=== PATIENT | male | born 1960 | race Caucasian/White ===

== ENCOUNTER 2020-08-10 07:59 | Emergency (ER) | payer OTHER, SELFPAY ==
--- NOTE | 2020-08-10 07:58 | ECG_ITS ---
APPROVED REPORT Exam: Resting ECG HR:101 bpm ECG Measurements Heart Rate 101 AXES HI 176 P 39 QRSd 80 QRS -6 QT 360 T 50 QTc 466 Conclusion Sinus tachycardia Septal infarct, age undetermined Abnormal ECG Electronically signed by : Jasvir Steele, 08/11/2020 09:59:06
[2020-08-10 08:00] VITALS: BP 169/92; PULSE 103; RESP 16; TEMP 37.2; O2SAT 98; BMI 34.4
--- NOTE | 2020-08-10 08:02 | HMH.EDGENADL ---
ED Disposition Clinical Impression: Chest pain Qualifiers: Chest pain type: unspecified Qualified Code(s): R07.9 - Chest pain, unspecified Disposition: Home Health Service Condition on Discharge: Good Instructions: DI for Atypical Chest Pain Additional Instructions: Please follow-up as scheduled next week for stress testing/event monitor. If any new or recurrent symptoms prior to that time please immediately return back to the emergency department. Referrals: PCP,No [Primary Care Provider] - - Critical Care Critical Care Time: No Attestation: On , the high probability of a clinically significant, sudden or life threatening deterioration of the following system(s) required my full and direct attention, intervention and personal management. The time I documented below is in addition to time spent performing reported procedures but includes the following listed in this critical care notation. Medical Decision Making - Medical Records Medical records reviewed: Yes: I reviewed the patient's medical records. - Mark Inquiry Pt receiving controlled substance: No Vital Signs: 08/10/20 08:00 08/10/20 08:48 08/10/20 10:20 Temperature 98.9 F Temperature Source Oral Pulse Rate [Radial] 103 H 63 59 L Respiratory Rate 16 16 18 Blood Pressure [Right Arm] 169/92 H 130/78 113/65 Blood Pressure Mean [Right Arm] 117 95 81 Blood Pressure Position [Right Arm] Sitting 02 Sat by Pulse Oximetry 98 96 95 Oxygen Delivery Method Room Air Room Air Room Air 08/10/20 10:58 Temperature Temperature Source Pulse Rate [Radial] 55 L Respiratory Rate 16 Blood Pressure [Right Arm] 113/71 Blood Pressure Mean [Right Arm] 85 Blood Pressure Position [Right Arm] 02 Sat by Pulse Oximetry 97 Oxygen Delivery Method Room Air - Lab Data Lab Results 08/10/20 08:05: WBC 6.4, RBC 5.03, Hgb 16.0, Hct 45.2, MCV 89.8, MCH 31.8 H, MCHC 35.4, RDW 13.5, Plt Count 215, MPV 7.8, Neut % (Auto) 43.7, Lymph % (Auto) 49.1, Pitt % (Auto) 4.8, Eos % (Auto) 1.8, Baso % (Auto) 0.5, Neut # (Auto) 2.8, Lymph # (Auto) 3.1, Pitt # (Auto) 0.3, Eos # (Auto) 0.1, Baso # (Auto) 0.0 08/10/20 08:05: Sodium 139, Potassium 3.8, Chloride 106, Carbon Dioxide 25, Anion Gap 11.8, BUN 25 H, Creatinine 1.10, Estimated Creat Clear 101, Estimated GFR 68, Est GFR ( Amer) 83, Glucose 113 H, Calcium 9.4, Troponin I < 0.01 08/10/20 08:05: SARS-CoV-2 IgG Ab (Rapid) Negative, SARS-CoV-2 IgM Ab (Rapid) Negative 08/10/20 08:05: Magnesium 2.1, TSH 1.88 08/10/20 08:05: D-Dimer 0.75 H 08/10/20 11:15: Troponin I < 0.01 Result diagrams: 08/10/20 08:05 08/10/20 08:05 Orders (Tests/Meds): ED MEDICATIONS Discontinued Medications Generic Name Dose Route Start Last Admin Trade Name Freq PRN Reason Stop Dose Admin Aspirin 324 mg 08/10/20 08:21 08/10/20 08:24 Aspirin 81mg Chewable Tablet PO 08/10/20 08:22 324 mg ONCE ONE Administration Iopamidol 75 ml 08/10/20 10:41 08/10/20 10:43 Iopamidol-370 (76%);100ml Bottle IV 08/10/20 10:42 75 ml ONCE ONE Administration Sodium Chloride 10 ml 08/10/20 10:41 08/10/20 10:43 Sodium Chloride 0.9% 10ml Syr (Rad Only) IV 08/10/20 10:42 10 ml ONCE ONE Administration Sodium Chloride 50 ml 08/10/20 10:41 08/10/20 10:43 0.9 % Sodium Chloride 50 Ml Vial IV 08/10/20 10:42 50 ml ONCE ONE Administration ORDERS Category Date Time Status Troponin I Q3H Lab 08/10/20 14:15 Ordered - ECG Data Tracing #1 I reviewed this ECG and interpreted as documented below: EKG demonstrates sinus rhythm at a rate of 101 bpm; axis normal; no acute ST elevation/depression; QTC 466 ms; QRS 80 ms; MI interval 176 ms Medical Decision Narrative: Patient presents to the emergency department with complaints of palpitations that lasted several seconds this morning. On arrival, patient does have a sinus rhythm at a normal rate without any abnormal heart sounds. EKG demonstrates no acute ischemic pr
--- NOTE | 2020-08-10 08:06 | XR_ITS ---
PROCEDURE: XR CHEST 2V CLINICAL HISTORY: chest pain Left-sided chest pain COMPARISON: No exams were available for comparison FINDINGS: The cardiomediastinal silhouette and pulmonary vascularity are within normal limits. The lungs are clear without infiltrates, suspicious nodules, or pleural effusions. There is mild lower thoracic scoliosis convex right with degenerative changes in the spine IMPRESSION: No acute findings. Dictated by: Yaron George MD 08/10/2020 08:42 Yaron George MD in [facility] 08/10/2020 08:42
[2020-08-10 08:13] LABS: Basophils % 0.5 % (0.1-2.0); Eosinophils # 0.1 K/mm3 (0.0-0.4); Eosinophils % 1.8 % (0.1-12.0); Hematocrit 45.2 % (42.0-52.0); Lymphocytes # 3.1 K/mm3 (0.7-4.5); Lymphocytes % 49.1 % (10-50); Mean Corpuscular HGB Conc 35.4 g/dL (31.8-35.4); Mean Corpuscular Hemoglobin 31.8 pg (27.0-31.2); Mean Corpuscular Volume 89.8 fl (80-94); Mean Platelet Volume 7.8 fl (7.4-10.4); Monocytes # 0.3 K/mm3 (0.1-1.0); Monocytes % 4.8 % (1.7-9.3); Neutrophils # 2.8 K/mm3 (1.8-7.8); Neutrophils % 43.7 % (37.0-80.0); Platelet Count 215 K/mm3 (142-424); Red Blood Count 5.03 M/mm3 (4.60-6.20); Red Cell Distribution Width 13.5 % (11.5-17.5); White Blood Count 6.4 K/mm3 (4.8-10.8)
[2020-08-10 08:19] LABS: Anion Gap 11.8 mEq/L (5-15); Blood Urea Nitrogen 25 mg/dl (9-20); Calcium 9.4 mg/dl (8.4-10.2); Carbon Dioxide 25 mmol/L (22.0-30.0); Chloride 106 mmol/L (98-107); Creatinine Clearance Estimated 101 mL/min (50-200); Estimated Glomerular Filt Rate 68 ml/min (>60); GFR (African American) 83 ML/MIN (>60); Glucose 113 mg/dl (74-100); Potassium 3.8 mmoL/L (3.5-5.1); Sodium 139 mmol/L (136-145)
[2020-08-10 08:31] LABS: Troponin I < 0.01 ng/ml (0.00-0.034)
[2020-08-10 08:48] VITALS: BP 130/78; PULSE 63; RESP 16; O2SAT 96
[2020-08-10 09:05] LABS: Coronavirus 19 IgG Antibody Negative (Negative); Coronavirus 19 IgM Antibody Negative (Negative)
[2020-08-10 09:06] LABS: Magnesium 2.1 mg/dl (1.6-2.3)
[2020-08-10 09:36] LABS: Thyroid Stimulating Hormone 1.88 uIU/mL (0.465-4.68)
[2020-08-10 09:42] LABS: D-Dimer 0.75 ug/mL (0.0-0.5)
--- NOTE | 2020-08-10 10:09 | CT_ITS ---
PROCEDURE: CT ANGIO CHEST CLINCIAL INDICATION: palpitations + positive d dimer COMPARISON: No exams were available for comparison TECHNIQUE: IV Contrast: 70ML Isovue 370 Axial images obtained with sagittal and coronal reformats. All CT scans at the facility use one or more dose reduction, viz: automated exposure control, ma/kV adjustment per patient size (including targeted exams where dose is matched to indication, i.e. head), or iterative reconstruction technique. FINDINGS: HEART AND MEDIASTINAL STRUCTURES: No evidence of pulmonary embolus, aortic aneurysm, or aortic dissection.. Coronary artery calcifications are present LUNGS AND PLEURAL SPACES: There is minimal thickening of the major fissure inferiorly on the left. No lobar consolidation or collapse. Minimal subpleural thickening in the left lower lobe posteriorly Upper abdomen: There are few tiny hypodensities in the left hepatic lobe nonspecific too small to categorize. Small diaphragmatic hernia noted posteriorly on the left medially containing a small amount peritoneal fat. Bony structures: Unremarkable. ADDITIONAL FINDINGS: No other significant abnormalities. IMPRESSION: No acute finding. No evidence of pulmonary embolus Dictated by: Yaron George MD 08/10/2020 11:01 Yaron George MD in [facility] 08/10/2020 11:01
[2020-08-10 10:20] VITALS: BP 113/65; PULSE 59; RESP 18; O2SAT 95
[2020-08-10 10:58] VITALS: BP 113/71; PULSE 55; RESP 16; O2SAT 97
[2020-08-10 11:52] LABS: Troponin I < 0.01 ng/ml (0.00-0.034)
[2020-08-10 12:15] VITALS: BP 110/62; PULSE 68; RESP 16; TEMP 37; O2SAT 98
== END 2020-08-10 12:17 | disposition home health service (06) ==
PROVIDERS: Emergency Provider Emergency Medicine
DX: R07.9 Chest pain, unspecified (principal); Z01.84 Encounter for antibody response examination; Z86.718 Personal history of other venous thrombosis and embolism
CPT/HCPCS: 71046; 71275; 80048; 83735; 84443; 84484; 85025; 85378; 86328; 93005; 99283; Q9967

== ENCOUNTER → 2022-09-10 07:33 | Outpatient (CLI) | payer OTHER, SELFPAY ==
[2022-09-10 07:53] LABS: Basophils # 0.1 K/mm3 (0-0.2); Basophils % 1.3 % (0.1-2.0); Eosinophils # 0.2 K/mm3 (0.0-0.4); Eosinophils % 3.1 % (0.1-12.0); Hematocrit 46.5 % (42.0-52.0); Hemoglobin 15.2 g/dL (14.1-18.0); Lymphocytes # 2.7 K/mm3 (0.7-4.5); Lymphocytes % 46.6 % (10-50); Mean Corpuscular HGB Conc 32.7 g/dL (31.8-35.4); Mean Corpuscular Hemoglobin 31.3 pg (27.0-31.2); Mean Corpuscular Volume 95.6 fl (80-94); Mean Platelet Volume 7.5 fl (7.4-10.4); Monocytes # 0.4 K/mm3 (0.1-1.0); Monocytes % 7.4 % (1.7-9.3); Neutrophils # 2.4 K/mm3 (1.8-7.8); Neutrophils % 41.5 % (37.0-80.0); Platelet Count 192 K/mm3 (142-424); Red Blood Count 4.86 M/mm3 (4.60-6.20); Red Cell Distribution Width 13.6 % (11.5-17.5); White Blood Count 5.8 K/mm3 (4.8-10.8)
[2022-09-10 08:13] LABS: Chloride 110 mmol/L (98-107); Sodium 140 mmol/L (136-145)
[2022-09-10 08:14] LABS: Potassium 4.5 mmoL/L (3.5-5.1)
[2022-09-10 08:16] LABS: Alanine Aminotransferase 35 U/L (12-78); Alkaline Phosphatase 71 U/L (38-126); Anion Gap 8.5 mEq/L (5-15); Aspartate Amino Transferase 26 U/L (17-59); Bilirubin,Total 0.6 mg/dl (0.2-1.3); Blood Urea Nitrogen 24 mg/dl (9-20); Carbon Dioxide 26 mmol/L (22.0-30.0); Cholesterol 191 mg/dl (140-200); Estimated Glomerular Filt Rate 76 ml/min (>60); GFR (African American) 92 ML/MIN (>60); Triglycerides 105 mg/dl (30-150); VLDL Cholesterol 21 mg/dL (0-40)
[2022-09-10 08:17] LABS: Albumin/Globulin Ratio 1.5 (1.1-1.8); Calcium 8.3 mg/dl (8.4-10.2); Chol/HDL Ratio 3.8 (1-3.5); Globulin 2.6 g/dL (1.3-3.2); Glucose 97 mg/dl (74-100); HDL Cholesterol 50 mg/dl (40-60); Total Protein,Serum 6.6 g/dl (6.3-8.2)
[2022-09-10 08:28] LABS: Direct LDL Cholesterol 131.18 mg/dL (100-129)
[2022-09-10 08:48] LABS: Thyroid Stimulating Hormone 1.72 uIU/mL (0.465-4.68)
[2022-09-10 09:17] LABS: Prostate Specific Ag Screen 0.4 ng/ml (0.0-4.0)
== END ==
PROVIDERS: PCP Nurse Practitioner Family; Visit Provider Nurse Practitioner Family
DX: E78.5 Hyperlipidemia, unspecified (principal); R53.83 Other fatigue; Z12.5 Encounter for screening for malignant neoplasm of prostate
CPT/HCPCS: 36415; 80053; 80061; 84443; 85025; G0103

== ENCOUNTER 2022-11-10 17:30 | Outpatient (RCR) | payer OTHER, SELFPAY ==
--- NOTE | 2022-09-22 10:52 | HMH.PTOPEV ---
PT Outpatient Evaluation Rehab PT Outpatient Evaluation Start: 09/22/22 09:55 Freq: Status: Active Protocol: Document 09/22/22 09:56 SHELBY (Rec: 09/22/22 10:52 SHELBY [id number]) E-signed By Lynnette Ritter, PT Outpatient Therapy Subjective History Subjective History Pt is a 62 y/o male who reports intermittent LBP for ~ 15 years. Pt reports recent exacerbation of pain and new symptoms such as referral to the posterior legs in December- January of 2022. Pt reports pain was referred into the right posterior leg first, then recently started in both legs. Pt reports intermittent sharp , shooting pain to the right calf as well that is brief in nature. Pt denies paresthesia or symptoms in his feet. Pt denies incontinence but reports when he has low back pain he has increased urgency to urinate. 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 Pt reports pain is usually worse after periods of inactivity such as in the morning and after prolonged sitting then walking. Pt reports he sleeps on his stomach at night time. Pt reports he had a lumbar xray at the [facility] in January. Per MD reports, Previous L-spine x- ray reveals moderate to severe degenerative disc disease with moderate facet arthritis in the lumbar spine. Degenerative grade 1 anterior lithiasis of L4 for mild degenerative retrolithiasis of L1 and L2. Mild scoliosis convex to the left. Pt reports he was prescribed Naproxen which he is still taking and a 10 day steroid pack which he finished. Pt reports steroids helped a lot
--- NOTE | 2022-10-23 18:08 | HMH.RHREAS ---
Rehab Reassessment Rehab OP Re-assessment Start: 10/20/22 14:25 Freq: Status: Active Protocol: Document 10/23/22 16:43 ADRAMILA (Rec: 10/23/22 18:08 SHELBY [id number]) E-signed By Lynnette Ritter PT Rehab Re-assessment Subjective Subjective Pt reports he has been very busy at work which is why he hasn't been to PT in 2 weeks. Pt reports he has been compliant with his HEP which does help improve pain. Pt reports he feels 40% improved overall since starting PT. Pt reports pain at worst as 7/10 within the last week likely due to an increased workload. Pt reports some hamstring cramps but otherwise denies distal symptoms. Pt reports he feels like he has better mobility overall but still has pain with twisting while squatting at work. Objective Objective Notes Lumbar AROM: flex 100, ext 20, RLF 25, LLF 20 LE MMT: hip abd & ext 4/5 Assessment Progress Assessment Progressing as Expected Assessment Notes Pt has attended 5 PT visits consisting of aerobic exercise , lumbar extension based HEP, LE stretching, core/LE strengthening, manual therapy and modalities with good tolerance. Pt demonstrated improved lumbar AROM, hip strength and overall subjective report of pain this date compared to initial evaluation. Pt would continue to benefit from skilled PT to further improve pain, lumbar AROM, LE MMT, and functional activity tolerance to improve overall QOL. Patient goals met ST/5 Goals Not Met p! severity at worst, LTG Revised Goals n/a Plan Plan Continue initial POC Frequency of Therapy 1-2/weeks Duration of therapy 4 more weeks Time and Billing Re-Eval Time 10 Re-Eval Billing Units 1
== END 2022-11-10 17:35 | disposition home or self-care (01) ==
LOC: PT 17:30
PROVIDERS: PCP Nurse Practitioner Family; Visit Provider Nurse Practitioner Family
DX: M54.50 Low back pain, unspecified (principal)
CPT/HCPCS: 97010; 97014; 97110; 97112; 97140; 97163; 97164; 97530; G0283

== ENCOUNTER 2023-01-26 18:00 | Emergency (ER) | payer OTHER, SELFPAY ==
[2023-01-26 18:02] VITALS: BP 134/80; PULSE 74; RESP 18; TEMP 36.6; O2SAT 99; BMI 32.6
--- NOTE | 2023-01-26 18:26 | EXP.UTC ---
Discharge Plan Disposition Patient Disposition: Home, Self-Care Condition: Good Prescriptions Prescriptions: No Action valacyclovir 500 mg tablet 500 mg PO DAILY 30 Days Qty: 30 2RF prednisone 20 mg tablet 20 mg PO BID 5 Days Qty: 10 0RF tadalafil [Cialis] 5 mg tablet 5 mg PO DAILY Qty: 30 2RF lisinopril 20 mg tablet 20 mg PO DAILY 90 Days Qty: 90 2RF naproxen 500 mg tablet 500 mg PO BID PRN (Reason: pain) Qty: 60 0RF Rx Instructions: Only use as needed Referrals Follow up/Referrals: Fortino Aponte APRN [Primary Care Provider] - See instructions Gee Barrett MD [Staff Physician] - See instructions Activity Restrictions/Add. Instructions Additional Instructions/Restrictions: Follow-up with Dr. Barrett as recommended. Return to emergency department for worsening pain vomiting or any other concerns within the next 8 hours Clinical Impressions Clinical Impression: Renal colic Discharge ED Provider: Travis Bryson [facility] HPI <Turner [place] APRN - Last Filed: 02/05/23 20:11> General Chief complaint: PAIN Stated complaint: possible kidney stone Mode of Arrival: Ambulatory Source of Information: Patient Limitations: No Limitations Time Seen by Provider: 01/26/23 18:25 Description of Symptoms (Recalled from Triage Doc. by RN): Patient reports a possible kidney stone. States he was diagnosed with his first kidney stone 2 months ago and does not know if he passed it or not. Complaint of frequent urination and pain with urination. HEENT Symptoms (Recalled from RN notes): No Resp Symptoms (Recalled from RN notes): No Skin Symptoms (Recalled from RN notes): No MS Symptoms (Recalled from RN notes): No Functional Status (Recalled from RN notes): wnl Related Data Previous Rx's Medication Instructions Recorded valacyclovir 500 mg tablet 500 mg PO DAILY 30 days #30 tabs 08/29/22 prednisone 20 mg tablet 20 mg PO BID 5 days #10 tabs 11/28/22 tadalafil 5 mg tablet (Cialis) 5 mg PO DAILY #30 tabs 11/28/22 lisinopril 20 mg tablet 20 mg PO DAILY 90 days #90 tabs 01/12/23 naproxen 500 mg tablet 500 mg PO BID PRN pain #60 tabs 01/29/23 Allergies Allergy/AdvReac Type Severity Reaction Status Date / Time No Known Allergies Allergy Verified 11/28/22 14:39 Worker's Comp Is this a Worker's Comp case?: No <Travis Bryson MD - Last Filed: 01/26/23 20:13> History of Present Illness Provider Complaint: 62-year-old male presents with right flank pain for 1 day. He says he was diagnosed with a kidney stone 36 days ago and had pain for a while but it did improve he says he never passed a kidney stone. No worsening hematuria dysuria or fevers. No other radiation of the pain. No nausea vomiting headaches. PFSH <Turner [place] APRN - Last Filed: 02/05/23 20:11> [facility] Disclaimer: The information contained in this section may have been updated after the patient was seen, as this information can be updated by other users. Medical History Back pain Numbness and tingling of both lower extremities Family History (Updated 01/26/23 @ 19:00 by Xochitl Tanner RN) Other No significant family history Social History (Updated 01/26/23 @ 19:00 by Xochitl Tanner RN) Smoking Status: Never smoker alcohol intake: current substance use type: denies use current occupational status: employed and disabled Travel in the last 8 weeks: None household members: spouse housing: house marital status: education level: other service: Yes <Travis Bryson MD - Last Filed: 01/26/23 20:13> ROS Obtained: Yes All systems reviewed & no additional complaints except as documented Constitutional Constitutional: Denies fatigue, Denies fever(s) and Denies headache(s) Eyes Eyes: Denies diplopia ENT Ears, Nose, Mouth, and Throat: Denies headache(s) Cardiovascular Cardiovascular: Denies diaphoresis and Denies dyspnea Respiratory Resp
[2023-01-26 18:30] VITALS: BP 140/83; PULSE 70; RESP 17; TEMP 36.6; O2SAT 97; BMI 32.5
--- NOTE | 2023-01-26 18:33 | CT_ITS ---
PROCEDURE INFORMATION: Exam: CT Abdomen And Pelvis Without Contrast Exam date and time: 01/26/2023 6:41 PM Age: 62 years old Clinical indication: Abdominal pain; Flank; Left; Additional info: Kidney stone protocol TECHNIQUE: Imaging protocol: Computed tomography of the abdomen and pelvis without contrast. Radiation optimization: All CT scans at this facility use at least one of these dose optimization techniques: automated exposure control; mA and/or kV adjustment per patient size (includes targeted exams where dose is matched to clinical indication); or iterative reconstruction. REPORTING DATA: Count of CT and Cardiac NM exams in prior 12 months: This patient has received 0 known CTs and 0 known cardiac nuclear medicine studies in the 12 months prior to the current study. COMPARISON: CT ANGIO CHEST 08/10/2020 10:30 AM FINDINGS: Lungs: The visualized lung bases are clear. Pleural spaces: There are no pleural effusions. Heart: The visualized portions of the heart are unremarkable. There is no evidence of pericardial fluid collections. Diaphragm: There is a small fat containing left posteromedial diaphragmatic hernia measuring approximately 2.5 x 2.0 by 2.2 cm. Liver: There is mild enlargement of the liver. The liver measures 18.2 cm in CC dimension. Evaluation of the liver is limited without contrast but the liver is otherwise within normal limits for this noncontrast study. Gallbladder and bile ducts: The gallbladder is normal. Pancreas: Noncontrast images of the pancreas are within range of normal. Spleen: The spleen is normal. Adrenal glands: The adrenal glands are normal. Kidneys and ureters: There is a distal right ureteral calcification above the ureterovesicular junction measuring 5.2 mm resulting in mild hydroureteronephrosis and [id number] perinephric and periureteric fat stranding. There is mild nonspecific inflammatory left perinephric stranding. Noncontrast images of the left kidney are within range of normal. The left ureter stone disease. Stomach and bowel: The stomach is normal. Lack of gastrointestinal contrast limits evaluation of bowel. Unopacified loops of small bowel are within range of normal. The colon is normal. The duodenum appears normal. Appendix: A normal appendix is identified. Intraperitoneal space: No evidence of intraperitoneal free air. There is no evidence of free intraperitoneal or pelvic fluid. Vasculature: There are a few benign phleboliths in the pelvis. Lymph nodes: No enlarged lymph nodes. Urinary bladder: The bladder is decompressed. There is mild nonspecific bladder wall thickening. Reproductive: The prostate demonstrates nonspecific parenchymal calcifications. The prostate demonstrates mild nonspecific enlargement. The seminal vesicles are normal. Prostate measures 4.0 x 4.6 cm. Bones/joints: The thoracolumbar spine demonstrates mild degenerative changes at multiple levels. There is grade 1 anterior spondylolisthesis of L4 on L5. There is slight retrolisthesis L1 on L2, L2 on L3 and L3 on L4. No acute fracture. Soft tissues: No significant soft tissue edema. Mildly asymmetric fat density in the left inguinal canal suggests small inguinal hernia. There is a tiny fat-containing umbilical hernia. IMPRESSION: 1. Right distal ureteral stone measuring 5.2 mm resulting in mild hydroureteronephrosis and [id number] perinephric and periureteric fat stranding. 2. Mild hepatomegaly. 3. Mild bladder wall thickening suggesting incomplete distention, neoplasm, chronic outflow obstruction or cystitis. 4. Minor nonobstructing left inguinal hernia.
--- NOTE | 2023-01-26 18:38 | PC.NURSE ---
PT TO CT
--- NOTE | 2023-01-26 18:44 | PC.NURSE ---
PT RETURNED FROM CT
[2023-01-26 18:54] LABS: Basophils % 0.1 % (0.1-2.0); Eosinophils # 0.1 K/mm3 (0.0-0.4); Eosinophils % 1.3 % (0.1-12.0); Hematocrit 45.3 % (42.0-52.0); Hemoglobin 14.6 g/dL (14.1-18.0); Lymphocytes % 20.2 % (10-50); Mean Corpuscular HGB Conc 32.2 g/dL (31.8-35.4); Mean Corpuscular Hemoglobin 29.8 pg (27.0-31.2); Mean Corpuscular Volume 92.5 fl (80-94); Monocytes # 0.8 K/mm3 (0.1-1.0); Monocytes % 7.8 % (1.7-9.3); Neutrophils # 7.1 K/mm3 (1.8-7.8); Neutrophils % 70.5 % (37.0-80.0); Platelet Count 181 K/mm3 (142-424); Red Blood Count 4.89 M/mm3 (4.60-6.20); Red Cell Distribution Width 13.3 % (11.5-17.5); White Blood Count 10.1 K/mm3 (4.8-10.8)
[2023-01-26 19:01] VITALS: BP 119/72; PULSE 60; O2SAT 97
[2023-01-26 19:02] LABS: Chloride 106 mmol/L (98-107); Potassium 4.1 mmoL/L (3.5-5.1); Sodium 139 mmol/L (136-145)
[2023-01-26 19:05] LABS: Alanine Aminotransferase 36 U/L (12-78); Albumin Level 4.2 g/dl (3.5-5.0); Albumin/Globulin Ratio 1.4 (1.1-1.8); Alkaline Phosphatase 70 U/L (38-126); Anion Gap 10.1 mEq/L (5-15); Aspartate Amino Transferase 45 U/L (17-59); Bilirubin,Total 0.5 mg/dl (0.2-1.3); Blood Urea Nitrogen 27 mg/dl (9-20); Carbon Dioxide 27 mmol/L (22.0-30.0); Creatinine Clearance Estimated 66 mL/min (50-200); Estimated Glomerular Filt Rate 44 ml/min (>60); GFR (African American) 53 ML/MIN (>60); Globulin 2.9 g/dL (1.3-3.2); Glucose 115 mg/dl (74-100); Total Protein,Serum 7.1 g/dl (6.3-8.2)
[2023-01-26 19:06] LABS: Calcium 8.7 mg/dl (8.4-10.2)
[2023-01-26 19:56] LABS: Microscopic, Urine URINE MICROSCOPIC (MICROSCOPIC)
[2023-01-26 20:04] LABS: Appearance,Urine CLEAR (Clear); Bilirubin,Urine Negative (Negative); Blood, Urine Negative (Negative); Color,Urine YELLOW (Yellow); Glucose,Urine (UA) Negative (Negative); Ketones,Urine Negative (Negative); Leukocyte Esterase,Urine Negative (Negative); Nitrate,Urine Negative (Negative); PH,Urine 5.5 (5.0-8.5); Protein,Urine Negative (Negative); Specific Gravity, Urine >= 1.030 (1.005-1.030); Urobilinogen,Urine 0.2 EU/dl (0.2)
[2023-01-26 20:16] VITALS: BP 120/69; PULSE 64; RESP 18; TEMP 36.6; O2SAT 97
[2023-01-26 20:27] LABS: Calcium Oxalate Crystals,Urine 1+ /lpf; RBC,Urine Occasional #/hpf (0-3); Squamous Epithelial Cell,Urine Occasional #/hpf (0-5); WBC,Urine Occasional #/hpf (0-3)
== END 2023-01-26 20:17 | disposition home or self-care (01) ==
LOC: UTC 18:04 → ER 18:30
PROVIDERS: Nurse Practitioner Family; Emergency Provider Emergency Medicine; PCP Nurse Practitioner Family
DX: N13.2 Hydronephrosis with renal and ureteral calculous obstruction (principal)
CPT/HCPCS: 74176; 80053; 81001; 85025; 87086; 96361; 96374; 96375; 99285; J2405

== ENCOUNTER 2023-10-13 14:31 | Outpatient (CLI) | payer OTHER, SELFPAY ==
--- NOTE | 2023-10-13 14:32 | MR_ITS ---
FINAL REPORT CLINICAL HISTORY: RIGHT SIDED Low Back Pain. BILATERAL LEG PAIN. COMPARISON: None FINDINGS: Multiplanar MR imaging of the lumbar spine was performed without contrast. On the sagittal T2-weighted images, there is abnormal decreased signal throughout the lumbar discs. There is moderate disc space narrowing at L1-2 and L2-3. There is grade 1 spondylolisthesis of L4 and L5. L1-2: Mild disc bulge. Mild bilateral neuroforaminal narrowing. L2-3: Mild diffuse disc bulge. Endplate hypertrophy. Right facet hypertrophy. Moderate to high-grade right and mild to moderate left neuroforaminal narrowing. L3-4: Moderate diffuse disc bulge. Bilateral facet hypertrophy. Moderate right and high-grade left neuroforaminal narrowing. L4-5: Moderate diffuse disc bulge. Bilateral facet hypertrophy. Moderate to high-grade spinal canal compromise best seen on image 21 of series 9. Moderate to high-grade bilateral neuroforaminal narrowing L5-S1: Mild diffuse disc bulge. Left posterolateral disc protrusion. Moderate left neuroforaminal narrowing. IMPRESSION: Multilevel changes of degenerative disc disease, particularly evident on the left at L3-4, bilaterally at L4-5, and on the left at L5-S1. Spinal canal compromise most evident at L4-5. Reviewed, Interpreted and Dictated by Darrius Byrd MD Transcribed by Juliette Mcdonald Authenticated and . [facility]
--- NOTE | 2023-10-13 14:42 | XR_ITS ---
FINAL REPORT CLINICAL HISTORY: HX METAL IN BOTH EYES COMPARISON: None FINDINGS: ORBITS Look up and look down views were obtained. No fracture is identified. No radiopaque foreign body is identified. IMPRESSION: No evidence of radiopaque foreign body. Reviewed, Interpreted and Dictated by Darrius Byrd MD Transcribed by Juliette Mcdonald Authenticated and [facility]
== END 2023-10-13 23:59 ==
LOC: RAD 14:32
PROVIDERS: PCP Nurse Practitioner Family; Visit Provider Nurse Practitioner Family
DX: M54.50 Low back pain, unspecified (principal); R20.0 Anesthesia of skin; R20.2 Paresthesia of skin
CPT/HCPCS: 70200; 72148; 76376

== ENCOUNTER 2023-11-05 15:04 | Outpatient (POV) | payer OTHER, SELFPAY ==
[2023-11-05 15:10] VITALS: BP 118/73; PULSE 89; RESP 18; O2SAT 95; BMI 33.4
--- NOTE | 2023-11-05 15:28 | A.OFFVIS_ITS ---
HPI Data of Consult Patient: new to practice Consult date: 11/05/23 Requesting Physician: Lynnette Tovar APRN Primary Care Provider: Fortino Aponte APRN Consult Narrative Reason for consult: Low back pain, bilateral leg pain History of present illness: Mr. Coates is a 63 year old male who presents today as a new patient. He is a referral from Fortino Lawrence's office. Today he rates his pain a 5 out of 10. Patient states his pain is all related to his low back with radiating symptoms into his lower extremities. He does describe this as an aching, throbbing sensation with numbness and tingling. He states this is at least been going on for the past 2 years however states that he has had chronic back pain for years longer than that related to his daily job. 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 He does state the pain interferes with his ability perform activities of daily living such as cooking and cleaning. He states it is worse with certain positions or just increased ambulation. Patient has tried [id number] Tylenol and ibuprofen along with heat and ice and topicals with minimal relief. He has also gone to chiropractor on again off again for the last 25 years with some improvement however as time went on he found this less effective so he does not go as frequently. Patient has also had physical therapy that did provide some improvement. He does continue to do at home exercising and stretching that was guided by his physical therapist with minimal relief. Patient denies any prior back surgery or injection history. He is currently managed with naproxen and states that it will take some of the severity down. He is interested in any help we may be able to provide. His Mark has been reviewed and is appropriate. CC: Lynnette Tovar APRN [facility] Disclaimer: The information contained in this section may have been updated after the patient was seen, as this information can be updated by other users. Medical History (Updated 11/05/23 @ 15:46 by Lynnette Tovar APRN) Numbness and tingling of both lower extremities Back pain Family History Other No significant family history Social History Smoking Status: Never smoker alcohol intake: current substance use type: denies use current occupational status: other Travel in the last 8 weeks: None household members: spouse housing: house marital status: education level: other service: Yes Review of Systems Review of Systems Review of systems:: pertinent systems reviewed and negative unless documented below Review of systems (narrative): Review of Systems: General: No recent weight changes, no fever, no sleep disturbances Respiratory: No cough, no shortness of air, no recurring pulmonary infections Cardiovascular/peripheral vascular: No chest pain, no palpitations, no edema, no shortness of breath Gastrointestinal: No new onset incontinence, normal bowel movements reported Genitourinary: No new onset incontinence Musculoskeletal: Low back pain, bilateral leg pain Psychiatric: [Normal mood/affect] Neurological: [Denies weakness in extremities], [denies balance issues] Meds Home Medications and Allergies Home Medications Medication Instructions Recorded Confirmed Type lisinopril 20 mg tablet 20 mg PO DAILY 90 days #90 tabs 10/23/23 11/05/23 Rx tadalafil 5 mg tablet (Cialis) 5 mg PO DAILY #30 tabs 10/23/23 11/05/23 Rx valacyclovir 500 mg tablet 500 mg PO DAILY 30 days #30 tabs 10/23/23 11/05/23 Rx naproxen 500 mg tablet See Rx Instructions .Route 10/26/23 11/05/23 Rx .COMPLEX #30 tabs prednisone 20 mg tablet See Rx Instructions .Route 10/26/23 11/05/23 Rx .COMPLEX #10 tabs New Prescriptions to Start Prescriptions: Allergies Allergy/AdvReac Type Severity Reaction Status Date / Time No Known Allergies Allergy Verified 11/05/23 15:15 Objective Vital signs: Pulse Resp BP Pulse Ox O2 Del Method 89 18 118/73 95 Room Air 11/05/23 15:10 11/05/23 15:10 11/05/23 15:10 11/05/23 15:10 11/05/23 15:10 Narrative: Physical Exam: General: Alert and oriented x3, no acute distress, pleasant and cooperative Lungs: Respirations even and unlabored, symmetrical chest expansion Eyes: PERRL Musculoskeletal: Flexion and extension of lumbar [spine] somewhat guarded secondary to pain, [antalgic gait noted] Neurological: Speech clear, no gross sensory deficit Additional findings Additional findings: FINDINGS: Multiplanar MR imaging of the lumbar spine was performed without contrast. On the sagittal T2-weighted images, there is abnormal decreased signal throughout the lumbar discs. There is moderate disc space narrowing at L1-2 and L2-3. There is grade 1 spondylolisthesis of L4 and L5. L1-2: Mild disc bulge. Mild bilateral neuroforaminal narrowing. L2-3: Mild diffuse disc bulge. Endplate hypertrophy. Right facet hypertrophy. Moderate to high-grade right and mild to moderate left neuroforaminal narrowing. L3-4: Moderate diffuse disc bulge. Bilateral facet hypertrophy. Moderate right and high-grade left neuroforaminal narrowing. L4-5: Moderate diffuse disc bulge. Bilateral facet hypertrophy. Moderate to high-grade spinal canal compromise best seen on image 21 of series 9. Moderate to high-grade bilateral neuroforaminal narrowing L5-S1: Mild diffuse disc bulge. Left posterolateral disc protrusion. Moderate left neuroforaminal narrowing. IMPRESSION: Multilevel changes of degenerative disc disease, particularly evident on the left at L3-4, bilaterally at L4-5, and on the left at L5-S1. Spinal canal compromise most evident at L4-5. Reviewed, Interpreted and Dictated by Darrius Byrd MD Transcribed by Juliette Mcdonald Authenticated and [facility] Assessment and Plan *Assessment and plan (1) Degenerative disc disease, lumbar: Status: Acute Category: Medical Code(s): M51.36 - Other intervertebral disc degeneration, lumbar region (2) Lumbar radiculopathy: Status: Acute Category: Medical Code(s): M54.16 - Radiculopathy, lumbar region (3) Lumbar spinal stenosis: Status: Acute Qualifiers: Neurogenic claudication status: unspecified Qualified Code(s): M48.061 - Spinal stenosis, lumbar region without neurogenic claudication Category: Medical Code(s): M48.061 - Spinal stenosis, lumbar region without neurogenic claudication Plan Patient is experiencing significant pain in his low back and legs with limited range of motion. Patient did have significant high-grade narrowing at multiple levels of his MRI that was done in September. I have discussed with the patient that I do believe it would be very beneficial to see a neurosurgeon for evaluation. Patient acknowledges understanding and agrees with this plan of care. We will send a referral to Dr. Koenig. I have also discussed with patient that he may benefit from lumbar epidural steroid injection. Risk and benefits were discussed with the patient and he would like to proceed forward with this plan of care. Patient is not on any blood thinners. I will also send in an order of the compounded cream. Patient has tried and failed conservative therapy. Patient will be scheduled for an LESI L4-L5 under fluoroscopy. Patient has been instructed to contact the clinic with any concerns before the next appointment. Dr. Melendez has reviewed this note and agrees with this plan of care. This note was dictated using voice recognition software and make contain errors or omissions.
== END 2023-11-05 23:59 ==
LOC: SC.PAIN 15:04
PROVIDERS: PCP Nurse Practitioner Family; Visit Provider Nurse Practitioner Family
DX: M51.16 Intervertebral disc disorders with radiculopathy, lumbar region (principal); M48.061 Spinal stenosis, lumbar region without neurogenic claudication
CPT/HCPCS: 99202; G0463

== ENCOUNTER 2023-11-24 13:22 | Day surgery (SDC) | payer OTHER, SELFPAY ==
[2023-11-24 13:48] VITALS: BP 151/86; PULSE 80; RESP 18; TEMP 36.4; O2SAT 97; BMI 32.6
[2023-11-24 13:57] VITALS: BP 159/86; PULSE 89; RESP 18; O2SAT 98
[2023-11-24] MEDS: methylPREDNISolone ACETATE 80MG/ML VIAL 80 MG (13:57)
--- NOTE | 2023-11-24 14:01 | EXP.PAIN.PRO ---
Procedure Date: 11/24/23 Time: 14:00 Anesthesiologist:: Anthony Coultre CRNA Complications:: None Pre-procedure Diagnosis:: Degenerative disc lumbar spine multilevels. Lumbar radiculopathy. Post-procedure Diagnosis:: Same. Indications for Procedure:: Patient is a pleasant 63-year-old male comes our clinic today for lumbar epidural steroid injection. Patient reports low back pain as well as mild hip and leg radicular symptoms at times. He rates his pain 7/10. Procedure Details:: Procedure: Lumbar epidural steroid injection under fluoroscopy Informed consent was obtained and the risks and benefits of the procedure were explained to the patient. The patient was taken to the procedure room and noninvasive monitors placed, including noninvasive blood pressure cuff and pulse oximeter. The back was viewed using C-arm Fluoroscopy and prepped using Chloraprep as a cleansing solution and the L4-L5 interspace was palpated. Skin and subcutaneous tissues were anesthetized using lidocaine 1.5% and a 25-gauge needle. After this, an 18-gauge Touhy epidural needle was placed into the L4-L5 interspace and advanced using fluoroscopic guidance and loss of resistance to air until the epidural space was encountered. After confirmation of needle placement in the epidural space, with dye, a solution containing normal saline, 3 mL and Depo-Medrol 80 mg were incrementally injected into the lumbar epidural space. The patient tolerated the procedure well with no complications. The patient was observed in the Pain Clinic and then discharged home neurologically intact. Plan and Disposition:: Patient was discharged without incident.
[2023-11-24 14:03] VITALS: BP 159/86; PULSE 89; RESP 18; O2SAT 98
[2023-11-24 14:08] VITALS: BP 137/71; PULSE 61; RESP 18; O2SAT 97
== END 2023-11-24 14:08 | disposition home or self-care (01) ==
PROVIDERS: PCP Nurse Practitioner Family; Visit Provider Nurse Anesthetist, Certified Registered
DX: M51.16 Intervertebral disc disorders with radiculopathy, lumbar region (principal)
CPT/HCPCS: 62323; J1010

== ENCOUNTER 2023-12-07 14:49 | Outpatient (POV) | payer OTHER, SELFPAY ==
[2023-12-07 15:21] VITALS: BP 121/79; PULSE 90; RESP 18; O2SAT 95; BMI 32.6
--- NOTE | 2023-12-07 15:29 | A.OFFVIS_ITS ---
[facility] Pain Management SOAP Note Subjective:: Patient is a pleasant 63-year-old male who presents today for follow-up of lumbar epidural steroid injection L4-L5 on 11/24/2023. Today he rates that he has had at least 70% improvement following this injection. He states he feels like it is still continuing to provide additional relief. He states that his overall legs have much better improvement with decreased pain symptoms. Today he states the pain in that area is a 3 out of 10 however states that he is still having SI related issues. He does state that he went to the chiropractor yesterday and got adjusted and that the right side is worse than the left. Patient describes it as an aching, throbbing sensation and denies any radiating symptoms into his legs. He does state that the pain interferes with his ability to perform activities of daily living such as cooking and cleaning. Patient states he would like to see about getting improvement in this area as well. Patient has tried [id number] Tylenol and ibuprofen along with heat and ice and topicals and continued at home exercising and stretching and chiropractor th erapy with no additional relief. He is prescribed compounded cream. His Mark has been reviewed and is appropriate. Review of Systems: General: No recent weight changes, no fever, no sleep disturbances Respiratory: No cough, no shortness of air, no recurring pulmonary infections Cardiovascular/peripheral vascular: No chest pain, no palpitations, no edema, no shortness of breath Gastrointestinal: No new onset incontinence, normal bowel movements reported Genitourinary: No new onset incontinence Musculoskeletal: Low back pain, bilateral hip pain Psychiatric: [Normal mood/affect] Neurological: [Denies weakness in extremities], [denies balance issues] Objective:: Physical Exam: General: Alert and oriented x3, no acute distress, pleasant and cooperative Lungs: Respirations even and unlabored, symmetrical chest expansion Eyes: PERRL Musculoskeletal: Flexion and extension of lumbar [spine] somewhat guarded secondary to pain, [antalgic gait noted] point tenderness along bilateral SIs with positive bilateral Manuel's, Rufino's, Gaenslen's, compression and distraction exam Neurological: Speech clear, no gross sensory deficit Assessment:: Degenerative disc disease of lumbar spine with lumbar radiculopathy symptoms, bilateral sacroiliitis, chronic pain syndrome, lumbar spinal stenosis Plan:: Patient is experiencing worsening pain in his low back and bilateral hips with limited range of motion and point tenderness along bilateral SIs. He did also have a positive bilateral Manuel's, Rufino's, Gaenslen's, compression and distraction exam. I have discussed with patient that he may benefit from bilateral SI injection. Risk and benefits were discussed with patient and he would like to proceed forward with this plan of care. Patient has tried and failed conservative therapies with continued at home exercising and stretching between injections and chiropractor therapy. Patient will be scheduled for bilateral SI injections under fluoroscopy. Patient has been instructed to contact the clinic with any concerns before the next appointment. Dr. Melendez has reviewed this note and agrees with this plan of care. This note was dictated using voice recognition software and make contain errors or omissions. [facility] Disclaimer: The information contained in this section may have been updated after the patient was seen, as this information can be updated by other users. Medical History Numbness and tingling of both lower extremities Back pain Family History Other No significant family history Social History Smoking Status: Never smoker alcohol intake: current substance use type: denies use current occupational status: other Travel in the last 8 weeks: None household members: spouse housing: house marital status: education level: other service: Yes
== END 2023-12-07 23:59 | disposition home or self-care (01) ==
LOC: SC.PAIN 14:49
PROVIDERS: PCP Nurse Practitioner Family; Visit Provider Nurse Practitioner Family
DX: M51.16 Intervertebral disc disorders with radiculopathy, lumbar region (principal); M46.1 Sacroiliitis, not elsewhere classified; G89.4 Chronic pain syndrome; M48.061 Spinal stenosis, lumbar region without neurogenic claudication
CPT/HCPCS: 99212; G0463

== ENCOUNTER 2023-12-29 14:06 | Day surgery (SDC) | payer OTHER, SELFPAY ==
[2023-12-29 14:17] VITALS: BP 152/85; PULSE 85; RESP 18; TEMP 36.7; O2SAT 97; BMI 31.9
[2023-12-29] MEDS: methylPREDNISolone ACETATE 80MG/ML VIAL 80 MG (14:21)
[2023-12-29] MEDS: LIDOCAINE 1% 5ML PF VIAL 5 ML (14:21)
[2023-12-29 14:22] VITALS: BP 142/83; PULSE 84; RESP 18; O2SAT 98
[2023-12-29] MEDS: BUPIVACAINE 0.25% 10ML INJ 25 MG IJ (14:22)
[2023-12-29 14:24] VITALS: BP 142/83; PULSE 84; RESP 18; O2SAT 98
--- NOTE | 2023-12-29 14:25 | P.PCN_ITS ---
Procedure Date: 12/29/23 Time: 14:20 Anesthesiologist:: Anthony Coulter CRNA Complications:: None Pre-procedure Diagnosis:: Bilateral sacroiliitis. Post-procedure Diagnosis:: Same. Indications for Procedure:: Patient is a pleasant 63-year-old male comes to clinic today for bilateral sacroiliac joint injections cortisone. Patient describes difficulty transitioning from sitting to standing due to intense posterior hip pain bilaterally. Upon examination patient has extreme point tenderness over the bilateral sacroiliac joints. He describes pain as constant, dull dull, aching. Pain intensifies with ambulation and/or sitting for any length of time. He rates his pain 8/10. Procedure Details:: Procedure: Bilateral sacroiliac joint injections under fluoroscopy Informed consent was obtained and the risks and benefits of the procedure were explained to the patient.~ The patient was taken to the procedure room and noninvasive monitors were placed including a noninvasive blood pressure cuff and pulse oximeter.~ The patient was placed prone on the procedure table. Both hips were cleansed using Betadine as a cleansing solution. C-arm fluoroscopy was used to view the right sacroiliac joint.~ The skin and subcutaneous tissues were ane sthetized using lidocaine 1.5% and a 25-gauge needle.~ After this, a 22-gauge spinal needle was inserted under fluoroscopic guidance into the inferior aspect of the right sacroiliac joint.~ Omnipaque dye was injected and good spread was seen throughout the joint.~ After this, approximately 5 mL of bupivacaine, 0.25% and Depo-Medrol, 40 mg was incrementally injected into the right sacroiliac joint. We then moved to the left sacroiliac joint.~ The skin and subcutaneous tissues were anesthetized using lidocaine 1.5% and a 25-gauge needle.~ After this, a 22- gauge spinal needle was inserted under fluoroscopic guidance into the inferior aspect of the left sacroiliac joint.~ Omnipaque dye was injected and good spread was seen throughout the joint. After this, approximately 5 mL of bupivacaine, 0. 25% and Depo-Medrol, 40 mg was incrementally injected into the left sacroiliac joint.~ The patient tolerated the procedure well with no complications. The patient was observed in the Pain Clinic and then was discharged home neurologically intact. Plan and Disposition:: Patient was discharged without incident.
[2023-12-29 14:28] VITALS: BP 108/78; PULSE 76; RESP 18; O2SAT 97
== END 2023-12-29 14:30 | disposition home or self-care (01) ==
PROVIDERS: PCP Nurse Practitioner Family; Visit Provider Nurse Anesthetist, Certified Registered
DX: M46.1 Sacroiliitis, not elsewhere classified (principal)
CPT/HCPCS: 27096; G0260; J1010

== ENCOUNTER 2024-01-14 15:00 | Outpatient (POV) | payer OTHER, SELFPAY ==
[2024-01-14 15:06] VITALS: BP 139/84; PULSE 84; RESP 16; O2SAT 97; BMI 32.6
--- NOTE | 2024-01-14 15:18 | EXP.PAIN.SOA ---
[facility] Disclaimer: The information contained in this section may have been updated after the patient was seen, as this information can be updated by other users. Medical History Numbness and tingling of both lower extremities Back pain Family History Other No significant family history Social History Smoking Status: Never smoker alcohol intake: current substance use type: denies use current occupational status: other Travel in the last 8 weeks: None household members: spouse housing: house marital status: education level: other service: Yes PM Subjective & Objective Subjective Subjective:: Patient is a pleasant 53-year-old male who presents today for follow-up of bilateral SI injection on 12/29/2023. Today he rates his pain a 6 out of 10. Patient denies any new trauma or injury. He does state that these injections did seem to help however he feels like the prior lumbar epidural did better than the Z[place] diet. Patient is writing at least 50% improvement. Patient does state that he feels like the pain is much more manageable now between the last 2 injections. He states the pain is not as severe and he does have improved function from when he originally came in. Patient does state that he uses On a daily basis however feels like he has been on it so long that it really does not seem to work as long. He has been prescribed compounded cream and still uses this with some improvement. His Mark has been reviewed and is appropriate. Review of Systems: General: No recent weight changes, no fever, no sleep disturbances Respiratory: No cough, no shortness of air, no recurring pulmonary infections Cardiovascular/peripheral vascular: No chest pain, no palpitations, no edema, no shortness of breath Gastrointestinal: No new onset incontinence, normal bowel movements reported Genitourinary: No new onset incontinence Musculoskeletal: Low back pain Psychiatric: [Normal mood/affect] Neurological: [Denies weakness in extremities], [denies balance issues] Pain at rest (0-10 scale): 6 Objective Objective:: Physical Exam: General: Alert and oriented x3, no acute distress, pleasant and cooperative Lungs: Respirations even and unlabored, symmetrical chest expansion Eyes: PERRL Musculoskeletal: Flexion and extension of lumbar [spine] somewhat guarded secondary to pain, [antalgic gait noted] Neurological: Speech clear, no gross sensory deficit Has patient had previous pain injection?: Yes Percent improvement in pain since last injection: 50 Conservative treatment options previously tried: NSAIDS Length of treatment: Longer than 6 weeks and Home exercise plan Length of treatment: Longer than 6 weeks Meds Home Medications and Allergies Home Medications Medication Instructions Recorded Confirmed Type lisinopril 20 mg tablet 20 mg PO DAILY 90 days #90 tabs 10/23/23 01/14/24 Rx tadalafil 5 mg tablet (Cialis) 5 mg PO DAILY #30 tabs 10/23/23 01/14/24 Rx prednisone 20 mg tablet See Rx Instructions .Route 11/14/23 01/14/24 Rx .COMPLEX #10 tabs valacyclovir 500 mg tablet See Rx Instructions .Route 11/27/23 01/14/24 Rx .COMPLEX #30 tabs naproxen 500 mg tablet See Rx Instructions .Route 12/30/23 01/14/24 Rx .COMPLEX #30 tabs New Prescriptions to Start Prescriptions: Allergies Allergy/AdvReac Type Severity Reaction Status Date / Time No Known Allergies Allergy Verified 11/24/23 13:48 Assessment and Plan *Assessment and plan (1) Lumbar spinal stenosis: Status: Acute Qualifiers: Neurogenic claudication status: unspecified Qualified Code(s): M48.061 - Spinal stenosis, lumbar region without neurogenic claudication Category: Medical Code(s): M48.061 - Spinal stenosis, lumbar region without neurogenic claudication (2) Lumbar radiculopathy: Status: Acute Category: Medical Code(s): M54.16 - Radiculopathy, lumbar region (3) Degenerative disc disease, lumbar: Status: Acute Category: Medical Code(s): M51.36 - Other intervertebral disc degeneration, lumbar region Plan I have discussed with the patient that I will send in a 14-day supply of the diclofenac 75 mg twice daily and baclofen 5 mg 3 times daily as needed. Patient was counseled to try these medications at different times to ensure that he does not have a reaction. Patient was counseled to discontinue the naproxen while trying the diclofenac and to take it with food to minimize GI upset. Patient acknowledges understanding and agrees with this plan of care. Patient will return to clinic in 1 month for reevaluation of symptoms and plan of care. Patient has been instructed to contact the clinic with any concerns before the next appointment. Dr. Melendez has reviewed this note and agrees with this plan of care. This note was dictated using voice recognition software and make contain errors or omissions.
== END 2024-01-14 23:59 | disposition home or self-care (01) ==
PROVIDERS: PCP Nurse Practitioner Family; Visit Provider Nurse Practitioner Family
DX: M54.16 Radiculopathy, lumbar region (principal); M48.061 Spinal stenosis, lumbar region without neurogenic claudication; M51.36 Other intervertebral disc degeneration, lumbar region
CPT/HCPCS: 99212; G0463

== ENCOUNTER 2024-02-11 13:55 | Outpatient (POV) | payer OTHER, SELFPAY ==
[2024-02-11 14:01] VITALS: BP 135/79; PULSE 84; RESP 16; O2SAT 95; BMI 32.6
--- NOTE | 2024-02-11 14:10 | A.OFFVIS_ITS ---
[facility] Disclaimer: The information contained in this section may have been updated after the patient was seen, as this information can be updated by other users. Medical History Numbness and tingling of both lower extremities Back pain Family History Other No significant family history Social History Smoking Status: Never smoker alcohol intake: current substance use type: denies use current occupational status: other Travel in the last 8 weeks: None household members: spouse housing: house marital status: education level: other service: Yes PM Subjective & Objective Subjective Subjective:: Patient is a pleasant 63-year-old male who presents today for follow-up. Today he rates his pain a 4 out of 10 currently however he stated this morning it was a 7 out of 10. Patient denies any new trauma or injury. He states the pain got a little bit better because he did take his diclofenac and that he used a TENS unit before coming to the office. Patient does state that he feels like the pain is officially back from his prior lumbar epidural injection that was in the beginning of November. He does describe his pain as an aching, throbbing sensation with numbness and tingling going down his legs. Patient does state that pain interferes with his ability to perform activities of daily living such as cooking and cleaning. Patient does state when that injection was working well he had significant improvement of 70% and that he has not had the leg issues until the last couple of weeks. Patient would like to repeat this injection as it did significantly improve his overall function. Patient does also state that he needs refills on the diclofenac 75 mg twice a day. The baclofen he states that he was prescribed that he is only taken it a couple of times but denies any side effects and states he does not need refills on this. His Mark has been reviewed and is appropriate. Review of Systems: General: No recent weight changes, no fever, no sleep disturbances Respiratory: No cough, no shortness of air, no recurring pulmonary infections Cardiovascular/peripheral vascular: No chest pain, no palpitations, no edema, no shortness of breath Gastrointestinal: No new onset incontinence, normal bowel movements reported Genitourinary: No new onset incontinence Musculoskeletal: Low back pain, leg pain Psychiatric: [Normal mood/affect] Neurological: [Denies weakness in extremities], [denies balance issues] Pain at rest (0-10 scale): 7 Objective Objective:: Physical Exam: General: Alert and oriented x3, no acute distress, pleasant and cooperative Lungs: Respirations even and unlabored, symmetrical chest expansion Eyes: PERRL Musculoskeletal: Flexion and extension of lumbar [spine] somewhat guarded secondary to pain, [antalgic gait noted] Neurological: Speech clear, no gross sensory deficit Has patient had previous pain injection?: No Conservative treatment options previously tried: Home exercise plan Length of treatment: Longer than 6 weeks and Prescription medications Length of treatment: Longer than 6 weeks Meds Home Medications and Allergies Home Medications ?Medication ?Instructions ?Recorded ?Confirmed ?Type lisinopril 20 mg tablet 20 mg PO DAILY 90 days #90 tabs 10/23/23 02/11/24 Rx tadalafil 5 mg tablet (Cialis) 5 mg PO DAILY #30 tabs 10/23/23 02/11/24 Rx baclofen 5 mg tablet 5 mg PO TID #42 tabs 01/14/24 02/11/24 Rx diclofenac sodium 75 mg 75 mg PO BID #28 tabs 01/28/24 02/11/24 Rx tablet,delayed release New Prescriptions to Start Prescriptions: Allergies Allergy/AdvReac Type Severity Reaction Status Date / Time No Known Allergies Allergy Verified 11/24/23 13:48 Assessment and Plan *Assessment and plan (1) Lumbar radiculopathy: Status: Acute Category: Medical Code(s): M54.16 - Radiculopathy, lumbar region (2) Degenerative disc disease, lumbar: Status: Acute Category: Medical Code(s): M51.36 - Other intervertebral disc degeneration, lumbar region (3) Lumbar spinal stenosis: Status: Acute Qualifiers: Neurogenic claudication status: unspecified Qualified Code(s): M48.061 - Spinal stenosis, lumbar region without neurogenic claudication Category: Medical Code(s): M48.061 - Spinal stenosis, lumbar region without neurogenic claudication Plan Patient is experiencing worsening pain throughout his low back and legs with numbness and tingling. Patient did have limited range of motion of his lumbar spine during today's visit. Patient did previously have 70% relief with his last lumbar epidural that was and november and lasted up until the last couple of weeks. I have discussed the risk and benefits of repeat lumbar epidural steroid injection and he would like to proceed forward with this plan of care. Patient is not on any blood thinners. Patient has tried and failed conservative therapy including continued at home stretching exercise for longer than 6 weeks and betw een injections with no additional changes. We will submit to insurance for repeat lumbar epidural steroid injection L4-L5 under fluoroscopy. I will also refill the patient's diclofenac and provide a 3-month supply of this medication. Patient has been instructed to contact the clinic with any concerns before the next appointment. Dr. Melendez has reviewed this note and agrees with this plan of care. This note was dictated using voice recognition software and make contain errors or omissions. All injections are used with Lidocaine or Bupivacaine and Depo Medrol.
== END 2024-02-11 23:59 | disposition home or self-care (01) ==
PROVIDERS: Visit Provider Nurse Practitioner Family
DX: M51.16 Intervertebral disc disorders with radiculopathy, lumbar region (principal); M48.061 Spinal stenosis, lumbar region without neurogenic claudication; Z73.89 Other problems related to life management difficulty
CPT/HCPCS: 99212; G0463

== ENCOUNTER 2024-02-23 10:40 | Day surgery (SDC) | payer OTHER, SELFPAY ==
[2024-02-23 10:56] VITALS: BP 149/78; BP 154/79; PULSE 61; PULSE 64; RESP 16; RESP 18; TEMP 36.8; O2SAT 95; O2SAT 98; BMI 31.7
[2024-02-23] MEDS: methylPREDNISolone ACETATE 80MG/ML VIAL 80 MG (11:00)
--- NOTE | 2024-02-23 11:05 | EXP.PAIN.PRO ---
Procedure Date: 02/23/24 Time: 11:00 Anesthesiologist:: Anthony Coulter CRNA Complications:: None Pre-procedure Diagnosis:: Degenerative disc lumbar spine multilevels. Lumbar radiculopathy. Lumbar disc bulge L4-5, L5-S1. Post-procedure Diagnosis:: Same. Indications for Procedure:: Patient is a pleasant 63-year-old male comes our clinic today for lumbar epidural steroid injection at the L4-5 level. Patient describes low back pain is constant, dull, aching. Patient's main complaint is bilateral hip and leg radicular symptoms. Patient got moderate improvement in terms of the symptoms with his initial lumbar epidural steroid injection at the L4-5 level. Procedure Details:: Procedure: Lumbar epidural steroid injection under fluoroscopy Informed consent was obtained and the risks and benefits of the procedure were explained to the patient. The patient was taken to the procedure room and noninvasive monitors placed, including noninvasive blood pressure cuff and pulse oximeter. The back was viewed using C-arm Fluoroscopy and prepped using Chloraprep as a cleansing solution and the L4-L5 interspace was palpated. Skin and subcutaneous tissues were anesthetized using lidocaine 1.5% and a 25-gauge needle. After this, an 18-gauge Touhy epidural needle was placed into the L4-L5 interspace and advanced using fluoroscopic guidance and loss of resistance to air until the epidural space was encountered. After confirmation of needle placement in the epidural space, with dye, a solution containing normal saline, 3 mL and Depo-Medrol 80 mg were incrementally injected into the lumbar epidural space. The patient tolerated the procedure well with no complications. The patient was observed in the Pain Clinic and then discharged home neurologically intact. Plan and Disposition:: Patient was discharged out incident.
[2024-02-23 11:06] VITALS: BP 147/78; PULSE 59; RESP 16; O2SAT 98
== END 2024-02-23 11:06 | disposition home or self-care (01) ==
PROVIDERS: PCP Nurse Practitioner Family; Visit Provider Nurse Anesthetist, Certified Registered
DX: M51.16 Intervertebral disc disorders with radiculopathy, lumbar region (principal)
CPT/HCPCS: 62323; J1010

== ENCOUNTER 2024-03-26 19:18 | Emergency (ER) | payer OTHER, SELFPAY ==
[2024-03-26 19:25] VITALS: BP 135/79; PULSE 66; RESP 20; TEMP 36.6; O2SAT 98; BMI 31.9
--- NOTE | 2024-03-26 19:36 | EXP.UTC ---
Discharge Plan Disposition Patient Disposition: Home, Self-Care Condition: Good Prescriptions Prescriptions: No Action lisinopril 20 mg tablet 20 mg PO DAILY 90 Days Qty: 90 2RF Referrals Follow up/Referrals: Fortino Aponte APRN [Primary Care Provider] - See instructions Activity Restrictions/Add. Instructions Additional Instructions/Restrictions: benadryl as needed steroids follow up with pcp- may need med changed if worsen or no improvement return monitor uses of soap/detergent/lotion?- see if this could be cause Clinical Impressions Clinical Impression: Rash Instructions Patient Instructions: DI for Rash, Summertime Rashes: Poison [place], [place], and [place] Print Language Print Language: Pashto Discharge ED [facility]andler [facility] HPI General Stated complaint: swelling itching on hands and feet Mode of Arrival: Ambulatory Source of Information: Patient Limitations: No Limitations Time Seen by Provider: 03/26/24 19:37 Description of Symptoms (Recalled from Triage Doc. by RN): PATIENT C/O ITCHING AND SWOLLEN SPOTS TO HANDS AND FEET X 3 DAYS HEENT Symptoms (Recalled from RN notes): No Resp Symptoms (Recalled from RN notes): No Skin Symptoms (Recalled from RN notes): Yes MS Symptoms (Recalled from RN notes): No Functional Status (Recalled from RN notes): WNL History of Present Illness Provider Complaint: 63 yr old male presents for swelling patches, itching on hands and feet for 1 1/2 that comes and goes. pt states he will get a red area that raises up starts to itch, then more will follow. pt states worsen on hands Related Data Previous Rx's ?Medication ?Instructions ?Recorded lisinopril 20 mg tablet 20 mg PO DAILY 90 days #90 tabs 10/23/23 Allergies Allergy/AdvReac Type Severity Reaction Status Date / Time No Known Allergies Allergy Verified 11/24/23 13:48 Worker's Comp Is this a Worker's Comp case?: No [facility] Disclaimer: The information contained in this section may have been updated after the patient was seen, as this information can be updated by other users. Medical History (Reviewed 03/26/24 @ 19:39 by Chandler Priest ([facility]), INVESTIGATIVE AGENT) Numbness and tingling of both lower extremities Back pain Family History (Reviewed 03/26/24 @ 19:39 by Chandler Priest ([facility]), INVESTIGATIVE AGENT) No significant family history Social History (Reviewed 03/26/24 @ 19:39 by Chandler Priest ([facility]), INVESTIGATIVE AGENT) Smoking Status: Never smoker alcohol intake: current substance use type: denies use current occupational status: other Travel in the last 8 weeks: None household members: spouse housing: house marital status: education level: other service: Yes ROS Obtained: Yes All systems reviewed & no additional complaints except as documented Constitutional Constitutional: Reports system reviewed and no additional complaints, except as documented Eyes Eyes: Reports system reviewed and no additional complaints, except as documented ENT Ears, Nose, Mouth, and Throat: Reports system reviewed and no additional complaints, except as documented Cardiovascular Cardiovascular: Reports system reviewed and no additional complaints, except as documented Respiratory Respiratory: Reports system reviewed and no additional complaints, except as documented Gastrointestinal Gastrointestingal: Reports system reviewed and no additional complaints, except as documented Musculoskeletal Musculoskeletal: Reports system reviewed and no additional complaints, except as documented Integumentary/Breasts Skin/Breast: Reports system reviewed and no additional complaints, except as documented, Reports as per HPI, Reports pruritus and Reports rash Neurologic Neurologic: Reports system reviewed and no additional complaints, except as documented Endocrine Endocrine: Reports system reviewed and no additional complaints, except as documented Allergic/Immunologic Allergic/Immunologic: Reports system reviewed and no additional complaints, except as documented Physical Exam General General appearance: alert and in no apparent distress Head Head exam: atraumatic Eye Eye exam: Present normal appearance and PERRL ENT ENT exam: Present normal exam, normal oropharynx, mucous membranes moist and TM's normal bilaterally Respiratory Respiratory exam: Present normal lung sounds bilaterally Cardiovascular Cardiovascular exam: Present regular rate and normal rhythm Neurological Exam Neurological exam: Present alert and oriented X3 Skin Skin exam: Present warm and rash Expanded Skin Exam Type of lesion: Present rash Distribution: involves palms/soles, LUE, RUE and other (ankle) Lymphatic Lymphatic Findings: no adenopathy Medical Decision Making Medical Records Medical records reviewed: Yes I reviewed the patient's medical records. Mark Inquiry Pt receiving controlled substance: No Mark was queried for this patient: No Vital Signs: 03/26/24 19:25 Temperature 97.9 F Temperature Source Oral Pulse Rate [Left Brachial] 66 Respiratory Rate 20 Blood Pressure [Left Arm] 135/79 Blood Pressure Mean [Left Arm] 97 Blood Pressure Source [Left Arm] Automatic Cuff Blood Pressure Position [Left Arm] Sitting 02 Sat by Pulse Oximetry 98 Oxygen Delivery Method Room Air Orders (Tests/Meds): ED MEDICATIONS Generic Name Dose Route Start Last Admin Trade Name Freq PRN Reason Stop Dose Admin Dexamethasone Sodium Phosphate 4 mg 03/26/24 19:34 Dexamethasone 4mg/Ml 1ml Vial IM 03/26/24 19:35 ONCE ONE
[2024-03-26] MEDS: DEXAMETHASONE 4MG/ML 1ML VIAL 4 MG IM (19:38)
[2024-03-26 19:45] VITALS: BP 135/79; PULSE 66; RESP 20; TEMP 36.6; O2SAT 98
== END 2024-03-26 19:47 | disposition home or self-care (01) ==
PROVIDERS: Emergency Provider Nurse Practitioner Family; PCP Nurse Practitioner Family
DX: R21 Rash and other nonspecific skin eruption (principal); L29.9 Pruritus, unspecified
CPT/HCPCS: 96372; 99204; 99212; G0463; J1100

== ENCOUNTER 2024-04-06 14:37 | Outpatient (POV) | payer OTHER, SELFPAY ==
[2024-04-06 14:57] VITALS: BP 126/74; PULSE 74; RESP 16; O2SAT 98; BMI 31.9
--- NOTE | 2024-04-06 15:13 | A.OFFVIS_ITS ---
[facility] Disclaimer: The information contained in this section may have been updated after the patient was seen, as this information can be updated by other users. Medical History (Reviewed 03/26/24 @ 19:39 by Chandler Priest ([facility]), CURRICULUM CONSULTANT) Numbness and tingling of both lower extremities Back pain Family History (Reviewed 03/26/24 @ 19:39 by Chandler Priest ([facility]), CURRICULUM CONSULTANT) No significant family history Social History (Reviewed 03/26/24 @ 19:39 by Chandler Priest ([facility] CURRICULUM CONSULTANT) Smoking Status: Never smoker alcohol intake: current substance use type: denies use current occupational status: other Travel in the last 8 weeks: None household members: spouse housing: house marital status: education level: other service: Yes PM Subjective & Objective Subjective Subjective:: Patient is a pleasant 63-year-old male who presents today for follow-up of lumbar epidural steroid injection L4-L5 on 02/23/2024. He does rate his pain today a 7 out of 10 however states a lot of that is at other areas. Patient does state he had 60% improvement following this injection and feels like it is still providing additional relief. Patient does state that he feels like his pain is much more tolerable now. Patient is currently managed with diclofenac 75 mg twice a day. He denies any side effects from this medication. His Mark has been reviewed and is appropriate. Review of Systems: General: No recent weight changes, no fever, no sleep disturbances Respiratory: No cough, no shortness of air, no recurring pulmonary infections Cardiovascular/peripheral vascular: No chest pain, no palpitations, no edema, no shortness of breath Gastrointestinal: No new onset incontinence, normal bowel movements reported Genitourinary: No new onset incontinence Musculoskeletal: Low back pain Psychiatric: [Normal mood/affect] Neurological: [Denies weakness in extremities], [denies balance issues] Pain at rest (0-10 scale): 7 Objective Objective:: Physical Exam: General: Alert and oriented x3, no acute distress, pleasant and cooperative Lungs: Respirations even and unlabored, symmetrical chest expansion Eyes: PERRL Musculoskeletal: Flexion and extension of lumbar [spine] somewhat guarded secondary to pain, [antalgic gait noted] Neurological: Speech clear, no gross sensory deficit Has patient had previous pain injection?: Yes Percent improvement in pain since last injection: More than 60% Conservative treatment options previously tried: Home exercise plan Length of treatment: Longer than 6 weeks Meds Home Medications and Allergies Home Medications ?Medication ?Instructions ?Recorded ?Confirmed ?Type lisinopril 20 mg tablet 20 mg PO DAILY 90 days #90 tabs 10/23/23 04/06/24 Rx prednisone 20 mg tablet 20 mg PO BID #10 tabs 03/26/24 04/06/24 Rx New Prescriptions to Start Prescriptions: Allergies Allergy/AdvReac Type Severity Reaction Status Date / Time No Known Allergies Allergy Verified 11/24/23 13:48 Assessment and Plan *Assessment and plan (1) Lumbar radiculopathy: Status: Acute Category: Medical Code(s): M54.16 - Radiculopathy, lumbar region (2) Lumbar spinal stenosis: Status: Acute Qualifiers: Neurogenic claudication status: unspecified Qualified Code(s): M48.061 - Spinal stenosis, lumbar region without neurogenic claudication Category: Medical Code(s): M48.061 - Spinal stenosis, lumbar region without neurogenic claudication (3) Degenerative disc disease, lumbar: Status: Acute Category: Medical Code(s): M51.36 - Other intervertebral disc degeneration, lumbar region Plan Patient has had significant improvement following his lumbar epidural and does not require any additional injection therapy at this time. I will send in a 90- day supply of his anti-inflammatory. Patient will return to clinic in 6 weeks for reevaluation of symptoms and plan of care. Patient has been instructed to contact the clinic with any concerns before the next appointment. Dr. Melendez has reviewed this note and agrees with this plan of care. This note was dictated using voice recognition software and make contain errors or omissions. All injections are used with Lidocaine or Bupivacaine and Depo Medrol.
== END 2024-04-06 23:59 | disposition home or self-care (01) ==
PROVIDERS: PCP Nurse Practitioner Family; Visit Provider Nurse Practitioner Family
DX: M51.16 Intervertebral disc disorders with radiculopathy, lumbar region (principal); M48.061 Spinal stenosis, lumbar region without neurogenic claudication
CPT/HCPCS: 99212; G0463

== ENCOUNTER 2024-05-19 13:08 | Outpatient (POV) | payer OTHER, SELFPAY ==
[2024-05-19 14:05] VITALS: BP 149/87; PULSE 59; RESP 18; O2SAT 97; BMI 32.6
--- NOTE | 2024-05-19 14:14 | A.OFFVIS_ITS ---
[facility] Disclaimer: The information contained in this section may have been updated after the patient was seen, as this information can be updated by other users. 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 Today he rates his pain a 8 out of 10. Patient denies any new trauma or injury. Patient is complaining of worsening pain in his low back and legs. He describes it as an aching, throbbing sensation with numbness and tingling going down his legs. Patient does state that pain interferes with his ability to perform activities of daily living such as cooking and cleaning. Patient does state when that injection was working well he had significant improvement of 60%. Patient is managed with diclofenac 75 mg twice a day. His Mark has been reviewed and is appropriate. Review of Systems: General: No recent weight changes, no fever, no sleep disturbances Respiratory: No cough, no shortness of air, no recurring pulmonary infections Cardiovascular/peripheral vascular: No chest pain, no palpitations, no edema, no shortness of breath Gastrointestinal: No new onset incontinence, normal bowel movements reported Genitourinary: No new onset incontinence Musculoskeletal: Low back pain, leg pain Psychiatric: [Normal mood/affect] Neurological: [Denies weakness in extremities], [denies balance issues] Pain at rest (0-10 scale): 8 Objective Objective:: Physical Exam: General: Alert and oriented x3, no acute distress, pleasant and cooperative Lungs: Respirations even and unlabored, symmetrical chest expansion Eyes: PERRL Musculoskeletal: Flexion and extension of lumbar [spine] somewhat guarded secondary to pain, [antalgic gait noted] Neurological: Speech clear, no gross sensory deficit Has patient had previous pain injection?: No Conservative treatment options previously tried: Home exercise plan Length of treatment: Longer than 12 weeks Meds Home Medications and Allergies Home Medications ?Medication ?Instructions ?Recorded ?Confirmed ?Type lisinopril 20 mg tablet 20 mg PO DAILY 90 days #90 tabs 10/23/23 05/19/24 Rx diclofenac sodium 75 mg 75 mg PO BID #180 tabs 04/06/24 05/19/24 Rx tablet,delayed release prednisone 20 mg tablet 20 mg PO BID #10 tabs 04/11/24 05/19/24 Rx New Prescriptions to Start Prescriptions: Allergies Allergy/AdvReac Type Severity Reaction Status Date / Time No Known Allergies Allergy Verified 11/24/23 13:48 Assessment and Plan *Assessment and plan (1) Lumbar spinal stenosis: Status: Acute Qualifiers: Neurogenic claudication status: unspecified Qualified Code(s): M48.061 - Spinal stenosis, lumbar region without neurogenic claudication Category: Medical Code(s): M48.061 - Spinal stenosis, lumbar region without neurogenic claudication (2) Lumbar radiculopathy: Status: Acute Category: Medical Code(s): M54.16 - Radiculopathy, lumbar region (3) Degenerative disc disease, lumbar: Status: Acute Category: Medical Code(s): M51.36 - Other intervertebral disc degeneration, lumbar region Plan Patient is experiencing worsening pain throughout his low back and bilateral legs with numbness and tingling. Patient did have limited range of motion of his lumbar spine. Patient did previously have 60% relief with his last lumbar epidural that was in february and lasted up until the week or so. I have discussed the risk and benefits of repeat lumbar epidural steroid injection and he would like to proceed forward with this plan of care. Patient is not on any blood thinners. Patient has tried and failed conservative therapy including continued at home stretching exercise for longer than 12 weeks. We will submit to insurance for repeat lumbar epidural steroid injection L4-L5 under fluoroscopy. Patient has been instructed to contact the clinic with any concerns before the next appointment. Dr. Melendez has reviewed this note and agrees with this plan of care. This note was dictated using voice recognition software and make contain errors or omissions. All injections are used with Lidocaine or Bupivacaine and Depo Medrol.
== END 2024-05-19 23:59 | disposition home or self-care (01) ==
LOC: SC.PAIN 13:09
PROVIDERS: PCP Nurse Practitioner Family; Visit Provider Nurse Practitioner Family
DX: M48.061 Spinal stenosis, lumbar region without neurogenic claudication (principal); M51.16 Intervertebral disc disorders with radiculopathy, lumbar region; Z73.89 Other problems related to life management difficulty
CPT/HCPCS: 99212; G0463

== ENCOUNTER 2024-06-07 11:26 | Day surgery (SDC) | payer OTHER, SELFPAY ==
[2024-06-07 11:37] VITALS: BP 152/87; PULSE 99; RESP 16; TEMP 36.9; O2SAT 97; BMI 32.6
[2024-06-07] MEDS: methylPREDNISolone ACETATE 80MG/ML VIAL 80 MG (11:58)
[2024-06-07 11:59] VITALS: BP 175/88; PULSE 101; RESP 18; O2SAT 96
--- NOTE | 2024-06-07 12:01 | P.PCN_ITS ---
Procedure Date: 06/07/24 Time: 11:55 Anesthesiologist:: Anthony Coulter CRNA Complications:: None Pre-procedure Diagnosis:: Degenerative disc lumbar spine multilevels. Lumbar radiculopathy. Post-procedure Diagnosis:: Same. Indications for Procedure:: Patient is a pleasant 64-year-old male who comes our clinic today for repeat lumbar epidural steroid injections L4-5 level. Patient describes low back pain as constant, dull, aching. Bilateral hip pain as well. He had significant improvement terms of the symptoms without previous L4-5 lumbar epidural steroid injection. He rates his pain 8/10. Procedure Details:: Procedure: Lumbar epidural steroid injection under fluoroscopy Informed consent was obtained and the risks and benefits of the procedure were explained to the patient. The patient was taken to the procedure room and noninv asive monitors placed, including noninvasive blood pressure cuff and pulse oximeter. The back was viewed using C-arm Fluoroscopy and prepped using Chloraprep as a cleansing solution and the L4-L5 interspace was palpated. Skin and subcutaneous tissues were anesthetized using lidocaine 1.5% and a 25-gauge needle. After this, an 18-gauge Touhy epidural needle was placed into the L4-L5 interspace and advanced using fluoroscopic guidance and loss of resistance to air until the epidural space was encountered. After confirmation of needle placement in the epidural space, with dye, a solution containing normal saline, 3 mL and Depo-Medrol 80 mg were incrementally injected into the lumbar epidural space. The patient tolerated the procedure well with no complications. The patient was observed in the Pain Clinic and then discharged home neurologically intact. Plan and Disposition:: Patient was discharged without incident.
[2024-06-07 12:03] VITALS: BP 175/88; PULSE 101; RESP 18; O2SAT 96
[2024-06-07 12:06] VITALS: BP 137/78; PULSE 64; RESP 16; O2SAT 98
== END 2024-06-07 12:06 | disposition home or self-care (01) ==
PROVIDERS: PCP Nurse Practitioner Family; Visit Provider Nurse Anesthetist, Certified Registered
DX: M51.16 Intervertebral disc disorders with radiculopathy, lumbar region (principal)
CPT/HCPCS: 62323; J1010

== ENCOUNTER 2024-06-29 13:31 | Outpatient (POV) | payer OTHER, SELFPAY ==
--- NOTE | 2024-06-29 14:00 | A.OFFVIS_ITS ---
[facility] Disclaimer: The information contained in this section may have been updated after the patient was seen, as this information can be updated by other users. Medical History Numbness and tingling of both lower extremities Back pain Family History Other No significant family history Social History Smoking Status: Never smoker alcohol intake: current substance use type: denies use current occupational status: other Travel in the last 8 weeks: None household members: spouse housing: house marital status: education level: other service: Yes PM Subjective & Objective Subjective Subjective:: Patient is a pleasant 64-year-old male who presents today for follow-up of lumbar epidural steroid injection L4-L5 on 06/07/2024. Today he rates his pain a 6 out of 10. He denies any new trauma or injury. Patient does state that he has had at least 75% improvement and feels like it is still working well. Patient does state that he has been able to increase his activity with overall decreased pain and feels much more functional. Patient denies any other changes from our last appointment. His Mark has been reviewed and is appropriate. Review of Systems: General: No recent weight changes, no fever, no sleep disturbances Respiratory: No cough, no shortness of air, no recurring pulmonary infections Cardiovascular/peripheral vascular: No chest pain, no palpitations, no edema, no shortness of breath Gastrointestinal: No new onset incontinence, normal bowel movements reported Genitourinary: No new onset incontinence Musculoskeletal: Low back pain Psychiatric: [Normal mood/affect] Neurological: [Denies weakness in extremities], [denies balance issues] Pain at rest (0-10 scale): 6 Objective Objective:: Physical Exam: General: Alert and oriented x3, no acute distress, pleasant and cooperative Lungs: Respirations even and unlabored, symmetrical chest expansion Eyes: PERRL Musculoskeletal: Flexion and extension of lumbar [spine] within normal limits Neurological: Speech clear, no gross sensory deficit Has patient had previous pain injection?: Yes Percent improvement in pain since last injection: 75% Conservative treatment options previously tried: Home exercise plan Length of treatment: Longer than 12 weeks Meds Home Medications and Allergies Home Medications ?Medication ?Instructions ?Recorded ?Confirmed ?Type lisinopril 20 mg tablet 20 mg PO DAILY 90 days #90 tabs 10/23/23 06/07/24 Rx diclofenac sodium 75 mg 75 mg PO BID #180 tabs 04/06/24 06/07/24 Rx tablet,delayed release amlodipine 5 mg tablet (Norvasc) 5 mg PO DAILY #30 tabs 05/31/24 06/07/24 Rx atorvastatin 10 mg tablet 10 mg PO DAILY #30 tabs 05/31/24 06/07/24 Rx prednisone 10 mg tablets in a dose See Rx Instructions PO PER PKG DIR 06/03/24 06/07/24 Rx pack #21 tabs New Prescriptions to Start Prescriptions: Allergies Allergy/AdvReac Type Severity Reaction Status Date / Time No Known Allergies Allergy Verified 05/31/24 13:31 Assessment and Plan *Assessment and plan (1) Degenerative disc disease, lumbar: Status: Acute Category: Medical Code(s): M51.369 - Other intervertebral disc degeneration, lumbar region without mention of lumbar back pain or lower extremity pain (2) Lumbar radiculopathy: Status: Acute Category: Medical Code(s): M54.16 - Radiculopathy, lumbar region Plan Patient has had significant improvement following his injections and does not require any additional injection therapy at this time. Patient will return to clinic in 6 weeks for reevaluation of symptoms and plan of care. Patient has been instructed to contact the clinic with any concerns before the next appointment. Dr. Melendez has reviewed this note and agrees with this plan of care. This note was dictated using voice recognition software and make contain errors or omissions. All injections are used with Lidocaine or Bupivacaine and Depo Medrol.
[2024-06-29 15:27] VITALS: BP 148/78; PULSE 78; RESP 16; O2SAT 98; BMI 32.6
== END 2024-06-29 23:59 | disposition home or self-care (01) ==
LOC: SC.PAIN 13:31
PROVIDERS: PCP Nurse Practitioner Family; Visit Provider Nurse Practitioner Family
DX: M51.16 Intervertebral disc disorders with radiculopathy, lumbar region (principal)
CPT/HCPCS: 99212; G0463

== ENCOUNTER 2024-07-29 09:29 | Outpatient (POV) | payer OTHER, SELFPAY ==
[2024-07-29 09:43] VITALS: BP 132/77; PULSE 79; RESP 14; O2SAT 97; BMI 32.6
--- NOTE | 2024-07-29 12:11 | EXP.PAIN.SOA ---
[facility] Disclaimer: The information contained in this section may have been updated after the patient was seen, as this information can be updated by other users. Medical History Numbness and tingling of both lower extremities Back pain Family History Other No significant family history Social History Smoking Status: Never smoker alcohol intake: current substance use type: denies use current occupational status: other Travel in the last 8 weeks: None household members: spouse housing: house marital status: education level: other service: Yes PM Subjective & Objective Subjective Subjective:: Patient is a pleasant 64-year-old male who presents today for worsening pain. Today he rates his pain an 8 out of 10. He denies any new trauma or injury. He does state that the pain is just been much more severe over the last couple of weeks. Patient states it is all across to his low back and bilateral hips and does go into his glutes. He describes it as a constant aching, throbbing sensation with some new numbness. Patient states that he is interested in injection therapy as in the past he has gotten significant relief through these interventions. Patient previously had a lumbar epidural back in May that did provide more than 75% improvement and had been working well at our last appointment. Patient is still using his muscle relaxers and compounded cream to see if that helps some additionally. He has continued conservative treatment including at home stretching exercise for longer than 12 weeks with no additional improvement. His Mark has been reviewed and is appropriate. Review of Systems: General: No recent weight changes, no fever, no sleep disturbances Respiratory: No cough, no shortness of air, no recurring pulmonary infections Cardiovascular/peripheral vascular: No chest pain, no palpitations, no edema, no shortness of breath Gastrointestinal: No new onset incontinence, normal bowel movements reported Genitourinary: No new onset incontinence Musculoskeletal: Low back pain, bilateral hip pain Psychiatric: [Normal mood/affect] Neurological: [Denies weakness in extremities], [denies balance issues] Pain at rest (0-10 scale): 8 Objective Objective:: Physical Exam: General: Alert and oriented x3, no acute distress, pleasant and cooperative Lungs: Respirations even and unlabored, symmetrical chest expansion Eyes: PERRL Musculoskeletal: Flexion and extension of lumbar [spine] somewhat guarded secondary to pain, [antalgic gait noted] point tenderness along bilateral SIs with positive bilateral Manuel's, Rufino's, Gaenslen's, compression and distraction exam Neurological: Speech clear, no gross sensory deficit Has patient had previous pain injection?: No Conservative treatment options previously tried: Home exercise plan Length of treatment: Longer than 12 weeks Meds Home Medications and Allergies Home Medications ?Medication ?Instructions ?Recorded ?Confirmed ?Type lisinopril 20 mg tablet 20 mg PO DAILY 90 days #90 tabs 10/23/23 07/29/24 Rx diclofenac sodium 75 mg 75 mg PO BID #180 tabs 04/06/24 07/29/24 Rx tablet,delayed release amlodipine 5 mg tablet (Norvasc) 5 mg PO DAILY #30 tabs 05/31/24 07/29/24 Rx atorvastatin 10 mg tablet 10 mg PO DAILY #30 tabs 05/31/24 07/29/24 Rx prednisone 10 mg tablets in a dose See Rx Instructions PO PER PKG DIR 06/03/24 07/29/24 Rx pack #21 tabs New Prescriptions to Start Prescriptions: Allergies Allergy/AdvReac Type Severity Reaction Status Date / Time No Known Allergies Allergy Verified 05/31/24 13:31 Assessment and Plan *Assessment and plan (1) Bilateral sacroiliitis: Status: Acute Category: Medical Code(s): M46.1 - Sacroiliitis, not elsewhere classified Plan Patient is experiencing worsening pain in his low back and bilateral hips with limited range of motion. Patient did have point tenderness along his bilateral SI joints and a positive bilateral Manuel's, Rufino's, Gaenslen's, compression and distraction exam. I did discuss with the patient that I do believe he would benefit from repeat SI injection. Patient did previously have SI injections in December that did provide more significant relief initially of at least 80% however went to about 50% at the 2-week mine. He did get significant improved function with overall decreased pain with that last SI injection and does state he would like to proceed forward with repeat injections. Patient has tried and failed conservative therapy including oral medications, heat and ice, topicals, at home stretching exercise for longer than 12 weeks and in between injections. We will schedule the patient for bilateral SI injections under fluoroscopy. I will also send in a dose of prednisone 20 mg twice daily for 5 days. Patient has been instructed to contact the clinic with any concerns before the next appointment. Dr. Melendez has reviewed this note and agrees with this plan of care. This note was dictated using voice recognition software and make contain errors or omissions. All injections are used with Lidocaine, Bupivacaine and Depo Medrol. Occasionally urine drug screen is needed to verify patient's compliance with our office pain contract. This is ordered based off specific treatments related to chronic pain with the potential to abuse certain medications.
== END 2024-07-29 23:59 | disposition home or self-care (01) ==
PROVIDERS: PCP Nurse Practitioner Family; Visit Provider Nurse Practitioner Family
DX: M46.1 Sacroiliitis, not elsewhere classified (principal)
CPT/HCPCS: 99212; G0463

== ENCOUNTER 2024-08-16 09:14 | Day surgery (SDC) | payer OTHER, SELFPAY ==
[2024-08-16 09:39] VITALS: BP 149/87; PULSE 92; RESP 18; TEMP 36.8; O2SAT 93; BMI 32.6
[2024-08-16 10:01] VITALS: BP 140/74; PULSE 73; RESP 16; TEMP 36.8; O2SAT 93
--- NOTE | 2024-08-16 10:02 | P.PCN_ITS ---
Procedure Date: 08/16/24 Time: 09:45 Anesthesiologist:: Anthony Coulter CRNA Complications:: None Pre-procedure Diagnosis:: Bilateral sacroiliitis Post-procedure Diagnosis:: Same Indications for Procedure:: DifficultyPatient is a pleasant 64-year-old male who comes to clinic today for bilateral sacroiliac joint injections cortisone and local anesthetic. Patient describes low lumbar back pain off the midline bilaterally. Bilateral posterior hip pain. Transitioning from sitting to standing. He rates his pain 8/10. Procedure Details:: Procedure: Bilateral sacroiliac joint injections under fluoroscopy Informed consent was obtained and the risks and benefits of the procedure were explained to the patient.~ The patient was taken to the procedure room and noninvasive monitors were placed including a noninvasive blood pressure cuff and pulse oximeter.~ The patient was placed prone on the procedure table. Both hips were cleansed using Betadine as a cleansing solution. C-arm fluoroscopy was used to view the right sacroiliac joint.~ The skin and subcutaneous tissues were anesthetized using lidocaine 1.5% and a 25-gauge needle.~ After this, a 22-gauge spinal needle was inserted under fluoroscopic guidance into the inferior aspect of the right sacroiliac joint.~ Omnipaque dye was injected and good spread was seen throughout the joint.~ After this, approximately 5 mL of bupivacaine, 0.25% and Depo-Medrol, 40 mg was incrementally injected into the right sacroiliac joint. We then moved to the left sacroiliac joint.~ The skin and subcutaneous tissues were anesthetized using lidocaine 1.5% and a 25-gauge needle.~ After this, a 22- gauge spinal needle was inserted under fluoroscopic guidance into the inferior aspect of the left sacroiliac joint.~ Omnipaque dye was injected and good spread was seen throughout the joint. After this, approximately 5 mL of bupivacaine, 0.25% and Depo-Medrol, 40 mg was incrementally injected into the left sacroiliac joint.~ The patient tolerated the procedure well with no complications. The patient was observed in the Pain Clinic and then was discharged home neurologically intact. Plan and Disposition:: Patient was discharged without incident.
[2024-08-16] MEDS: LIDOCAINE 1% 5ML PF VIAL 5 ML (12:44)
[2024-08-16] MEDS: methylPREDNISolone ACETATE 80MG/ML VIAL 80 MG (12:44)
[2024-08-16] MEDS: BUPIVACAINE 0.25% 10ML INJ 25 MG IJ (12:44)
== END 2024-08-16 10:01 | disposition home or self-care (01) ==
PROVIDERS: PCP Nurse Practitioner Family; Visit Provider Nurse Anesthetist, Certified Registered
DX: M46.1 Sacroiliitis, not elsewhere classified (principal)
CPT/HCPCS: 27096; G0260; J1010

== ENCOUNTER 2024-09-01 10:44 | Outpatient (POV) | payer OTHER, SELFPAY ==
--- NOTE | 2024-09-01 11:59 | A.OFFVIS_ITS ---
[facility] Disclaimer: The information contained in this section may have been updated after the patient was seen, as this information can be updated by other users. Medical History Numbness and tingling of both lower extremities Back pain Family History Other No significant family history Social History (Updated 08/16/24 @ 09:40 by Jing Freitas RN) Smoking Status: Never smoker alcohol intake: current substance use type: denies use current occupational status: other Travel in the last 8 weeks: None household members: spouse housing: house marital status: education level: other service: Yes PM Subjective & Objective Subjective Subjective:: Patient is a pleasant 64-year-old male who presents today for follow-up of bilateral SI injections. Today he rates his pain a 6 out of 10. He does state that he had approximately 80% improvement for the first week and feels like it has gone down some to more about 60%. He states that he has had improvement in his hips. Today he does rate his pain more related to his low back and leg symptoms. He denies any new injury or falls. He does feel like that his last epidural has officially worn off and he is starting to feel more of those same pains. He describes it as an aching, throbbing sensation with numbness and tingling into his lower extremities. He does state that the numbness and tingling does not always go all the way down into his legs to his feet and it does vary. Patient does state that the pain is starting to interfere with his ability to perform activities of daily living such as cooking and cleaning and he would like to see about scheduling for repeat injection. Patient is prescribed compounded cream and has been on muscle relaxers from our office. He denies any side effects. His Mark has been reviewed and is appropriate. Review of Systems: General: No recent weight changes, no fever, no sleep disturbances Respiratory: No cough, no shortness of air, no recurring pulmonary infections Cardiovascular/peripheral vascular: No chest pain, no palpitations, no edema, no shortness of breath Gastrointestinal: No new onset incontinence, normal bowel movements reported Genitourinary: No new onset incontinence Musculoskeletal: Low back pain, leg pain Psychiatric: [Normal mood/affect] Neurological: [Denies weakness in extremities], [denies balance issues] Pain at rest (0-10 scale): 6 Objective Objective:: Physical Exam: General: Alert and oriented x3, no acute distress, pleasant and cooperative Lungs: Respirations even and unlabored, symmetrical chest expansion Eyes: PERRL Musculoskeletal: Flexion and extension of lumbar [spine] somewhat guarded secondary to pain, [antalgic gait noted] positive leg raise Neurological: Speech clear, no gross sensory deficit Has patient had previous pain injection?: Yes Percent improvement in pain since last injection: 80% Conservative treatment options previously tried: Home exercise plan Length of treatment: Longer than 12 weeks Meds Home Medications and Allergies Home Medications ?Medication ?Instructions ?Recorded ?Confirmed ?Type lisinopril 20 mg tablet 20 mg PO DAILY 90 days #90 tabs 10/23/23 08/16/24 Rx atorvastatin 10 mg tablet 10 mg PO DAILY #30 tabs 05/31/24 08/16/24 Rx prednisone 10 mg tablets in a dose See Rx Instructions PO PER PKG DIR 06/03/24 08/16/24 Rx pack #21 tabs prednisone 20 mg tablet 20 mg PO BID #10 tabs 07/29/24 08/16/24 Rx amlodipine 5 mg tablet See Rx Instructions .Route 08/08/24 08/16/24 Rx .COMPLEX #90 tabs diclofenac sodium 75 mg 75 mg PO BID #180 tabs 08/08/24 08/16/24 Rx tablet,delayed release New Prescriptions to Start Prescriptions: Allergies Allergy/AdvReac Type Severity Reaction Status Date / Time No Known Allergies Allergy Verified 08/16/24 09:45 Assessment and Plan *Assessment and plan (1) Lumbar radiculopathy: Status: Acute Category: Medical Code(s): M54.16 - Radiculopathy, lumbar region (2) Degenerative disc disease, lumbar: Status: Acute Category: Medical Code(s): M51.369 - Other intervertebral disc degeneration, lumbar region without mention of lumbar back pain or lower extremity pain Plan Patient is experiencing worsening pain in his low back with numbness and tingling into his lower extremities. Patient did have limited range of motion of his lumbar spine with a positive leg raise. I did discuss with patient that I do believe they would benefit from a lumbar epidural steroid injection. Risk and benefits were discussed with patient and the patient would like to proceed forward with this plan of care. Patient is not on any blood thinners. Patient has tried and failed conservative therapy including continued at home stretching exercise for longer than 12 weeks between injections. Patient did previously have a lumbar epidural back in May that provided 75% relief and lasted longer than 3 months. We will schedule the patient for an LESI L4-L5 under fluoroscopy. Patient has been instructed to contact the clinic with any concerns before the next appointment. Dr. Melendez has reviewed this note and agrees with this plan of care. This note was dictated using voice recognition software and make contain errors or omissions. All injections are used with Lidocaine, Bupivacaine and Depo Medrol. Occasionally urine drug screen is needed to verify patient's compliance with our office pain contract. This is ordered based off specific treatments related to chronic pain with the potential to abuse certain medications.
[2024-09-01 13:34] VITALS: BP 146/78; PULSE 65; RESP 18; O2SAT 96; BMI 32.6
== END 2024-09-01 23:59 | disposition home or self-care (01) ==
LOC: SC.PAIN 10:45
PROVIDERS: PCP Nurse Practitioner Family; Visit Provider Nurse Practitioner Family
DX: M51.16 Intervertebral disc disorders with radiculopathy, lumbar region (principal); Z73.89 Other problems related to life management difficulty
CPT/HCPCS: 99212; G0463

== ENCOUNTER 2024-09-27 08:33 | Day surgery (SDC) | payer OTHER, SELFPAY ==
[2024-09-27 08:43] VITALS: BP 182/96; PULSE 89; RESP 16; TEMP 36.7; O2SAT 98; BMI 31.9
[2024-09-27 09:27] VITALS: BP 169/86; PULSE 75; RESP 15; O2SAT 93
--- NOTE | 2024-09-27 09:32 | EXP.PAIN.PRO ---
Procedure Date: 09/27/24 Time: 09:15 Anesthesiologist:: Anthony Coulter CRNA Complications:: None Pre-procedure Diagnosis:: Degenerative disc lumbar spine multilevels. Lumbar radiculopathy. Post-procedure Diagnosis:: Same. Indications for Procedure:: Patient is a very pleasant 64-year-old male who comes to clinic today for repeat lumbar epidural steroid injection at the L4-5 level. Patient describes low lumbar back pain as well as bilateral hip and leg radicular symptoms at times. He rates his pain 6/10. Procedure Details:: Procedure: Lumbar epidural steroid injection under fluoroscopy Informed consent was obtained and the risks and benefits of the procedure were explained to the patient. The patient was taken to the procedure room and noninvasive monitors placed, including noninvasive blood pressure cuff and pulse oximeter. The back was viewed using C-arm Fluoroscopy and prepped using Chloraprep as a cleansing solution and the L4-L5 interspace was palpated. Skin and subcutaneous tissues were anesthetized using lidocaine 1.5% and a 25-gauge needle. After this, an 18-gauge Touhy epidural needle was placed into the L4-L5 interspace and advanced using fluoroscopic guidance and loss of resistance to air until the epidural space was encountered. After confirmation of needle placement in the epidural space, with dye, a solution containing normal saline, 3 mL and Depo-Medrol 80 mg were incrementally injected into the lumbar epidural space. The patient tolerated the procedure well with no complications. The patient was observed in the Pain Clinic and then discharged home neurologically intact. Plan and Disposition:: Patient was discharged without incident.
[2024-09-27 09:59] VITALS: BP 154/84; PULSE 95; RESP 18; O2SAT 96
[2024-09-27] MEDS: methylPREDNISolone ACETATE 80MG/ML VIAL 80 MG (09:59)
[2024-09-27 10:00] VITALS: BP 154/84; PULSE 95; RESP 18; O2SAT 96
== END 2024-09-27 09:27 | disposition home or self-care (01) ==
LOC: SC.PAINP 08:34
PROVIDERS: PCP Nurse Practitioner Family; Visit Provider Nurse Anesthetist, Certified Registered
DX: M51.16 Intervertebral disc disorders with radiculopathy, lumbar region (principal)
CPT/HCPCS: 62323; J1010

== ENCOUNTER 2024-10-10 09:49 | Outpatient (POV) | payer OTHER, SELFPAY ==
[2024-10-10 09:57] VITALS: BP 156/80; BP 158/87; PULSE 78; RESP 16; O2SAT 97; BMI 32.6
--- NOTE | 2024-10-10 09:57 | EXP.PAIN.SOA ---
[facility] Disclaimer: The information contained in this section may have been updated after the patient was seen, as this information can be updated by other users. Medical History Numbness and tingling of both lower extremities Back pain Family History Other No significant family history Social History Smoking Status: Never smoker alcohol intake: current substance use type: denies use current occupational status: other Travel in the last 8 weeks: None household members: spouse housing: house marital status: education level: other service: Yes PM Subjective & Objective Subjective Subjective:: Patient is a pleasant 64-year-old male who presents today for follow-up of lumbar epidural steroid injection L4-L5 on 09/27/2024. Today he rates his pain a out of 10. Patient states that he did get 90% relief initially from this injection and would still rate 70% improvement on a day-to-day basis. He states that he has been able to increase his activity with overall decreased pain and does feel much more functional. He does still rate his pain today a 7 out of 10 however states there is just 1 spot that between the SI injections and the epidural that it has not been able to reach and it is more related to back pain. Patient states that that is still manageable. Patient is prescribed compounded cream from our office. He denies any side effects. His Mark has been reviewed and is appropriate. Review of Systems: General: No recent weight changes, no fever, no sleep disturbances Respiratory: No cough, no shortness of air, no recurring pulmonary infections Cardiovascular/peripheral vascular: No chest pain, no palpitations, no edema, no shortness of breath Gastrointestinal: No new onset incontinence, normal bowel movements reported Genitourinary: No new onset incontinence Musculoskeletal: Low back pain Psychiatric: [Normal mood/affect] Neurological: [Denies weakness in extremities], [denies balance issues] Pain at rest (0-10 scale): 7 Objective Objective:: Physical Exam: General: Alert and oriented x3, no acute distress, pleasant and cooperative Lungs: Respirations even and unlabored, symmetrical chest expansion Eyes: PERRL Musculoskeletal: Flexion and extension of lumbar [spine] somewhat guarded Neurological: Speech clear, no gross sensory deficit Has patient had previous pain injection?: Yes Percent improvement in pain since last injection: 90% initially and 70% ongoing Conservative treatment options previously tried: Home exercise plan Length of treatment: Longer than 12 weeks Meds Home Medications and Allergies Home Medications ?Medication ?Instructions ?Recorded ?Confirmed ?Type lisinopril 20 mg tablet 20 mg PO DAILY 90 days #90 tabs 10/23/23 10/10/24 Rx atorvastatin 10 mg tablet 10 mg PO DAILY #30 tabs 05/31/24 10/10/24 Rx amlodipine 5 mg tablet See Rx Instructions .Route 08/08/24 10/10/24 Rx .COMPLEX #90 tabs diclofenac sodium 75 mg 75 mg PO BID #180 tabs 08/08/24 10/10/24 Rx tablet,delayed release New Prescriptions to Start Prescriptions: Allergies Allergy/AdvReac Type Severity Reaction Status Date / Time No Known Allergies Allergy Verified 08/16/24 09:45 Assessment and Plan *Assessment and plan (1) Lumbar radiculopathy: Status: Acute Category: Medical Code(s): M54.16 - Radiculopathy, lumbar region (2) Degenerative disc disease, lumbar: Status: Acute Category: Medical Code(s): M51.369 - Other intervertebral disc degeneration, lumbar region without mention of lumbar back pain or lower extremity pain Plan Patient has had significant improvement and does not require any additional injection therapy at this time. Patient will return to clinic in 6 weeks. Patient did have elevated blood pressure during today's visit. He does state that he is on blood pressure medication and did take it this morning. I have counseled him to continue to monitor his blood pressure at home and discuss with his primary care if it does not improve for possible adjustments in his medication. Patient has been instructed to contact the clinic with any concerns before the next appointment. Dr. Melendez has reviewed this note and agrees with this plan of care. This note was dictated using voice recognition software and make contain errors or omissions. All injections are used with Lidocaine, Bupivacaine and Depo Medrol. Occasionally urine drug screen is needed to verify patient's compliance with our office pain contract. This is ordered based off specific treatments related to chronic pain with the potential to abuse certain medications.
== END 2024-10-10 23:59 | disposition home or self-care (01) ==
LOC: SC.PAIN 09:50
PROVIDERS: PCP Nurse Practitioner Family; Visit Provider Nurse Practitioner Family
DX: M51.16 Intervertebral disc disorders with radiculopathy, lumbar region (principal)
CPT/HCPCS: 99212; G0463

== ENCOUNTER 2024-10-25 14:20 | Outpatient (CLI) | payer OTHER, SELFPAY ==
[2024-10-25 15:30] LABS: Basophils % 0.4 % (0.1-2.0); Eosinophils # 0.1 K/mm3 (0.0-0.4); Eosinophils % 1.1 % (0.1-12.0); Hematocrit 40.4 % (42.0-52.0); Lymphocytes # 2.6 K/mm3 (0.7-4.5); Lymphocytes % 36.5 % (10-50); Mean Corpuscular HGB Conc 34.7 g/dL (31.8-35.4); Mean Corpuscular Hemoglobin 31.5 pg (27.0-31.2); Mean Platelet Volume 9.5 fl (7.4-10.4); Monocytes # 0.7 K/mm3 (0.1-1.0); Monocytes % 9.6 % (1.7-9.3); Neutrophils # 3.7 K/mm3 (1.8-7.8); Neutrophils % 52.3 % (37.0-80.0); Platelet Count 210 K/mm3 (142-424); Red Blood Count 4.44 M/mm3 (4.60-6.20); Red Cell Distribution Width 12.8 % (11.5-17.5); White Blood Count 7.1 K/mm3 (4.8-10.8)
[2024-10-25 15:50] LABS: Alanine Aminotransferase 53 U/L (12-78); Albumin Level 4.4 g/dl (3.5-5.0); Alkaline Phosphatase 65 U/L (38-126); Anion Gap 13.9 mEq/L (5-15); Aspartate Amino Transferase 36 U/L (17-59); Bilirubin,Direct 0.2 mg/dl (0.0-0.4); Bilirubin,Indirect 0.2 mg/dL (0.0-0.9); Bilirubin,Total 0.4 mg/dl (0.2-1.3); Bilirubin,Unconjugated 0.2 mg/dL (0.0-1.1); Blood Urea Nitrogen 20 mg/dl (9-20); Calcium 9.4 mg/dl (8.4-10.2); Carbon Dioxide 24 mmol/L (22.0-30.0); Chloride 106 mmol/L (98-107); Cholesterol 170 mg/dl (140-200); Estimated Glomerular Filt Rate 85 ml/min (>60); GFR (African American) 103 ML/MIN (>60); Glucose 96 mg/dl (74-100); HDL Cholesterol 42 mg/dl (40-60); Magnesium 2.3 mg/dl (1.6-2.3); Potassium 3.9 mmoL/L (3.5-5.1); Sodium 140 mmol/L (136-145); Total Protein,Serum 7.1 g/dl (6.3-8.2); Triglycerides 167 mg/dl (30-150); VLDL Cholesterol 33 mg/dL (0-40)
[2024-10-25 16:01] LABS: Direct LDL Cholesterol 88.76 mg/dL (100-129)
[2024-10-25 16:05] LABS: Free T4 (Free Thyroxine) 0.96 ng/dl (0.78-2.19)
[2024-10-25 16:19] LABS: Thyroid Stimulating Hormone 1.43 uIU/mL (0.465-4.68)
--- OUTSIDE RECORDS SUMMARY | 2024-10-27 21:21 | XMS_ITS | Continuity of Care Document ---
Author Name [facility] Organization [facility] Care Team Providers Care Banking Representative Name Role Phone [facility] Unavailable Unavailable Problems Combined list of problems from [facility] and [facility] facilities. It does not include entries that were removed or entered in error. Problem Status Onset Date Problem Type Date of Resolution Comments Source Complaining of erectile dysfunction Active Condition [facility] History of polyp of colon Active Condition Jun 17, 2022 Entered By: JOVANNY BRAN Comment: Cscope 03/10/2022- WNL repeat in 10y (2031) [facility] Hypertension Active Condition [facility] Personal History of Tobacco Use Active Condition [facility] Plantar Fasciitis Active Condition [facility] Tinnitus Active Condition [facility] Vitamin D deficiency Active Condition [facility] Diagnosis: ICD-10-CM H90.3 Sensorineural hearing loss, bilateral Active Diagnosis [facility] Diagnosis: ICD-10-CM Z71.89 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ed counseling Active Diagnosis [facility] Diagnosis: ICD-10-CM Z65.9 Problem related to unspecified psychosocial circumstances Active Diagnosis [facility] Diagnosis: ICD-10-CM I10 Essential (primary) hypertension Active Diagnosis [facility] Medications Combined list of outpatient medications from [facility] and [facility] facilities.Medications provided include 1) outpatient medications from the last 15 months, and 2) patient-reported medications. Medication Details Route Status Patient Instructions Prescription Expires Prescription Number Last Dispense Date Ordering Provider Order Date Order Qty Source ATORVASTATI N CA 10MG TAB TAKE ONE-HALF TABLET BY MOUTH DAILY FOR CHOLESTE ROL -DO NOT DRINK GRAPEFRU IT JUICE WHILE ON THIS DRUG ORAL ACTIVE 05/15/2025 [id number] CASEY GONZALEZ 2023 45 [place] [facility] BACLOFEN 10MG TAB TAKE ONE-HALF TABLET BY MOUTH THREE TIMES A DAY FOR MUSCLE SPASMS ORAL ACTIVE 05/14/2025 [id number] LISACASEYYANE Vance 2023 135 [place] [facility] DICLOFENAC NA 75MG TAB,EC TAKE ONE TABLET BY MOUTH TWICE A DAY NEEDED FOR PAIN/INF LAMMATIO N ORAL ACTIVE 05/14/2025 [id number] 5 LISA CASEY A 2023 90 [place] [facility] LISINOPRIL 40MG TAB TAKE ONE-HALF TABLET BY MOUTH DAILY FOR HIGH BLOOD PRESSURE ORAL ACTIVE 05/14/2025 [id number] 5 CASEY GONZALEZ 2023 45 [place] [facility] LISINOPRIL 40MG TAB TAKE ONE-HALF TABLET BY MOUTH DAILY FOR BLOOD PRESSURE /HEART ORAL 09/13/2023 [id number] 4 RAJESH QUACH 2023 45 [place] [facility] Allergies, Adverse Reactions, Alerts Combined list of allergies from [facility] and [facility] facilities. It does not include entries that were removed or entered in error. Substance Category Reaction Severity Reaction type Status Date Reported Comments Source NUTS Propensity to adverse reactions to substance (finding) Eruption active 8 [facility] Immunizations Combined list of available immunizations from the Department of Defense and Veterans Affairs facilities. Immunization Series Date Given Administered By Site Reaction Lot Number CVX Code Drug Rn Paralegal Status Comments Source INFLUENZA, SPLIT VIRUS, TRIVALENT, PF 2023 [place] MEDINA LEFT DELTO ID [id number] 140 complet ed Completed Series, [place]MIN[place], [place] [facility] COVID-19 (PFIZER), MRNA, LNP-S, BIVALENT BOOSTER, PF, 30 MCG/0.3 ML DOSE 1 2021 NONE 300 complet ed PFR; [id number]; 3 [place] [facility] INFLUENZA, INJECTABLE, QUADRIVALENT, PRESERVATIVE FREE 2021 NONE 150 complet ed Booster for Series, [place] [facility] TDAP 2021 115 complet ed [place] [facility] COVID-19 (PFIZER), MRNA, LNP-S, PF, 30 MCG/0.3 ML DOSE 1 2020 208 complet ed HISTORICA L INFORMATI ON - FROM OTHER REGISTRY, [place] [facility] [place] INFLUENZA, INJECTABLE, QUADRIVALENT, PRESERVATIVE FREE 2020 NONE 150 complet ed [place] [facility] PNEUMOCOCCAL POLYSACCHARID E PPV23 2020 NONE 33 complet ed Completed Series, [place] [facility] COVID-19 (PFIZER), MRNA, LNP-S, PF, 30 MCG/0.3 ML DOSE 2 2020 208 complet ed PFR; [id number]; 1 [place] COVID-19 (PFIZER), MRNA, LNP-S, PF, 30 MCG/0.3 ML DOSE 1 2020 208 complet ed PFR; [id number]; 1 [place] INFLUENZA, INJECTABLE, QUADRIVALENT, PRESERVATIVE FREE 2019 150 complet ed [place] [facility] ZOSTER RECOMBINANT 2 2019 187 complet ed [place] [facility] [place] INFLUENZA, INJECTABLE, QUADRIVALENT, PRESERVATIVE FREE 2018 150 complet ed [place] [facility] [place] ZOSTER RECOMBINANT 1 2018 187 complet ed [place] [facility] [place] HEP A, ADULT 2018 52 complet ed [place] [facility] HEP A, ADULT 2018 52 complet ed [place] [facility] INFLUENZA, SEASONAL, INJECTABLE 2018 141 complet ed [place] [facility] [place] INFLUENZA A & B (HISTORICAL) 2017 88 complet ed [place] [facility] TDAP 2017 115 complet ed [place] [facility] TD(ADULT) UNSPECIFIED FORMULATION 1996 139 complet ed [place] [facility] Results Combined list of recent chemistry, hematology and other laboratory results from [facility] of Defense and [facility] Affairs, ranging from 15 months to all on record, depending upon the facility. Order Name Results Value Reference Range Date Interpretation Specimen Comments Source 25-OH VITAMIN D 25-HYDROXY VITAMIN D3 [MASS/VOLU ME] IN SERUM OR PLASMA 23.4 ng/mL 20.0 - 50.0 05/13 Specimen Type: SERUM Comment: The National Institutes of Health (NIH) recommendat ions state: <12 ng/mL - Deficient 20 - 50 ng/mL - Optimal Levels - adequate for most people. >50 ng/mL - Increased risk of hypercalciu tania/other health problems - clinical correlation is required. These reference ranges represent clinical decision values rather than population- based reference values. Ordering Provider: JACK GONZALEZ A Report Released Date/Time: May 13, 2024 03:24 PM Reporting Lab: [address] Performing Lab: [place] [id number] [place] [address] CBC/PLT LEUKOCYTES [#/VOLUME] IN BLOOD BY AUTOMATED COUNT 7.6 10*3/uL 5.0 - 10.0 05/13 Specimen Type: BLOOD No comment entered. Ordering Provider: JACK GONZALEZ Report Released Date/Time: May 13, 2024 03:24 PM Reporting Lab: [place] [id number] Performing Lab: [place] [id number] [place] [address] CBC/PLT ERYTHROCYT ES [#/VOLUME] IN BLOOD BY AUTOMATED COUNT 4.50 10*6/uL 4.6 - 6.2 05/13 L Specimen Type: BLOOD No comment entered. Ordering Provider: JACK GONZALEZ Report Released Date/Time: May 13, 2024 03:24 PM Reporting Lab: [place] [id number] Performing Lab: [place] [id number] [place] [address] CBC/PLT HEMOGLOBIN [MASS/VOLU ME] IN BLOOD 14.2 g/dL 14.0 - 18.0 05/13 Specimen Type: BLOOD No comment entered. Ordering Provider: JACK GONZALEZ A Report Released Date/Time: May 13, 2024 03:24 PM Reporting Lab: [place] [id number] Performing Lab: [place] [id number] CBC/PLT HEMATOCRIT [VOLUME FRACTION] OF BLOOD BY AUTOMATED COUNT 41.8 42.0 - 52.0 05/13 L Specimen Type: BLOOD No comment entered. Ordering Provider: JACK GONZALEZ A Report Released Date/Time: May 13, 2024 03:24 PM Reporting Lab: [place] [id number] Performing Lab: [address] CBC/PLT MCV [ENTITIC VOLUME] BY AUTOMATED COUNT 92.9 fL 80.0 - 94.0 05/13 Specimen Type: BLOOD No comment entered. Ordering Provider: JACK GONZALEZ A Report Released Date/Time: May 13, 2024 03:24 PM Reporting Lab: [place] [id number] Performing Lab: [place] [id number] CBC/PLT MCH [ENTITIC MASS] BY AUTOMATED COUNT 31.6 pg 27.0 - 31.0 05/13 H Specimen Type: BLOOD No comment entered. Ordering Provider: JACK GONZALEZ IGE A Report Released Date/Time: May 13, 2024 03:24 PM Reporting Lab: [place] [id number] Performing Lab: [place] [phone] [place] [address] CBC/PLT MCHC [MASS/VOLU ME] BY AUTOMATED COUNT 34.0 g/dL 32.0 - 36.0 05/13 Specimen Type: BLOOD No comment entered. Ordering Provider: JACK GONZALEZ A Report Released Date/Time: May 13, 2024 03:24 PM Reporting Lab: [address] [place] [address] Performing Lab: [address] [phone] [facility] CBC/PLT PLATELETS [#/VOLUME] IN BLOOD 188 10*3/uL 150 - 450 05/13 Specimen Type: BLOOD No comment entered. Ordering Provider: JACK GONZALEZ A Report Released Date/Time: May 13, 2024 03:24 PM Reporting Lab: [address] [address] Performing Lab: [address] [address] [facility] CBC/PLT PLATELET MEAN VOLUME [ENTITIC VOLUME] IN BLOOD 9.9 fL 9.0 - 13.1 05/13 Specimen Type: BLOOD No comment entered. Ordering Provider: JACK GONZALEZ A Report Released Date/Time: May 13, 2024 03:24 PM Reporting Lab: [address] [address] Performing Lab: [address] [address] [facility] CBC/PLT ERYTHROCYT E DISTRIBUTI ON WIDTH [ENTITIC VOLUME] BY AUTOMATED COUNT 12.5 11.0 - 16.0 05/13 Specimen Type: BLOOD No comment entered. Ordering Provider: JACK GONZALEZ Report Released Date/Time: May 13, 2024 03:24 PM Reporting Lab: [address] [address] Performing Lab: [address] [address] [facility] CBC/PLT NUCLEATED ERYTHROCYT ES/100 ERYTHROCYT ES IN BLOOD 0.0 0.0 - 0.0 05/13 Specimen Type: BLOOD No comment entered. Ordering Provider: JACK GONZALEZ A Report Released Date/Time: May 13, 2024 03:24 PM Reporting Lab: [address] [address] Performing Lab: [address] [address] [facility] GLYCOHEM OGLOBIN HEMOGLOBIN A1C/HEMOGL OBIN.TOTAL IN BLOOD BY HPLC 5.2 4.4 - 6.4 05/13 Specimen Type: BLOOD Comment: [place] guidelines for A1c interpretat ion: Glycemic control targets are based on Shared Decision Making between clinicians and patients. Criteria used to establish an A1c target recommendat ion can be found at https://www .[place].gov/danny lityandpati entsafety/ and include the use of result accuracy and precision(C V) of the A1c tests clinicians utilize at their own sites of practice. Values obtained from A1C measurement s can vary. For typical A1C assays, a reported value of 7.0 could actually be between 6.72 and 7.28 if measured by a reference method. A reported value of 9.0 could actually be between 8.73 and 9.27. Ref: https://ngs p.org/CAPda ta.asp. The in-house [employer] D-100 analyzer has a historical CV <= 2%. Contact the laboratory for further performance characteris tics of this assay. Ordering Provider: JACK GONZALEZ Report Released Date/Time: May 13, 2024 03:24 PM Reporting Lab: [facility] [address] [address] Performing Lab: [place] [address] [address] [facility] LIPID PROFILE CHOLESTERO L [MASS/VOLU ME] IN SERUM OR PLASMA 234 mg/dL 0 - 199 05/13 H Specimen Type: PLASMA Comment: Estimated Glomerular Filtration Rate (eGFR) calculated using the 2020 Chronic Kidney Disease-Epi demiology (CKD-EPI) Collaborati on creatinine equation; units of measure are mL/min/1.73 m2. Results are only valid for adults (>=18 years) whose serum creatinine is in a steady state. eGFR calculation s are not valid for patients with acute kidney injury and for patients on dialysis. Creatinine- based estimates of kidney function may also be inaccurate in patients with reduced creatinine generation due to decreased muscle mass (e.g., malnutritio n, severe hypoalbumin emia, sarcopenia, chronic neuromuscul ar disease, amputations , severe heart failure or liver disease) and in patients with increased creatinine generation due to increased muscle mass (e.g., muscle builders, anabolic steroids) or increased dietary intake. As drug clearance is proportiona l to total GFR and not GFR indexed to body surface area (BSA), in individuals with a BSA substantial ly different than 1.73 m2, drug dosing should be based on the reported eGFR value de-indexed from BSA by multiplying by the individual' s BSA and dividing by 1.73. CKD is diagnosed based on abnormaliti es of kidney structure or function, present for >3 months, with implication s for health and disease. CKD is classified and staged based on cause, eGFR and albuminuria (quantified as urine albumin to creatinine ratio). An eGFR >60 mL/min/1.73 m2 in the absence of increased urine albumin excretion or structural abnormaliti es does not represent CKD. eGFR CKD Interpretat ion (mL/min/1.7 3 m2) stage >=90 G1 Normal 60-89 G2 Mild decrease 45-59 G3A Mild to moderate decrease 30-44 G3B Moderate to severe decrease 15-29 G4 Severe decrease <15 G5 Kidney failure Ordering Provider: JACK GONZALEZ Report Released Date/Time: May 13, 2024 03:24 PM Reporting Lab: [place] [address] [address] Performing Lab: [place] [address] [address] [facility] LIPID PROFILE TRIGLYCERI DE [MASS/VOLU ME] IN SERUM OR PLASMA 141 mg/dL 0 - 149 05/13 Specimen Type: PLASMA Comment: Estimated Glomerular Filtration Rate (eGFR) calculated using the 2020 Chronic Kidney Disease-Epi demiology (CKD-EPI) Collaborati on creatinine equation; units of measure are mL/min/1.73 m2. Results are only valid for adults (>=18 years) whose serum creatinine is in a steady state. eGFR calculation s are not valid for patients with acute kidney injury and for patients on dialysis. Creatinine- based estimates of kidney function may also be inaccurate in patients with reduced creatinine generation due to decreased muscle mass (e.g., malnutritio n, severe hypoalbumin emia, sarcopenia, chronic neuromuscul ar disease, amputations , severe heart failure or liver disease) and in patients with increased creatinine generation due to increased muscle mass (e.g., muscle builders, anabolic steroids) or increased dietary intake. As drug clearance is proportiona l to total GFR and not GFR indexed to body surface area (BSA), in individuals with a BSA substantial ly different than 1.73 m2, drug dosing should be based on the reported eGFR value de-indexed from BSA by multiplying by the individual' s BSA and dividing by 1.73. CKD is diagnosed based on abnormaliti es of kidney structure or function, present for >3 months, with implication s for health and disease. CKD is classified and staged based on cause, eGFR and albuminuria (quantified as urine albumin to creatinine ratio). An eGFR >60 mL/min/1.73 m2 in the absence of increased urine albumin excretion or structural abnormaliti es does not represent CKD. eGFR CKD Interpretat ion (mL/min/1.7 3 m2) stage >=90 G1 Normal 60-89 G2 Mild decrease 45-59 G3A Mild to moderate decrease 30-44 G3B Moderate to severe decrease 15-29 G4 Severe decrease <15 G5 Kidney failure Ordering Provider: JACK GONZALEZ Report Released Date/Time: May 13, 2024 03:24 PM Reporting Lab: [place] [facility] [address] [address] Performing Lab: [place] [address] [address] [facility] LIPID PROFILE CHOLESTERO L IN HDL [MASS/VOLU ME] IN SERUM OR PLASMA 45 mg/dL 40 - 69 05/13 Specimen Type: PLASMA Comment: Estimated Glomerular Filtration Rate (eGFR) calculated using the 2020 Chronic Kidney Disease-Epi demiology (CKD-EPI) Collaborati on creatinine equation; units of measure are mL/min/1.73 m2. Results are only valid for adults (>=18 years) whose serum creatinine is in a steady state. eGFR calculation s are not valid for patients with acute kidney injury and for patients on dialysis. Creatinine- based estimates of kidney function may also be inaccurate in patients with reduced creatinine generation due to decreased muscle mass (e.g., malnutritio n, severe hypoalbumin emia, sarcopenia, chronic neuromuscul ar disease, amputations , severe heart failure or liver disease) and in patients with increased creatinine generation due to increased muscle mass (e.g., muscle builders, anabolic steroids) or increased dietary intake. As drug clearance is proportiona l to total GFR and not GFR indexed to body surface area (BSA), in individuals with a BSA substantial ly different than 1.73 m2, drug dosing should be based on the reported eGFR value de-indexed from BSA by multiplying by the individual' s BSA and dividing by 1.73. CKD is diagnosed based on abnormaliti es of kidney structure or function, present for >3 months, with implication s for health and disease. CKD is classified and staged based on cause, eGFR and albuminuria (quantified as urine albumin to creatinine ratio). An eGFR >60 mL/min/1.73 m2 in the absence of increased urine albumin excretion or structural abnormaliti es does not represent CKD. eGFR CKD Interpretat ion (mL/min/1.7 3 m2) stage >=90 G1 Normal 60-89 G2 Mild decrease 45-59 G3A Mild to moderate decrease 30-44 G3B Moderate to severe decrease 15-29 G4 Severe decrease <15 G5 Kidney failure Ordering Provider: JACK GONZALEZ Report Released Date/Time: May 13, 2024 03:24 PM Reporting Lab: [place] [facility] [address] [address] Performing Lab: [place] [address] [address] [facility] LIPID PROFILE CHOLESTERO L IN LDL [MASS/VOLU ME] IN SERUM OR PLASMA BY DIRECT ASSAY 197 mg/dL 0 - 100 05/13 H Specimen Type: PLASMA Comment: Estimated Glomerular Filtration Rate (eGFR) calculated using the 2020 Chronic Kidney Disease-Epi demiology (CKD-EPI) Collaborati on creatinine equation; units of measure are mL/min/1.73 m2. Results are only valid for adults (>=18 years) whose serum creatinine is in a steady state. eGFR calculation s are not valid for patients with acute kidney injury and for patients on dialysis. Creatinine- based estimates of kidney function may also be inaccurate in patients with reduced creatinine generation due to decreased muscle mass (e.g., malnutritio n, severe hypoalbumin emia, sarcopenia, chronic neuromuscul ar disease, amputations , severe heart failure or liver disease) and in patients with increased creatinine generation due to increased muscle mass (e.g., muscle builders, anabolic steroids) or increased dietary intake. As drug clearance is proportiona l to total GFR and not GFR indexed to body surface area (BSA), in individuals with a BSA substantial ly different than 1.73 m2, drug dosing should be based on the reported eGFR value de-indexed from BSA by multiplying by the individual' s BSA and dividing by 1.73. CKD is diagnosed based on abnormaliti es of kidney structure or function, present for >3 months, with implication s for health and disease. CKD is classified and staged based on cause, eGFR and albuminuria (quantified as urine albumin to creatinine ratio). An eGFR >60 mL/min/1.73 m2 in the absence of increased urine albumin excretion or structural abnormaliti es does not represent CKD. eGFR CKD Interpretat ion (mL/min/1.7 3 m2) stage >=90 G1 Normal 60-89 G2 Mild decrease 45-59 G3A Mild to moderate decrease 30-44 G3B Moderate to severe decrease 15-29 G4 Severe decrease <15 G5 Kidney failure Ordering Provider: JACK GONZALEZ Report Released Date/Time: May 13, 2024 03:24 PM Reporting Lab: [place] [facility] [address] [address] Performing Lab: [place] [address] [address] [facility] LYME SCREEN BORRELIA BURGDORFER I AB [PRESENCE] IN SERUM BY IMMUNOASSA Y Negative 05/13 Specimen Type: SERUM No comment entered. Ordering Provider: JACK GONZALEZ Report Released Date/Time: May 13, 2024 03:24 PM Reporting Lab: [place] [facility] [address] [facility] [address] Performing Lab: [place] [address] [address] [facility] PANEL 5 CREATININE [MASS/VOLU ME] IN SERUM OR PLASMA 0.99 mg/dL 0.72 - 1.25 05/13 Specimen Type: PLASMA Comment: Estimated Glomerular Filtration Rate (eGFR) calculated using the 2020 Chronic Kidney Disease-Epi demiology (CKD-EPI) Collaborati on creatinine equation; units of measure are mL/min/1.73 m2. Results are only valid for adults (>=18 years) whose serum creatinine is in a steady state. eGFR calculation s are not valid for patients with acute kidney injury and for patients on dialysis. Creatinine- based estimates of kidney function may also be inaccurate in patients with reduced creatinine generation due to decreased muscle mass (e.g., malnutritio n, severe hypoalbumin emia, sarcopenia, chronic neuromuscul ar disease, amputations , severe heart failure or liver disease) and in patients with increased creatinine generation due to increased muscle mass (e.g., muscle builders, anabolic steroids) or increased dietary intake. As drug clearance is proportiona l to total GFR and not GFR indexed to body surface area (BSA), in individuals with a BSA substantial ly different than 1.73 m2, drug dosing should be based on the reported eGFR value de-indexed from BSA by multiplying by the individual' s BSA and dividing by 1.73. CKD is diagnosed based on abnormaliti es of kidney structure or function, present for >3 months, with implication s for health and disease. CKD is classified and staged based on cause, eGFR and albuminuria (quantified as urine albumin to creatinine ratio). An eGFR >60 mL/min/1.73 m2 in the absence of increased urine albumin excretion or structural abnormaliti es does not represent CKD. eGFR CKD Interpretat ion (mL/min/1.7 3 m2) stage >=90 G1 Normal 60-89 G2 Mild decrease 45-59 G3A Mild to moderate decrease 30-44 G3B Moderate to severe decrease 15-29 G4 Severe decrease <15 G5 Kidney failure Ordering Provider: JACK GONZALEZ Report Released Date/Time: May 13, 2024 03:24 PM Reporting Lab: [place] [facility] [address] [facility] [address] Performing Lab: [place] [facility] [address] [address] [facility] PANEL 5 UREA NITROGEN [MASS/VOLU ME] IN SERUM OR PLASMA 18 mg/dL 05/13 Specimen Type: PLASMA Comment: Estimated Glomerular Filtration Rate (eGFR) calculated using the 2020 Chronic Kidney Disease-Epi demiology (CKD-EPI) Collaborati on creatinine equation; units of measure are mL/min/1.73 m2. Results are only valid for adults (>=18 years) whose serum creatinine is in a steady state. eGFR calculation s are not valid for patients with acute kidney injury and for patients on dialysis. Creatinine- based estimates of kidney function may also be inaccurate in patients with reduced creatinine generation due to decreased muscle mass (e.g., malnutritio n, severe hypoalbumin emia, sarcopenia, chronic neuromuscul ar disease, amputations , severe heart failure or liver disease) and in patients with increased creatinine generation due to increased muscle mass (e.g., muscle builders, anabolic steroids) or increased dietary intake. As drug clearance is proportiona l to total GFR and not GFR indexed to body surface area (BSA), in individuals with a BSA substantial ly different than 1.73 m2, drug dosing should be based on the reported eGFR value de-indexed from BSA by multiplying by the individual' s BSA and dividing by 1.73. CKD is diagnosed based on abnormaliti es of kidney structure or function, present for >3 months, with implication s for health and disease. CKD is classified and staged based on cause, eGFR and albuminuria (quantified as urine albumin to creatinine ratio). An eGFR >60 mL/min/1.73 m2 in the absence of increased urine albumin excretion or structural abnormaliti es does not represent CKD. eGFR CKD Interpretat ion (mL/min/1.7 3 m2) stage >=90 G1 Normal 60-89 G2 Mild decrease 45-59 G3A Mild to moderate decrease 30-44 G3B Moderate to severe decrease 15-29 G4 Severe decrease <15 G5 Kidney failure Ordering Provider: JACK GONZALEZ Report Released Date/Time: May 13, 2024 03:24 PM Reporting Lab: [address] [address] Performing Lab: [facility] [address] [facility] PANEL 5 GLUCOSE [MASS/VOLU ME] IN SERUM OR PLASMA 94 mg/dL 74 - 100 05/13 Specimen Type: PLASMA Comment: Estimated Glomerular Filtration Rate (eGFR) calculated using the 2020 Chronic Kidney Disease-Epi demiology (CKD-EPI) Collaborati on creatinine equation; units of measure are mL/min/1.73 m2. Results are only valid for adults (>=18 years) whose serum creatinine is in a steady state. eGFR calculation s are not valid for patients with acute kidney injury and for patients on dialysis. Creatinine- based estimates of kidney function may also be inaccurate in patients with reduced creatinine generation due to decreased muscle mass (e.g., malnutritio n, severe hypoalbumin emia, sarcopenia, chronic neuromuscul ar disease, amputations , severe heart failure or liver disease) and in patients with increased creatinine generation due to increased muscle mass (e.g., muscle builders, anabolic steroids) or increased dietary intake. As drug clearance is proportiona l to total GFR and not GFR indexed to body surface area (BSA), in individuals with a BSA substantial ly different than 1.73 m2, drug dosing should be based on the reported eGFR value de-indexed from BSA by multiplying by the individual' s BSA and dividing by 1.73. CKD is diagnosed based on abnormaliti es of kidney structure or function, present for >3 months, with implication s for health and disease. CKD is classified and staged based on cause, eGFR and albuminuria (quantified as urine albumin to creatinine ratio). An eGFR >60 mL/min/1.73 m2 in the absence of increased urine albumin excretion or structural abnormaliti es does not represent CKD. eGFR CKD Interpretat ion (mL/min/1.7 3 m2) stage >=90 G1 Normal 60-89 G2 Mild decrease 45-59 G3A Mild to moderate decrease 30-44 G3B Moderate to severe decrease 15-29 G4 Severe decrease <15 G5 Kidney failure Ordering Provider: JACK GONZALEZ Report Released Date/Time: May 13, 2024 03:24 PM Reporting Lab: [facility] [address] [address] Performing Lab: [facility] [address] [address] [facility] PANEL 5 SODIUM [MOLES/VOL UME] IN SERUM OR PLASMA 139 mmol/L 136 - 145 05/13 Specimen Type: PLASMA Comment: Estimated Glomerular Filtration Rate (eGFR) calculated using the 2020 Chronic Kidney Disease-Epi demiology (CKD-EPI) Collaborati on creatinine equation; units of measure are mL/min/1.73 m2. Results are only valid for adults (>=18 years) whose serum creatinine is in a steady state. eGFR calculation s are not valid for patients with acute kidney injury and for patients on dialysis. Creatinine- based estimates of kidney function may also be inaccurate in patients with reduced creatinine generation due to decreased muscle mass (e.g., malnutritio n, severe hypoalbumin emia, sarcopenia, chronic neuromuscul ar disease, amputations , severe heart failure or liver disease) and in patients with increased creatinine generation due to increased muscle mass (e.g., muscle builders, anabolic steroids) or increased dietary intake. As drug clearance is proportiona l to total GFR and not GFR indexed to body surface area (BSA), in individuals with a BSA substantial ly different than 1.73 m2, drug dosing should be based on the reported eGFR value de-indexed from BSA by multiplying by the individual' s BSA and dividing by 1.73. CKD is diagnosed based on abnormaliti es of kidney structure or function, present for >3 months, with implication s for health and disease. CKD is classified and staged based on cause, eGFR and albuminuria (quantified as urine albumin to creatinine ratio). An eGFR >60 mL/min/1.73 m2 in the absence of increased urine albumin excretion or structural abnormaliti es does not represent CKD. eGFR CKD Interpretat ion (mL/min/1.7 3 m2) stage >=90 G1 Normal 60-89 G2 Mild decrease 45-59 G3A Mild to moderate decrease 30-44 G3B Moderate to severe decrease 15-29 G4 Severe decrease <15 G5 Kidney failure Ordering Provider: JACK GONZALEZ Report Released Date/Time: May 13, 2024 03:24 PM Reporting Lab: [facility] [address] [address] Performing Lab: [facility] [address] [address] [facility] 5 POTASSIUM [MOLES/VOL UME] IN SERUM OR PLASMA 4.1 mmol/L 3.5 - 5.1 05/13 Specimen Type: PLASMA Comment: Estimated Glomerular Filtration Rate (eGFR) calculated using the 2020 Chronic Kidney Disease-Epi demiology (CKD-EPI) Collaborati on creatinine equation; units of measure are mL/min/1.73 m2. Results are only valid for adults (>=18 years) whose serum creatinine is in a steady state. eGFR calculation s are not valid for patients with acute kidney injury and for patients on dialysis. Creatinine- based estimates of kidney function may also be inaccurate in patients with reduced creatinine generation due to decreased muscle mass (e.g., malnutritio n, severe hypoalbumin emia, sarcopenia, chronic neuromuscul ar disease, amputations , severe heart failure or liver disease) and in patients with increased creatinine generation due to increased muscle mass (e.g., muscle builders, anabolic steroids) or increased dietary intake. As drug clearance is proportiona l to total GFR and not GFR indexed to body surface area (BSA), in individuals with a BSA substantial ly different than 1.73 m2, drug dosing should be based on the reported eGFR value de-indexed from BSA by multiplying by the individual' s BSA and dividing by 1.73. CKD is diagnosed based on abnormaliti es of kidney structure or function, present for >3 months, with implication s for health and disease. CKD is classified and staged based on cause, eGFR and albuminuria (quantified as urine albumin to creatinine ratio). An eGFR >60 mL/min/1.73 m2 in the absence of increased urine albumin excretion or structural abnormaliti es does not represent CKD. eGFR CKD Interpretat ion (mL/min/1.7 3 m2) stage >=90 G1 Normal 60-89 G2 Mild decrease 45-59 G3A Mild to moderate decrease 30-44 G3B Moderate to severe decrease 15-29 G4 Severe decrease <15 G5 Kidney failure Ordering Provider: JACK GONZALEZ Report Released Date/Time: May 13, 2024 03:24 PM Reporting Lab: [facility] [address] [address] Performing Lab: [facility] [address] [address] [facility] PANEL 5 CHLORIDE [MOLES/VOL UME] IN SERUM OR PLASMA 109 mmol/L 98 - 107 05/13 H Specimen Type: PLASMA Comment: Estimated Glomerular Filtration Rate (eGFR) calculated using the 2020 Chronic Kidney Disease-Epi demiology (CKD-EPI) Collaborati on creatinine equation; units of measure are mL/min/1.73 m2. Results are only valid for adults (>=18 years) whose serum creatinine is in a steady state. eGFR calculation s are not valid for patients with acute kidney injury and for patients on dialysis. Creatinine- based estimates of kidney function may also be inaccurate in patients with reduced creatinine generation due to decreased muscle mass (e.g., malnutritio n, severe hypoalbumin emia, sarcopenia, chronic neuromuscul ar disease, amputations , severe heart failure or liver disease) and in patients with increased creatinine generation due to increased muscle mass (e.g., muscle builders, anabolic steroids) or increased dietary intake. As drug clearance is proportiona l to total GFR and not GFR indexed to body surface area (BSA), in individuals with a BSA substantial ly different than 1.73 m2, drug dosing should be based on the reported eGFR value de-indexed from BSA by multiplying by the individual' s BSA and dividing by 1.73. CKD is diagnosed based on abnormaliti es of kidney structure or function, present for >3 months, with implication s for health and disease. CKD is classified and staged based on cause, eGFR and albuminuria (quantified as urine albumin to creatinine ratio). An eGFR >60 mL/min/1.73 m2 in the absence of increased urine albumin excretion or structural abnormaliti es does not represent CKD. eGFR CKD Interpretat ion (mL/min/1.7 3 m2) stage >=90 G1 Normal 60-89 G2 Mild decrease 45-59 G3A Mild to moderate decrease 30-44 G3B Moderate to severe decrease 15-29 G4 Severe decrease <15 G5 Kidney failure Ordering Provider: JACK GONZALEZ Report Released Date/Time: May 13, 2024 03:24 PM Reporting Lab: [facility] [address] [address] Performing Lab: [facility] [address] [address] [facility] PANEL 5 CARBON DIOXIDE, TOTAL [MOLES/VOL UME] IN SERUM OR PLASMA 24 mmol/L 22 - 29 05/13 Specimen Type: PLASMA Comment: Estimated Glomerular Filtration Rate (eGFR) calculated using the 2020 Chronic Kidney Disease-Epi demiology (CKD-EPI) Collaborati on creatinine equation; units of measure are mL/min/1.73 m2. Results are only valid for adults (>=18 years) whose serum creatinine is in a steady state. eGFR calculation s are not valid for patients with acute kidney injury and for patients on dialysis. Creatinine- based estimates of kidney function may also be inaccurate in patients with reduced creatinine generation due to decreased muscle mass (e.g., malnutritio n, severe hypoalbumin emia, sarcopenia, chronic neuromuscul ar disease, amputations , severe heart failure or liver disease) and in patients with increased creatinine generation due to increased muscle mass (e.g., muscle builders, anabolic steroids) or increased dietary intake. As drug clearance is proportiona l to total GFR and not GFR indexed to body surface area (BSA), in individuals with a BSA substantial ly different than 1.73 m2, drug dosing should be based on the reported eGFR value de-indexed from BSA by multiplying by the individual' s BSA and dividing by 1.73. CKD is diagnosed based on abnormaliti es of kidney structure or function, present for >3 months, with implication s for health and disease. CKD is classified and staged based on cause, eGFR and albuminuria (quantified as urine albumin to creatinine ratio). An eGFR >60 mL/min/1.73 m2 in the absence of increased urine albumin excretion or structural abnormaliti es does not represent CKD. eGFR CKD Interpretat ion (mL/min/1.7 3 m2) stage >=90 G1 Normal 60-89 G2 Mild decrease 45-59 G3A Mild to moderate decrease 30-44 G3B Moderate to severe decrease 15-29 G4 Severe decrease <15 G5 Kidney failure Ordering Provider: JACK GONZALEZ Report Released Date/Time: May 13, 2024 03:24 PM Reporting Lab: [facility] [address] [address] Performing Lab: [facility] [address] [address] [facility] PANEL 5 CALCIUM [MASS/VOLU ME] IN SERUM OR PLASMA 9.2 mg/dL 8.4 - 10.2 05/13 Specimen Type: PLASMA Comment: Estimated Glomerular Filtration Rate (eGFR) calculated using the 2020 Chronic Kidney Disease-Epi demiology (CKD-EPI) Collaborati on creatinine equation; units of measure are mL/min/1.73 m2. Results are only valid for adults (>=18 years) whose serum creatinine is in a steady state. eGFR calculation s are not valid for patients with acute kidney injury and for patients on dialysis. Creatinine- based estimates of kidney function may also be inaccurate in patients with reduced creatinine generation due to decreased muscle mass (e.g., malnutritio n, severe hypoalbumin emia, sarcopenia, chronic neuromuscul ar disease, amputations , severe heart failure or liver disease) and in patients with increased creatinine generation due to increased muscle mass (e.g., muscle builders, anabolic steroids) or increased dietary intake. As drug clearance is proportiona l to total GFR and not GFR indexed to body surface area (BSA), in individuals with a BSA substantial ly different than 1.73 m2, drug dosing should be based on the reported eGFR value de-indexed from BSA by multiplying by the individual' s BSA and dividing by 1.73. CKD is diagnosed based on abnormaliti es of kidney structure or function, present for >3 months, with implication s for health and disease. CKD is classified and staged based on cause, eGFR and albuminuria (quantified as urine albumin to creatinine ratio). An eGFR >60 mL/min/1.73 m2 in the absence of increased urine albumin excretion or structural abnormaliti es does not represent CKD. eGFR CKD Interpretat ion (mL/min/1.7 3 m2) stage >=90 G1 Normal 60-89 G2 Mild decrease 45-59 G3A Mild to moderate decrease 30-44 G3B Moderate to severe decrease 15-29 G4 Severe decrease <15 G5 Kidney failure Ordering Provider: JACK GONZALEZ Report Released Date/Time: May 13, 2024 03:24 PM Reporting Lab: [facility] [address] [address] Performing Lab: [facility] [address] [phone] [facility] PANEL 5 PROTEIN [MASS/VOLU ME] IN SERUM OR PLASMA 7.0 g/dL 6.4 - 8.3 05/13 Specimen Type: PLASMA Comment: Estimated Glomerular Filtration Rate (eGFR) calculated using the 2020 Chronic Kidney Disease-Epi demiology (CKD-EPI) Collaborati on creatinine equation; units of measure are mL/min/1.73 m2. Results are only valid for adults (>=18 years) whose serum creatinine is in a steady state. eGFR calculation s are not valid for patients with acute kidney injury and for patients on dialysis. Creatinine- based estimates of kidney function may also be inaccurate in patients with reduced creatinine generation due to decreased muscle mass (e.g., malnutritio n, severe hypoalbumin emia, sarcopenia, chronic neuromuscul ar disease, amputations , severe heart failure or liver disease) and in patients with increased creatinine generation due to increased muscle mass (e.g., muscle builders, anabolic steroids) or increased dietary intake. As drug clearance is proportiona l to total GFR and not GFR indexed to body surface area (BSA), in individuals with a BSA substantial ly different than 1.73 m2, drug dosing should be based on the reported eGFR value de-indexed from BSA by multiplying by the individual' s BSA and dividing by 1.73. CKD is diagnosed based on abnormaliti es of kidney structure or function, present for >3 months, with implication s for health and disease. CKD is classified and staged based on cause, eGFR and albuminuria (quantified as urine albumin to creatinine ratio). An eGFR >60 mL/min/1.73 m2 in the absence of increased urine albumin excretion or structural abnormaliti es does not represent CKD. eGFR CKD Interpretat ion (mL/min/1.7 3 m2) stage >=90 G1 Normal 60-89 G2 Mild decrease 45-59 G3A Mild to moderate decrease 30-44 G3B Moderate to severe decrease 15-29 G4 Severe decrease <15 G5 Kidney failure Ordering Provider: JACK GONZALEZ Report Released Date/Time: May 13, 2024 03:24 PM Reporting Lab: [facility] [address] [address] Performing Lab: [facility] [address] [address] [facility] PANEL 5 ALBUMIN [MASS/VOLU ME] IN SERUM OR PLASMA 4.2 g/dL 3.5 - 5.2 05/13 Specimen Type: PLASMA Comment: Estimated Glomerular Filtration Rate (eGFR) calculated using the 2020 Chronic Kidney Disease-Epi demiology (CKD-EPI) Collaborati on creatinine equation; units of measure are mL/min/1.73 m2. Results are only valid for adults (>=18 years) whose serum creatinine is in a steady state. eGFR calculation s are not valid for patients with acute kidney injury and for patients on dialysis. Creatinine- based estimates of kidney function may also be inaccurate in patients with reduced creatinine generation due to decreased muscle mass (e.g., malnutritio n, severe hypoalbumin emia, sarcopenia, chronic neuromuscul ar disease, amputations , severe heart failure or liver disease) and in patients with increased creatinine generation due to increased muscle mass (e.g., muscle builders, anabolic steroids) or increased dietary intake. As drug clearance is proportiona l to total GFR and not GFR indexed to body surface area (BSA), in individuals with a BSA substantial ly different than 1.73 m2, drug dosing should be based on the reported eGFR value de-indexed from BSA by multiplying by the individual' s BSA and dividing by 1.73. CKD is diagnosed based on abnormaliti es of kidney structure or function, present for >3 months, with implication s for health and disease. CKD is classified and staged based on cause, eGFR and albuminuria (quantified as urine albumin to creatinine ratio). An eGFR >60 mL/min/1.73 m2 in the absence of increased urine albumin excretion or structural abnormaliti es does not represent CKD. eGFR CKD Interpretat ion (mL/min/1.7 3 m2) stage >=90 G1 Normal 60-89 G2 Mild decrease 45-59 G3A Mild to moderate decrease 30-44 G3B Moderate to severe decrease 15-29 G4 Severe decrease <15 G5 Kidney failure Ordering Provider: JACK GONZALEZ Report Released Date/Time: May 13, 2024 03:24 PM Reporting Lab: [facility] [address] [address] Performing Lab: [facility] [address] [address] [facility] PANEL 5 BILIRUBIN. TOTAL [MASS/VOLU ME] IN SERUM OR PLASMA 0.3 mg/dL 0.2 - 1.2 05/13 Specimen Type: PLASMA Comment: Estimated Glomerular Filtration Rate (eGFR) calculated using the 2020 Chronic Kidney Disease-Epi demiology (CKD-EPI) Collaborati on creatinine equation; units of measure are mL/min/1.73 m2. Results are only valid for adults (>=18 years) whose serum creatinine is in a steady state. eGFR calculation s are not valid for patients with acute kidney injury and for patients on dialysis. Creatinine- based estimates of kidney function may also be inaccurate in patients with reduced creatinine generation due to decreased muscle mass (e.g., malnutritio n, severe hypoalbumin emia, sarcopenia, chronic neuromuscul ar disease, amputations , severe heart failure or liver disease) and in patients with increased creatinine generation due to increased muscle mass (e.g., muscle builders, anabolic steroids) or increased dietary intake. As drug clearance is proportiona l to total GFR and not GFR indexed to body surface area (BSA), in individuals with a BSA substantial ly different than 1.73 m2, drug dosing should be based on the reported eGFR value de-indexed from BSA by multiplying by the individual' s BSA and dividing by 1.73. CKD is diagnosed based on abnormaliti es of kidney structure or function, present for >3 months, with implication s for health and disease. CKD is classified and staged based on cause, eGFR and albuminuria (quantified as urine albumin to creatinine ratio). An eGFR >60 mL/min/1.73 m2 in the absence of increased urine albumin excretion or structural abnormaliti es does not represent CKD. eGFR CKD Interpretat ion (mL/min/1.7 3 m2) stage >=90 G1 Normal 60-89 G2 Mild decrease 45-59 G3A Mild to moderate decrease 30-44 G3B Moderate to severe decrease 15-29 G4 Severe decrease <15 G5 Kidney failure Ordering Provider: JACK GONZALEZ Report Released Date/Time: May 13, 2024 03:24 PM Reporting Lab: [facility] [address] [phone] Performing Lab: [facility] [address] [address] [facility] PANEL 5 ASPARTATE AMINOTRANS FERASE [ENZYMATIC ACTIVITY/V OLUME] IN SERUM OR PLASMA 24 U/L 5 - 34 05/13 Specimen Type: PLASMA Comment: Estimated Glomerular Filtration Rate (eGFR) calculated using the 2020 Chronic Kidney Disease-Epi demiology (CKD-EPI) Collaborati on creatinine equation; units of measure are mL/min/1.73 m2. Results are only valid for adults (>=18 years) whose serum creatinine is in a steady state. eGFR calculation s are not valid for patients with acute kidney injury and for patients on dialysis. Creatinine- based estimates of kidney function may also be inaccurate in patients with reduced creatinine generation due to decreased muscle mass (e.g., malnutritio n, severe hypoalbumin emia, sarcopenia, chronic neuromuscul ar disease, amputations , severe heart failure or liver disease) and in patients with increased creatinine generation due to increased muscle mass (e.g., muscle builders, anabolic steroids) or increased dietary intake. As drug clearance is proportiona l to total GFR and not GFR indexed to body surface area (BSA), in individuals with a BSA substantial ly different than 1.73 m2, drug dosing should be based on the reported eGFR value de-indexed from BSA by multiplying by the individual' s BSA and dividing by 1.73. CKD is diagnosed based on abnormaliti es of kidney structure or function, present for >3 months, with implication s for health and disease. CKD is classified and staged based on cause, eGFR and albuminuria (quantified as urine albumin to creatinine ratio). An eGFR >60 mL/min/1.73 m2 in the absence of increased urine albumin excretion or structural abnormaliti es does not represent CKD. eGFR CKD Interpretat ion (mL/min/1.7 3 m2) stage >=90 G1 Normal 60-89 G2 Mild decrease 45-59 G3A Mild to moderate decrease 30-44 G3B Moderate to severe decrease 15-29 G4 Severe decrease <15 G5 Kidney failure Ordering Provider: JACK GONZALEZ Report Released Date/Time: May 13, 2024 03:24 PM Reporting Lab: [facility] [address] [facility] [address] Performing Lab: [facility] [address] [facility] [address] [facility] PANEL 5 ALANINE AMINOTRANS FERASE [ENZYMATIC ACTIVITY/V OLUME] IN SERUM OR PLASMA 36 U/L 0 - 55 05/13 Specimen Type: PLASMA Comment: Estimated Glomerular Filtration Rate (eGFR) calculated using the 2020 Chronic Kidney Disease-Epi demiology (CKD-EPI) Collaborati on creatinine equation; units of measure are mL/min/1.73 m2. Results are only valid for adults (>=18 years) whose serum creatinine is in a steady state. eGFR calculation s are not valid for patients with acute kidney injury and for patients on dialysis. Creatinine- based estimates of kidney function may also be inaccurate in patients with reduced creatinine generation due to decreased muscle mass (e.g., malnutritio n, severe hypoalbumin emia, sarcopenia, chronic neuromuscul ar disease, amputations , severe heart failure or liver disease) and in patients with increased creatinine generation due to increased muscle mass (e.g., muscle builders, anabolic steroids) or increased dietary intake. As drug clearance is proportiona l to total GFR and not GFR indexed to body surface area (BSA), in individuals with a BSA substantial ly different than 1.73 m2, drug dosing should be based on the reported eGFR value de-indexed from BSA by multiplying by the individual' s BSA and dividing by 1.73. CKD is diagnosed based on abnormaliti es of kidney structure or function, present for >3 months, with implication s for health and disease. CKD is classified and staged based on cause, eGFR and albuminuria (quantified as urine albumin to creatinine ratio). An eGFR >60 mL/min/1.73 m2 in the absence of increased urine albumin excretion or structural abnormaliti es does not represent CKD. eGFR CKD Interpretat ion (mL/min/1.7 3 m2) stage >=90 G1 Normal 60-89 G2 Mild decrease 45-59 G3A Mild to moderate decrease 30-44 G3B Moderate to severe decrease 15-29 G4 Severe decrease <15 G5 Kidney failure Ordering Provider: JACK GONZALEZ Report Released Date/Time: May 13, 2024 03:24 PM Reporting Lab: [facility] [address] [facility] [phone] Performing Lab: [facility] [address] [facility] [address] [facility] PANEL 5 ANION GAP 3 IN SERUM OR PLASMA 6 meq/L 3 - 19 05/13 Specimen Type: PLASMA Comment: Estimated Glomerular Filtration Rate (eGFR) calculated using the 2020 Chronic Kidney Disease-Epi demiology (CKD-EPI) Collaborati on creatinine equation; units of measure are mL/min/1.73 m2. Results are only valid for adults (>=18 years) whose serum creatinine is in a steady state. eGFR calculation s are not valid for patients with acute kidney injury and for patients on dialysis. Creatinine- based estimates of kidney function may also be inaccurate in patients with reduced creatinine generation due to decreased muscle mass (e.g., malnutritio n, severe hypoalbumin emia, sarcopenia, chronic neuromuscul ar disease, amputations , severe heart failure or liver disease) and in patients with increased creatinine generation due to increased muscle mass (e.g., muscle builders, anabolic steroids) or increased dietary intake. As drug clearance is proportiona l to total GFR and not GFR indexed to body surface area (BSA), in individuals with a BSA substantial ly different than 1.73 m2, drug dosing should be based on the reported eGFR value de-indexed from BSA by multiplying by the individual' s BSA and dividing by 1.73. CKD is diagnosed based on abnormaliti es of kidney structure or function, present for >3 months, with implication s for health and disease. CKD is classified and staged based on cause, eGFR and albuminuria (quantified as urine albumin to creatinine ratio). An eGFR >60 mL/min/1.73 m2 in the absence of increased urine albumin excretion or structural abnormaliti es does not represent CKD. eGFR CKD Interpretat ion (mL/min/1.7 3 m2) stage >=90 G1 Normal 60-89 G2 Mild decrease 45-59 G3A Mild to moderate decrease 30-44 G3B Moderate to severe decrease 15-29 G4 Severe decrease <15 G5 Kidney failure Ordering Provider: JACK GONZALEZ Report Released Date/Time: May 13, 2024 03:24 PM Reporting Lab: [facility] [address] [address] Performing Lab: [place] [address] [address] [facility] PANEL 5 ALKALINE PHOSPHATAS E [ENZYMATIC ACTIVITY/V OLUME] IN SERUM OR PLASMA 74 U/L 40 - 150 05/13 Specimen Type: PLASMA Comment: Estimated Glomerular Filtration Rate (eGFR) calculated using the 2020 Chronic Kidney Disease-Epi demiology (CKD-EPI) Collaborati on creatinine equation; units of measure are mL/min/1.73 m2. Results are only valid for adults (>=18 years) whose serum creatinine is in a steady state. eGFR calculation s are not valid for patients with acute kidney injury and for patients on dialysis. Creatinine- based estimates of kidney function may also be inaccurate in patients with reduced creatinine generation due to decreased muscle mass (e.g., malnutritio n, severe hypoalbumin emia, sarcopenia, chronic neuromuscul ar disease, amputations , severe heart failure or liver disease) and in patients with increased creatinine generation due to increased muscle mass (e.g., muscle builders, anabolic steroids) or increased dietary intake. As drug clearance is proportiona l to total GFR and not GFR indexed to body surface area (BSA), in individuals with a BSA substantial ly different than 1.73 m2, drug dosing should be based on the reported eGFR value de-indexed from BSA by multiplying by the individual' s BSA and dividing by 1.73. CKD is diagnosed based on abnormaliti es of kidney structure or function, present for >3 months, with implication s for health and disease. CKD is classified and staged based on cause, eGFR and albuminuria (quantified as urine albumin to creatinine ratio). An eGFR >60 mL/min/1.73 m2 in the absence of increased urine albumin excretion or structural abnormaliti es does not represent CKD. eGFR CKD Interpretat ion (mL/min/1.7 3 m2) stage >=90 G1 Normal 60-89 G2 Mild decrease 45-59 G3A Mild to moderate decrease 30-44 G3B Moderate to severe decrease 15-29 G4 Severe decrease <15 G5 Kidney failure Ordering Provider: JACK GONZALEZ Report Released Date/Time: May 13, 2024 03:24 PM Reporting Lab: [facility] [address] [address] Performing Lab: [place] [address] [facility] 5 GLOMERULAR FILTRATION RATE/1.73 SQ M.PREDICTE D [VOLUME RATE/AREA] IN SERUM, PLASMA OR BLOOD BY CREATININE -BASED FORMULA (CKD-EPI 2020) 85 05/13 Specimen Type: PLASMA Comment: Estimated Glomerular Filtration Rate (eGFR) calculated using the 2020 Chronic Kidney Disease-Epi demiology (CKD-EPI) Collaborati on creatinine equation; units of measure are mL/min/1.73 m2. Results are only valid for adults (>=18 years) whose serum creatinine is in a steady state. eGFR calculation s are not valid for patients with acute kidney injury and for patients on dialysis. Creatinine- based estimates of kidney function may also be inaccurate in patients with reduced creatinine generation due to decreased muscle mass (e.g., malnutritio n, severe hypoalbumin emia, sarcopenia, chronic neuromuscul ar disease, amputations , severe heart failure or liver disease) and in patients with increased creatinine generation due to increased muscle mass (e.g., muscle builders, anabolic steroids) or increased dietary intake. As drug clearance is proportiona l to total GFR and not GFR indexed to body surface area (BSA), in individuals with a BSA substantial ly different than 1.73 m2, drug dosing should be based on the reported eGFR value de-indexed from BSA by multiplying by the individual' s BSA and dividing by 1.73. CKD is diagnosed based on abnormaliti es of kidney structure or function, present for >3 months, with implication s for health and disease. CKD is classified and staged based on cause, eGFR and albuminuria (quantified as urine albumin to creatinine ratio). An eGFR >60 mL/min/1.73 m2 in the absence of increased urine albumin excretion or structural abnormaliti es does not represent CKD. eGFR CKD Interpretat ion (mL/min/1.7 3 m2) stage >=90 G1 Normal 60-89 G2 Mild decrease 45-59 G3A Mild to moderate decrease 30-44 G3B Moderate to severe decrease 15-29 G4 Severe decrease <15 G5 Kidney failure Ordering Provider: JACK GONZALEZ Report Released Date/Time: May 13, 2024 03:24 PM Reporting Lab: [address] [address] Performing Lab: [place] [id number] [place] [address] PSA PROSTATE SPECIFIC AG [MASS/VOLU ME] IN SERUM OR PLASMA 0.304 ng/mL 0 - 3.999 05/13 Specimen Type: SERUM No comment entered. Ordering Provider: JACK GONZALEZ Report Released Date/Time: May 13, 2024 03:24 PM Reporting Lab: [address] [address] Performing Lab: [address] [phone] [place] [address] THYROID PROFILE THYROTROPI N [UNITS/VOL UME] IN SERUM OR PLASMA 1.3396 m[IU]/mL 0.3500 - 4.9400 05/13 Specimen Type: PLASMA Comment: Estimated Glomerular Filtration Rate (eGFR) calculated using the 2020 Chronic Kidney Disease-Epi demiology (CKD-EPI) Collaborati on creatinine equation; units of measure are mL/min/1.73 m2. Results are only valid for adults (>=18 years) whose serum creatinine is in a steady state. eGFR calculation s are not valid for patients with acute kidney injury and for patients on dialysis. Creatinine- based estimates of kidney function may also be inaccurate in patients with reduced creatinine generation due to decreased muscle mass (e.g., malnutritio n, severe hypoalbumin emia, sarcopenia, chronic neuromuscul ar disease, amputations , severe heart failure or liver disease) and in patients with increased creatinine generation due to increased muscle mass (e.g., muscle builders, anabolic steroids) or increased dietary intake. As drug clearance is proportiona l to total GFR and not GFR indexed to body surface area (BSA), in individuals with a BSA substantial ly different than 1.73 m2, drug dosing should be based on the reported eGFR value de-indexed from BSA by multiplying by the individual' s BSA and dividing by 1.73. CKD is diagnosed based on abnormaliti es of kidney structure or function, present for >3 months, with implication s for health and disease. CKD is classified and staged based on cause, eGFR and albuminuria (quantified as urine albumin to creatinine ratio). An eGFR >60 mL/min/1.73 m2 in the absence of increased urine albumin excretion or structural abnormaliti es does not represent CKD. eGFR CKD Interpretat ion (mL/min/1.7 3 m2) stage >=90 G1 Normal 60-89 G2 Mild decrease 45-59 G3A Mild to moderate decrease 30-44 G3B Moderate to severe decrease 15-29 G4 Severe decrease <15 G5 Kidney failure Ordering Provider: JACK GONZALEZ Report Released Date/Time: May 13, 2024 03:24 PM Reporting Lab: [place] [address] [address] Performing Lab: [place] [address] [address] [facility] THYROID PROFILE FREE T4 0.88 ng/mL 0.70 - 1.48 05/13 Specimen Type: PLASMA Comment: Estimated Glomerular Filtration Rate (eGFR) calculated using the 2020 Chronic Kidney Disease-Epi demiology (CKD-EPI) Collaborati on creatinine equation; units of measure are mL/min/1.73 m2. Results are only valid for adults (>=18 years) whose serum creatinine is in a steady state. eGFR calculation s are not valid for patients with acute kidney injury and for patients on dialysis. Creatinine- based estimates of kidney function may also be inaccurate in patients with reduced creatinine generation due to decreased muscle mass (e.g., malnutritio n, severe hypoalbumin emia, sarcopenia, chronic neuromuscul ar disease, amputations , severe heart failure or liver disease) and in patients with increased creatinine generation due to increased muscle mass (e.g., muscle builders, anabolic steroids) or increased dietary intake. As drug clearance is proportiona l to total GFR and not GFR indexed to body surface area (BSA), in individuals with a BSA substantial ly different than 1.73 m2, drug dosing should be based on the reported eGFR value de-indexed from BSA by multiplying by the individual' s BSA and dividing by 1.73. CKD is diagnosed based on abnormaliti es of kidney structure or function, present for >3 months, with implication s for health and disease. CKD is classified and staged based on cause, eGFR and albuminuria (quantified as urine albumin to creatinine ratio). An eGFR >60 mL/min/1.73 m2 in the absence of increased urine albumin excretion or structural abnormaliti es does not represent CKD. eGFR CKD Interpretat ion (mL/min/1.7 3 m2) stage >=90 G1 Normal 60-89 G2 Mild decrease 45-59 G3A Mild to moderate decrease 30-44 G3B Moderate to severe decrease 15-29 G4 Severe decrease <15 G5 Kidney failure Ordering Provider: JACK GONZALEZ A Report Released Date/Time: May 13, 2024 03:24 PM Reporting Lab: [place] [address] [address] Performing Lab: [place] [address] [address] [facility] URINALYS IS COLOR OF URINE Colorles s 05/13 Specimen Type: URINE Comment: Microscopic not indicated Ordering Provider: JACK GONZALEZ A Report Released Date/Time: May 13, 2024 03:24 PM Reporting Lab: [place] [address] [address] Performing Lab: [address] [address] [facility] URINALYS IS APPEARANCE OF URINE Clear 05/13 Specimen Type: URINE Comment: Microscopic not indicated Ordering Provider: JACK GONZALEZ A Report Released Date/Time: May 13, 2024 03:24 PM Reporting Lab: [address] [address] Performing Lab: [address] [address] [facility] URINALYS IS UROBILINOG EN [MASS/VOLU ME] IN URINE BY TEST STRIP Normalmg /dL 05/13 Specimen Type: URINE Comment: Microscopic not indicated Ordering Provider: JACK GONZALEZ A Report Released Date/Time: May 13, 2024 03:24 PM Reporting Lab: [address] [address] Performing Lab: [address] [phone] [place] [address] URINALYS IS HEMOGLOBIN [PRESENCE] IN URINE BY TEST STRIP Negative 05/13 Specimen Type: URINE Comment: Microscopic not indicated Ordering Provider: JACK GONZALEZ A Report Released Date/Time: May 13, 2024 03:24 PM Reporting Lab: [address] [address] Performing Lab: [address] [address] [facility] URINALYS IS BILIRUBIN. TOTAL [PRESENCE] IN URINE BY TEST STRIP Negative 05/13 Specimen Type: URINE Comment: Microscopic not indicated Ordering Provider: JACK GONZALEZ IGE A Report Released Date/Time: May 13, 2024 03:24 PM Reporting Lab: [address] [address] Performing Lab: [address] [address] [facility] URINALYS IS KETONES [MASS/VOLU ME] IN URINE BY TEST STRIP Negative mg/dL 05/13 Specimen Type: URINE Comment: Microscopic not indicated Ordering Provider: JACK GONZALEZ IGE A Report Released Date/Time: May 13, 2024 03:24 PM Reporting Lab: [address] [address] Performing Lab: [address] [address] [facility] URINALYS IS PROTEIN [MASS/VOLU ME] IN URINE BY TEST STRIP Negative mg/dL 05/13 Specimen Type: URINE Comment: Microscopic not indicated Ordering Provider: JACK GONZALEZ A Report Released Date/Time: May 13, 2024 03:24 PM Reporting Lab: [address] [address] Performing Lab: [address] [address] [facility] URINALYS IS PH OF URINE BY TEST STRIP 5.5 4.5 - 8.0 05/13 Specimen Type: URINE Comment: Microscopic not indicated Ordering Provider: JACK GONZALEZ A Report Released Date/Time: May 13, 2024 03:24 PM Reporting Lab: [address] [address] Performing Lab: [address] [address] [facility] URINALYS IS NITRITE [PRESENCE] IN URINE BY TEST STRIP Negative 05/13 Specimen Type: URINE Comment: Microscopic not indicated Ordering Provider: JACK GONZALEZ A Report Released Date/Time: May 13, 2024 03:24 PM Reporting Lab: [address] [address] Performing Lab: [address] [address] [facility] URINALYS IS LEUKOCYTE ESTERASE [PRESENCE] IN URINE BY TEST STRIP Negative 05/13 Specimen Type: URINE Comment: Microscopic not indicated Ordering Provider: JACK GONZALEZ A Report Released Date/Time: May 13, 2024 03:24 PM Reporting Lab: [address] [address] Performing Lab: [address] [address] [facility] URINALYS IS SPECIFIC GRAVITY OF URINE 1.014 1.005 - 1.030 05/13 Specimen Type: URINE Comment: Microscopic not indicated Ordering Provider: JACK GONZALEZ Report Released Date/Time: May 13, 2024 03:24 PM Reporting Lab: [address] [address] Performing Lab: [address] [address] [facility] URINALYS IS GLUCOSE [MASS/VOLU ME] IN URINE BY TEST STRIP Negative mg/dL 05/13 Specimen Type: URINE Comment: Microscopic not indicated Ordering Provider: JACK GONZALEZ Report Released Date/Time: May 13, 2024 03:24 PM Reporting Lab: [address] [address] Performing Lab: [address] [address] [facility] Vital Signs Combined list of inpatient and outpatient Vital Signs from Department of [facility] and [facility], ranging from 12 months to all on record, depending upon the facility. Vital Sign Value Date Comments Source SYSTOLIC BLOOD PRESSURE 138 05/13/2024 14:37:00 [facility] DIASTOLIC BLOOD PRESSURE 95 05/13/2024 14:37:00 [facility] PULSE OXIMETRY 96 05/13/2024 14:37:00 [facility] 214.0 05/13/2024 14:37:00 [facility] BMI 30 kg/m2 05/13/2024 14:37:00 [facility] [facility] PAIN 8 05/13/2024 [facility]:37[facility] TEMPERATURE 98.2 05/13/2024 14:37:00 [facility] PULSE 65 05/13/2024 14:37[facility]00 [facility] Encounters Combined list of: 1) Encounters from [facility] facilities going backup to the last 18 months, not all [place] inpatient encounters are included; 2) Encounters from the Department of [facility] facilities going backup to 280 months. Location Location Details Encounter Type Encounter Number Reason For Visit Attending Provider ADM Date DC Date Status Disposition Source [facility] Outpatient Encounter [id number] 04/27 [place] HEARING AID EXAM BOTH EARS [id number] Diagnos is: ICD-10- CM H90.3 Sensori neural hearing loss, bilater al RAJESH CARROLL S 05/13 [place] [facility] Outpatient Encounter [id number] 05/13 [place] CASE MANAGEMENT [id number] Diagnos is: ICD-10- CM Z65.9 Problem related to unspeci fied psychos ocial circums MAYRA Snow T 05/13 [place] [facility] OFFICE O/P EST MOD 30 MIN [id number] Diagnos is: ICD-10- CM I10 Essenti al (primar y) hyperte nsion Felipa GONZALEZ 05/13 [place] [facility] HC PRO PHONE CALL 5-10 MIN [id number] Diagnos is: ICD-10- CM 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 OCTAVIA Nelson VIA J 05/16 [place] [facility] Outpatient Encounter [id number] 05/17 [place] [facility] HC PRO PHONE CALL 5-10 MIN [id number] Diagnos is: ICD-10- CM 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 Social History Type Response Date Comment [facility]20[facility]2020 [facility] of [facility] < 15 Y[facility] 07/21/2018 [facility] History of tobacco use V9 LIFETIME NON-USER OF TOBACCO 08/20/2017 [facility] History of tobacco use HF V9 CURRENT NON-SMOKER 05/19/2002 [facility] History of tobacco use HF V9 CURRENT NON-SMOKER 01/15/2001 quit 2 yrs ago [facility] History of tobacco use NON-TOBACCO USER 08/28/1998 [facility]
== END 2024-10-25 23:59 | disposition home or self-care (01) ==
LOC: RT 14:21
PROVIDERS: PCP Nurse Practitioner Family; Visit Provider Physician Assistant
DX: R00.2 Palpitations (principal); R53.83 Other fatigue; I10 Essential (primary) hypertension; R06.02 Shortness of breath; R07.89 Other chest pain; Z82.49 Family history of ischemic heart disease and other diseases of the circulatory system
CPT/HCPCS: 36415; 80048; 80061; 80076; 83735; 84439; 84443; 85025; 93270

== ENCOUNTER 2024-10-28 13:36 | Outpatient (CLI) | payer OTHER, SELFPAY ==
--- NOTE | 2024-10-28 | CA_ITS ---
APPROVED REPORT EXAM: Comprehensive 2D, Doppler, and color-flow Echocardiogram Manager Contracting: JASPER Vanegas, RVS Ht: 5 ft 8 in Wt: 225lbs BSA: 2.15 BP: 162/87 mmHg Indications: HTN, chest pressure, HTN, family history of HD, palpitations, fatigue, SOB, dizziness 2D Dimensions Left Atrium 3.18 cm M: 3.0 - 4.0 LA Volume 73.20 mL LA Volume Index 34.05 mL/m2 (M/F) 16-34 M-Mode Dimensions RVDd 2.54 cm (0.9-2.6) LA Diam 3.39 cm (1.9-4.0) LVDd 4.75 cm (3.5-5.7) LVDs 2.78 cm (3.5-5.7) IVSd 1.09 cm (0.6-1.1) PWd 1.17 cm (0.6-1.1) EF (Teich) 72.40% EPSs 0.36 cm FS 41.50% EDV (Teich) 104.90 mL TAPSE 2.76 (<1.7) ESV (Teich) 29.00 mL LV Diastology E Decel Time 157 (160-240 msec) E/A Ratio 1.15 MED A' 10.40 cm/s LAT A' 10.50 cm/s Aortic Valve CITLALI Index 0.91 cm2/m2 AoV Peak Charles. 193.0 (50-130 cm/s) AO Peak GR. 15.00 mmHg AO Mean GR. 7.40 (<5 mmHg) AO VTI 36.4 (18-25 cm) CITLALI (VTI) 2.00 (2.5-4.5 cm2) Mitral Valve MV A Velocity 59.0 (40-130 cm/s) E/A Ratio 1.15 Tricuspid Valve TR P. Velocity 255.00 cm/s RAP Estimate 10.00 mmHg RVSP 36.00 mmHg Left Ventricle The left ventricle is normal size. The left ventricular systolic function is normal. The left ventricular ejection fraction is within the normal range. There is increased LV wall thickness. There is normal LV segmental wall motion. The left ventricular diastolic function is normal. LVEF is 55%. Right Ventricle Right ventricle is mildly dilated. The right ventricular systolic function is normal. Atria The left atrium size is normal. The right atrium size is normal. There is no Doppler evidence of interatrial shunt. Aortic Valve The aortic valve is mildly thickened. There is no aortic valvular stenosis. No aortic regurgitation is present. Mitral Valve The mitral valve is normal in structure. No evidence of mitral valve stenosis. Trace mitral regurgitation. Tricuspid Valve Tricuspid valve is grossly normal in structure and function. Mild tricuspid regurgitation. RVSP is 25-30 mmHg. Pulmonic Valve The pulmonary valve is normal in structure. Trace pulmonic regurgitation. Great Vessels The aortic root is normal in size. IVC is normal in size and collapses >50% with inspiration. Pericardium There is no pericardial effusion. Other Information Study Quality: Fair Conclusion Normal biventricular systolic function. Mild RV dilation. Mild TR. Electronically signed by : Bhumika Padgett MD 10/31/2024 22:29:17
--- OUTSIDE RECORDS SUMMARY | 2024-10-28 13:39 | XMS_ITS | Continuity of Care Document ---
Author Name [facility] Organization [facility] Care Team Providers Care Wrapper Layer Name Role Phone [facility] Unavailable Unavailable Problems Combined list of problems from [facility] and [facility] facilities. It does not include entries that were removed or entered in error. Problem Status Onset Date Problem Type Date of Resolution Comments Source Complaining of erectile dysfunction Active Condition [facility] History of polyp of colon Active Condition Jun 17, 2022 Entered By: JOVANNY BRAN Comment: Cscope 03/10/2022- WNL repeat in 10y (2031) [facility] Hypertension Active Condition [facility] Personal History of Tobacco Use Active Condition [facility] Plantar Fasciitis Active Condition [facility] Tinnitus Active Condition [facility] Vitamin D deficiency Active Condition [facility] Diagnosis: ICD-10-CM H90.3 Sensorineural hearing loss, bilateral Active Diagnosis [facility] Diagnosis: ICD-10-CM Z71.89 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ed counseling Active Diagnosis [facility] Diagnosis: ICD-10-CM Z65.9 Problem related to unspecified psychosocial circumstances Active Diagnosis [facility] Diagnosis: ICD-10-CM I10 Essential (primary) hypertension Active Diagnosis [facility] Medications Combined list of outpatient medications from [facility] and [facility] facilities.Medications provided include 1) outpatient medications from the last 15 months, and 2) patient-reported medications. Medication Details Route Status Patient Instructions Prescription Expires Prescription Number Last Dispense Date Ordering Provider Order Date Order Qty Source ATORVASTATI N CA 10MG TAB TAKE ONE-HALF TABLET BY MOUTH DAILY FOR CHOLESTE ROL -DO NOT DRINK GRAPEFRU IT JUICE WHILE ON THIS DRUG ORAL ACTIVE 05/15/2025 [id number] CASEY GONZALEZ 2023 45 [place] [facility] BACLOFEN 10MG TAB TAKE ONE-HALF TABLET BY MOUTH THREE TIMES A DAY FOR MUSCLE SPASMS ORAL ACTIVE 05/14/2025 [id number] LISACASEYYANE Vance 2023 135 [place] [facility] DICLOFENAC NA 75MG TAB,EC TAKE ONE TABLET BY MOUTH TWICE A DAY NEEDED FOR PAIN/INF LAMMATIO N ORAL ACTIVE 05/14/2025 [id number] LISA CASEY A 2023 90 [place] [facility] LISINOPRIL 40MG TAB TAKE ONE-HALF TABLET BY MOUTH DAILY FOR HIGH BLOOD PRESSURE ORAL ACTIVE 05/14/2025 [id number] CASEY GONZALEZ 2023 45 [place] [facility] LISINOPRIL 40MG TAB TAKE ONE-HALF TABLET BY MOUTH DAILY FOR BLOOD PRESSURE /HEART ORAL 09/13/2023 [id number] RAJESH QUACH 2023 45 [place] [facility] Allergies, Adverse Reactions, Alerts Combined list of allergies from Department of Defense and Veterans Affairs facilities. It does not include entries that were removed or entered in error. Substance Category Reaction Severity Reaction type Status Date Reported Comments Source NUTS Propensity to adverse reactions to substance (finding) Eruption active 8 [facility] Immunizations Combined list of available immunizations from the Department of Defense and Veterans Affairs facilities. Immunization Series Date Given Administered By Site Reaction Lot Number CVX Code Drug Telecommunication Tower Technician Status Comments Source INFLUENZA, SPLIT VIRUS, TRIVALENT, PF 2023 [place] MEDINA LEFT DELTO ID [id number] 140 complet ed Completed Series, ADMINISTE RED AT [place], [place] [facility] COVID-19 (PFIZER), MRNA, LNP-S, BIVALENT BOOSTER, PF, 30 MCG/0.3 ML DOSE 1 2021 NONE 300 complet ed PFR; [id number]; 3 [place] [facility] INFLUENZA, INJECTABLE, QUADRIVALENT, PRESERVATIVE FREE 2021 NONE 150 complet ed Booster for Series, [place] [facility] TDAP 2021 115 complet ed [place] [facility] COVID-19 (PFIZER), MRNA, LNP-S, PF, 30 MCG/0.3 ML DOSE 1 2020 208 complet ed HISTORICA L INFORMATI ON - FROM OTHER REGISTRY, [place] [facility] [place] INFLUENZA, INJECTABLE, QUADRIVALENT, PRESERVATIVE FREE 2020 NONE 150 complet ed [place] [facility] PNEUMOCOCCAL POLYSACCHARID E [id number] 2020 NONE 33 complet ed Completed Series, [place] [facility]-19 (PFIZER), MRNA, LNP-S, PF, 30 MCG/0.3 ML DOSE 2 2020 208 complet ed PFR; [id number]; 1 [place] COVID-19 (PFIZER), MRNA, LNP-S, PF, 30 MCG/0.3 ML DOSE 1 2020 208 complet ed PFR; [id number]; 1 [place] INFLUENZA, INJECTABLE, QUADRIVALENT, PRESERVATIVE FREE 2019 150 complet ed [place] [facility] ZOSTER RECOMBINANT 2 2019 187 complet ed [place] [facility] [place] INFLUENZA, INJECTABLE, QUADRIVALENT, PRESERVATIVE FREE 2018 150 complet ed [place] [facility] [place] ZOSTER RECOMBINANT 1 2018 187 complet ed [place] [facility] [place] HEP A, ADULT 2018 52 complet ed [place] [facility] [place] HEP A, ADULT 2018 52 complet ed [place] [facility] INFLUENZA, SEASONAL, INJECTABLE 2018 141 complet ed [place] [facility] [place] INFLUENZA A & B (HISTORICAL) 2017 88 complet ed [place] [facility] TDAP 2017 115 complet ed [place] [facility] [place] TD(ADULT) UNSPECIFIED FORMULATION 1996 139 complet ed [place] [facility] [place] Results Combined list of recent chemistry, [...] May 13, 2024 03:24 PM Reporting Lab: [address] Performing Lab: [place] [id number] [place] [address] CBC/PLT LEUKOCYTES [#/VOLUME] IN BLOOD BY AUTOMATED COUNT 7.6 10*3/uL 5.0 - 10.0 05/13 Specimen Type: BLOOD No comment entered. Ordering Provider: JACK GONZALEZ Report Released Date/Time: May 13, 2024 03:24 PM Reporting Lab: [place] [id number] Performing Lab: [place] [id number] [place] [address] CBC/PLT ERYTHROCYT ES [#/VOLUME] IN BLOOD BY AUTOMATED COUNT 4.50 10*6/uL 4.6 - 6.2 05/13 L Specimen Type: BLOOD No comment entered. Ordering Provider: JACK GONZALEZ Report Released Date/Time: May 13, 2024 03:24 PM Reporting Lab: [place] [id number] Performing Lab: [place] [id number] [place] [address] CBC/PLT HEMOGLOBIN [MASS/VOLU ME] IN BLOOD 14.2 g/dL 14.0 - 18.0 05/13 Specimen Type: BLOOD No comment entered. Ordering Provider: JACK GONZALEZ A Report Released Date/Time: May 13, 2024 03:24 PM Reporting Lab: [place] [id number] Performing Lab: [place] [id number] CBC/PLT HEMATOCRIT [VOLUME FRACTION] OF BLOOD BY AUTOMATED COUNT 41.8 42.0 - 52.0 05/13 L Specimen Type: BLOOD No comment entered. Ordering Provider: JACK GONZALEZ A Report Released Date/Time: May 13, 2024 03:24 PM Reporting Lab: [place] [id number] Performing Lab: [address] CBC/PLT MCV [ENTITIC VOLUME] BY AUTOMATED COUNT 92.9 fL 80.0 - 94.0 05/13 Specimen Type: BLOOD No comment entered. Ordering Provider: JACK GONZALEZ A Report Released Date/Time: May 13, 2024 03:24 PM Reporting Lab: [place] [id number] Performing Lab: [place] [id number] CBC/PLT MCH [ENTITIC MASS] BY AUTOMATED COUNT 31.6 pg 27.0 - 31.0 05/13 H Specimen Type: BLOOD No comment entered. Ordering Provider: JACK GONZALEZ IGE A Report Released Date/Time: May 13, 2024 03:24 PM Reporting Lab: [place] [phone] Performing Lab: [place] [id number] [place] [address] CBC/PLT MCHC [MASS/VOLU ME] BY AUTOMATED COUNT 34.0 g/dL 32.0 - 36.0 05/13 Specimen Type: BLOOD No comment entered. Ordering Provider: JACK GONZALEZ A Report Released Date/Time: May 13, 2024 03:24 PM Reporting Lab: [address] [place] [address] Performing Lab: [address] [address] [facility] CBC/PLT PLATELETS [#/VOLUME] IN BLOOD 188 10*3/uL 150 - 450 05/13 Specimen Type: BLOOD No comment entered. Ordering Provider: JACK GONZALEZ A Report Released Date/Time: May 13, 2024 03:24 PM Reporting Lab: [address] [address] Performing Lab: [address] [address] [facility] CBC/PLT PLATELET MEAN VOLUME [ENTITIC VOLUME] IN BLOOD 9.9 fL 9.0 - 13.1 05/13 Specimen Type: BLOOD No comment entered. Ordering Provider: JACK GONZALEZ A Report Released Date/Time: May 13, 2024 03:24 PM Reporting Lab: [address] [address] Performing Lab: [address] [address] [facility] CBC/PLT ERYTHROCYT E DISTRIBUTI ON WIDTH [ENTITIC VOLUME] BY AUTOMATED COUNT 12.5 11.0 - 16.0 05/13 Specimen Type: BLOOD No comment entered. Ordering Provider: JACK GONZALEZ Report Released Date/Time: May 13, 2024 03:24 PM Reporting Lab: [address] [address] Performing Lab: [address] [address] [facility] CBC/PLT NUCLEATED ERYTHROCYT ES/100 ERYTHROCYT ES IN BLOOD 0.0 0.0 - 0.0 05/13 Specimen Type: BLOOD No comment entered. Ordering Provider: JACK GONZALEZ A Report Released Date/Time: May 13, 2024 03:24 PM Reporting Lab: [address] [address] Performing Lab: [address] [address] [facility] GLYCOHEM OGLOBIN HEMOGLOBIN A1C/HEMOGL OBIN.TOTAL IN BLOOD BY HPLC 5.2 4.4 - 6.4 05/13 Specimen Type: BLOOD Comment: [facility] guidelines for A1c interpretat ion: Glycemic control targets are based on Shared Decision Making between clinicians and patients. Criteria used to establish an A1c target recommendat ion can be found at https://www .mo.gov/danny lityandpati entsafety/ and include the use of [...] 9.27. Ref: https://ngs p.org/CAPda ta.asp. The in-house Pymetrics-KRAFTWERK D-100 analyzer has a historical CV <= 2%. Contact the laboratory for further performance characteris tics of this assay. Ordering Provider: JACK GONZALEZ Report Released Date/Time: May 13, 2024 03:24 PM Reporting Lab: [place] [address] [address] Performing Lab: [place] [address] [address] [facility] LIPID PROFILE CHOLESTERO L [MASS/VOLU ME] [...] 2024 03:24 PM Reporting Lab: [place] [address] [address] Performing Lab: [place] [address] [address] [facility] LIPID PROFILE TRIGLYCERI DE [MASS/VOLU ME] [...] 2024 03:24 PM Reporting Lab: [place] [address] [address] Performing Lab: [place] [address] [address] [facility] LIPID PROFILE CHOLESTERO L IN HDL [...] 2024 03:24 PM Reporting Lab: [place] [address] [address] Performing Lab: [place] [address] [address] [facility] LIPID PROFILE CHOLESTERO L IN LDL [...] 2024 03:24 PM Reporting Lab: [place] [address] [address] Performing Lab: [place] [address] [address] [facility] LYME SCREEN BORRELIA BURGDORFER I AB [PRESENCE] IN SERUM BY IMMUNOASSA Y Negative 05/13 Specimen Type: SERUM No comment entered. Ordering Provider: JACK GONZALEZ Report Released Date/Time: May 13, 2024 03:24 PM Reporting Lab: [place] [facility] [address] [facility] [address] Performing Lab: [place] [address] [address] [facility] PANEL 5 CREATININE [MASS/VOLU ME] IN [...] 2024 03:24 PM Reporting Lab: [place] [facility] [address] [facility] [address] Performing Lab: [place] [address] [address] [facility] PANEL 5 UREA NITROGEN [MASS/VOLU ME] [...] May 13, 2024 03:24 PM Reporting Lab: [address] [address] Performing Lab: [place] [address] [facility] PANEL 5 GLUCOSE [MASS/VOLU ME] IN [...] 2024 03:24 PM Reporting Lab: [place] [address] [address] Performing Lab: [place] [address] [address] [facility] PANEL 5 SODIUM [MOLES/VOL UME] IN [...] 2024 03:24 PM Reporting Lab: [place] [address] [address] Performing Lab: [place] [address] [address] [facility] 5 POTASSIUM [MOLES/VOL UME] IN SERUM [...] 2024 03:24 PM Reporting Lab: [place] [address] [address] Performing Lab: [place] [address] [address] [facility] PANEL 5 CHLORIDE [MOLES/VOL UME] IN [...] 2024 03:24 PM Reporting Lab: [place] [address] [address] Performing Lab: [place] [address] [address] [facility] PANEL 5 CARBON DIOXIDE, TOTAL [MOLES/VOL [...] 2024 03:24 PM Reporting Lab: [place] [address] [address] Performing Lab: [place] [address] [address] [facility] PANEL 5 CALCIUM [MASS/VOLU ME] IN [...] 2024 03:24 PM Reporting Lab: [place] [address] [address] Performing Lab: [place] [address] [address] [facility] PANEL 5 PROTEIN [MASS/VOLU ME] IN [...] 2024 03:24 PM Reporting Lab: [place] [address] [address] Performing Lab: [place] [address] [address] [facility] PANEL 5 ALBUMIN [MASS/VOLU ME] IN [...] 2024 03:24 PM Reporting Lab: [place] [address] [address] Performing Lab: [place] [address] [address] [facility] PANEL 5 BILIRUBIN. TOTAL [MASS/VOLU ME] [...] 2024 03:24 PM Reporting Lab: [place] [address] [address] Performing Lab: [place] [address] [address] [facility] PANEL 5 ASPARTATE AMINOTRANS FERASE [ENZYMATIC [...] 2024 03:24 PM Reporting Lab: [place] [facility] [address] [facility] [address] Performing Lab: [place] [facility] [address] [facility] [address] [facility] PANEL 5 ALANINE AMINOTRANS FERASE [ENZYMATIC [...] 2024 03:24 PM Reporting Lab: [place] [facility] [address] [facility] [address] Performing Lab: [place] [facility] [address] [facility] [address] [facility] PANEL 5 ANION GAP 3 IN [...] 13, 2024 03:24 PM Reporting Lab: [place] [address] [address] Performing Lab: [place] [address] [address] [facility] PANEL 5 ALKALINE PHOSPHATAS E [ENZYMATIC [...] May 13, 2024 03:24 PM Reporting Lab: [facility] [address] [address] Performing Lab: [facility] [address] [facility] 5 GLOMERULAR FILTRATION RATE/1.73 SQ M.PREDICTE [...] May 13, 2024 03:24 PM Reporting Lab: [address] [address] Performing Lab: [place] [id number] [place] [address] PSA PROSTATE SPECIFIC AG [MASS/VOLU ME] IN SERUM OR PLASMA 0.304 ng/mL 0 - 3.999 05/13 Specimen Type: SERUM No comment entered. Ordering Provider: JACK GONZALEZ Report Released Date/Time: May 13, 2024 03:24 PM Reporting Lab: [address] [address] Performing Lab: [address] [place] [address] THYROID PROFILE THYROTROPI N [UNITS/VOL UME] IN [...] 2024 03:24 PM Reporting Lab: [place] [address] [address] Performing Lab: [place] [address] [address] [facility] THYROID PROFILE FREE T4 0.88 ng/mL [...] 2024 03:24 PM Reporting Lab: [place] [address] [address] Performing Lab: [place] [address] [address] [facility] URINALYS IS COLOR OF URINE Colorles s 05/13 Specimen Type: URINE Comment: Microscopic not indicated Ordering Provider: JACK GONZALEZ A Report Released Date/Time: May 13, 2024 03:24 PM Reporting Lab: [place] [address] [address] Performing Lab: [address] [address] [facility] URINALYS IS APPEARANCE OF URINE Clear 05/13 Specimen Type: URINE Comment: Microscopic not indicated Ordering Provider: JACK GONZALEZ A Report Released Date/Time: May 13, 2024 03:24 PM Reporting Lab: [address] [address] Performing Lab: [address] [address] [facility] URINALYS IS UROBILINOG EN [MASS/VOLU ME] IN URINE BY TEST STRIP Normalmg /dL 05/13 Specimen Type: URINE Comment: Microscopic not indicated Ordering Provider: JACK GONZALEZ A Report Released Date/Time: May 13, 2024 03:24 PM Reporting Lab: [address] [address] Performing Lab: [address] [address] [place] [address] URINALYS IS HEMOGLOBIN [PRESENCE] IN URINE BY TEST STRIP Negative 05/13 Specimen Type: URINE Comment: Microscopic not indicated Ordering Provider: JACK GONZALEZ A Report Released Date/Time: May 13, 2024 03:24 PM Reporting Lab: [address] [address] Performing Lab: [address] [address] [facility] URINALYS IS BILIRUBIN. TOTAL [PRESENCE] IN URINE BY TEST STRIP Negative 05/13 Specimen Type: URINE Comment: Microscopic not indicated Ordering Provider: JACK GONZALEZ IGE A Report Released Date/Time: May 13, 2024 03:24 PM Reporting Lab: [address] [address] Performing Lab: [address] [address] [facility] URINALYS IS KETONES [MASS/VOLU ME] IN URINE BY TEST STRIP Negative mg/dL 05/13 Specimen Type: URINE Comment: Microscopic not indicated Ordering Provider: JACK GONZALEZ IGE A Report Released Date/Time: May 13, 2024 03:24 PM Reporting Lab: [address] [address] Performing Lab: [address] [address] [facility] URINALYS IS PROTEIN [MASS/VOLU ME] IN URINE BY TEST STRIP Negative mg/dL 05/13 Specimen Type: URINE Comment: Microscopic not indicated Ordering Provider: JACK GONZALEZ A Report Released Date/Time: May 13, 2024 03:24 PM Reporting Lab: [address] [address] Performing Lab: [address] [address] [facility] URINALYS IS PH OF URINE BY TEST STRIP 5.5 4.5 - 8.0 05/13 Specimen Type: URINE Comment: Microscopic not indicated Ordering Provider: JACK GONZALEZ A Report Released Date/Time: May 13, 2024 03:24 PM Reporting Lab: [address] [address] Performing Lab: [address] [address] [facility] URINALYS IS NITRITE [PRESENCE] IN URINE BY TEST STRIP Negative 05/13 Specimen Type: URINE Comment: Microscopic not indicated Ordering Provider: JACK GONZALEZ A Report Released Date/Time: May 13, 2024 03:24 PM Reporting Lab: [address] [address] Performing Lab: [address] [address] [facility] URINALYS IS LEUKOCYTE ESTERASE [PRESENCE] IN URINE BY TEST STRIP Negative 05/13 Specimen Type: URINE Comment: Microscopic not indicated Ordering Provider: JACK GONZALEZ A Report Released Date/Time: May 13, 2024 03:24 PM Reporting Lab: [address] [address] Performing Lab: [address] [address] [facility] URINALYS IS SPECIFIC GRAVITY OF URINE 1.014 1.005 - 1.030 05/13 Specimen Type: URINE Comment: Microscopic not indicated Ordering Provider: JACK GONZALEZ Report Released Date/Time: May 13, 2024 03:24 PM Reporting Lab: [address] [address] Performing Lab: [address] [address] [facility] URINALYS IS GLUCOSE [MASS/VOLU ME] IN URINE BY TEST STRIP Negative mg/dL 05/13 Specimen Type: URINE Comment: Microscopic not indicated Ordering Provider: JACK GONZALEZ Report Released Date/Time: May 13, 2024 03:24 PM Reporting Lab: [address] [address] Performing Lab: [address] [address] [facility] Vital Signs Combined list of inpatient and outpatient Vital Signs from Department of [facility] and [facility], ranging from 12 months to all on record, depending upon the facility. Vital Sign Value Date Comments Source SYSTOLIC BLOOD PRESSURE 138 05/13/2024 14:37:00 [facility] DIASTOLIC BLOOD PRESSURE 95 05/13/2024 14:37:00 [facility] PULSE OXIMETRY 96 05/13/2024 14:37:00 [facility] WEIGHT 214.0 05/13/2024 14:37:00 [facility] BMI 30 kg/m2 05/13/2024 14:37:00 [facility] PAIN 8 05/13/2024 14:37:00 [facility] TEMPERATURE 98.2 05/13/2024 14:37:00 [facility] PULSE 65 05/13/2024 14:37:00 [facility] Encounters Combined list of: 1) Encounters from Department of Veterans Affairs facilities going backup to the last 18 months, not all [place] inpatient encounters are included; 2) Encounters from the Department of [facility] facilities going backup to 280 months. Location Location Details Encounter Type Encounter Number Reason For Visit Attending Provider ADM Date DC Date Status Disposition Source [facility] Outpatient Encounter [id number] 04/27 [place] [facility] HEARING AID EXAM BOTH EARS [id number] Diagnos is: ICD-10- CM H90.3 Sensori neural hearing loss, bilater al RAJESH CARROLL S 05/13 [place] [facility] Outpatient Encounter [id number] 05/13 [place] CASE MANAGEMENT [id number] Diagnos is: ICD-10- CM Z65.9 Problem related to unspeci fied psychos ocial circums MAYRA Snow T 05/13 [place] [facility] OFFICE O/P EST MOD 30 MIN [id number] Diagnos is: ICD-10- CM I10 Essenti al (primar y) hyperte nsion Felipa GONZALEZ 05/13 [place] [facility] HC PRO PHONE CALL 5-10 MIN [id number] Diagnos is: ICD-10- CM Z71.89 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 OCTAVIA Nelson VIA J 05/16 [place] [facility] Outpatient Encounter [id number] 05/17 [place] [facility] HC PRO PHONE CALL 5-10 MIN [id number] Diagnos is: ICD-10- CM Z71.89 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 OCTAVIA Nelson VIA J 05/18 [place] [facility] Outpatient Encounter [id number] 05/27 [place] CONFORMITY EVALUATION [id number] Diagnos is: ICD-10- CM H90.3 Sensori neural hearing loss, vidya RAJESH Smith S 06/03 [place] [facility] Social History Combined list of available smoking, tobacco, and other social history from Department of Defense and Veterans Affairs facilities. Social History Type Response Date Comment [facility] e [facility]2024 [facility]2022 [facility] tobacco [facility] 06/07/2020 [facility] of [facility] TO < 15 YRS 07/21/2018 [facility] History of tobacco use V9 LIFETIME NON-USER OF TOBACCO 08/20/2017 [facility] History of tobacco use HF V9 CURRENT NON-SMOKER 05/19/2002 [facility] History of tobacco use HF V9 CURRENT NON-SMOKER 01/15/2001 quit 2 yrs ago [facility] History of tobacco use NON-TOBACCO USER 08/28/1998 [facility]
== END 2024-10-28 23:59 | disposition home or self-care (01) ==
LOC: RT 13:37
PROVIDERS: PCP Nurse Practitioner Family; Visit Provider Nurse Practitioner Family
DX: I51.7 Cardiomegaly (principal); I36.1 Nonrheumatic tricuspid (valve) insufficiency; R06.02 Shortness of breath; R07.89 Other chest pain
CPT/HCPCS: 93306

== ENCOUNTER 2024-11-01 08:46 | Outpatient (CLI) | payer OTHER, SELFPAY ==
--- OUTSIDE RECORDS SUMMARY | 2024-11-01 08:48 | XMS_ITS | Continuity of Care Document ---
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 It does not include entries that were removed or entered in error. Problem Status Onset Date Problem Type Date of Resolution Comments Source Complaining of erectile dysfunction Active Condition [facility] History of polyp of colon Active Condition Jun 17, 2022 Entered By: JOVANNY BRAN Comment: Cscope 03/10/2022- WNL repeat in 10y (2031) [facility] Hypertension Active Condition [facility] Personal History of Tobacco Use Active Condition [facility] Plantar Fasciitis Active Condition [facility] Tinnitus Active Condition [facility] Vitamin D deficiency Active Condition [facility] Diagnosis: ICD-10-CM H90.3 Sensorineural hearing loss, bilateral Active Diagnosis [facility] Diagnosis: ICD-10-CM Z71.89 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ed counseling Active Diagnosis [facility] Diagnosis: ICD-10-CM Z65.9 Problem related to unspecified psychosocial circumstances Active Diagnosis [facility] Diagnosis: ICD-10-CM I10 Essential (primary) hypertension Active Diagnosis [facility] Medications Combined list of outpatient medications from [facility] and [facility] facilities.Medications provided include 1) [...] WHILE ON THIS DRUG ORAL ACTIVE 05/15/2025 [id number] CASEY GONZALEZ 2023 45 [place] [facility] BACLOFEN 10MG TAB TAKE ONE-HALF TABLET BY MOUTH THREE TIMES A DAY FOR MUSCLE SPASMS ORAL ACTIVE 05/14/2025 [id number] 5 LISACASEYYANE Vance 2023 135 [place] [facility] DICLOFENAC NA 75MG TAB,EC TAKE ONE TABLET BY MOUTH TWICE A DAY NEEDED FOR PAIN/INF LAMMATIO N ORAL ACTIVE 05/14/2025 [id number] 5 LISA CASEY A 2023 90 [place] [facility] LISINOPRIL 40MG TAB TAKE ONE-HALF TABLET BY MOUTH DAILY FOR HIGH BLOOD PRESSURE ORAL ACTIVE 05/14/2025 [id number] 5 CASEY GONZALEZ 2023 45 [place] [facility] LISINOPRIL 40MG TAB TAKE ONE-HALF TABLET BY MOUTH DAILY FOR BLOOD PRESSURE /HEART ORAL 09/13/2023 [id number] 4 RAJESH QUACH 2023 45 [place] [facility] Allergies, Adverse Reactions, Alerts Combined list of allergies from Department of Defense and Veterans Affairs facilities. It does not include entries that were removed or entered in error. Substance Category Reaction Severity Reaction type Status Date Reported Comments Source NUTS Propensity to adverse reactions to substance (finding) Eruption active 8 [facility] Immunizations Combined list of available immunizations from the Department of Defense and Veterans Affairs facilities. 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 Status Comments Source INFLUENZA, SPLIT VIRUS, TRIVALENT, PF 2023 [place] MEDINA LEFT DELTO ID [id number] 140 complet ed Completed Series, [place], [place] [facility] COVID-19 (PFIZER), MRNA, LNP-S, BIVALENT BOOSTER, PF, 30 MCG/0.3 ML DOSE 1 2021 NONE 300 complet ed PFR; [id number]; 3 [place] [facility] INFLUENZA, INJECTABLE, QUADRIVALENT, PRESERVATIVE FREE 2021 NONE 150 complet ed Booster for Series, [place] [facility] TDAP 2021 115 complet ed [place] [facility] COVID-19 (PFIZER), MRNA, LNP-S, PF, 30 MCG/0.3 ML DOSE 1 2020 208 complet ed HISTORICA L INFORMATI ON - FROM OTHER REGISTRY, [place] [facility] INFLUENZA, INJECTABLE, QUADRIVALENT, PRESERVATIVE FREE 2020 NONE [address] [place] [facility] PNEUMOCOCCAL POLYSACCHARID E PPV23 2020 NONE 33 complet ed Completed Series, [place] [facility] COVID-19 (PFIZER), MRNA, LNP-S, PF, 30 MCG/0.3 ML DOSE 2 2020 208 complet ed PFR; [id number]; 1 [place] COVID-19 (PFIZER), MRNA, LNP-S, PF, 30 MCG/0.3 ML DOSE 1 2020 208 complet ed PFR; [id number]; 1 [place] INFLUENZA, INJECTABLE, QUADRIVALENT, PRESERVATIVE FREE 2019 150 complet ed [place] [facility] ZOSTER RECOMBINANT 2 2019 187 complet ed [place] [facility] INFLUENZA, INJECTABLE, QUADRIVALENT, PRESERVATIVE FREE 2018 150 complet ed [place] [facility] [place] ZOSTER RECOMBINANT 1 2018 187 complet ed [place] [facility] HEP A, ADULT 2018 52 complet ed [place] [facility] HEP A, ADULT 2018 52 complet ed [place] [facility] INFLUENZA, SEASONAL, INJECTABLE 2018 141 complet ed [place] [facility] INFLUENZA A & B (HISTORICAL) 2017 88 complet ed [place] [facility] TDAP 2017 115 complet ed [place] [facility] TD(ADULT) UNSPECIFIED FORMULATION 1996 139 complet ed [place] [facility] Results Combined list of recent chemistry, hematology and other laboratory results from Department of Defense and Veterans Affairs, ranging from 15 months to all on record, depending upon the facility. Order Name Results Value Reference Range Date Interpretation Specimen Comments Source LYME SCREEN BORRELIA BURGDORFER I AB [PRESENCE] IN SERUM BY IMMUNOASSA Y Negative 05/13 Specimen Type: SERUM No comment entered. Ordering Provider: JACK GONZALEZ Report Released Date/Time: May 13, 2024 03:24 PM Reporting Lab: [address] [address] Performing Lab: [address] [address] [facility] LIPID PROFILE CHOLESTERO L [MASS/VOLU ME] [...] 2024 03:24 PM Reporting Lab: [place] [facility] [address] [address] Performing Lab: [place] [address] [address] [facility] LIPID PROFILE TRIGLYCERI DE [MASS/VOLU ME] [...] 2024 03:24 PM Reporting Lab: [place] [address] [address] Performing Lab: [place] [address] [address] [facility] LIPID PROFILE CHOLESTERO L IN HDL [...] 2024 03:24 PM Reporting Lab: [place] [address] [address] Performing Lab: [place] [address] [address] [facility] LIPID PROFILE CHOLESTERO L IN LDL [...] 2024 03:24 PM Reporting Lab: [facility] [address] [address] Performing Lab: [place] [address] [address] [facility] GLYCOHEM OGLOBIN HEMOGLOBIN A1C/HEMOGL OBIN.TOTAL IN BLOOD BY HPLC 5.2 4.4 - 6.4 05/13 Specimen Type: BLOOD Comment: [facility] guidelines for A1c interpretat ion: Glycemic control targets are based on Shared Decision Making between clinicians and patients. Criteria used to establish an A1c target recommendat ion can be found at https://www .[place].gov/danny lityandpati entsafety/ and include the use of [...] 9.27. Ref: https://ngs p.org/CAPda ta.asp. The in-house [employer]Line-Amicus D-100 analyzer has a historical CV <= 2%. Contact the laboratory for further performance characteris tics of this assay. Ordering Provider: JACK GONZALEZ Report Released Date/Time: May 13, 2024 03:24 PM Reporting Lab: [place] [id number] Performing Lab: [place] [id number] [place] [address] CBC/PLT LEUKOCYTES [#/VOLUME] IN BLOOD BY AUTOMATED COUNT 7.6 10*3/uL 5.0 - 10.0 05/13 Specimen Type: BLOOD No comment entered. Ordering Provider: JACK GONZALEZ Report Released Date/Time: May 13, 2024 03:24 PM Reporting Lab: [place] [id number] Performing Lab: [place] [id number] [place] [address] CBC/PLT ERYTHROCYT ES [#/VOLUME] IN BLOOD BY AUTOMATED COUNT 4.50 10*6/uL 4.6 - 6.2 05/13 L Specimen Type: BLOOD No comment entered. Ordering Provider: JACK GONZALEZ Report Released Date/Time: May 13, 2024 03:24 PM Reporting Lab: [address] [address] Performing Lab: [place] [id number] [place] [address] CBC/PLT HEMOGLOBIN [MASS/VOLU ME] IN BLOOD 14.2 g/dL 14.0 - 18.0 05/13 Specimen Type: BLOOD No comment entered. Ordering Provider: JACK GONZALEZ Report Released Date/Time: May 13, 2024 03:24 PM Reporting Lab: [place] [id number] Performing Lab: [place] [id number] [place] [address] CBC/PLT HEMATOCRIT [VOLUME FRACTION] OF BLOOD BY AUTOMATED COUNT 41.8 42.0 - 52.0 05/13 L Specimen Type: BLOOD No comment entered. Ordering Provider: JACK GONZALEZ A Report Released Date/Time: May 13, 2024 03:24 PM Reporting Lab: [place] [id number] Performing Lab: [place] [id number] CBC/PLT MCV [ENTITIC VOLUME] BY AUTOMATED COUNT 92.9 fL 80.0 - 94.0 05/13 Specimen Type: BLOOD No comment entered. Ordering Provider: JACK GONZALEZ A Report Released Date/Time: May 13, 2024 03:24 PM Reporting Lab: [place] [id number] Performing Lab: [place] [id number] CBC/PLT MCH [ENTITIC MASS] BY AUTOMATED COUNT 31.6 pg 27.0 - 31.0 05/13 H Specimen Type: BLOOD No comment entered. Ordering Provider: JACK GONZALEZ A Report Released Date/Time: May 13, 2024 03:24 PM Reporting Lab: [place] [id number] Performing Lab: [place] [id number] CBC/PLT MCHC [MASS/VOLU ME] BY AUTOMATED COUNT 34.0 g/dL 32.0 - 36.0 05/13 Specimen Type: BLOOD No comment entered. Ordering Provider: JACK GONZALEZ A Report Released Date/Time: May 13, 2024 03:24 PM Reporting Lab: [address] [address] Performing Lab: [address] [phone] [place] [address] CBC/PLT PLATELETS [#/VOLUME] IN BLOOD 188 10*3/uL 150 - 450 05/13 Specimen Type: BLOOD No comment entered. Ordering Provider: JACK GONZALEZ A Report Released Date/Time: May 13, 2024 03:24 PM Reporting Lab: [address] [address] Performing Lab: [address] [address] [facility] CBC/PLT PLATELET MEAN VOLUME [ENTITIC VOLUME] IN BLOOD 9.9 fL 9.0 - 13.1 05/13 Specimen Type: BLOOD No comment entered. Ordering Provider: JACK GONZALEZ A Report Released Date/Time: May 13, 2024 03:24 PM Reporting Lab: [address] [address] Performing Lab: [address] [address] [facility] CBC/PLT ERYTHROCYT E DISTRIBUTI ON WIDTH [ENTITIC VOLUME] BY AUTOMATED COUNT 12.5 11.0 - 16.0 05/13 Specimen Type: BLOOD No comment entered. Ordering Provider: JACK GONZALEZ A Report Released Date/Time: May 13, 2024 03:24 PM Reporting Lab: [address] [address] Performing Lab: [address] [address] [facility] CBC/PLT NUCLEATED ERYTHROCYT ES/100 ERYTHROCYT ES IN BLOOD 0.0 0.0 - 0.0 05/13 Specimen Type: BLOOD No comment entered. Ordering Provider: JACK GONZALEZ Report Released Date/Time: May 13, 2024 03:24 PM Reporting Lab: [address] [address] Performing Lab: [address] [address] [facility] PSA PROSTATE SPECIFIC AG [MASS/VOLU ME] IN SERUM OR PLASMA 0.304 ng/mL 0 - 3.999 05/13 Specimen Type: SERUM No comment entered. Ordering Provider: JACK GONZALEZ A Report Released Date/Time: May 13, 2024 03:24 PM Reporting Lab: [address] [address] Performing Lab: [address] [address] [facility] URINALYS IS COLOR OF URINE Colorles s 05/13 Specimen Type: URINE Comment: Microscopic not indicated Ordering Provider: JACK GONZALEZ A Report Released Date/Time: May 13, 2024 03:24 PM Reporting Lab: [address] [address] Performing Lab: [address] [address] [facility] URINALYS IS APPEARANCE OF URINE Clear 05/13 Specimen Type: URINE Comment: Microscopic not indicated Ordering Provider: JACK GONZALEZ IGE A Report Released Date/Time: May 13, 2024 03:24 PM Reporting Lab: [address] [address] Performing Lab: [address] [address] [facility] URINALYS IS UROBILINOG EN [MASS/VOLU ME] IN URINE BY TEST STRIP Normalmg /dL 05/13 Specimen Type: URINE Comment: Microscopic not indicated Ordering Provider: JACK GONZALEZ A Report Released Date/Time: May 13, 2024 03:24 PM Reporting Lab: [address] [address] Performing Lab: [address] [address] [facility] URINALYS IS HEMOGLOBIN [PRESENCE] IN URINE BY TEST STRIP Negative 05/13 Specimen Type: URINE Comment: Microscopic not indicated Ordering Provider: JACK GONZALEZ A Report Released Date/Time: May 13, 2024 03:24 PM Reporting Lab: [address] [address] Performing Lab: [address] [address] [facility] URINALYS IS BILIRUBIN. TOTAL [PRESENCE] IN URINE BY TEST STRIP Negative 05/13 Specimen Type: URINE Comment: Microscopic not indicated Ordering Provider: JACK GONZALEZ IGE A Report Released Date/Time: May 13, 2024 03:24 PM Reporting Lab: [address] [address] Performing Lab: [address] [address] [facility] URINALYS IS KETONES [MASS/VOLU ME] IN URINE BY TEST STRIP Negative mg/dL 05/13 Specimen Type: URINE Comment: Microscopic not indicated Ordering Provider: JACK GONZALEZ A Report Released Date/Time: May 13, 2024 03:24 PM Reporting Lab: [address] [address] Performing Lab: [address] [address] [facility] URINALYS IS PROTEIN [MASS/VOLU ME] IN URINE BY TEST STRIP Negative mg/dL 05/13 Specimen Type: URINE Comment: Microscopic not indicated Ordering Provider: JACK GONZALEZ A Report Released Date/Time: May 13, 2024 03:24 PM Reporting Lab: [address] [address] Performing Lab: [address] [address] [facility] URINALYS IS PH OF URINE BY TEST STRIP 5.5 4.5 - 8.0 05/13 Specimen Type: URINE Comment: Microscopic not indicated Ordering Provider: JACK GONZALEZ A Report Released Date/Time: May 13, 2024 03:24 PM Reporting Lab: [address] [address] Performing Lab: [address] [address] [facility] URINALYS IS NITRITE [PRESENCE] IN URINE BY TEST STRIP Negative 05/13 Specimen Type: URINE Comment: Microscopic not indicated Ordering Provider: JACK GONZALEZ IGE A Report Released Date/Time: May 13, 2024 03:24 PM Reporting Lab: [address] [address] Performing Lab: [address] [address] [facility] URINALYS IS LEUKOCYTE ESTERASE [PRESENCE] IN URINE BY TEST STRIP Negative 05/13 Specimen Type: URINE Comment: Microscopic not indicated Ordering Provider: JACK GONZALEZ IGE A Report Released Date/Time: May 13, 2024 03:24 PM Reporting Lab: [place] [id number] Performing Lab: [place] [address] [place] [address] URINALYS IS SPECIFIC GRAVITY OF URINE 1.014 1.005 - 1.030 05/13 Specimen Type: URINE Comment: Microscopic not indicated Ordering Provider: JACK GONZALEZ Report Released Date/Time: May 13, 2024 03:24 PM Reporting Lab: [place] [id number] Performing Lab: [place] [id number] [facility] URINALYS IS GLUCOSE [MASS/VOLU ME] IN URINE BY TEST STRIP Negative mg/dL 05/13 Specimen Type: URINE Comment: Microscopic not indicated Ordering Provider: JACK GONZALEZ Report Released Date/Time: May 13, 2024 03:24 PM Reporting Lab: [place] [id number] Performing Lab: [place] [phone] [place] [address] THYROID PROFILE THYROTROPI N [UNITS/VOL UME] IN [...] 2024 03:24 PM Reporting Lab: [place] [address] [address] Performing Lab: [place] [address] [address] [facility] THYROID PROFILE FREE T4 0.88 ng/mL [...] May 13, 2024 03:24 PM Reporting Lab: [address] [address] Performing Lab: [address] [address] [facility] 25-OH VITAMIN D 25-HYDROXY VITAMIN D3 [MASS/VOLU [...] based reference values. Ordering Provider: JACK GONZALEZ Report Released Date/Time: May 13, 2024 03:24 PM Reporting Lab: [place] [facility] [address] [facility] [address] Performing Lab: [place] [facility] [address] [facility] [address] [facility] PANEL 5 CREATININE [MASS/VOLU ME] IN [...] 2024 03:24 PM Reporting Lab: [place] [facility] [address] [facility] [address] Performing Lab: [place] [facility] [address] [facility] [address] [facility] PANEL 5 UREA NITROGEN [MASS/VOLU ME] [...] May 13, 2024 03:24 PM Reporting Lab: [address] [address] Performing Lab: [address] [address] [facility] PANEL 5 GLUCOSE [MASS/VOLU ME] IN [...] May 13, 2024 03:24 PM Reporting Lab: [address] [address] Performing Lab: [address] [address] [facility] PANEL 5 SODIUM [MOLES/VOL UME] IN [...] 2024 03:24 PM Reporting Lab: [place] [address] [address] Performing Lab: [place] [address] [address] [facility] PANEL 5 POTASSIUM [MOLES/VOL UME] IN SERUM OR [...] 2024 03:24 PM Reporting Lab: [place] [address] [address] Performing Lab: [place] [address] [address] [facility] PANEL 5 CHLORIDE [MOLES/VOL UME] IN [...] 2024 03:24 PM Reporting Lab: [place] [address] [address] Performing Lab: [place] [address] [address] [facility] PANEL 5 CARBON DIOXIDE, TOTAL [MOLES/VOL UME] IN SERUM OR PLASMA 24 mmol/L - 05/13 Specimen Type: PLASMA Comment: Estimated Glomerular [...] 2024 03:24 PM Reporting Lab: [place] [address] [address] Performing Lab: [place] [address] [address] [facility] PANEL 5 CALCIUM [MASS/VOLU ME] IN [...] 2024 03:24 PM Reporting Lab: [place] [address] [address] Performing Lab: [place] [address] [address] [facility] PANEL 5 PROTEIN [MASS/VOLU ME] IN [...] 2024 03:24 PM Reporting Lab: [place] [address] [address] Performing Lab: [place] [address] [address] [facility] PANEL 5 ALBUMIN [MASS/VOLU ME] IN [...] 2024 03:24 PM Reporting Lab: [place] [address] [address] Performing Lab: [place] [address] [address] [facility] PANEL 5 BILIRUBIN. TOTAL [MASS/VOLU ME] [...] 2024 03:24 PM Reporting Lab: [place] [address] [address] Performing Lab: [place] [address] [address] [facility] PANEL 5 ASPARTATE AMINOTRANS FERASE [ENZYMATIC [...] 2024 03:24 PM Reporting Lab: [place] [address] [address] Performing Lab: [place] [facility] [address] [facility] [address] [facility] PANEL 5 ALANINE AMINOTRANS FERASE [ENZYMATIC [...] 2024 03:24 PM Reporting Lab: [place] [facility] [address] [facility] [address] Performing Lab: [place] [facility] [address] [facility] [address] [facility] PANEL 5 ANION GAP 3 IN [...] 2024 03:24 PM Reporting Lab: [place] [address] [address] Performing Lab: [place] [address] [address] [facility] PANEL 5 ALKALINE PHOSPHATAS E [ENZYMATIC [...] 2024 03:24 PM Reporting Lab: [place] [address] [address] Performing Lab: [place] [address] [address] [facility] 5 GLOMERULAR FILTRATION RATE/1.73 SQ M.PREDICTE [...] 2024 03:24 PM Reporting Lab: [place] [address] [address] Performing Lab: [place] [address] [address] [facility] Vital Signs Combined list of inpatient and outpatient Vital Signs from Department of [facility] and [facility], ranging from 12 months to all on record, depending upon the facility. Vital Sign Value Date Comments Source SYSTOLIC BLOOD PRESSURE 138 05/13/2024 14:37:00 [facility] DIASTOLIC BLOOD PRESSURE 95 05/13/2024 14:37:00 [facility] PULSE OXIMETRY 96 05/13/2024 14:37:00 L [facility] WEIGHT 214.0 05/13/2024 14:37:00 [place] [facility] BMI 30 kg/m2 05/13/2024 14:37:00 [place] [facility] PAIN 8 05/13/2024 14[facility]37[facility]00 [facility] TEMPERATURE 98.2 05/13/2024 14:37:00 [place]IN G[place] [facility] PULSE 65 05/13/2024 14:37:00 [facility] Encounters Combined list of: 1) Encounters from Department of Veterans Affairs facilities going backup to the last 18 months, not all [place] inpatient encounters are included; 2) Encounters from the Department of Defense facilities going backup to 280 months. Location Location Details Encounter Type Encounter Number Reason For Visit Attending Provider ADM Date DC Date Status Disposition Source [facility] Outpatient Encounter [id number] 04/27 [place] [facility] HEARING AID EXAM BOTH EARS [id number] Diagnos is: ICD-10- CM H90.3 Sensori neural hearing loss, bilater al RAJESH CARROLL S 05/13 [place] [facility] Outpatient Encounter [id number] 05/13 [place] [facility] CASE MANAGEMENT [id number] Diagnos is: ICD-10- CM Z65.9 Problem related to unspeci fied psychos ocial circums MAYRA Snow T 05/13 [place] [facility] OFFICE O/P EST MOD 30 MIN [id number] Diagnos is: ICD-10- CM I10 Essenti al (primar y) hyperte nsion Felipa GONZALEZ 05/13 [place] [facility] HC PRO PHONE CALL 5-10 MIN [id number] Diagnos is: ICD-10- CM Z71.89 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 ed eligibility counselor OCTAVIA Nelson VIA J 05/16 [place] [facility] Outpatient Encounter [id number] 05/17 [place] [facility] HC PRO PHONE CALL 5-10 MIN [id number] Diagnos is: ICD-10- CM Z71.89 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 ed eligibility counselor OCTAVIA Nelson VIA J 05/18 [place] [facility] Outpatient Encounter [id number] 05/27 [place] CONFORMITY EVALUATION [id number] Diagnos is: ICD-10- CM H90.3 Sensori neural hearing loss, vidya RAJESH Smith S 06/03 [place] [facility] Social History Combined list of available smoking, tobacco, and other social history from Department of Defense and Veterans Affairs facilities. Social History Type Response Date Comment [facility] e [facility]/24/2022 [facility] of [facility]/07/2020 [facility] of [facility] TO < 15 YRS 07/21/2018 [facility] History of tobacco use V9 LIFETIME NON-USER OF TOBACCO 08/20/2017 [facility] History of tobacco use HF V9 CURRENT NON-SMOKER 05/19/2002 [facility] History of tobacco use HF V9 CURRENT NON-SMOKER 01/15/2001 quit 2 yrs ago [facility] History of tobacco use NON-TOBACCO USER 08/28/1998 [facility]
--- OUTSIDE RECORDS SUMMARY | 2024-11-01 08:49 | XMS_ITS | Data Portability ---
Author Organization [place] - [facility] [place] [facility] [place] [facility] Address [address] [place] [id number] Assessment No assessment recorded. Plan of Treatment Reminders Order Date Submit Date Provider Last Modified By Organization Details Last Modified Time Details Appointments None recorded. Lab None recorded. Referral None recorded. Procedures None recorded. Surgeries None recorded. Imaging XR, abdomen, 1 view - please send pt back to when finished 2022 [facility] (Radiology)[address] [place], [address], 3 11:39:29 Medication Orders None recorded. Patient TargetsNo targets recorded. Patient InstructionsNo instructions recorded. Reason for Referral None Reported. Results Created Date Observation Date Name Description Value Unit Range Abnormal Flag Note LastModifiedBy Organization Detail LastModifiedTime 02/12/20 23 02/11/2023 XR, abdom en, 1 view [place] [facility] [address] [address] Phone: Fax: Name: RAZA COATES Exam Date: 023 : 960 Age 62 Gender : M Access ion: [id number] Physic dar: NIC DEL VALLE Facili ty: [facility] Facili ty HSV: Outpat ient Exam: ABD KUB 1V SINGLE VIEW ABDOME N: HISTOR Y: Nephro lithia sis, interm ittent pain FINDIN GS: No abnorm al radiop acitie s are seen in the abdome n. The visual ized bony struct ures are intact . There is modera te coloni c stool noted. There is no obstru ction. There are no obstru cting stones visual ized. There are phlebo liths within the pelvis appear there are degene rative change s of the spine noted. IMPRES DIMA: No obstru cting stones visual ized. Modera te coloni c stool. Images review ed, interp reted, and dictat ed by Dr. Domenico Randall . Transc ribed by Reynaldo Estrada PA-C Dictat ed By: SKYLAR RANDALL Transc ribed By: SKYLAR RANDALL Transc ribed On: 023 10:22 AM Electr onical ly signed by: SKYLAR RANDALL 023 [facility] Leg[facility] y authen ticate d by SANCHEZ CHENG 02-11 10:22: 14 CC'ed Logic: Orderi ng Provid er: IVON Queen CC Provid er: ESTEBAN LINDQUIST Attend ing Provid er: IVON Queen Referr ing Provid er: IVON Queen Admitt ing Provid er: IVON Queen [address] (Radiology) [address] [place] [address] [place], [address], 02/11/2023 15:10:44 Result Notes None recorded. Problems Name Problem SNOMED Code Status Onset Date Resolution Date Notes Provider Name and Address Organization Details Recorded Time Hypertensive disorder 92337090 Active 2022 MAGAN Rodriguez - [facility] [place] [facility] [place] 3 08:51:42 Problem Notes None recorded. Procedures Surgical History None recorded. Imaging Results Imaging Date Name Status LastModified by Organiz ation Details LastModified Time 02/11/2023 XR, abdomen, 1 view completed [address] (Radiology) [address] [place] [address] [place], [address], 02/11/2023 15:10:44 Procedure Notes None recorded. Medical Equipment None Reported. Allergies No known drug allergies Medications Name Sig Start Date Stop Date Status Note LastModified by Organization Details LastModified Time lisinopril 20 mg tablet TAKE 1 TABLET BY MOUTH ONCE DAILY active Not Available Not Available No t Available prednisone 20 mg tablet TAKE 1 TABLET BY MOUTH TWICE DAILY FOR 5 DAYS active Not Available Not Available No t Available valacyclovir 500 mg tablet TAKE 1 TABLET BY MOUTH ONCE DAILY active Not Available Not Available No t Available ketorolac 10 mg tablet TAKE 1 TABLET BY MOUTH EVERY 6 HOURS NEEDED, MAX OF 40MG/24HR OR 5 DAYS active Not Available Not Available No t Available tamsulosin 0.4 mg capsule TAKE 1 CAPSULE BY MOUTH AT BEDTIME FOR 5 DAYS, START TOMORROW 12/23/22 active Not Available Not Available No t Available ondansetron 4 mg disintegrating tablet DISSOLVE 1 TABLET IN MOUTH EVERY 6 HOURS NEEDED, MAY DISSOLVE IN MOUTH OR SWALLOW WHOLE active Not Available Not Available No t Available naproxen 500 mg tablet TAKE 1 TABLET BY MOUTH TWICE DAILY NEEDED FOR PAIN active Not Available Not Available No t Available tadalafil 5 mg tablet TAKE 1 TABLET BY MOUTH ONCE DAILY active Not Available Not Available No t Available Vitals Date Recorded Body height Body mass index (BMI) Body weight Body temperature Provider Name and Address Organization Details Last Updated DateTime 02/11/2023 172.72 cm 32.7 kg/m2 67839.36 g 97.7 [degF] [facility] [place] 02/11/2023 08:49:58 Social History None recorded. Functional Status None recorded. Mental Status None recorded. Family History Relationship Description Onset Age of this Age Resolved Age Notes LastModified by Organization Details LastModified Time Father Myocardial infarction [email or web address] Not available 01/18 08:50:41 Medical History No medical history recorded. Past Encounters Encounter ID Performer Location Encounter Start Date Encounter Closed Date Diagnosis/Indication Diagnosis SNOMED-CT Code Diagnosis ICD10 Code Diagnosis Note [id number] Gee Del Valle Jr, MD [facility] [address] [id number] 02/11/2023 08:40:04 02/11/2023 11:16:16 Kidney stone 32759732 N20.0 Patient with recent right-side d flank pain. CT scan on January 26 showed a 5 mm right distal ureteral stone. KUB was performed today which showed a calcificat ion in the right-side d bony pelvis that appears to be more like a phlebolith . I did not see evidence of calcificat ion in the expected course of the ureters. He is asymptomat ic at this time. We will see him back in 1 week in follow-up. He is to continue to strain his urine and push fluids. Health Concerns Section Related Observation LastModified by Organization Detai ls LastModified Time None Recorded Concern Status LastModified by Organization Details LastModified Time None Recorded Advance Directives Directive None Recorded Payers Encounter Date Sequence Insurance Name Policy Number Policy Jimenez Covered Member ID Jimenez Member ID Guarantor Name 02/11/2023 1 [facility] Norm Coates [id number] Notes Date Note Type Note Provider Name and Address Organization Details Recorded Time 02/11/2023 text/html Patient is a 62-year-old white male with recent right-sided flank pain. He presented to [facility] on January [address] scan showed a 5 mm stone in the right distal ureter with mild hydroureteroneph rosis. Returns today in follow-up. States a flare-up about 3 days ago of right-sided flank pain. He states he has been straining his urine while at home but not at work. He denies having passed the stone. States he had acute flank pain in December as well and a CT scan at [facility] showed a 2 mm stone at that point. Gee Del Valle Jr, MD [address] [place] [address], [address], [place], [phone], [facility] [place] [facility] [place] [facility] [place] 02/11/2023 13:18:04
--- NOTE | 2024-11-01 09:00 | CA_ITS ---
FINAL REPORT TECHNIQUE: Ultrasound images of the kidneys were obtained. Duplex Doppler of the renal arteries, RAR and RI also obtained. Spectral analysis was performed. CLINICAL HISTORY: HTN FINDINGS: The right kidney measures 12.5 cm in length. There is no mass or hydronephrosis. RI is 0.64-0.71. Peak systolic velocity is 192 cm/s. The renal artery/aortic ratio: 1.49. The left kidney measures 12.6 cm in length. There is no mass or hydronephrosis. RI is 0.69-0.73. Peak systolic velocity is 156 cm/s. The renal artery/aortic ratio: 1.2. IMPRESSION: Normal renal ultrasound. Normal RI bilaterally. Reviewed, Interpreted and Dictated by Gwen Hinson MD Transcribed by Rosita Niño Authenticated and [facility]
--- NOTE | 2024-11-01 10:00 | US_ITS ---
FINAL REPORT CLINICAL HISTORY: Z82.49 - Family history of ischemic heart disease and oth... FINDINGS: RENAL ULTRASOUND Ultrasound images of the kidneys were obtained. The right kidney measures 12.5 cm in length. It is normal echogenicity. There is no hydronephrosis, mass, or stone. The left kidney measures 12.6 cm in length. It is normal echogenicity. There is no hydronephrosis, mass, or stone. IMPRESSION: Morphologically normal kidneys. Reviewed, Interpreted and Dictated by Gwen Hinson MD Transcribed by Rosita Niño Authenticated and [facility]
== END 2024-11-01 23:59 | disposition home or self-care (01) ==
LOC: RT 08:47
PROVIDERS: PCP Nurse Practitioner Family; Visit Provider Physician Assistant
DX: R07.9 Chest pain, unspecified (principal); I10 Essential (primary) hypertension; R00.2 Palpitations; R53.83 Other fatigue; R06.02 Shortness of breath; Z82.49 Family history of ischemic heart disease and other diseases of the circulatory system
CPT/HCPCS: 76770; 93976

== ENCOUNTER 2024-11-03 10:56 | Outpatient (CLI) | payer OTHER, SELFPAY ==
--- OUTSIDE RECORDS SUMMARY | 2024-11-03 10:58 | XMS_ITS | Continuity of Care Document ---
Author Name [facility] Organization [facility] Care Team Providers Care Landing Man Name Role Phone [facility] Unavailable Unavailable Problems Combined list of problems from [facility] and [facility] facilities. It does not include entries that were removed or entered in error. Problem Status Onset Date Problem Type Date of Resolution Comments Source Complaining of erectile dysfunction Active Condition [facility] History of polyp of colon Active Condition Jun 17, 2022 Entered By: JOVANNY BRAN Comment: Cscope 03/10/2022- WNL repeat in 10y (2031) [facility] Hypertension Active Condition [facility] Personal History of Tobacco Use Active Condition [facility] Plantar Fasciitis Active Condition [facility] Tinnitus Active Condition [facility] Vitamin D deficiency Active Condition [facility] Diagnosis: ICD-10-CM H90.3 Sensorineural hearing loss, bilateral Active Diagnosis [facility] Diagnosis: ICD-10-CM Z71.89 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ed counseling Active Diagnosis [facility] Diagnosis: ICD-10-CM Z65.9 Problem related to unspecified psychosocial circumstances Active Diagnosis [facility] Diagnosis: ICD-10-CM I10 Essential (primary) hypertension Active Diagnosis [facility] Medications Combined list of outpatient medications from [facility] and [facility] facilities.Medications provided include 1) outpatient medications from the last 15 months, and 2) patient-reported medications. Medication Details Route Status Patient Instructions Prescription Expires Prescription Number Last Dispense Date Ordering Provider Order Date Order Qty Source ATORVASTATI N CA 10MG TAB TAKE ONE-HALF TABLET BY MOUTH DAILY FOR CHOLESTE ROL -DO NOT DRINK GRAPEFRU IT JUICE WHILE ON THIS DRUG ORAL ACTIVE 05/15/2025 [id number] CASEY GONZALEZ 2023 45 [place] [facility] BACLOFEN 10MG TAB TAKE ONE-HALF TABLET BY MOUTH THREE TIMES A DAY FOR MUSCLE SPASMS ORAL ACTIVE 05/14/2025 [id number] LISACASEYYANE Vance 2023 135 [place] [facility] DICLOFENAC NA 75MG TAB,EC TAKE ONE TABLET BY MOUTH TWICE A DAY NEEDED FOR PAIN/INF LAMMATIO N ORAL ACTIVE 05/14/2025 [id number] LISA CASEY A 2023 90 [place] [facility] LISINOPRIL 40MG TAB TAKE ONE-HALF TABLET BY MOUTH DAILY FOR HIGH BLOOD PRESSURE ORAL ACTIVE 05/14/2025 [id number] CASEY GONZALEZ 2023 45 [place] [facility] LISINOPRIL 40MG TAB TAKE ONE-HALF TABLET BY MOUTH DAILY FOR BLOOD PRESSURE /HEART ORAL 09/13/2023 [id number] RAJESH QUACH 2023 45 [place] [facility] Allergies, Adverse Reactions, Alerts Combined list of allergies from Department of Defense and Veterans Affairs facilities. It does not include entries that were removed or entered in error. Substance Category Reaction Severity Reaction type Status Date Reported Comments Source NUTS Propensity to adverse reactions to substance (finding) Eruption active 8 [facility] Immunizations Combined list of available immunizations from the Department of Defense and Veterans Affairs facilities. Immunization Series Date Given Administered By Site Reaction Lot Number CVX Code Drug Resaw Tailer Status Comments Source INFLUENZA, SPLIT VIRUS, TRIVALENT, PF 2023 [place] MEDINA LEFT DELTO ID [id number] 140 complet ed Completed Series, ADMINISTE [place] AT [place], [place] [facility] COVID-19 (PFIZER), MRNA, LNP-S, BIVALENT BOOSTER, PF, 30 MCG/0.3 ML DOSE 1 2021 NONE 300 complet ed PFR; [id number]; 3 [place] [facility] INFLUENZA, INJECTABLE, QUADRIVALENT, PRESERVATIVE FREE 2021 NONE 150 complet ed Booster for Series, [place] [facility] TDAP 2021 115 complet ed [place] [facility] COVID-19 (PFIZER), MRNA, LNP-S, PF, 30 MCG/0.3 ML DOSE 1 2020 208 complet ed HISTORICA L INFORMATI ON - FROM OTHER REGISTRY, [place] [facility] INFLUENZA, INJECTABLE, QUADRIVALENT, PRESERVATIVE FREE 2020 NONE [address] [place] [facility] PNEUMOCOCCAL POLYSACCHARID E PPV23 2020 NONE 33 complet ed Completed Series, [place] [facility] COVID-19 (PFIZER), MRNA, LNP-S, PF, 30 MCG/0.3 ML DOSE 2 2020 208 complet ed PFR; [id number]; 1 [place] COVID-19 (PFIZER), MRNA, LNP-S, PF, 30 MCG/0.3 ML DOSE 1 2020 208 complet ed PFR; [id number]; 1 [place] INFLUENZA, INJECTABLE, QUADRIVALENT, PRESERVATIVE FREE 2019 150 complet ed [place] [facility] Z[facility] RECOMBINANT 2 2019 187 complet ed [place] [facility] INFLUENZA, INJECTABLE, QUADRIVALENT, PRESERVATIVE FREE 2018 150 complet ed [place] [facility] ZOSTER RECOMBINANT 1 2018 187 complet ed [place] [facility] HEP A, ADULT 2018 52 complet ed [place] [facility] HEP A, ADULT 2018 52 complet ed [place] [facility] INFLUENZA, SEASONAL, INJECTABLE 2018 141 complet ed [place] [facility] INFLUENZA A & B (HISTORICAL) 2017 88 complet ed [place] [facility] TDAP 2017 115 complet ed [place] [facility] TD(ADULT) UNSPECIFIED FORMULATION 1996 139 complet ed [place] [facility] Results Combined list of recent [...] May 13, 2024 03:24 PM Reporting Lab: [address] [address] Performing Lab: [address] [address] [facility] LIPID PROFILE CHOLESTERO L [MASS/VOLU ME] IN [...] 2024 03:24 PM Reporting Lab: [facility] [address] [address] Performing Lab: [place] [address] [address] [facility] LIPID PROFILE TRIGLYCERI DE [MASS/VOLU ME] IN [...] 2024 03:24 PM Reporting Lab: [facility] [address] [address] Performing Lab: [place] [address] [address] [facility] LIPID PROFILE CHOLESTERO L IN HDL [MASS/VOLU [...] 2024 03:24 PM Reporting Lab: [facility] [address] [address] Performing Lab: [facility] [address] [address] [facility] LIPID PROFILE CHOLESTERO L IN LDL [MASS/VOLU [...] 2024 03:24 PM Reporting Lab: [facility] [address] [address] Performing Lab: [facility] [address] [address] [facility] GLYCOHEM OGLOBIN HEMOGLOBIN A1C/HEMOGL OBIN.TOTAL IN BLOOD BY HPLC 5.2 4.4 - 6.4 05/13 Specimen Type: BLOOD Comment: [facility] guidelines for A1c interpretat ion: Glycemic control targets are based on Shared Decision Making between clinicians and patients. Criteria used to establish an A1c target recommendat ion can be found at https://www .[place].gov/danny lityandpati entsafety/ and include the use of [...] 9.27. Ref: https://ngs p.org/CAPda ta.asp. The in-house [employer] D-100 analyzer has a historical CV <= 2%. Contact the laboratory for further performance characteris tics of this assay. Ordering Provider: JACK GONZALEZ Report Released Date/Time: May 13, 2024 03:24 PM Reporting Lab: [place] [phone] Performing Lab: [place] [id number] [place] [address] CBC/PLT LEUKOCYTES [#/VOLUME] IN BLOOD BY AUTOMATED COUNT 7.6 10*3/uL 5.0 - 10.0 05/13 Specimen Type: BLOOD No comment entered. Ordering Provider: JACK GONZALEZ Report Released Date/Time: May 13, 2024 03:24 PM Reporting Lab: [place] [phone] Performing Lab: [place] [id number] [place] [address] CBC/PLT ERYTHROCYT ES [#/VOLUME] IN BLOOD BY AUTOMATED COUNT 4.50 10*6/uL 4.6 - 6.2 05/13 L Specimen Type: BLOOD No comment entered. Ordering Provider: JACK GONZALEZ Report Released Date/Time: May 13, 2024 03:24 PM Reporting Lab: [address] [address] Performing Lab: [place] [phone] [place] [address] CBC/PLT HEMOGLOBIN [MASS/VOLU ME] IN BLOOD 14.2 g/dL 14.0 - 18.0 05/13 Specimen Type: BLOOD No comment entered. Ordering Provider: JACK GONZALEZ Report Released Date/Time: May 13, 2024 03:24 PM Reporting Lab: [place] [phone] Performing Lab: [place] [phone] [place] [address] CBC/PLT HEMATOCRIT [VOLUME FRACTION] OF BLOOD BY AUTOMATED COUNT 41.8 42.0 - 52.0 05/13 L Specimen Type: BLOOD No comment entered. Ordering Provider: JACK GONZALEZ A Report Released Date/Time: May 13, 2024 03:24 PM Reporting Lab: [place] [phone] Performing Lab: [place] [id number] CBC/PLT MCV [ENTITIC VOLUME] BY AUTOMATED COUNT 92.9 fL 80.0 - 94.0 05/13 Specimen Type: BLOOD No comment entered. Ordering Provider: JACK GONZALEZ A Report Released Date/Time: May 13, 2024 03:24 PM Reporting Lab: [place] [phone] Performing Lab: [place] [id number] CBC/PLT MCH [ENTITIC MASS] BY AUTOMATED COUNT 31.6 pg 27.0 - 31.0 05/13 H Specimen Type: BLOOD No comment entered. Ordering Provider: JACK GONZALEZ A Report Released Date/Time: May 13, 2024 03:24 PM Reporting Lab: [place] [phone] Performing Lab: [place] [phone] CBC/PLT MCHC [MASS/VOLU ME] BY AUTOMATED COUNT 34.0 g/dL 32.0 - 36.0 05/13 Specimen Type: BLOOD No comment entered. Ordering Provider: JACK GONZALEZ A Report Released Date/Time: May 13, 2024 03:24 PM Reporting Lab: [address] [address] Performing Lab: [address] [phone] [place] [address] CBC/PLT PLATELETS [#/VOLUME] IN BLOOD 188 10*3/uL 150 - 450 05/13 Specimen Type: BLOOD No comment entered. Ordering Provider: JACK GONZALEZ A Report Released Date/Time: May 13, 2024 03:24 PM Reporting Lab: [address] [address] Performing Lab: [address] [address] [facility] CBC/PLT PLATELET MEAN VOLUME [ENTITIC VOLUME] IN BLOOD 9.9 fL 9.0 - 13.1 05/13 Specimen Type: BLOOD No comment entered. Ordering Provider: JACK GONZALEZ A Report Released Date/Time: May 13, 2024 03:24 PM Reporting Lab: [address] [address] Performing Lab: [address] [address] [facility] CBC/PLT ERYTHROCYT E DISTRIBUTI ON WIDTH [ENTITIC VOLUME] BY AUTOMATED COUNT 12.5 11.0 - 16.0 05/13 Specimen Type: BLOOD No comment entered. Ordering Provider: JACK GONZALEZ A Report Released Date/Time: May 13, 2024 03:24 PM Reporting Lab: [address] [address] Performing Lab: [address] [address] [facility] CBC/PLT NUCLEATED ERYTHROCYT ES/100 ERYTHROCYT ES IN BLOOD 0.0 0.0 - 0.0 05/13 Specimen Type: BLOOD No comment entered. Ordering Provider: JACK GONZALEZ Report Released Date/Time: May 13, 2024 03:24 PM Reporting Lab: [address] [address] Performing Lab: [address] [address] [facility] PSA PROSTATE SPECIFIC AG [MASS/VOLU ME] IN SERUM OR PLASMA 0.304 ng/mL 0 - 3.999 05/13 Specimen Type: SERUM No comment entered. Ordering Provider: JACK GONZALEZ A Report Released Date/Time: May 13, 2024 03:24 PM Reporting Lab: [address] [address] Performing Lab: [address] [address] [facility] URINALYS IS COLOR OF URINE Colorles s 05/13 Specimen Type: URINE Comment: Microscopic not indicated Ordering Provider: JACK GONZALEZ A Report Released Date/Time: May 13, 2024 03:24 PM Reporting Lab: [address] [address] Performing Lab: [address] [address] [facility] URINALYS IS APPEARANCE OF URINE Clear 05/13 Specimen Type: URINE Comment: Microscopic not indicated Ordering Provider: JACK GONZALEZ IGE A Report Released Date/Time: May 13, 2024 03:24 PM Reporting Lab: [address] [address] Performing Lab: [address] [address] [facility] URINALYS IS UROBILINOG EN [MASS/VOLU ME] IN URINE BY TEST STRIP Normalmg /dL 05/13 Specimen Type: URINE Comment: Microscopic not indicated Ordering Provider: JACK GONZALEZ A Report Released Date/Time: May 13, 2024 03:24 PM Reporting Lab: [address] [address] Performing Lab: [address] [address] [facility] URINALYS IS HEMOGLOBIN [PRESENCE] IN URINE BY TEST STRIP Negative 05/13 Specimen Type: URINE Comment: Microscopic not indicated Ordering Provider: JACK GONZALEZ A Report Released Date/Time: May 13, 2024 03:24 PM Reporting Lab: [address] [address] Performing Lab: [address] [address] [facility] URINALYS IS BILIRUBIN. TOTAL [PRESENCE] IN URINE BY TEST STRIP Negative 05/13 Specimen Type: URINE Comment: Microscopic not indicated Ordering Provider: JACK GONZALEZ IGE A Report Released Date/Time: May 13, 2024 03:24 PM Reporting Lab: [address] [address] Performing Lab: [address] [address] [facility] URINALYS IS KETONES [MASS/VOLU ME] IN URINE BY TEST STRIP Negative mg/dL 05/13 Specimen Type: URINE Comment: Microscopic not indicated Ordering Provider: JACK GONZALEZ A Report Released Date/Time: May 13, 2024 03:24 PM Reporting Lab: [address] [address] Performing Lab: [address] [address] [facility] URINALYS IS PROTEIN [MASS/VOLU ME] IN URINE BY TEST STRIP Negative mg/dL 05/13 Specimen Type: URINE Comment: Microscopic not indicated Ordering Provider: JACK GONZALEZ A Report Released Date/Time: May 13, 2024 03:24 PM Reporting Lab: [address] [address] Performing Lab: [address] [address] [facility] URINALYS IS PH OF URINE BY TEST STRIP 5.5 4.5 - 8.0 05/13 Specimen Type: URINE Comment: Microscopic not indicated Ordering Provider: JACK GONZALEZ A Report Released Date/Time: May 13, 2024 03:24 PM Reporting Lab: [address] [address] Performing Lab: [address] [address] [facility] URINALYS IS NITRITE [PRESENCE] IN URINE BY TEST STRIP Negative 05/13 Specimen Type: URINE Comment: Microscopic not indicated Ordering Provider: JACK GONZALEZ IGE A Report Released Date/Time: May 13, 2024 03:24 PM Reporting Lab: [address] [address] Performing Lab: [address] [address] [facility] URINALYS IS LEUKOCYTE ESTERASE [PRESENCE] IN URINE BY TEST STRIP Negative 05/13 Specimen Type: URINE Comment: Microscopic not indicated Ordering Provider: JACK OGNZALEZ IGE A Report Released Date/Time: May 13, 2024 03:24 PM Reporting Lab: [place] [phone] Performing Lab: [place] [phone] [place] [address] URINALYS IS SPECIFIC GRAVITY OF URINE 1.014 1.005 - 1.030 05/13 Specimen Type: URINE Comment: Microscopic not indicated Ordering Provider: JACK GONZALEZ Report Released Date/Time: May 13, 2024 03:24 PM Reporting Lab: [place] [phone] Performing Lab: [place] [phone] [facility] URINALYS IS GLUCOSE [MASS/VOLU ME] IN URINE BY TEST STRIP Negative mg/dL 05/13 Specimen Type: URINE Comment: Microscopic not indicated Ordering Provider: JACK GONZALEZ Report Released Date/Time: May 13, 2024 03:24 PM Reporting Lab: [place] [phone] Performing Lab: [place] [phone] [place] [address] THYROID PROFILE THYROTROPI N [UNITS/VOL UME] IN [...] 2024 03:24 PM Reporting Lab: [place] [address] [address] Performing Lab: [place] [address] [address] [facility] THYROID PROFILE FREE T4 0.88 ng/mL 0.70 [...] May 13, 2024 03:24 PM Reporting Lab: [address] [address] Performing Lab: [address] [address] [facility] 25-OH VITAMIN D 25-HYDROXY VITAMIN D3 [MASS/VOLU [...] 2024 03:24 PM Reporting Lab: [place] [facility] [address] [facility] [address] Performing Lab: [place] [facility] [address] [facility] [address] [facility] PANEL 5 CREATININE [MASS/VOLU ME] IN SERUM [...] 2024 03:24 PM Reporting Lab: [place] [facility] [address] [facility] [address] Performing Lab: [place] [facility] [address] [facility] [address] [facility] PANEL 5 UREA NITROGEN [MASS/VOLU ME] IN [...] May 13, 2024 03:24 PM Reporting Lab: [address] [address] Performing Lab: [address] [address] [facility] PANEL 5 GLUCOSE [MASS/VOLU ME] IN SERUM [...] May 13, 2024 03:24 PM Reporting Lab: [address] [address] Performing Lab: [address] [address] [facility] PANEL 5 SODIUM [MOLES/VOL UME] IN SERUM [...] 2024 03:24 PM Reporting Lab: [place] [address] [address] Performing Lab: [place] [address] [address] [facility] PANEL 5 POTASSIUM [MOLES/VOL UME] IN SERUM [...] 2024 03:24 PM Reporting Lab: [place] [address] [address] Performing Lab: [place] [address] [address] [facility] PANEL 5 CHLORIDE [MOLES/VOL UME] IN SERUM [...] 2024 03:24 PM Reporting Lab: [place] [address] [address] Performing Lab: [place] [address] [address] [facility] PANEL 5 CARBON DIOXIDE, TOTAL [MOLES/VOL UME] [...] 2024 03:24 PM Reporting Lab: [place] [address] [address] Performing Lab: [place] [address] [address] [facility] PANEL 5 CALCIUM [MASS/VOLU ME] IN SERUM [...] 2024 03:24 PM Reporting Lab: [place] [address] [address] Performing Lab: [place] [address] [address] [facility] PANEL 5 PROTEIN [MASS/VOLU ME] IN SERUM [...] 2024 03:24 PM Reporting Lab: [place] [address] [address] Performing Lab: [place] [address] [address] [facility] PANEL 5 ALBUMIN [MASS/VOLU ME] IN SERUM [...] 2024 03:24 PM Reporting Lab: [place] [address] [address] Performing Lab: [place] [address] [address] [facility] PANEL 5 BILIRUBIN. TOTAL [MASS/VOLU ME] IN [...] 2024 03:24 PM Reporting Lab: [place] [address] [address] Performing Lab: [place] [address] [address] [facility] PANEL 5 ASPARTATE AMINOTRANS FERASE [ENZYMATIC ACTIVITY/V [...] 2024 03:24 PM Reporting Lab: [place] [address] [address] Performing Lab: [place] [facility] [address] [facility] [address] [facility] PANEL 5 ALANINE AMINOTRANS FERASE [ENZYMATIC ACTIVITY/V [...] 2024 03:24 PM Reporting Lab: [place] [facility] [address] [facility] [address] Performing Lab: [place] [facility] [address] [facility] [address] [facility] PANEL 5 ANION GAP 3 IN SERUM [...] 2024 03:24 PM Reporting Lab: [place] [address] [address] Performing Lab: [place] [address] [address] [facility] PANEL 5 ALKALINE PHOSPHATAS E [ENZYMATIC ACTIVITY/V [...] 2024 03:24 PM Reporting Lab: [place] [address] [address] Performing Lab: [place] [address] [address] [facility] 5 GLOMERULAR FILTRATION RATE/1.73 SQ M.PREDICTE D [...] 2024 03:24 PM Reporting Lab: [place] [address] [address] Performing Lab: [place] [address] [address] [facility] Vital Signs Combined list of inpatient and outpatient Vital Signs from Department of [facility] and [facility], ranging from 12 months to all on record, depending upon the facility. Vital Sign Value Date Comments Source SYSTOLIC BLOOD PRESSURE 138 05/13/2024 14:37:00 [facility] DIASTOLIC BLOOD PRESSURE 95 05/13/2024 14:37:00 [facility] PULSE OXIMETRY 96 05/13/2024 14:37:00 L [facility] WEIGHT 214.0 05/13/2024 14:37:00 [facility] [facility] BMI 30 kg/m2 05/13/2024 14:37:00 [place] [facility] PAIN 8 05/13/2024 14:37:00 [facility] TEMPERATURE 98.2 05/13/2024 14:37:00 TIN [facility] PULSE 65 05/13/2024 14:37:00 [facility] Encounters Combined list of: 1) Encounters from Department of Veterans Affairs facilities going backup to the last 18 months, not all [place] inpatient encounters are included; 2) Encounters from the Department of Defense facilities going backup to 280 months. Location Location Details Encounter Type Encounter Number Reason For Visit Attending Provider ADM Date DC Date Status Disposition Source [facility] Outpatient Encounter [id number] 20 04/27 [place] [facility] EXAM BOTH EARS [id number] Diagnos is: ICD-10- CM H90.3 Sensori neural hearing loss, bilater al RAJEHS CARROLL S 05/13 [place] [facility] Outpatient Encounter [id number] 05/13 [place] CASE MANAGEMENT [id number] Diagnos is: ICD-10- CM Z65.9 Problem related to unspeci fied psychos ocial circums MAYRA Snow T 05/13 [place] [facility] OFFICE O/P EST MOD 30 MIN [id number] Diagnos is: ICD-10- CM I10 Essenti al (primar y) hyperte nsion Felipa GONZALEZ 05/13 [place] [facility] HC PRO PHONE CALL 5-10 MIN [id number] Diagnos is: ICD-10- CM Z71.89 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 OCTAVIA Nelson VIA J 05/16 [place] [facility] Outpatient Encounter [id number] 05/17 [place] [facility] HC PRO PHONE CALL 5-10 MIN [id number] Diagnos is: ICD-10- CM Z71.89 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 Social History Type Response Date Comment [facility] e Tobacco smoking status [facility]/13/2024 [facility] History of tobacco use [facility] FOR[facility] 02/24/2022 [facility] History of tobacco use [facility] 06/07/2020 [facility] History of tobacco use [facility] QU[facility] 5 TO < 15 YRS 07/21/2018 [facility] History of tobacco use V9 LIFETIME NON-USER OF TOBACCO 08/20/2017 [facility] History of tobacco use HF V9 CURRENT NON-SMOKER 05/19/2002 [facility] History of tobacco use HF V9 CURRENT NON-SMOKER 01/15/2001 quit 2 yrs ago [facility] History of tobacco use NON-TOBACCO USER 08/28/1998 [facility]
--- OUTSIDE RECORDS SUMMARY | 2024-11-03 10:59 | XMS_ITS | Data Portability ---
Author Organization [place] - [facility] - [place] & [place] [facility] ADMIN Address [address] [place] [id number] Assessment No assessment recorded. Plan of Treatment Reminders Order Date Submit Date Provider Last Modified By Organization Details Last Modified Time Details Appointments None recorded. Lab None recorded. Referral None recorded. Procedures None recorded. Surgeries None recorded. Imaging XR, abdomen, 1 view - please send pt back to when finished 2022 [facility] (Radiology)[address], [address], 3 11:39:29 Medication Orders None recorded. Patient TargetsNo targets recorded. Patient InstructionsNo instructions recorded. Reason for Referral None Reported. Results Created Date Observation Date Name Description Value Unit Range Abnormal Flag Note LastModifiedBy Organization Detail LastModifiedTime 02/12/20 23 02/11/2023 XR, abdom en, 1 view [place] [facility] [address] [place] [address] Phone: Fax: Name: RAZA COATES Exam Date: 023 : 960 Age 62 Gender : M Access ion: [id number] Physic dra: NIC DEL VALLE Facili ty: [facility] Facili ty HSV: Outpat ient Exam: ABD [...] [facility] Leg[facility] y authen ticate d by SANCHEZ CHENG 02-11 10:22: 14 CC'ed Logic: Orderi ng Provid er: IVON Queen CC Provid er: ESTEBAN LINDQUIST Attend ing Provid er: IVON Queen Referr ing Provid er: IVON Queen Admitt ing Provid er: IVON Queen [address] (Radiology) [address] [place] [address] [place], [address], 02/11/2023 15:10:44 Result Notes None recorded. Problems Name Problem SNOMED Code Status Onset Date Resolution Date Notes Provider Name and Address Organization Details Recorded Time Hypertensive disorder 40367411 Active 2022 MAGAN Rodriguez - [facility] - [place] & [place] 3 08:51:42 Problem Notes None recorded. Procedures Surgical History None recorded. Imaging Results Imaging Date Name Status LastModified by Organiz ation Details LastModified Time 02/11/2023 XR, abdomen, 1 view completed [address] (Radiology) [address] [place] [address] [place], [address], 02/11/2023 15:10:44 Procedure Notes None recorded. Medical [...] Updated DateTime 02/11/2023 172.72 cm 32.7 kg/m2 77934.36 g 97.7 [degF] [facility] [place] 02/11/2023 08:49:58 Social History None recorded. Functional Status None recorded. Mental Status None recorded. Family History Relationship Description Onset Age of this Age Resolved Age Notes LastModified by Organization Details LastModified Time Father Myocardial infarction [email or web address] Not available 01/18 08:50:41 Medical History No medical history recorded. Past Encounters Encounter ID Performer Location Encounter Start Date Encounter Closed Date Diagnosis/Indication Diagnosis SNOMED-CT Code Diagnosis ICD10 Code Diagnosis Note [id number] Gee Del Valle Jr, MD [facility] ([facility]) Urology [address] [id number] 02/11/2023 08:40:04 02/11/2023 11:16:16 Kidney stone 03446201 N20.0 Patient with recent right-side d flank [...] Jimenez Member ID Guarantor Name 02/11/2023 1 [facility] Norm Coates [id number] Notes Date Note Type Note Provider Name and Address Organization Details Recorded Time 02/11/2023 text/html Patient is a 62-year-old white male with recent right-sided flank pain. He presented to [facility] on January 26 where a [...] as well and a CT scan at [facility] showed a 2 mm stone at that point. Gee Del Valle Jr, MD [address] [place] [address], [address], [place], [address], [facility] - [place] & [place] 02/11/2023 13:18:04
[2024-11-03 11:04] VITALS: BMI 34.2
[2024-11-03] MEDS: IVABRADINE HCL 7.5MG TABLET 15 MG PO (11:09)
[2024-11-03] MEDS: METOPROLOL TARTRATE 25MG TABLET 75 MG (11:10)
[2024-11-03 11:12] VITALS: BP 153/83; PULSE 82; RESP 16; O2SAT 98
[2024-11-03 11:45] VITALS: BP 169/100; PULSE 64; RESP 16; O2SAT 97
[2024-11-03] MEDS: NITROGLYCERIN 0.4MG SL TABLET SL (11:45)
[2024-11-03 11:48] VITALS: BP 127/69; PULSE 58; RESP 16; O2SAT 96
[2024-11-03 11:51] VITALS: BP 118/71; PULSE 58; RESP 16; O2SAT 96
[2024-11-03 12:04] VITALS: BP 109/62; PULSE 58; RESP 16; O2SAT 97
[2024-11-03] MEDS: IOPAMIDOL-370 (76%);100ML BOTTLE 85 ML IV (12:04)
[2024-11-03] MEDS: 0.9 % SODIUM CHLORIDE 50 ML VIAL 41 ML IV (12:04)
--- NOTE | 2024-11-03 13:00 | CT_ITS ---
APPROVED REPORT Asphalt Dauber: CLINICAL INDICATION Chest Pain TECHNIQUE Image Acquisition: A 128 slice MDCT scanner ([employer] View) was used for data acquisition. A noncontrast coronary calcium scan was performed. A CT attenuation threshold of 130 Hounsfield units (HU) was used for the detection of calcium in contiguous voxels of 1 sq mm in area to be counted as individual lesions. Bolus tracking in the ascending aorta with a threshold of 180 HU was performed. Immediately afterwards, ECG synchronized cardiac CT was then performed from the cardiac base to apex using retrospective gating with ECG tube current modulation. A total of 85 mL of Isovue 370 mg/mL contrast medium was administered at 5 mL/sec followed by a saline flush using a biphasic injection protocol. A tube voltage of 120 KVp was used. The patient received the following medications prior to the cardiac CT. 75mg of oral metoprolol 15 mg of oral ivabradine 0.8 mg of sublingual nitroglycerin The average heart rate at the time of acquisition was 57 bpm and regular. Image Reconstruction Transaxial images were reconstructed at 0.67 mm slide thickness. Data was reviewed interactively on an advanced workstation capable of 2 and 3-dimensional displays in all conventional reconstruction formats, including multiplanar reformations, maximum intensity projections, curved multiplanar reformations, and volume rendered reconstructions. When applicable, selected routine images describing the relevant coronary anatomy and pathology were saved and sent to PACS. Complications None Technical Quality Overall image quality was good. Coronary artery opacification was adequate. Total DLP (Dose-Length Product) is 1394.8 mGy-cm. The reported value represents the total of one or more individual components during the CT acquisition of this date and at this time, and as such, the same value may appear in more than one CT report depending on the interpreting/reporting physicians. COMPARISON None FINDINGS CT Coronary Calcium Scoring LMA (Left Main Artery) = 11 LAD (Left Anterior Descending) = 224 LCX (Left Coronary Circumflex) = 0 RCA (Right Coronary Artery) = 4 Total Calcium Score = 239 using the AJ-130 method. The observed calcium score of 239 is at 72nd percentile for subjects of the same age, sex, and race/ethnicity. The interpretation of the calcium heart score is based on the following continuum*: 0 = no calcified plaque detected (risk of coronary artery disease is very low ??? less than 5%) 1-10 = calcium detected in extremely minimal levels (risk of coronary diseases is still low ??? less than 10%) 11-100 = mild levels of plaque detected with certainty (mild or minimal narrowing of heart arteries is likely) 101-400 = definite,at least moderate levels of plaque detected (relatively high risk of a heart attack within 3-5 years) >401-999 = extensive levels of plaque detected (high risk of heart attack, high levels of vascular disease are present, high likelihood of at least one significant coronary narrowing) *The calcium heart score quantifies the burden of coronary calcification/plaque in the coronary arteries. The calcium heart score is not able to evaluate the presence or burden of non-calcified (i.e. soft) plaque. There is mild calcification in the aortic valve, mitral annulus or mitral valve, pericardium, or myocardium. Coronary CT Angiography The coronary arterial system is right dominant. Quantitative Stenosis Grading: Left Main (LM): The left main originates normally from the left sinus of Valsalva. The LM bifurcates into the left anterior descending artery and left circumflex artery. There is mixed calcified/non-calcified plaque in the ostial and proximal LM, with approximately 50% luminal stenosis in the ostial LM. Left Anterior Descending (LAD) and Diagonal Branches: The LAD gives off 2 diagonal branch(es). There is mixed calcified/non-calcified plaque in the proximal and mid-LAD segment, with up to 50-70% luminal stenosis in the mid-LAD. There is no evidence of LAD-myocardial bridge. Left Circumflex (LCX) and Obtuse Marginals (OM): The LCX gives off 1 Obtuse Marginal (OM) branch(es). The LCX and its branches are patent with no evidence of atherosclerosis. Right Coronary Artery (RCA): The RCA originates normally from the right sinus of Valsalva. The RCA gives off a posterior descending artery (PDA) and posterolateral (PL) branches. There is mixed calcified/non-calcified plaque in the proximal RCA segment, with up to 25-49% luminal stenosis. Non-Coronary Cardiac Findings: Analysis of the left ventricular (LV) structure and function was performed after 3-D reconstruction of the LV from axial images, with user-corrected automatic contouring for assessment of LV volumes and user-defined reconstruction from oblique planes for measurement of 3-D cardiac structure and function. -The left ventricle systolic function is normal. -There is no left atrial appendage filling defect. Two right pulmonary veins and two left pulmonary veins drain normally into the left atrium. -No pericardial thickening or calcification. -Central and branch pulmonary arteries in the [id number] are unremarkable. -Thoracic aorta within the visualized thoracic aortic-branches in the [id number] is unremarkable. Extracardiac Structures No significant extra-cardiac findings. Note, however, that this study is focused on the cardiac findings. IMPRESSION -Presence of coronary calcification with an Agatston score = 239 using the AJ-130 method. -The observed calcium score of 239 is at 72nd percentile for subjects of the same age, sex, and race/ethnicity. -Multivessel atherosclerotic coronary disease, with possible evidence of significant flow-limiting atherosclerosis of the ostial LM and proximal/mid LAD segments. -CAD-RADS 4B. Management recommendations per ACC/AHA guidelines*, as clinically appropriate. *Recommendations: CAD RADS 0: Reassurance. Consider non-atherosclerotic causes of chest pain. CAD RADS 1: Consider non-atherosclerotic causes of chest pain. Consider preventive therapy and risk factor modification. CAD RADS 2: Consider non-atherosclerotic causes of chest pain. Consider preventive therapy and risk factor modification, particularly for patients with nonobstructive plaque in multiple segments. CAD RADS 3: Consider further functional testing. Consider symptom-guided anti-ischemic and preventive pharmacotherapy as well as risk factor modification per published guideline statements. CAD RADS 4A: Consider further functional testing or invasive coronary angiography with revascularization per published guideline statements. Consider symptom-guided anti-ischemic and preventive pharmacotherapy as well as risk factor modification per published guideline statements. CAD RADS 4B: Invasive coronary angiography recommended with revascularization per published guideline statements. Consider symptom-guided anti-ischemic and preventive pharmacotherapy as well as risk factor modification per published guideline statements. CAD RADS 5: Consider invasive angiography and/or viability assessment with revascularization per published guideline statements. Consider symptom-guided anti-ischemic and preventive pharmacotherapy as well as risk factor modification per published guideline statements. CRITICAL RESULT None COMMUNICATION Per this written report The coronary and cardiac findings of this CCTA were reviewed, reported, and signed by Jose Juan Padgett MD (Funeral Director'S Assistant) Conclusion Electronically signed by : Bhumika Padgett MD 11/07/2024 13:50:16
== END 2024-11-03 12:09 | disposition home or self-care (01) ==
PROVIDERS: PCP Nurse Practitioner Family; Visit Provider Physician Assistant
DX: R00.2 Palpitations (principal); I10 Essential (primary) hypertension; R06.02 Shortness of breath; R07.89 Other chest pain; R53.83 Other fatigue; Z82.49 Family history of ischemic heart disease and other diseases of the circulatory system
CPT/HCPCS: 75574; Q9967

== ENCOUNTER 2024-11-21 07:50 | Day surgery (SDC) | payer OTHER, SELFPAY ==
[2024-11-21] VITALS (13 sets, daily range): BP systolic 103–156; BP diastolic 57–90; PULSE 58–87; RESP 16–20; O2SAT 94–99; BMI 33.1
--- NOTE | 2024-11-21 07:03 | IR_ITS ---
APPROVED REPORT Patient Location: Outpatient Accreditation Coordinator: FIDEL Levine RT (R) PROCEDURES Left heart catheterization Left ventriculogram Selective coronary angiogram Drug-eluting stent deployment to the ostial proximal left main artery Intravascular ultrasound of left main artery INDICATION Coronary artery disease, Abnormal CCTA, IVUS guidance for complex revascularization Informed consent was obtained prior to the procedure. COMPLICATIONS NONE Estimated Blood Loss: LESS THAN 10 ML TECHNIQUE One percent lidocaine used to anesthetize the right anterior aspect of the wrist. The right radial artery was accessed via the Seldinger technique. A 6 [place] sheath was placed in the right radial artery. 2.5 mg of Verapamil, 800 mcg of nitroglycerin, 1mg Lidocaine and 5000 U Heparin were given through the arterial sheath. The JL3 catheter was also used to perform left heart catheterization, left ventriculogram and selective coronary angiogram. At the end the diagnostic angiogram therapeutic ACT was administered giving a therapeutic ACT and the guide catheter was placed in left coronary cusp followed by Choice PT extra-support wire placed on the circumflex artery. A 4 mm x 12 mm Arnaud frontier stent was deployed in the ostial segment of the left main artery at 22 guille giving excellent angiographic results.. Following this intravascular ultrasound probe was advanced which demonstrated excellent apposition and expansion. After achieving excellent angiograph results the apparatus was removed the sheath was removed and hemostasis was achieved using TR banding patient was transferred to the postop putting in stable condition ANGIOGRAPHIC RESULTS The left main artery Has an ostial 60 to 70% stenosis with a distal 10% stenosis The left anterior descending artery Has proximal 30% stenosis. The mid to distal segment is highly tortuous and small caliber The circumflex artery Is nondominant with mild 10% luminal regularities The right coronary artery Dominant and normal The MO ventriculogram reveals Normal 65% The left ventricular end-diastolic pressure 10 mmHg IMPRESSION Severe ostial left main disease with low syntax score Successful stenting of the ostial left main artery severe disease reduced to 0% with 1 drug-eluting stent Normal ejection fraction Normal LVEDP PLAN 1. Effient and aspirin 2. LDL less than 55 achieved with high intensity statin 3. Avoidance of tobacco products 4. Risk factor modification 5. Cardiac rehabilitation Electronically signed by : Irving Ladd MD 11/21/2024 12:09:09
[2024-11-21 08:20] LABS: Basophils % 0.3 % (0.1-2.0); Eosinophils # 0.1 Kmm3 (0.0-0.4); Eosinophils % 1.2 % (0.1-12.0); Hematocrit 40.8 % (42.0-52.0); Hemoglobin 14.3 g/dL (14.1-18.0); Lymphocytes # 2.4 K/mm3 (0.7-4.5); Lymphocytes % 30.5 % (10-50); Mean Corpuscular Volume 91.3 fl (80-94); Mean Platelet Volume 9.5 fl (7.4-10.4); Monocytes # 0.6 K/mm3 (0.1-1.0); Neutrophils # 4.6 K/mm3 (1.8-7.8); Neutrophils % 59.9 % (37.0-80.0); Nucleated Red Blood Cells # 0 10^3/uL; Nucleated Red Blood Cells % 0 %; Platelet Count 201 K/mm3 (142-424); Red Blood Count 4.47 M/mm3 (4.60-6.20); Red Cell Distribution Width 12.2 % (11.5-17.5); White Blood Count 7.7 K/mm3 (4.8-10.8)
[2024-11-21 08:26] LABS: Chloride 107 mmol/L (98-107); Potassium 4.3 mmoL/L (3.5-5.1); Sodium 137 mmol/L (136-145)
[2024-11-21 08:29] LABS: Anion Gap 10.3 mEq/L (5-15); Blood Urea Nitrogen 16 mg/dl (9-20); Carbon Dioxide 24 mmol/L (22.0-30.0); Creatinine Clearance Estimated 104 mL/min (50-200); Estimated Glomerular Filt Rate 85 ml/min (>60); GFR (African American) 103 ML/MIN (>60); Glucose 113 mg/dl (74-100)
[2024-11-21] MEDS: VERAPAMIL 2.5MG/ML 2ML VIAL 2.5 MG IV (09:14)
[2024-11-21] MEDS: 0.9 % SODIUM CHLORIDE 500 ML 25 ML IV (09:14)
[2024-11-21] MEDS: HEPARIN 1,000 UNITS/ML 10ML VIAL (CATH LAB) 5000 UNIT IV (09:14)
[2024-11-21] MEDS: HEPARIN 1,000 UNITS/500ML NS (CATH LAB) 3000 UNIT IV (09:14)
[2024-11-21] MEDS: LIDOCAINE 1% 10ML MDV 10 ML IJ (09:14)
[2024-11-21] MEDS: NITROGLYCERIN 800MCG/8ML SYR (CATH LAB) 800 MCG IA (09:15)
[2024-11-21] MEDS: diphenhydrAMINE 50MG/ML VIAL 50 MG IV (09:15)
[2024-11-21] MEDS: FENTANYL 100MCG/2ML VIAL 50 MCG IV (09:18)
[2024-11-21] MEDS: MIDAZOLAM HCL 1MG/ML 5ML VIAL 1 MG IV (09:19)
[2024-11-21] MEDS: PRASUGREL 10MG TAB 60 MG PO (09:57)
[2024-11-21] MEDS: IOPAMIDOL-370 (76%);100ML BOTTLE 60 ML IV (15:10)
[2024-11-21 17:01] LABS: CATHL Activated Clotting Time 268 SEC (74-125)
== END 2024-11-21 13:50 | disposition home or self-care (01) ==
PROVIDERS: PCP Nurse Practitioner Family; Visit Provider Internal Medicine
PROC: 4A023N7 Measurement of Cardiac Sampling and Pressure, Left Heart, Percutaneous Approach (ICD-10-PCS; CPT 93452; principal; 2024-11-21 08:15)
DX: I25.118 Atherosclerotic heart disease of native coronary artery with other forms of angina pectoris (principal); I77.1 Stricture of artery; I10 Essential (primary) hypertension; Z82.49 Family history of ischemic heart disease and other diseases of the circulatory system; E78.5 Hyperlipidemia, unspecified; Z87.891 Personal history of nicotine dependence; Z79.899 Other long term (current) drug therapy
CPT/HCPCS: 80048; 85025; 85347; 92928; 92978; 93458; 99152; 99153; C1725; C1769; C1874; C9600; J1200; J1644; J3010; Q9967

== ENCOUNTER 2024-11-23 09:46 | Outpatient (CLI) | payer OTHER, SELFPAY ==
--- OUTSIDE RECORDS SUMMARY | 2024-11-23 09:48 | XMS_ITS | Continuity of Care Document ---
Author Name [facility] Organization [facility] Care Team Providers Care Operations General Agent Name Role Phone [facility] Unavailable Unavailable Problems Combined list of problems from [facility] and [facility] facilities. It does not include entries that were removed or entered in error. Problem Status Onset Date Problem Type Date of Resolution Comments Source Complaining of erectile dysfunction Active Condition [facility] Exposure to potentially hazardous substance (SCT [id number]) [facility] History of polyp of colon Active Condition Jun 17, 2022 Entered By: JOVANNY BRAN Comment: Cscope 03/10/2022- WNL repeat in 10y (2031) [facility] Hypertension Active Condition [facility] Personal History of Tobacco Use Active Condition [facility] Plantar Fasciitis Active Condition [facility] Tinnitus Active Condition [facility] Vitamin D deficiency Active Condition [facility] Diagnosis: ICD-10-CM H90.3 Sensorineural hearing loss, bilateral Active Diagnosis [facility] Diagnosis: ICD-10-CM Z71.89 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ed counseling Active Diagnosis [facility] Diagnosis: ICD-10-CM Z65.9 Problem related to unspecified psychosocial circumstances Active Diagnosis [facility] Diagnosis: ICD-10-CM I10 Essential (primary) hypertension Active Diagnosis [facility] Medications Combined list of outpatient medications from [facility] facilities.Medications provided include 1) outpatient medications from the last 15 months, and 2) patient-reported medications. Medication Details Route Status Patient Instructions Prescription Expires Prescription Number Last Dispense Date Ordering Provider Order Date Order Qty Source ATORVASTATI N CA 10MG TAB TAKE ONE-HALF TABLET BY MOUTH DAILY FOR CHOLESTE ROL -DO NOT DRINK GRAPEFRU IT JUICE WHILE ON THIS DRUG ORAL ACTIVE 05/15/2025 [id number] CASEY GONZALEZ 2023 45 [place] [facility] BACLOFEN 10MG TAB TAKE ONE-HALF TABLET BY MOUTH THREE TIMES A DAY FOR MUSCLE SPASMS ORAL ACTIVE 05/14/2025 [id number] CASEY GONZALEZ 2023 135 [place] [facility] DICLOFENAC NA 75MG TAB,EC TAKE ONE TABLET BY MOUTH TWICE A DAY NEEDED FOR PAIN/INF LAMMATIO N ORAL ACTIVE 05/14/2025 [id number] 5 CASEY GONZALEZ 2023 90 [place] [facility] LISINOPRIL 40MG TAB TAKE ONE-HALF TABLET BY MOUTH DAILY FOR HIGH BLOOD PRESSURE ORAL ACTIVE 05/14/2025 [id number] 5 CASEY GONZALEZ 2023 45 [place] [facility] Allergies, Adverse Reactions, Alerts Combined list of allergies from Department of Defense and Veterans Affairs facilities. It does not include entries that were removed or entered in error. Substance Category Reaction Severity Reaction type Status Date Reported Comments Source NUTS Propensity to adverse reactions to substance (finding) Eruption active 8 [facility] Immunizations Combined list of available immunizations from the Department of Defense and Veterans Affairs facilities. Immunization Series Date Given Administered By Site Reaction Lot Number CVX Code Drug Tax Agent Status Comments Source INFLUENZA, SPLIT VIRUS, TRIVALENT, PF 2023 [place] MEDINA LEFT DELTO ID [id number] 140 complet ed Completed Series, [place] AT [place], [place] [facility] COVID-19 (PFIZER), MRNA, LNP-S, BIVALENT BOOSTER, PF, 30 MCG/0.3 ML DOSE 1 2021 NONE 300 complet ed PFR; [id number]; 3 [place] [facility] INFLUENZA, INJECTABLE, QUADRIVALENT, PRESERVATIVE FREE 2021 NONE 150 complet ed Booster for Series, [place] [facility] TDAP 2021 115 complet ed [place] [facility] COVID-19 (PFIZER), MRNA, LNP-S, PF, 30 MCG/0.3 ML DOSE 1 2020 208 complet ed HISTORICA L INFORMATI ON - FROM OTHER REGISTRY, [place] [facility] INFLUENZA, INJECTABLE, QUADRIVALENT, PRESERVATIVE FREE 2020 NONE 150 complet ed [place] [facility] PNEUMOCOCCAL POLYSACCHARID E [id number] 2020 NONE 33 complet ed Completed Series, [place] [facility] COVID-19 (PFIZER), MRNA, LNP-S, PF, 30 MCG/0.3 ML DOSE 2 2020 208 complet ed PFR; [id number]; 1 [place] COVID-19 (PFIZER), MRNA, LNP-S, PF, 30 MCG/0.3 ML DOSE 1 2020 208 complet ed PFR; [id number]; 1 [place] INFLUENZA, INJECTABLE, QUADRIVALENT, PRESERVATIVE FREE 2019 150 complet ed [place] [facility] ZOSTER RECOMBINANT 2 2019 187 complet ed [place] [facility] INFLUENZA, INJECTABLE, QUADRIVALENT, PRESERVATIVE FREE 2018 150 complet ed [place] [facility] ZOSTER RECOMBINANT 1 2018 187 complet ed [place] [facility] HEP A, ADULT 2018 52 complet ed [place] [facility] HEP A, ADULT 2018 52 complet ed [place] [facility] INFLUENZA, SEASONAL, INJECTABLE 2018 141 complet ed [place] [facility] INFLUENZA A & B (HISTORICAL) 2017 88 complet ed [place] [facility] TDAP 2017 115 complet ed [place] [facility] TD(ADULT) UNSPECIFIED FORMULATION 1996 139 complet ed [facility] [place] [facility] Results Combined list of recent chemistry, hematology [...] May 13, 2024 03:24 PM Reporting Lab: [place] [address] Performing Lab: [address] CBC/PLT LEUKOCYTES [#/VOLUME] IN BLOOD BY AUTOMATED COUNT 7.6 10*3/uL 5.0 - 10.0 05/13 Specimen Type: BLOOD No comment entered. Ordering Provider: JACK GONZALEZ A Report Released Date/Time: May 13, 2024 03:24 PM Reporting Lab: [place] [address] Performing Lab: [address] CBC/PLT ERYTHROCYT ES [#/VOLUME] IN BLOOD BY AUTOMATED COUNT 4.50 10*6/uL 4.6 - 6.2 05/13 L Specimen Type: BLOOD No comment entered. Ordering Provider: JACK GONZALEZ A Report Released Date/Time: May 13, 2024 03:24 PM Reporting Lab: [place] [id number] Performing Lab: [address] CBC/PLT HEMOGLOBIN [MASS/VOLU ME] IN BLOOD 14.2 g/dL 14.0 - 18.0 05/13 Specimen Type: BLOOD No comment entered. Ordering Provider: JACK GONZALEZ A Report Released Date/Time: May 13, 2024 03:24 PM Reporting Lab: [address] [address] Performing Lab: [address] [address] [facility] CBC/PLT HEMATOCRIT [VOLUME FRACTION] OF BLOOD BY AUTOMATED COUNT 41.8 42.0 - 52.0 05/13 L Specimen Type: BLOOD No comment entered. Ordering Provider: JACK GONZALEZ A Report Released Date/Time: May 13, 2024 03:24 PM Reporting Lab: [address] [address] Performing Lab: [address] [address] [facility] CBC/PLT MCV [ENTITIC VOLUME] BY AUTOMATED COUNT 92.9 fL 80.0 - 94.0 05/13 Specimen Type: BLOOD No comment entered. Ordering Provider: JACK GONZALEZ A Report Released Date/Time: May 13, 2024 03:24 PM Reporting Lab: [address] [address] Performing Lab: [address] [address] [facility] CBC/PLT MCH [ENTITIC MASS] BY AUTOMATED COUNT 31.6 pg 27.0 - 31.0 05/13 H Specimen Type: BLOOD No comment entered. Ordering Provider: JACK GONZALEZ A Report Released Date/Time: May 13, 2024 03:24 PM Reporting Lab: [address] [address] Performing Lab: [address] [address] [facility] CBC/PLT MCHC [MASS/VOLU ME] BY AUTOMATED COUNT 34.0 g/dL 32.0 - 36.0 05/13 Specimen Type: BLOOD No comment entered. Ordering Provider: JACK GONZALEZ A Report Released Date/Time: May 13, 2024 03:24 PM Reporting Lab: [address] [address] Performing Lab: [address] [address] [facility] CBC/PLT PLATELETS [#/VOLUME] IN BLOOD 188 10*3/uL 150 - 450 05/13 Specimen Type: BLOOD No comment entered. Ordering Provider: JACK GONZALEZ Report Released Date/Time: May 13, 2024 03:24 PM Reporting Lab: [address] [address] Performing Lab: [place] [id number] [place] [address] CBC/PLT PLATELET MEAN VOLUME [ENTITIC VOLUME] IN BLOOD 9.9 fL 9.0 - 13.1 05/13 Specimen Type: BLOOD No comment entered. Ordering Provider: JACK GONZALEZ Report Released Date/Time: May 13, 2024 03:24 PM Reporting Lab: [place] [id number] Performing Lab: [place] [address] [place] [address] CBC/PLT ERYTHROCYT E DISTRIBUTI ON WIDTH [ENTITIC VOLUME] BY AUTOMATED COUNT 12.5 11.0 - 16.0 05/13 Specimen Type: BLOOD No comment entered. Ordering Provider: JACK GONZALEZ Report Released Date/Time: May 13, 2024 03:24 PM Reporting Lab: [place] [id number] Performing Lab: [place] [id number] [place] [address] CBC/PLT NUCLEATED ERYTHROCYT ES/100 ERYTHROCYT ES IN BLOOD 0.0 0.0 - 0.0 05/13 Specimen Type: BLOOD No comment entered. Ordering Provider: JACK GONZALEZ A Report Released Date/Time: May 13, 2024 03:24 PM Reporting Lab: [place] [id number] Performing Lab: [place] [id number] [place] [address] GLYCOHEM OGLOBIN HEMOGLOBIN A1C/HEMOGL OBIN.TOTAL IN BLOOD BY HPLC 5.2 4.4 - 6.4 05/13 Specimen Type: BLOOD Comment: [facility] guidelines for A1c interpretat ion: Glycemic control targets are based on Shared Decision Making between clinicians and patients. Criteria used to establish an A1c target recommendat ion can be found at https://www .al.gov/danny dominguezdpati entsafety/ and include the use of result [...] 9.27. Ref: https://ngs p.org/CAPda ta.asp. The in-house [employer] D-100 analyzer has a historical CV <= 2%. Contact the laboratory for further performance characteris tics of this assay. Ordering Provider: JACK GONZALEZ Report Released Date/Time: May 13, 2024 03:24 PM Reporting Lab: [place] [address] [address] Performing Lab: [place] [address] [address] [facility] LIPID PROFILE CHOLESTERO L [MASS/VOLU ME] IN [...] 2024 03:24 PM Reporting Lab: [place] [address] [address] Performing Lab: [place] [address] [address] [facility] LIPID PROFILE TRIGLYCERI DE [MASS/VOLU ME] IN [...] 2024 03:24 PM Reporting Lab: [place] [address] [address] Performing Lab: [place] [address] [address] [facility] LIPID PROFILE CHOLESTERO L IN HDL [MASS/VOLU [...] 2024 03:24 PM Reporting Lab: [place] [address] [address] Performing Lab: [place] [address] [address] [facility] LIPID PROFILE CHOLESTERO L IN LDL [MASS/VOLU [...] May 13, 2024 03:24 PM Reporting Lab: [place] [address] [address] Performing Lab: [address] [address] [facility] LYME SCREEN BORRELIA BURGDORFER I AB [PRESENCE] IN SERUM BY IMMUNOASSA Y Negative 05/13 Specimen Type: SERUM No comment entered. Ordering Provider: JACK GONZALEZ IGE A Report Released Date/Time: May 13, 2024 03:24 PM Reporting Lab: [place] [address] [address] Performing Lab: [place] [facility] [address] [facility] [address] [facility] PANEL 5 CREATININE [MASS/VOLU ME] IN SERUM [...] 2024 03:24 PM Reporting Lab: [place] [facility] [address] [address] Performing Lab: [place] [facility] [address] [address] [facility] PANEL 5 UREA NITROGEN [MASS/VOLU ME] IN [...] May 13, 2024 03:24 PM Reporting Lab: [place] [address] [address] Performing Lab: [address] [address] [facility] PANEL 5 GLUCOSE [MASS/VOLU ME] IN SERUM [...] May 13, 2024 03:24 PM Reporting Lab: [address] [address] Performing Lab: [address] [address] [facility] PANEL 5 SODIUM [MOLES/VOL UME] IN SERUM [...] 2024 03:24 PM Reporting Lab: [place] [address] [address] Performing Lab: [place] [address] [address] [facility] 5 POTASSIUM [MOLES/VOL UME] IN SERUM [...] 2024 03:24 PM Reporting Lab: [place] [address] [address] Performing Lab: [place] [address] [address] [facility] PANEL 5 CHLORIDE [MOLES/VOL UME] IN SERUM [...] 2024 03:24 PM Reporting Lab: [place] [address] [address] Performing Lab: [place] [address] [address] [facility] PANEL 5 CARBON DIOXIDE, TOTAL [MOLES/VOL UME] [...] 2024 03:24 PM Reporting Lab: [place] [address] [address] Performing Lab: [place] [address] [address] [facility] PANEL 5 CALCIUM [MASS/VOLU ME] IN SERUM [...] 2024 03:24 PM Reporting Lab: [place] [address] [address] Performing Lab: [place] [address] [address] [facility] PANEL 5 PROTEIN [MASS/VOLU ME] IN SERUM [...] 2024 03:24 PM Reporting Lab: [place] [address] [address] Performing Lab: [place] [address] [address] [facility] PANEL 5 ALBUMIN [MASS/VOLU ME] IN SERUM [...] 2024 03:24 PM Reporting Lab: [place] [address] [address] Performing Lab: [place] [address] [address] [facility] PANEL 5 BILIRUBIN. TOTAL [MASS/VOLU ME] IN [...] 2024 03:24 PM Reporting Lab: [place] [address] [address] Performing Lab: [place] [address] [address] [facility] PANEL 5 ASPARTATE AMINOTRANS FERASE [ENZYMATIC ACTIVITY/V [...] 2024 03:24 PM Reporting Lab: [place] [address] [address] Performing Lab: [place] [address] [address] [facility] PANEL 5 ALANINE AMINOTRANS FERASE [ENZYMATIC ACTIVITY/V [...] May 13, 2024 03:24 PM Reporting Lab: [place] [facility] [address] [address] Performing Lab: [place] [facility] [address] [address] [facility] PANEL 5 ANION GAP 3 IN SERUM [...] 2024 03:24 PM Reporting Lab: [place] [address] [address] Performing Lab: [place] [address] [address] [facility] PANEL 5 ALKALINE PHOSPHATAS E [ENZYMATIC ACTIVITY/V [...] May 13, 2024 03:24 PM Reporting Lab: [place] [address] [address] Performing Lab: [place] [address] [address] [facility] PANEL 5 GLOMERULAR FILTRATION RATE/1.73 SQ M.PREDICTE D [...] May 13, 2024 03:24 PM Reporting Lab: [address] [address] Performing Lab: [address] [address] [facility] PSA PROSTATE SPECIFIC AG [MASS/VOLU ME] IN SERUM OR PLASMA 0.304 ng/mL 0 - 3.999 05/13 Specimen Type: SERUM No comment entered. Ordering Provider: JACK GONZALEZ Report Released Date/Time: May 13, 2024 03:24 PM Reporting Lab: [address] [address] Performing Lab: [address] [address] [facility] THYROID PROFILE THYROTROPI N [UNITS/VOL UME] IN [...] 2024 03:24 PM Reporting Lab: [place] [address] [address] Performing Lab: [place] [address] [address] [facility] THYROID PROFILE FREE T4 0.88 ng/mL 0.70 [...] 13, 2024 03:24 PM Reporting Lab: [place] [address] [address] Performing Lab: [place] [address] [address] [facility] URINALYS IS COLOR OF URINE Colorles s 05/13 Specimen Type: URINE Comment: Microscopic not indicated Ordering Provider: JACK GONZALEZ A Report Released Date/Time: May 13, 2024 03:24 PM Reporting Lab: [place] [address] [address] Performing Lab: [place] [address] [address] [facility] URINALYS IS APPEARANCE OF URINE Clear 05/13 Specimen Type: URINE Comment: Microscopic not indicated Ordering Provider: JACK GONZALEZ IGE A Report Released Date/Time: May 13, 2024 03:24 PM Reporting Lab: [address] [address] Performing Lab: [address] [address] [facility] URINALYS IS UROBILINOG EN [MASS/VOLU ME] IN URINE BY TEST STRIP Normalmg /dL 05/13 Specimen Type: URINE Comment: Microscopic not indicated Ordering Provider: JACK GONZALEZ IGE A Report Released Date/Time: May 13, 2024 03:24 PM Reporting Lab: [address] [address] Performing Lab: [address] [address] [facility] URINALYS IS HEMOGLOBIN [PRESENCE] IN URINE BY TEST STRIP Negative 05/13 Specimen Type: URINE Comment: Microscopic not indicated Ordering Provider: JACK GONZALEZ A Report Released Date/Time: May 13, 2024 03:24 PM Reporting Lab: [address] [address] Performing Lab: [address] [address] [facility] URINALYS IS BILIRUBIN. TOTAL [PRESENCE] IN URINE BY TEST STRIP Negative 05/13 Specimen Type: URINE Comment: Microscopic not indicated Ordering Provider: JACK GONZALEZ A Report Released Date/Time: May 13, 2024 03:24 PM Reporting Lab: [address] [address] Performing Lab: [address] [address] [facility] URINALYS IS KETONES [MASS/VOLU ME] IN URINE BY TEST STRIP Negative mg/dL 05/13 Specimen Type: URINE Comment: Microscopic not indicated Ordering Provider: JACK GONZALEZ A Report Released Date/Time: May 13, 2024 03:24 PM Reporting Lab: [address] [address] Performing Lab: [address] [address] [facility] URINALYS IS PROTEIN [MASS/VOLU ME] IN URINE BY TEST STRIP Negative mg/dL 05/13 Specimen Type: URINE Comment: Microscopic not indicated Ordering Provider: JACK GONZALEZ A Report Released Date/Time: May 13, 2024 03:24 PM Reporting Lab: [address] [address] Performing Lab: [address] [address] [facility] URINALYS IS PH OF URINE BY TEST STRIP 5.5 4.5 - 8.0 05/13 Specimen Type: URINE Comment: Microscopic not indicated Ordering Provider: JACK GONZALEZ A Report Released Date/Time: May 13, 2024 03:24 PM Reporting Lab: [address] [address] Performing Lab: [phone] [place] [address] URINALYS IS NITRITE [PRESENCE] IN URINE BY TEST STRIP Negative 05/13 Specimen Type: URINE Comment: Microscopic not indicated Ordering Provider: JACK GONZALEZ A Report Released Date/Time: May 13, 2024 03:24 PM Reporting Lab: [address] [address] Performing Lab: [address] [address] [facility] URINALYS IS LEUKOCYTE ESTERASE [PRESENCE] IN URINE BY TEST STRIP Negative 05/13 Specimen Type: URINE Comment: Microscopic not indicated Ordering Provider: JACK GONZALEZ A Report Released Date/Time: May 13, 2024 03:24 PM Reporting Lab: [address] [address] Performing Lab: [address] [address] [facility] URINALYS IS SPECIFIC GRAVITY OF URINE 1.014 1.005 - 1.030 05/13 Specimen Type: URINE Comment: Microscopic not indicated Ordering Provider: JACK GONZALEZ A Report Released Date/Time: May 13, 2024 03:24 PM Reporting Lab: [address] [address] Performing Lab: [address] [address] [facility] URINALYS IS GLUCOSE [MASS/VOLU ME] IN URINE BY TEST STRIP Negative mg/dL 05/13 Specimen Type: URINE Comment: Microscopic not indicated Ordering Provider: JACK GONZALEZ Report Released Date/Time: May 13, 2024 03:24 PM Reporting Lab: [address] [address] Performing Lab: [address] [address] [facility] Vital Signs Combined list of inpatient and outpatient Vital Signs from Department of [facility] and [facility], ranging from 12 months to all on record, depending upon the facility. Vital Sign Value Date Comments Source SYSTOLIC BLOOD PRESSURE 138 05/13/2024 14:37:00 [facility] DIASTOLIC BLOOD PRESSURE 95 05/13/2024 14:37:00 [facility] PULSE OXIMETRY 96 05/13/2024 14:37:00 [facility] WEIGHT 214.0 05/13/2024 14:37:00 [facility] BMI 30 kg/m2 05/13/2024 14:37:00 [facility] PAIN 8 05/13/2024 14:37:00 [facility] TEMPERATURE 98.2 05/13/2024 14:37:00 [facility] PULSE 65 05/13/2024 14:37:00 [facility] Encounters Combined list of: 1) Encounters from Department of Veterans Affairs facilities going backup to the last 18 months, not all [place] inpatient encounters are included; 2) Encounters from the Department of Defense facilities going backup to 280 months. Location Location Details Encounter Type Encounter Number Reason For Visit Attending Provider ADM Date DC Date Status Disposition Source [facility] Outpatient Encounter [id number] 20 04/27 [facility] EX[facility] BOTH EARS [id number] Diagnos is: ICD-10- CM H90.3 Sensori neural hearing loss, bilater al RAJESH CARROLL S 05/13 [place] [facility] Outpatient Encounter [id number] 05/13 [place] CASE MANAGEMENT [id number] Diagnos is: ICD-10- CM Z65.9 Problem related to unspeci fied psychos ocial circums MAYRA Snow 05/13 [place] [facility] OFFICE O/P EST MOD 30 MIN [id number] Diagnos is: ICD-10- CM I10 Essenti al (primar y) hyperte nsFelipa Javier 05/13 [place] [facility] HC PRO PHONE CALL 5-10 MIN [id number] Diagnos is: ICD-10- CM Z71.89 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 ed quitline counselor OCTAVIA Nelson VIA J 05/16 [place] [facility] Outpatient Encounter [id number] 05/17 [place] [facility] HC PRO PHONE CALL 5-10 MIN [id number] Diagnos is: ICD-10- CM Z71.89 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 ed quitline counselor OCTAVIA Nelson VIA J 05/18 [place] [facility] Outpatient Encounter [id number] 05/27 [place] [facility] CONFORMITY EVALUATION [id number] [phone] Diagnos is: ICD-10- CM H90.3 Sensori neural hearing loss, bilater al CARROLL,RAJESH NEVES S 06/03 [place] [facility] Social History Combined list of available smoking, tobacco, and other social history from [facility] of Defense and Veterans Affairs facilities. Social History Type Response Date Comment [facility] e Tobacco smoking status [facility] NEVER USED 05/13/2024 [facility] of [facility]/2020 [facility]/2018 [facility] History of tobacco use V9 LIFETIME NON-USER OF TOBACCO 08/20/2017 [facility] History of tobacco use HF V9 CURRENT NON-SMOKER 05/19/2002 [facility] History of tobacco use HF V9 CURRENT NON-SMOKER 01/15/2001 quit 2 yrs ago [facility] [facility] of [facility] use NON-TOBACCO USER 08/28/1998 [facility]
[2024-11-23 10:01] LABS: Basophils % 0.3 % (0.1-2.0); Eosinophils # 0.1 Kmm3 (0.0-0.4); Eosinophils % 2.1 % (0.1-12.0); Hematocrit 39.9 % (42.0-52.0); Hemoglobin 14.1 g/dL (14.1-18.0); Immature Granulocytes # 0.01 10^3uL; Immature Granulocytes % 0.2 %; Lymphocytes # 1.8 K/mm3 (0.7-4.5); Lymphocytes % 28.4 % (10-50); Mean Corpuscular HGB Conc 35.3 g/dL (31.8-35.4); Mean Corpuscular Hemoglobin 32.3 pg (27.0-31.2); Mean Corpuscular Volume 91.5 fl (80-94); Mean Platelet Volume 9.5 fl (7.4-10.4); Monocytes # 0.6 K/mm3 (0.1-1.0); Monocytes % 10.2 % (1.7-9.3); Neutrophils # 3.6 K/mm3 (1.8-7.8); Neutrophils % 58.8 % (37.0-80.0); Nucleated Red Blood Cells # 0 10^3/uL; Nucleated Red Blood Cells % 0 %; Platelet Count 175 K/mm3 (142-424); Red Blood Count 4.36 M/mm3 (4.60-6.20); Red Cell Distribution Width 12.1 % (11.5-17.5); Red Cell Distribution Width-SD 40.6 fL; White Blood Count 6.2 K/mm3 (4.8-10.8)
[2024-11-23 10:29] LABS: Anion Gap 8.2 mEq/L (5-15); Blood Urea Nitrogen 19 mg/dl (9-20); Calcium 9.3 mg/dl (8.4-10.2); Carbon Dioxide 25 mmol/L (22.0-30.0); Chloride 109 mmol/L (98-107); Estimated Glomerular Filt Rate 97 ml/min (>60); GFR (African American) 118 ML/MIN (>60); Glucose 110 mg/dl (74-100); Potassium 4.2 mmoL/L (3.5-5.1); Sodium 138 mmol/L (136-145)
== END 2024-11-23 23:59 | disposition home or self-care (01) ==
LOC: LAB 09:47
PROVIDERS: PCP Nurse Practitioner Family; Visit Provider Internal Medicine
DX: I25.10 Atherosclerotic heart disease of native coronary artery without angina pectoris (principal); I10 Essential (primary) hypertension; Z95.5 Presence of coronary angioplasty implant and graft
CPT/HCPCS: 36415; 80048; 85025

== ENCOUNTER 2024-11-30 09:16 | Outpatient (POV) | payer OTHER, SELFPAY ==
--- OUTSIDE RECORDS SUMMARY | 2024-11-30 09:19 | XMS_ITS | Data Portability ---
Author Organization [place] - [facility] - [place] [facility] [place] [facility] Address [address] [place] [id number] Assessment No assessment recorded. Plan of Treatment Reminders Order Date Submit Date Provider Last Modified By Organization Details Last Modified Time Details Appointments None recorded. Lab None recorded. Referral None recorded. Procedures None recorded. Surgeries None recorded. Imaging XR, abdomen, 1 view - please send pt back to when finished 2022 [facility] (Radiology)[address] [place], [address], 3 11:39:29 Medication Orders None recorded. Patient TargetsNo targets recorded. Patient InstructionsNo instructions recorded. Reason for Referral None Reported. Results Created Date Observation Date Name Description Value Unit Range Abnormal Flag Note LastModifiedBy Organization Detail LastModifiedTime 02/12/20 23 02/11/2023 XR, abdom en, 1 view [facility] [address] [place] [address] Phone: Fax: Name: RAZA COATES Exam Date: 023 : 960 Age 62 Gender : M Access ion: [id number] Physic dar: NIC DEL VALLE Facili ty: [facility] Facili ty HSV: Outpat ient Exam: ABD [...] [facility] Leg[facility] y authen ticate d by SANCHEZ CHENG 02-11 10:22: 14 CC'ed Logic: Orderi ng Provid er: IVNO Queen CC Provid er: ESTEBAN LINDQUIST Attend ing Provid er: IVON Queen Referr ing Provid er: IVON Queen Admitt ing Provid er: IVON Queen [address] (Radiology) [address] [place] [address] [place], [address], 02/11/2023 15:10:44 Result Notes None recorded. Problems Name Problem SNOMED Code Status Onset Date Resolution Date Notes Provider Name and Address Organization Details Recorded Time Hypertensive disorder [id number] Active 2022 MAGAN Rodriguez - [facility] - [place] & [place] 3 08:51:42 Problem Notes None recorded. Procedures Surgical History None recorded. Imaging Results Imaging Date Name Status LastModified by Organiz ation Details LastModified Time 02/11/2023 XR, abdomen, 1 view completed [address] (Radiology) [address] [place] [address] [place], [address], 02/11/2023 15:10:44 Procedure Notes None recorded. Medical [...] Updated DateTime 02/11/2023 172.72 cm 32.7 kg/m2 37593.36 g 97.7 [degF] [facility] [place] 02/11/2023 08:49:58 Social History None recorded. Functional Status None recorded. Mental Status None recorded. Family History Relationship Description Onset Age of this Age Resolved Age Notes LastModified by Organization Details LastModified Time Father Myocardial infarction [email or web address] Not available 01/18 08:50:41 Medical History No medical history recorded. Past Encounters Encounter ID Performer Location Encounter Start Date Encounter Closed Date Diagnosis/Indication Diagnosis SNOMED-CT Code Diagnosis ICD10 Code Diagnosis Note [id number] Gee Del Valle Jr, MD [facility] [address] [phone] 02/11/2023 08:40:04 02/11/2023 11:16:16 Kidney stone 47996365 N20.0 Patient with recent right-side d flank [...] Recorded Advance Directives Directive None Recorded Payers Insurance Date Sequence Insurance Name Policy Number Policy Jimenez Covered Member ID Jimenez Member ID Guarantor Name 02/06/2024 1 [facility] Norm Coates [id number] Notes Date Note Type Note Provider Name and Address Organization Details Recorded Time 02/11/2023 text/html Patient is a 62-year-old white male with recent right-sided flank pain. He presented to [facility] on January [address] [...] as well and a CT scan at [facility] showed a 2 mm stone at that point. Gee Del Valle Jr, MD [address] [place] [address], [address], [place], [phone], [facility] [place] - [place] & [place] 02/11/2023 13:18:04
--- OUTSIDE RECORDS SUMMARY | 2024-11-30 09:19 | XMS_ITS | Continuity of Care Document ---
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 It does not include entries that were removed or entered in error. Problem Status Onset Date Problem Type Date of Resolution Comments Source Complaining of erectile dysfunction Active Condition [facility] Exposure to potentially hazardous substance (SCT [id number]) [facility] History of polyp of colon Active Condition Jun 17, 2022 Entered By: JOVANNY BRAN Comment: Cscope 03/10/2022- WNL repeat in 10y (2031) [facility] Hypertension Active Condition [facility] Personal History of Tobacco Use Active Condition [facility] Plantar Fasciitis Active Condition [facility] Tinnitus Active Condition [facility] Vitamin [...] Medications Combined list of outpatient medications from [facility] facilities.Medications provided include 1) outpatient medications from the last 15 months, and 2) patient-reported medications. Medication Details Route Status Patient Instructions Prescription Expires Prescription Number Last Dispense Date Ordering Provider Order Date Order Qty Source ATORVASTATI N CA 10MG TAB TAKE ONE-HALF TABLET BY MOUTH DAILY FOR CHOLESTE ROL -DO NOT DRINK GRAPEFRU IT JUICE WHILE ON THIS DRUG ORAL ACTIVE 05/15/2025 [id number] CASEY GONZALEZ 2023 45 [place] [facility] BACLOFEN 10MG TAB TAKE ONE-HALF TABLET BY MOUTH THREE TIMES A DAY FOR MUSCLE SPASMS ORAL ACTIVE 05/14/2025 [id number] CASEY GONZALEZ 2023 135 [place] [facility] DICLOFENAC NA 75MG TAB,EC TAKE ONE TABLET BY MOUTH TWICE A DAY NEEDED FOR PAIN/INF LAMMATIO N ORAL ACTIVE 05/14/2025 [id number] CASEY GONZALEZ 2023 90 [place] [facility] LISINOPRIL 40MG TAB TAKE ONE-HALF TABLET BY MOUTH DAILY FOR HIGH BLOOD PRESSURE ORAL ACTIVE 05/14/2025 [id number] 5 CASEY GONZALEZ 2023 45 [place] [facility] Allergies, Adverse Reactions, Alerts Combined list of allergies from Department of Defense and Veterans Affairs facilities. It does not include entries that were removed or entered in error. Substance Category Reaction Severity Reaction type Status Date Reported Comments Source NUTS Propensity to adverse reactions to substance (finding) Eruption active 8 [facility] Immunizations Combined list of available immunizations from the Department of Defense and Veterans Affairs facilities. Immunization Series Date Given Administered By Site Reaction Lot Number CVX Code Drug [employer] Status Comments Source INFLUENZA, SPLIT VIRUS, TRIVALENT, PF 2023 [place] MEDINA LEFT DELTO ID [id number] 140 complet ed Completed Series, [place], [place] [facility] COVID-19 (PFIZER), MRNA, LNP-S, BIVALENT BOOSTER, PF, 30 MCG/0.3 ML DOSE 1 2021 NONE 300 complet ed PFR; [id number]; 3 [place] [facility] INFLUENZA, INJECTABLE, QUADRIVALENT, PRESERVATIVE FREE 2021 NONE 150 complet ed Booster for Series, [place] [facility] TDAP 2021 115 complet ed [place] [facility] COVID-19 (PFIZER), MRNA, LNP-S, PF, 30 MCG/0.3 ML DOSE 1 2020 208 complet ed HISTORICA L INFORMATI ON - FROM OTHER REGISTRY, [place] [facility] INFLUENZA, INJECTABLE, QUADRIVALENT, PRESERVATIVE FREE 2020 NONE 150 complet ed [place] [facility] PNEUMOCOCCAL POLYSACCHARID E [id number] 2020 NONE 33 complet ed Completed Series, [place] [facility] COVID-19 (PFIZER), MRNA, LNP-S, PF, 30 MCG/0.3 ML DOSE 2 2020 208 complet ed PFR; [id number]; 1 [place] COVID-19 (PFIZER), MRNA, LNP-S, PF, 30 MCG/0.3 ML DOSE 1 2020 208 complet ed PFR; [id number]; 1 [place] INFLUENZA, INJECTABLE, QUADRIVALENT, PRESERVATIVE FREE 2019 150 complet ed [place] [facility] [place] ZOSTER RECOMBINANT 2 2019 187 complet ed [place] [facility] INFLUENZA, INJECTABLE, QUADRIVALENT, PRESERVATIVE FREE 2018 150 complet ed [place] [facility] [place] ZOSTER RECOMBINANT 1 2018 187 complet ed [place] [facility] [place] HEP A, ADULT 2018 52 complet ed [place] [facility] A, ADULT 2018 52 complet ed [place] [facility]FLU[facility], SEASONAL, INJECTABLE 2018 141 complet ed [place] [facility]FLUENZA A & B (HISTORICAL) 2017 88 complet ed [place] [facility] [place] TDAP 2017 115 complet ed [place] [facility] TD(ADULT) UNSPECIFIED FORMULATION 1996 139 complet ed [facility] [place] [facility] Results Combined list of recent chemistry, hematology [...] 13, 2024 03:24 PM Reporting Lab: OLIVIA [address] [address] Performing Lab: ADAMAnne [address] [address] [facility] LIPID PROFILE CHOLESTERO L [MASS/VOLU ME] [...] 13, 2024 03:24 PM Reporting Lab: [address] [address] Performing Lab: [address] [address] [facility] LIPID PROFILE TRIGLYCERI DE [MASS/VOLU ME] [...] 2024 03:24 PM Reporting Lab: OLIVIA MOCK [address] [address] Performing Lab: OLIVIA MOCK [address] [address] [facility] LIPID PROFILE CHOLESTERO L IN HDL [...] 2024 03:24 PM Reporting Lab: OLIVIA MOCK [address] [address] Performing Lab: OLIVIA MOCK [address] [address] [facility] LIPID PROFILE CHOLESTERO L IN LDL [...] 13, 2024 03:24 PM Reporting Lab: [address] [address] Performing Lab: [address] [address] [facility] GLYCOHEM OGLOBIN HEMOGLOBIN A1C/HEMOGL OBIN.TOTAL IN BLOOD BY HPLC 5.2 4.4 - 6.4 05/13 Specimen Type: BLOOD Comment: [facility] guidelines for A1c interpretat ion: Glycemic control targets are based on Shared Decision Making between clinicians and patients. Criteria used to establish an A1c target recommendat ion can be found at https://www .nm.gov/danny lityandpati entsafety/ and include the use of [...] 9.27. Ref: https://ngs p.org/CAPda ta.asp. The in-house [employer] D-100 analyzer has a historical CV <= 2%. Contact the laboratory for further performance characteris tics of this assay. Ordering Provider: JACK GONZALEZ A Report Released Date/Time: May 13, 2024 03:24 PM Reporting Lab: [place] [id number] Performing Lab: [place] [id number] CBC/PLT LEUKOCYTES [#/VOLUME] IN BLOOD BY AUTOMATED COUNT 7.6 10*3/uL 5.0 - 10.0 05/13 Specimen Type: BLOOD No comment entered. Ordering Provider: JACK GONZALEZ A Report Released Date/Time: May 13, 2024 03:24 PM Reporting Lab: [place] [id number] Performing Lab: [address] CBC/PLT ERYTHROCYT ES [#/VOLUME] IN BLOOD BY AUTOMATED COUNT 4.50 10*6/uL 4.6 - 6.2 05/13 L Specimen Type: BLOOD No comment entered. Ordering Provider: JACK GONZALEZ A Report Released Date/Time: May 13, 2024 03:24 PM Reporting Lab: [place] [id number] Performing Lab: [address] CBC/PLT HEMOGLOBIN [MASS/VOLU ME] IN BLOOD 14.2 g/dL 14.0 - 18.0 05/13 Specimen Type: BLOOD No comment entered. Ordering Provider: JACK GONZALEZ A Report Released Date/Time: May 13, 2024 03:24 PM Reporting Lab: [place] [id number] Performing Lab: [place] [id number] CBC/PLT HEMATOCRIT [VOLUME FRACTION] OF BLOOD BY AUTOMATED COUNT 41.8 42.0 - 52.0 05/13 L Specimen Type: BLOOD No comment entered. Ordering Provider: JACK GONZALEZ A Report Released Date/Time: May 13, 2024 03:24 PM Reporting Lab: [address] [address] Performing Lab: [address] [address] [facility] CBC/PLT MCV [ENTITIC VOLUME] BY AUTOMATED COUNT 92.9 fL 80.0 - 94.0 05/13 Specimen Type: BLOOD No comment entered. Ordering Provider: JACK GONZALEZ A Report Released Date/Time: May 13, 2024 03:24 PM Reporting Lab: [address] [address] Performing Lab: [address] [address] [facility] CBC/PLT MCH [ENTITIC MASS] BY AUTOMATED COUNT 31.6 pg 27.0 - 31.0 05/13 H Specimen Type: BLOOD No comment entered. Ordering Provider: JACK GONZALEZ A Report Released Date/Time: May 13, 2024 03:24 PM Reporting Lab: [address] [address] Performing Lab: [address] [address] [facility] CBC/PLT MCHC [MASS/VOLU ME] BY AUTOMATED COUNT 34.0 g/dL 32.0 - 36.0 05/13 Specimen Type: BLOOD No comment entered. Ordering Provider: JACK GONZALEZ A Report Released Date/Time: May 13, 2024 03:24 PM Reporting Lab: [address] [address] Performing Lab: [address] [address] [facility] CBC/PLT PLATELETS [#/VOLUME] IN BLOOD 188 10*3/uL 150 - 450 05/13 Specimen Type: BLOOD No comment entered. Ordering Provider: JACK GONZALEZ A Report Released Date/Time: May 13, 2024 03:24 PM Reporting Lab: [address] [address] Performing Lab: [address] [address] [facility] CBC/PLT PLATELET MEAN VOLUME [ENTITIC VOLUME] IN BLOOD 9.9 fL 9.0 - 13.1 05/13 Specimen Type: BLOOD No comment entered. Ordering Provider: JACK GONZALEZ A Report Released Date/Time: May 13, 2024 03:24 PM Reporting Lab: [place] [id number] Performing Lab: [place] [id number] CBC/PLT ERYTHROCYT E DISTRIBUTI ON WIDTH [ENTITIC VOLUME] BY AUTOMATED COUNT 12.5 11.0 - 16.0 05/13 Specimen Type: BLOOD No comment entered. Ordering Provider: JACK GONZALEZ A Report Released Date/Time: May 13, 2024 03:24 PM Reporting Lab: [place] [id number] Performing Lab: [address] CBC/PLT NUCLEATED ERYTHROCYT ES/100 ERYTHROCYT ES IN BLOOD 0.0 0.0 - 0.0 05/13 Specimen Type: BLOOD No comment entered. Ordering Provider: JACK GONZALEZ A Report Released Date/Time: May 13, 2024 03:24 PM Reporting Lab: [place] [id number] Performing Lab: [place] [address] [place] [address] PSA PROSTATE SPECIFIC AG [MASS/VOLU ME] IN SERUM OR PLASMA 0.304 ng/mL 0 - 3.999 05/13 Specimen Type: SERUM No comment entered. Ordering Provider: JACK GONZALEZ A Report Released Date/Time: May 13, 2024 03:24 PM Reporting Lab: [place] [id number] Performing Lab: [address] URINALYS IS COLOR OF URINE Colorles s 05/13 Specimen Type: URINE Comment: Microscopic not indicated Ordering Provider: JACK GONZALEZ A Report Released Date/Time: May 13, 2024 03:24 PM Reporting Lab: [address] [address] Performing Lab: [address] [address] [facility] URINALYS IS APPEARANCE OF URINE Clear 05/13 Specimen Type: URINE Comment: Microscopic not indicated Ordering Provider: JACK GONZALEZ A Report Released Date/Time: May 13, 2024 03:24 PM Reporting Lab: [address] [address] Performing Lab: [address] [address] [facility] URINALYS IS UROBILINOG EN [MASS/VOLU ME] IN URINE BY TEST STRIP Normalmg /dL 05/13 Specimen Type: URINE Comment: Microscopic not indicated Ordering Provider: JACK GONZALEZ A Report Released Date/Time: May 13, 2024 03:24 PM Reporting Lab: [address] [address] Performing Lab: [address] [address] [facility] URINALYS IS HEMOGLOBIN [PRESENCE] IN URINE BY TEST STRIP Negative 05/13 Specimen Type: URINE Comment: Microscopic not indicated Ordering Provider: JACK GONZALEZ A Report Released Date/Time: May 13, 2024 03:24 PM Reporting Lab: [address] [address] Performing Lab: [address] [address] [facility] URINALYS IS BILIRUBIN. TOTAL [PRESENCE] IN URINE BY TEST STRIP Negative 05/13 Specimen Type: URINE Comment: Microscopic not indicated Ordering Provider: JACK GONZALZE A Report Released Date/Time: May 13, 2024 03:24 PM Reporting Lab: [address] [address] Performing Lab: [address] [address] [facility] URINALYS IS KETONES [MASS/VOLU ME] IN URINE BY TEST STRIP Negative mg/dL 05/13 Specimen Type: URINE Comment: Microscopic not indicated Ordering Provider: JACK GONZALEZ IGE A Report Released Date/Time: May 13, 2024 03:24 PM Reporting Lab: [address] [address] Performing Lab: [address] [address] [facility] URINALYS IS PROTEIN [MASS/VOLU ME] IN URINE BY TEST STRIP Negative mg/dL 05/13 Specimen Type: URINE Comment: Microscopic not indicated Ordering Provider: JACK GONZALEZ IGE A Report Released Date/Time: May 13, 2024 03:24 PM Reporting Lab: [address] [address] Performing Lab: [address] [address] [facility] URINALYS IS PH OF URINE BY TEST STRIP 5.5 4.5 - 8.0 05/13 Specimen Type: URINE Comment: Microscopic not indicated Ordering Provider: AJCK GONZALEZ IGE A Report Released Date/Time: May 13, 2024 03:24 PM Reporting Lab: [address] [address] Performing Lab: [address] [address] [facility] URINALYS IS NITRITE [PRESENCE] IN URINE BY TEST STRIP Negative 05/13 Specimen Type: URINE Comment: Microscopic not indicated Ordering Provider: JACK GONZALEZ IGE A Report Released Date/Time: May 13, 2024 03:24 PM Reporting Lab: [address] [address] Performing Lab: [address] [address] [facility] URINALYS IS LEUKOCYTE ESTERASE [PRESENCE] IN URINE BY TEST STRIP Negative 05/13 Specimen Type: URINE Comment: Microscopic not indicated Ordering Provider: JACK GONZALEZ IGE A Report Released Date/Time: May 13, 2024 03:24 PM Reporting Lab: [address] [address] Performing Lab: [address] [place] [address] [facility] URINALYS IS SPECIFIC GRAVITY OF URINE 1.014 1.005 - 1.030 05/13 Specimen Type: URINE Comment: Microscopic not indicated Ordering Provider: JACK GONZALEZ Report Released Date/Time: May 13, 2024 03:24 PM Reporting Lab: [place] [id number] Performing Lab: [place] [id number] URINALYS IS GLUCOSE [MASS/VOLU ME] IN URINE BY TEST STRIP Negative mg/dL 05/13 Specimen Type: URINE Comment: Microscopic not indicated Ordering Provider: JACK GONZALEZ Report Released Date/Time: May 13, 2024 03:24 PM Reporting Lab: [place] [id number] Performing Lab: [address] THYROID PROFILE THYROTROPI N [UNITS/VOL UME] IN [...] 2024 03:24 PM Reporting Lab: [place] [address] [address] Performing Lab: [place] [address] [address] [facility] THYROID PROFILE FREE T4 0.88 ng/mL [...] 13, 2024 03:24 PM Reporting Lab: [place] [address] [address] Performing Lab: OL[place] [address] [address] [facility] 25-OH VITAMIN D 25-HYDROXY VITAMIN D3 [...] 13, 2024 03:24 PM Reporting Lab: [place] [address] [address] Performing Lab: [place] M[place] [address] [address] [facility] PANEL 5 CREATININE [MASS/VOLU ME] IN [...] PM Reporting Lab: [place] MOCK [facility] [address] [facility] [address] Performing Lab: [place] MOCK [facility] [address] [facility] [address] [facility] PANEL 5 UREA NITROGEN [MASS/VOLU ME] [...] PM Reporting Lab: [place] MOCK [facility] [address] [facility] [address] Performing Lab: [place] MOCK [facility] [address] [facility] [address] [facility] PANEL 5 GLUCOSE [MASS/VOLU ME] IN [...] May 13, 2024 03:24 PM Reporting Lab: [facility] [address] [address] Performing Lab: [address]AM[address] [address] [facility] PANEL 5 SODIUM [MOLES/VOL UME] IN [...] 13, 2024 03:24 PM Reporting Lab: [address] [address] Performing Lab: [address] [address] [facility] PANEL 5 POTASSIUM [MOLES/VOL UME] IN [...] 2024 03:24 PM Reporting Lab: [place] [address] [address] Performing Lab: [place] M[place] [address] [address] [facility] PANEL 5 CHLORIDE [MOLES/VOL UME] IN [...] 2024 03:24 PM Reporting Lab: [place] [address] [address] Performing Lab: [place] [address] [address] [facility] PANEL 5 CARBON DIOXIDE, TOTAL [MOLES/VOL [...] 2024 03:24 PM Reporting Lab: [place] [address] [address] Performing Lab: [place] [address] [address] [facility] PANEL 5 CALCIUM [MASS/VOLU ME] IN [...] 2024 03:24 PM Reporting Lab: [place] M[place] [address] [address] Performing Lab: [place] M[place] [address] [address] [facility] PANEL 5 PROTEIN [MASS/VOLU ME] IN [...] 2024 03:24 PM Reporting Lab: [place] [address] [address] Performing Lab: [place] [address] [address] [facility] PANEL 5 ALBUMIN [MASS/VOLU ME] IN [...] 2024 03:24 PM Reporting Lab: [place] [address] [address] Performing Lab: [place] [address] [address] [facility] PANEL 5 BILIRUBIN. TOTAL [MASS/VOLU ME] [...] 2024 03:24 PM Reporting Lab: [place] [address] [address] Performing Lab: [place] [address] [address] [facility] PANEL 5 ASPARTATE AMINOTRANS FERASE [ENZYMATIC [...] 2024 03:24 PM Reporting Lab: [place] [address] [address] Performing Lab: [place] [address] [address] [facility] PANEL 5 ALANINE AMINOTRANS FERASE [ENZYMATIC [...] 2024 03:24 PM Reporting Lab: [place] [address] [facility] [address] Performing Lab: OL[place]IA MOCK [facility] [address] [facility] [address] [facility] PANEL 5 ANION GAP 3 IN [...] PM Reporting Lab: [place] MOCK [facility] [address] [facility] [address] Performing Lab: [place] M[place] [address] [address] [facility] PANEL 5 ALKALINE PHOSPHATAS E [ENZYMATIC [...] PM Reporting Lab: [place] MOCK [facility] [address] [place] [address] Performing Lab: [place] [address] [address] [facility] PANEL 5 GLOMERULAR FILTRATION RATE/1.73 SQ M.PREDICTE [...] 13, 2024 03:24 PM Reporting Lab: [address] [address] Performing Lab: [address] [address] [facility] Vital Signs Combined list of inpatient and outpatient Vital Signs from Department of [facility] and [facility], ranging from 12 months to all on record, depending upon the facility. Vital Sign Value Date Comments Source SYSTOLIC BLOOD PRESSURE 138 05/13/2024 14:37:00 [facility] DIASTOLIC BLOOD PRESSURE 95 05/13/2024 14:37:00 [facility] PULSE OXIMETRY 96 05/13/2024 14:37[facility]00 [facility].0 05/13/2024 14:37:00 [facility] BMI 30 kg/m2 05/13/2024 14:37:00 [facility] PAIN 8 05/13/2024 14:37:00 [facility] TEMPERATURE 98.2 05/13/2024 14:37:00 [facility] PULSE 65 05/13/2024 14:37:00 [facility] Encounters Combined list of: 1) Encounters from Department of Veterans Affairs facilities going backup to the last 18 months, not all [place] inpatient encounters are included; 2) Encounters from the Department of [facility] facilities going backup to 280 months. Location Location Details Encounter Type Encounter Number Reason For Visit Attending Provider ADM Date DC Date Status Disposition Source [facility] Outpatient Encounter [id number] 04/27 [facility] EXAM BOTH EARS [id number] Diagnos is: ICD-10- CM H90.3 Sensori neural hearing loss, bilater al RAJESH CARROLL S 05/13 [place] [facility] Outpatient Encounter [id number] 05/13 [place] [facility] CASE MANAGEMENT [id number] Diagnos is: ICD-10- CM Z65.9 Problem related to unspeci fied psychos ocial circums MAYRA Snow 05/13 [place] [facility] OFFICE O/P EST MOD 30 MIN [id number] Diagnos is: ICD-10- CM I10 Essenti al (primar y) hyperte nsFelipa Javier 05/13 [place] [facility] HC PRO PHONE CALL 5-10 MIN [id number] Diagnos is: ICD-10- CM Z71.89 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 ed 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 counsel OCTAVIA Nelson VIA J 05/16 [place] [facility] Outpatient Encounter [id number] 05/17 [place] [facility] HC PRO PHONE CALL 5-10 MIN [id number] Diagnos is: ICD-10- CM Z71.89 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 ed assistant counsel OCTAVIA Nelson VIA J 05/18 [place] [facility] Outpatient Encounter [id number] 05/27 [place] [facility] CONFORMITY EVALUATION [id number] Diagnos is: ICD-10- CM H90.3 Sensori neural hearing loss, bilater al CARROLL,RAJESH NEVES S 06/03 [place] [facility] Social History Combined list of available smoking, tobacco, and other social history from Department of Defense and Veterans Affairs facilities. Social History Type Response Date Comment [facility] e Tobacco smoking status [facility]-TO[facility] NEVER USED 05/13/2024 [facility] of [facility]/24/2022 [facility] of [facility]/07/2020 [facility] of [facility] 07/21/2018 [facility] History of tobacco use V9 LIFETIME NON-USER OF TOBACCO 08/20/2017 [facility] History of tobacco use HF V9 CURRENT NON-SMOKER 05/19/2002 [facility] History of tobacco use HF V9 CURRENT NON-SMOKER 01/15/2001 quit 2 yrs ago [facility] History of tobacco use NON-TOBACCO USER 08/28/1998 [facility]
[2024-11-30 09:39] VITALS: BP 132/71; PULSE 88; RESP 18; O2SAT 96; BMI 31.9
--- NOTE | 2024-11-30 09:40 | EXP.PAIN.SOA ---
[facility] Disclaimer: The information contained in this section may have been updated after the patient was seen, as this information can be updated by other users. Medical History Hyperlipidemia Angina pectoris Abnormal findings on diagnostic imaging of heart/coronary circulation Family history of coronary artery disease in father Palpitations Fatigue Dizziness HTN (hypertension) Numbness and tingling of both lower extremities Back pain Family History Other No significant family history Social History Smoking Status: Never smoker alcohol intake: current substance use type: denies use current occupational status: other Travel in the last 8 weeks?: None household members: spouse housing: house marital status: education level: other service: Yes PM Subjective & Objective Subjective Subjective:: patient is a pleasant 64-year-old male who presents today for worsening low back pain. He rates it an 8 out of 10. He states that it pretty much stays at his low back and hip area. He does state that the right side seems to be worse than the left. He does state the pain is affecting his ability to perform activities of daily living such as cooking and cleaning. At our last visit we did discuss due to the fact that he had very elevated blood pressure to continue to monitor at home and discuss with primary care in case it did not get better. He states that ultimately he ended up having to have a cardiac cath and had a stent placed. He states that he ended up having a 70% blockage and that he did not realize how much it was affecting him until now he has had improvements related to some of those symptoms about shortness of breath and fatigue. Patient does state as we discussed in the office that they did take him off the diclofenac due to this new diagnosis. His Mark has been reviewed and is appropriate. Review of Systems: General: No recent weight changes, no fever, no sleep disturbances Respiratory: No cough, no shortness of air, no recurring pulmonary infections Cardiovascular/peripheral vascular: No chest pain, no palpitations, no edema, no shortness of breath Gastrointestinal: No new onset incontinence, normal bowel movements reported Genitourinary: No new onset incontinence Musculoskeletal: Low back pain, hip pain Psychiatric: [Normal mood/affect] Neurological: [Denies weakness in extremities], [denies balance issues] Pain at rest (0-10 scale): 8 Objective Objective:: Physical Exam: General: Alert and oriented x3, no acute distress, pleasant and cooperative Lungs: Respirations even and unlabored, symmetrical chest expansion Eyes: PERRL Musculoskeletal: Flexion and extension of lumbar [spine] somewhat guarded secondary to pain, [antalgic gait noted] point tenderness along bilateral SIs with positive bilateral Manuel's, Rufino's, Gaenslen's, compression and distraction exam Neurological: Speech clear, no gross sensory deficit Has patient had previous pain injection?: No Conservative treatment options previously tried: Home exercise plan Length of treatment: Longer than 12 weeks Meds Home Medications and Allergies Home Medications ?Medication ?Instructions ?Recorded ?Confirmed ?Type diclofenac sodium 75 mg 75 mg PO BID #180 tabs 08/08/24 11/30/24 Rx tablet,delayed release amlodipine 10 mg tablet 10 mg PO DAILY #30 tabs 10/18/24 11/30/24 Rx lisinopril 40 mg tablet 40 mg PO DAILY 90 days #90 tabs 10/25/24 11/30/24 Rx aspirin 81 mg tablet,delayed 81 mg PO DAILY #30 tabs 11/09/24 11/30/24 Rx release (Adult Low Dose Aspirin) atorvastatin 80 mg tablet 80 mg PO DAILY #90 tabs 11/09/24 11/30/24 Rx carvedilol 3.125 mg tablet (Coreg) 3.125 mg PO BID #60 tabs 11/09/24 11/30/24 Rx prasugrel HCl 10 mg tablet 10 mg PO DAILY 90 days #90 tabs 11/23/24 11/30/24 Rx (Effient) New Prescriptions to Start Prescriptions: Allergies Allergy/AdvReac Type Severity Reaction Status Date / Time No Known Allergies Allergy Verified 11/23/24 09:01 Assessment and Plan *Assessment and plan (1) Bilateral sacroiliitis: Status: Acute Category: Medical Code(s): M46.1 - Sacroiliitis, not elsewhere classified Plan Patient is experiencing worsening pain along the low back and bilateral hips. They did have limited range of motion of the lumbar spine along with point tenderness along bilateral SI joints and a positive bilateral Manuel's, Rufino's, Gaenslen's, compression and distraction exam. I did discuss with the patient that I do believe they would benefit from bilateral SI injections. Risk and benefits were discussed with the patient and they would like to proceed forward with this option. Patient has tried and failed conservative therapy including continued at home stretching exercise for longer than 12 weeks. Patient has had 2 to diagnostic SI injections with 80% improvement in his last injection on August 16. Patient has not had any additional flareups of his SI joint until he recently had a stent placed requiring him to remain in more prolonged positioning. Patient did get at least 3 months with his last injection and this has been a chronic issue for longer than 6 months. These will be therapeutic injections with 1 mL of solution to be injected under fluoroscopy. Patient may be a potential candidate of SI fusion however due to his recent stent placement he will not be a candidate at this time. We will continue to monitor this. Patient was also given baclofen in the past and states that it did help and denies any side effects. We will send in a refill of this medication at 5 mg 3 times daily as needed. Patient will be scheduled for bilateral SI injections under fluoroscopy. Patient has been instructed to contact the clinic with any concerns before the next appointment. Dr. Melendez has reviewed this note and agrees with this plan of care. This note was dictated using voice recognition software and make contain errors or omissions. All injections are used with Lidocaine or Bupivacaine and dexamethasone.
== END 2024-11-30 23:59 | disposition home or self-care (01) ==
PROVIDERS: PCP Nurse Practitioner Family; Visit Provider Nurse Practitioner Family
DX: M46.1 Sacroiliitis, not elsewhere classified (principal); Z73.89 Other problems related to life management difficulty; Z79.02 Long term (current) use of antithrombotics/antiplatelets
CPT/HCPCS: 99212; G0463

== ENCOUNTER 2024-12-07 12:55 | Outpatient (RCR) | payer OTHER, SELFPAY | END 2025-01-18 09:00 | disposition home or self-care (01) | LOC: CR 12:55 | PROVIDERS: Visit Provider Internal Medicine | DX: Z48.812 Encounter for surgical aftercare following surgery on the circulatory system (principal); Z98.61 Coronary angioplasty status ==

== ENCOUNTER 2024-12-27 13:17 | Day surgery (SDC) | payer OTHER, SELFPAY ==
[2024-12-27 13:31] VITALS: BP 132/72; PULSE 65; RESP 16; TEMP 36.8; O2SAT 96; BMI 31.6
[2024-12-27] MEDS: BUPIVACAINE 0.25% 10ML INJ 25 MG IJ (13:44)
[2024-12-27] MEDS: DEXAMETHASONE 10MG/ML 1ML VIAL 10 MG (13:44)
[2024-12-27] MEDS: LIDOCAINE 1% 5ML PF VIAL 5 ML (13:44)
[2024-12-27 13:45] VITALS: BP 138/84; PULSE 75; RESP 18; O2SAT 95
[2024-12-27 13:46] VITALS: BP 138/84; PULSE 75; RESP 18; O2SAT 95
[2024-12-27 13:51] VITALS: BP 115/68; PULSE 58; RESP 16; O2SAT 99
--- NOTE | 2024-12-27 14:09 | P.PCN_ITS ---
Procedure Date: 12/27/24 Time: 13:30 Anesthesiologist:: Anthony Coulter CRNA Complications:: None Pre-procedure Diagnosis:: Bilateral sacroiliitis Post-procedure Diagnosis:: Same Indications for Procedure:: Patient is a very pleasant 64-year-old male who comes our clinic today for bilateral sacroiliac joint injection cortisone local anesthetic. Patient describes low lumbar back pain off the midline bilaterally. Difficulty transitioning from sitting to standing. Bilateral posterior hip pain. He reports responding very well to previous sacroiliac joint injections of cortisone. He rates his pain 7/10. Procedure Details:: Procedure: Bilateral sacroiliac joint injections under fluoroscopy Informed consent was obtained and the risks and benefits of the procedure were explained to the patient.~ The patient was taken to the procedure room and noninvasive monitors were placed including a noninvasive blood pressure cuff and pulse oximeter.~ The patient was placed prone on the procedure table. Both hips were cleansed using Betadine as a cleansing solution. C-arm fluoroscopy was used to view the right sacroiliac joint.~ The skin and subcutaneous tissues were anesthetized using lidocaine 1.5% and a 25-gauge needle.~ After this, a 22-gauge spinal needle was inserted under fluoroscopic guidance into the inferior aspect of the right sacroiliac joint.~ Omnipaque dye was injected and good spread was seen throughout the joint.~ After this, approximately 5 mL of bupivacaine, 0.25% and Depo-Medrol, 40 mg was incrementally injected into the right sacroiliac joint. We then moved to the left sacroiliac joint.~ The skin and subcutaneous tissues were anesthetized using lidocaine 1.5% and a 25-gauge needle.~ After this, a 22- gauge spinal needle was inserted under fluoroscopic guidance into the inferior aspect of the left sacroiliac joint.~ Omnipaque dye was injected and good spread was seen throughout the joint. After this, approximately 5 mL of bupivacaine, 0.25% and Depo-Medrol, 40 mg was incrementally injected into the left sacroiliac joint.~ The patient tolerated the procedure well with no complications. The patient was observed in the Pain Clinic and then was discharged home neurologically intact. Plan and Disposition:: Patient was discharged without incident.
== END 2024-12-27 13:51 | disposition home or self-care (01) ==
PROVIDERS: PCP Nurse Practitioner Family; Visit Provider Nurse Anesthetist, Certified Registered
DX: M46.1 Sacroiliitis, not elsewhere classified (principal); E78.5 Hyperlipidemia, unspecified; R00.2 Palpitations; I10 Essential (primary) hypertension; R20.0 Anesthesia of skin; I20.9 Angina pectoris, unspecified; Z82.49 Family history of ischemic heart disease and other diseases of the circulatory system; Z79.82 Long term (current) use of aspirin; Z79.899 Other long term (current) drug therapy; Z95.5 Presence of coronary angioplasty implant and graft; Z87.891 Personal history of nicotine dependence
CPT/HCPCS: 27096; J0665; J1100; J2003

== ENCOUNTER 2025-01-09 15:21 | Outpatient (POV) | payer OTHER, SELFPAY ==
--- OUTSIDE RECORDS SUMMARY | 2024-04-27 11:42 | XMS_ITS | Encounter Summary ---
Author Name [facility] Address [address] [place] [address] Care Team Providers Care Medical Imaging Tech Name Role Phone CASEY GONZALEZ Primary Care Provider Unavailabl e Selected Encounter This section includes the information on record at NH for the Encounter. Date/Time Encounter Type Encounter Description Reason Pro vider Source Apr 27, 2024 03:42 PM Outpatient Encounter ADMIN PAT ACTIVTIES (AJAYNONCT) [facility] Encounter Template Text not used by NH Plan of Treatment: Future Appointments (+ 6 months) and Future Tests (+/- 45 days) The Plan of Treatment section includes future care activities for the patient from all NH treatmentfacilities. This section includes future appointments and future orders which are active, pending or scheduled. Future Appointments This section includes appointments that were scheduled to occur 6 months from the date of the Encounter, up to a maximum of 20 appointments. The data comes from all [place] treatment facilities. Appointment Date/Time Appointment Type Appointme nt Facility Name May 13, 2024 01:00 PM AMBULATORY - REHAB MEDICIN E [facility] May 13, 2024 03:00 PM AMBULATORY - NONE NATHALIE Mcgrath [facility] Jun 03, 2024 01:00 PM AMBULATORY - REHAB MEDICIN E [facility] Lab Results: +/- 30 days of the encounter This section includes the Chemistry and Hematology Lab Results [facility] with [facility] for the [facility]. Radiology Reports and Pathology Reports are provided separately, in subsequent sections. Lab Results This section contains the Chemistry/Hematology Results that were resulted 30 days before or 30 daysafter the date of the Encounter. Date/Time Source Result Type Result - Unit Interpretation Reference Range Specimen Type Comment May 13, 2024 03:31 PM [facility] LYME SCREEN SERUM Specimen Type: SERUM No comment entered. Ordering Provider: CASEY GONZALEZ Report Released Date/Time: May 13, 2024 03:24 PM Reporting Lab: [address] [phone] Performing Lab: [address] [address] LYME SCREEN Negative Negative May 13, 2024 03:31 PM [facility] LIPID PROFILE PLASMA Specimen Type: PLASM A Comment: Estimated Glomerular Filtration Rate (eGFR) calculated using the 2020 Chronic Kidney Disease-Epidemiology (CKD-EPI) Collaboration creatinine equation; units of measure are mL/min/1.73 m2. Results are only valid for adults (>=18 years) whose serum creatinine is in a steady state. eGFR calculations are not valid for patients with acute kidney injury and for patients on dialysis. Creatinine-based estimates of kidney function may also be inaccurate in patients with reduced creatinine generation due to decreased muscle mass (e.g., malnutrition, severe hypoalbuminemia, sarcopenia, chronic neuromuscular disease, amputations, severe heart failure or liver disease) and in patients with increased creatinine generation due to increased muscle mass (e.g., muscle builders, anabolic steroids) or increased dietary intake. As drug clearance is proportional to total GFR and not GFR indexed to body surface area (BSA), in individuals with a BSA substantially different than 1.73 m2, drug dosing should be based on the reported eGFR value de-indexed from BSA by multiplying by the individual's BSA and dividing by 1.73. CKD is diagnosed based on abnormalities of kidney structure or function, present for >3 months, with implications for health and disease. CKD is classified and staged based on cause, eGFR and albuminuria (quantified as urine albumin to creatinine ratio). An eGFR >60 mL/min/1.73 m2 in the absence of increased urine albumin excretion or structural abnormalities does not represent CKD. eGFR CKD Interpretation (mL/min/1.73 m2) stage >=90 G1 Normal 60-89 G2 Mild decrease 45-59 G3A Mild to moderate decrease 30-44 G3B Moderate to severe decrease 15-29 G4 Severe decrease <15 G5 Kidney failure Ordering Provider: CASEY GONZALEZ Report Released Date/Time: May 13, 2024 03:24 PM Reporting Lab: [address] [phone] Performing Lab: [address] [address] CHOLESTEROL 234 mg/dL H 0-199 TRIGLYCERIDE 141 mg/dL 0-149 HDL CHOLESTEROL 45 mg/dL 40-69 DIRECT LDL CHOL. 197 mg/dL H 0-100 May 13, 2024 03:31 PM [facility] GLYCOHEMOGLOBIN BLOOD Specimen Type: BLOOD Comment: [facility] guidelines for A1c interpretation: Glycemic control targets are based on Shared Decision Making between clinicians and patients. Criteria used to establish an A1c target recommendation can be found at https://www.oh.gov/qualityandpatientsafety/ and include the use of result accuracy and precision(CV) of the A1c tests clinicians utilize at their own sites of practice. Values obtained from A1C measurements can vary. For typical A1C assays, a reported value of 7.0 could actually be between 6.72 and 7.28 if measured by a reference method. A reported value of 9.0 could actually be between 8.73 and 9.27. Ref: https://ngsp.org/CAPdata.asp. The in-house [employer] D-100 analyzer has a historical CV <= 2%. Contact the laboratory for further performance characteristics of this assay. Ordering Provider: CASEY GONZALEZ Report Released Date/Time: May 13, 2024 03:24 PM Reporting Lab: [address] [address] Performing Lab: [address] [address] GLYCOHEMOGLOBIN 5.2 4.4-6.4 May 13, 2024 03:31 PM [facility] CBC/PLT BLOOD Specimen Type: BLOOD No comment entered. Ordering Provider: CASEY GONZALEZ Report Released Date/Time: May 13, 2024 03:24 PM Reporting Lab: [address] [address] Performing Lab: [address] [address] WBC 7.6 10*3/uL 5.0-10.0 RBC 4.50 10*6/uL L 4.6-6.2 HGB 14.2 g/dL 14.0-18.0 HCT 41.8 L 42.0-52.0 MCV 92.9 fL 80.0-94.0 MCH 31.6 pg H 27.0-31.0 MCHC 34.0 g/dL 32.0-36.0 PLT 188 10*3/uL 150-450 MPV 9.9 fL 9.0-13.1 RDW 12.5 11.0-16.0 NRBC 0.0 0.0-0.0 May 13, 2024 03:31 PM [facility] PSA S GRIS Specimen Type: SERUM No comment entered. Ordering Provider: CASEY GONZALEZ Report Released Date/Time: May 13, 2024 03:24 PM Reporting Lab: [address] [phone] Performing Lab: [address] [address] PSA 0.304 ng/mL 0-3.999 May 13, 2024 03:31 PM [facility] URINALYSIS URINE Specimen Type: URINE Comment: Microscopic not indicated Ordering Provider: CASEY GONZALEZ Report Released Date/Time: May 13, 2024 03:24 PM Reporting Lab: [address] [address] Performing Lab: [address] [address] URINE COLOR Colorless Colorless-Yellow APPEARANCE Clear Clear UROBILINOGEN Normal mg/dL Normal URINE BLOOD Negative Negative URINE BILIRUBIN Negative Negative URINE KETONES Negative mg/dL Negative URINE PROTEIN Negative mg/dL Negative-Tr colt URINE PH 5.5 4.5-8.0 URINE NITRITE Negative Negative URINE LEUKOCYTE EST Negative Negative SPECIFIC GRAVITY 1.014 1.005-1.030 URINE GLUCOSE Negative mg/dL Negative May 13, 2024 03:31 PM [facility] THYROID PROFILE PLASMA Specimen Type: PLASM A Comment: Estimated Glomerular Filtration Rate (eGFR) calculated using the 2020 Chronic Kidney Disease-Epidemiology (CKD-EPI) Collaboration creatinine equation; units of measure are mL/min/1.73 m2. Results are only valid for adults (>=18 years) whose serum creatinine is in a steady state. eGFR calculations are not valid for patients with acute kidney injury and for patients on dialysis. Creatinine-based estimates of kidney function may also be inaccurate in patients with reduced creatinine generation due to decreased muscle mass (e.g., malnutrition, severe hypoalbuminemia, sarcopenia, chronic neuromuscular disease, amputations, severe heart failure or liver disease) and in patients with increased creatinine generation due to increased muscle mass (e.g., muscle builders, anabolic steroids) or increased dietary intake. As drug clearance is proportional to total GFR and not GFR indexed to body surface area (BSA), in individuals with a BSA substantially different than 1.73 m2, drug dosing should be based on the reported eGFR value de-indexed from BSA by multiplying by the individual's BSA and dividing by 1.73. CKD is diagnosed based on abnormalities of kidney structure or function, present for >3 months, with implications for health and disease. CKD is classified and staged based on cause, eGFR and albuminuria (quantified as urine albumin to creatinine ratio). An eGFR >60 mL/min/1.73 m2 in the absence of increased urine albumin excretion or structural abnormalities does not represent CKD. eGFR CKD Interpretation (mL/min/1.73 m2) stage >=90 G1 Normal 60-89 G2 Mild decrease 45-59 G3A Mild to moderate decrease 30-44 G3B Moderate to severe decrease 15-29 G4 Severe decrease <15 G5 Kidney failure Ordering Provider: CASEY GONZALEZ Report Released Date/Time: May 13, 2024 03:24 PM Reporting Lab: [address] [address] Performing Lab: [address] [address] TSH 1.3396 m[IU]/mL 0.3500-4.9400 FREE T4 0.88 ng/mL 0.70-1.48 May 13, 2024 03:31 PM [facility] 25-OH VITAMIN D SERUM Specime n Type: SERUM Comment: The National Institutes of Health (NIH) recommendations state: <12 ng/mL - Deficient 20 - 50 ng/mL - Optimal Levels - adequate for most people. >50 ng/mL - Increased risk of hypercalciuria/other health problems - clinical correlation is required. These reference ranges represent clinical decision values rather than population-based reference values. Ordering Provider: CASEY GONZALEZ Report Released Date/Time: May 13, 2024 03:24 PM Reporting Lab: [address] [address] Performing Lab: [address] [address] 25-OH VITAMIN D 23.4 ng/mL 20.0-50.0 May 13, 2024 03:31 PM [facility] PANEL 5 PLASMA Specimen Type: PLASM A Comment: Estimated Glomerular Filtration Rate (eGFR) calculated using the 2020 Chronic Kidney Disease-Epidemiology (CKD-EPI) Collaboration creatinine equation; units of measure are mL/min/1.73 m2. Results are only valid for adults (>=18 years) whose serum creatinine is in a steady state. eGFR calculations are not valid for patients with acute kidney injury and for patients on dialysis. Creatinine-based estimates of kidney function may also be inaccurate in patients with reduced creatinine generation due to decreased muscle mass (e.g., malnutrition, severe hypoalbuminemia, sarcopenia, chronic neuromuscular disease, amputations, severe heart failure or liver disease) and in patients with increased creatinine generation due to increased muscle mass (e.g., muscle builders, anabolic steroids) or increased dietary intake. As drug clearance is proportional to total GFR and not GFR indexed to body surface area (BSA), in individuals with a BSA substantially different than 1.73 m2, drug dosing should be based on the reported eGFR value de-indexed from BSA by multiplying by the individual's BSA and dividing by 1.73. CKD is diagnosed based on abnormalities of kidney structure or function, present for >3 months, with implications for health and disease. CKD is classified and staged based on cause, eGFR and albuminuria (quantified as urine albumin to creatinine ratio). An eGFR >60 mL/min/1.73 m2 in the absence of increased urine albumin excretion or structural abnormalities does not represent CKD. eGFR CKD Interpretation (mL/min/1.73 m2) stage >=90 G1 Normal 60-89 G2 Mild decrease 45-59 G3A Mild to moderate decrease 30-44 G3B Moderate to severe decrease 15-29 G4 Severe decrease <15 G5 Kidney failure Ordering Provider: CASEY GONZALEZ Report Released Date/Time: May 13, 2024 03:24 PM Reporting Lab: [address] [address] Performing Lab: [address] [address] CREATININE 0.99 mg/dL 0.72-1.25 UREA NITROGEN 18 mg/dL 9-25 GLUCOSE 94 mg/dL 74-100 SODIUM 139 mmol/L 136-145 POTASSIUM 4.1 mmol/L 3.5-5.1 CHLORIDE 109 mmol/L H 98-107 CO2 24 mmol/L 22-29 CALCIUM 9.2 mg/dL 8.4-10.2 TOTAL PROTEIN 7.0 g/dL 6.4-8.3 ALBUMIN 4.2 g/dL 3.5-5.2 TOTAL BILIRUBIN 0.3 mg/dL 0.2-1.2 AST 24 U/L 5-34 ALT 36 U/L 0-55 ANION GAP 6 meq/L 3-19 ALK PHOS 74 U/L 40-150 eGFR (CKD-EPI) 85 Social History: Smoking Status (Most current) and Tobacco Use (All prior to encounter date) This section includes the most current, and the historical, smoking and tobacco- related health factors from the NH facility where the Encounter took place. Current Smoking Status This section includes the most current smoking, or tobacco-related health factor, from the NH facility where the Encounter took place. Date/Time Current Smoking Status Comment Hilario itcatherine May 19, 2002 09:02 AM HF V9 CURRENT NON-SMOKER [facility] Tobacco Use History This section includes a history of the smoking, or tobacco-related health factors, that were collected on or before the date of the Encounter. The data comes from the NH facility where the Encounter took place. Date/Time Smoking Status/Tobacco Use Comment F acility Jan 15, 2001 08:50 AM HF V9 CURRENT NON-SMOKER quit 2 yrs ago [facility] Aug 28, 1998 10:26 AM [facility] Radiology Reports: +/- 30 days of the encounter Radiology Reports For cases when an order for radiology services may have been completed prior to the date of the Encounter, the report list includes the Radiology Reports that were completed up to 30 days before dateof the Encounter. For cases when an order for radiology services may have been completed after the date of the Encounter, the report list also includes the Radiology Reports that were completed up to30 days after date of the Encounter. The data comes from all [place] treatment facilities. Date/Time Radiology Report Provider Source May 13, 2024 03:44 PM SHOULDER-RIGHT 2 OR MORE VIEWS: ROSELYN BECERRA [id number] -1960 M Ex Date: MAY 13, 2024@15:44 Req Phys: CASEY GONZALEZ Loc: AD PACT JUNE 04 (Req'g Img Loc: [facility] RADIOLOGY Service: [place] [address] (Case [id number] COMPLETE)SHOULDER-RIGHT 2 OR MORE VIEWS (RAD Detailed) CPT:27075 Reason for Study: right shoulder pain Clinical History: Report Status: Verified Date Reported: MAY 17, 2024 Date Verified: MAY 17, 2024 Duct Maker E-Sig: Report: Right shoulder CLINICAL INFORMATION: Right shoulder pain TECHNIQUE: AP views of the right shoulder with internal and external rotation humerus FINDINGS: No prior exams are available for comparison. There is no radiographic evidence of acute fracture or dislocation. There is mild narrowing of glenohumeral joint space distance. No areas of periosteal reaction or cortical erosion are evident. The visualized right ribs appear intact. No focal soft tissue abnormality is visualized. 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 No radiographic evidence of acute osseous abnormality. Primary Diagnostic Code: NO ALERT REQUIRED Primary Interpreting Staff: PILLO POLANCO, RADIOLOGIST Verified by supervisor asbestos removal for PILLO POLANCO /MINA POLANCO,PILLO MEDINA [facility] Encounter Notes: All associated encounter notes This section contains the clinical notes associated to the Encounter. Date/Time Encounter Note(s) Provider Source Apr 27, 2024 03:42 PM ADMINISTRATIVE NOT E: LOCAL TITLE: CLERICAL/ADMIN NOTE STANDARD TITLE: ADMINISTRATIVE NOTE DATE OF NOTE: APR 27, 2024@15:42 ENTRY DATE: APR 27, 2024@15:42:33 AUTHOR: LILLY YOO EXP COSIGNER: URGENCY: STATUS: COMPLETED Ad Aud-5 Ld 05/13/2024@13:00 Above scheduled with patient on phone for hearing evaluation pid 05/02. /blane/ LILLY YOO Stick Puller Signed: 04/27/2024 15:43 LILLY YOO-[facility]
--- OUTSIDE RECORDS SUMMARY | 2024-05-13 09:00 | XMS_ITS | Encounter Summary ---
Author Name [facility] [place] Organization [facility] [place] [facility] [place] Address [address] [place] [address] Care Team Providers Care Sas Programmer Analyst Name Role Phone LISA CASEY Primary Care Provider Unavailabl e Selected Encounter This section includes the information on record at [place] for the Encounter. Date/Time Encounter Type Encounter Description Reason Provider Source May 13, 2024 01:00 PM HEARING AID EXAM BOTH EARS AUDIOLOGY ICD-10-CM H90.3 Sensorineural hearing loss, bilateral MADHAV CARROLL E Encounter Template Text not used by [place] Assessments - Encounter Diagnoses This section includes the primary and secondary diagnoses documented for the Encounter. Date/Time Primary/Secondary Diagnosis Diagnosis Name Provider Source May 13, 2024 01:44 PM PRIMARY Sensorineural hearing loss, bilateral JULY CARROLL [facility] Plan of Treatment: Future Appointments (+ 6 months) and Future Tests (+/- 45 days) The Plan of Treatment section includes future care activities for the patient from all [place] treatmentfacilities. This section includes future appointments and future orders which are active, pending or scheduled. Future Appointments This section includes appointments that were scheduled to occur 6 months from the date of the Encounter, up to a maximum of 20 appointments. The data comes from all [place] treatment facilities. Appointment Date/Time Appointment Type Appointme nt Facility Name Jun 03, 2024 01:00 PM AMBULATORY - REHAB MEDICIN E [facility] Lab Results: +/- 30 days of [...] Type Comment May 13, 2024 03:31 PM [facility] N LYME SCREEN SERUM Specimen Type: SERUM No comment entered. Ordering Provider: CASEY GONZALEZ Report Released Date/Time: May 13, 2024 03:24 PM Reporting Lab: [address] [address] Performing Lab: [address] [address] LYME SCREEN Negative Negative May 13, 2024 03:31 PM [facility] LIPID PROFILE PLASMA Specimen Type: PLASM [...] May 13, 2024 03:24 PM Reporting Lab: [address] [address] Performing Lab: [address] [address] CHOLESTEROL 234 mg/dL H 0-199 TRIGLYCERIDE 141 mg/dL 0-149 HDL CHOLESTEROL 45 mg/dL 40-69 DIRECT LDL CHOL. 197 mg/dL H 0-100 May 13, 2024 03:31 PM [facility] GLYCOHEMOGLOBIN BLOOD Specimen Type: BLOOD Comment: [place] guidelines for A1c interpretation: Glycemic control targets are based on Shared Decision Making between clinicians and patients. Criteria used to establish an A1c target recommendation can be found at https://www.[place].gov/qualityandpatientsafety/ and include the use of result accuracy [...] 8.73 and 9.27. Ref: https://ngsp.org/CAPdata.asp. The in-house [employer] D-100 analyzer has a historical CV <= 2%. Contact the laboratory for further performance characteristics of this assay. Ordering Provider: CASEY GONZALEZ Report Released Date/Time: May 13, 2024 03:24 PM Reporting Lab: [address] [place] [address] Performing Lab: [address] [address] GLYCOHEMOGLOBIN 5.2 4.4-6.4 May 13, 2024 03:31 PM [facility] CBC/PLT BLOOD Specimen Type: BLOOD No comment entered. Ordering Provider: CASEY GONZALEZ Report Released Date/Time: May 13, 2024 03:24 PM Reporting Lab: [address] [address] Performing Lab: [address] [address] WBC 7.6 10*3/uL 5.0-10.0 RBC 4.50 10*6/uL L 4.6-6.2 HGB 14.2 g/dL 14.0-18.0 HCT 41.8 L 42.0-52.0 MCV 92.9 fL 80.0-94.0 MCH 31.6 pg H 27.0-31.0 MCHC 34.0 g/dL 32.0-36.0 PLT 188 10*3/uL 150-450 MPV 9.9 fL 9.0-13.1 RDW 12.5 11.0-16.0 NRBC 0.0 0.0-0.0 May 13, 2024 03:31 PM [facility] PSA S GRIS Specimen Type: SERUM No comment entered. Ordering Provider: CASEY GONZALEZ Report Released Date/Time: May 13, 2024 03:24 PM Reporting Lab: [address] [address] Performing Lab: [address] [address] PSA 0.304 ng/mL 0-3.999 May 13, 2024 03:31 PM [facility] URINALYSIS URINE Specimen Type: URINE Comment: Microscopic not indicated Ordering Provider: CASEY GONZALEZ Report Released Date/Time: May 13, 2024 03:24 PM Reporting Lab: [address] [address] Performing Lab: [address] [address] URINE COLOR Colorless Colorless-Yellow APPEARANCE Clear Clear UROBILINOGEN Normal mg/dL Normal URINE BLOOD Negative Negative URINE BILIRUBIN Negative Negative URINE KETONES Negative mg/dL Negative URINE PROTEIN Negative mg/dL Negative-Tr colt URINE PH 5.5 4.5-8.0 URINE NITRITE Negative Negative URINE LEUKOCYTE EST Negative Negative SPECIFIC GRAVITY 1.014 1.005-1.030 URINE GLUCOSE Negative mg/dL Negative May 13, 2024 03:31 PM [facility] THYROID PROFILE PLASMA Specimen Type: PLASM [...] May 13, 2024 03:24 PM Reporting Lab: [address] [address] Performing Lab: [address] [address] TSH 1.3396 m[IU]/mL 0.3500-4.9400 FREE T4 0.88 ng/mL 0.70-1.48 May 13, 2024 03:31 PM [facility] 25-OH VITAMIN D SERUM Specime n [...] May 13, 2024 03:24 PM Reporting Lab: [address] [address] Performing Lab: [address] [address] 25-OH VITAMIN D 23.4 ng/mL 20.0-50.0 May 13, 2024 03:31 PM [facility] PANEL 5 PLASMA Specimen Type: PLASM [...] May 13, 2024 03:24 PM Reporting Lab: [address] [address] Performing Lab: [address] [address] CREATININE 0.99 mg/dL 0.72-1.25 UREA NITROGEN 18 [...] PHOS 74 U/L 40-150 eGFR (CKD-EPI) 85 Vital Signs: All taken on the encounter date This section contains inpatient and outpatient Vital Signs collected on the date of the Encounter. Date/Time Temperature Pulse Blood Pressure Respiratory Rate SP02 Pain Height Weight Body Mass Index Source May 13, 2024 02:47 PM 138/81 [facility] May 13, 2024 02:37 PM 98.2 65 138/95 96 8 214.0 30 [facility] Social History: Smoking Status (Most current) and Tobacco Use (All prior to encounter date) This section includes the most current, and the historical, smoking and tobacco- related health factors from the [place] facility where the Encounter took place. Current Smoking Status This section includes the most current smoking, or tobacco-related health factor, from the [place] facility where the Encounter took place. Date/Time Current Smoking Status Comment Facil ity May 13, 2024 03:00 PM VA-TOBACCO NEVER USED [facility] Tobacco Use History This section includes a history of the smoking, or tobacco-related health factors, that were collected on or before the date of the Encounter. The data comes from the [place] facility where the Encounter took place. Date/Time Smoking Status/Tobacco Use Comment F acility Feb 24, 2022 03:00 PM VA-TOBACCO FORMER USER [facility] Feb 24, 2022 03:00 PM VA-TOBACCO QUIT 15 YRS OR MORE [facility] Jun 07, 2020 08:00 AM VA-TOBACCO FORMER USER [facility] Jun 07, 2020 08:00 AM VA-TOBACCO QUIT 5 TO < 15 YRS [facility] Jul 21, 2018 08:24 AM VA-TOBACCO FORMER USER [facility] Jul 21, 2018 08:24 AM VA-TOBACCO QUIT 5 TO < 15 YRS [facility] Aug 20, 2017 07:50 AM V9 LIFETIME NON-USER OF TOBACCO [facility] Radiology Reports: +/- 30 days of [...] the Encounter. The data comes from all [place] treatment facilities. Date/Time Radiology Report Provider Source May 13, 2024 03:44 PM SHOULDER-RIGHT 2 OR MORE VIEWS: ROSELYN COATES [id number] -1960 M Exm Date: MAY 13, 2024@15:44 Req Phys: LISACASEYYANE Schmidt Loc: [facility] PACT JUNE 04 (Req'g Img Loc: [facility] RADIOLOGY [place] [address] (Case [id number] COMPLETE)SHOULDER-RIGHT 2 OR MORE VIEWS (RAD Detailed) CPT:26115 Reason for Study: right shoulder pain Clinical History: Report Status: Verified Date Reported: MAY 17, 2024 Date Verified: MAY 17, 2024 Efficiency Clerk E-Sig: Report: Right shoulder CLINICAL INFORMATION: Right [...] Interpreting Staff: PILLO POLANCO, RADIOLOGIST Verified by division manager for PILLO POLANCO /PILLO ACKERMAN [facility] Encounter Notes: All associated encounter notes This section contains the clinical notes associated to the Encounter. Date/Time Encounter Note(s) Provider Source May 13, 2024 12:55 PM AUDIOLOGY E & M NO TE: LOCAL TITLE: AUDIOLOGICAL EVALUATION NOTE STANDARD TITLE: AUDIOLOGY E & M NOTE DATE OF NOTE: MAY 13, 2024@12:55 ENTRY DATE: MAY 13, 2024@12:55:58 AUTHOR: SOWMYA CARROLL COSIGNER: URGENCY: STATUS: COMPLETED AUDIOLOGICAL EVALUATION NOTE Has ADDENDA S: Mr. Coates was seen today for an initial audiological evaluation for new hearing aids. At todays visit, the reports: no ear pain, drainage, infection. Bilateral persistant tinnitus. 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 O: Otoscopy: Right: Clear external auditory canal, TM visualized Left: Clear external auditory canal, TM visualized Tympanometry: Right: Type A, consistent with normal middle ear pressure and normal tympanic membrane compliance Left: Type A, consistent with normal middle ear pressure and normal tympanic membrane compliance Ipsilateral Acoustic Reflex Screening at 1000 Hz: Right: Present at 80 dB Left: Present at 80 dB SRT: Right: 15dBHL Left: 15dBHL Pure Tone Threshold Range: Right: 10dB to 60dB Left: 10dB to 75dB Word Recognition Right: 100% at 60dBHL Left: 100% at 60dBHL SEE AUDIOGRAM DISPLAY IN TOOL BAR FOR FULL AUDIOMETRIC DATA A: Comprehensive pure tone air/bone conduction test results revealed a bilateral normal to moderately severe SNHL. Tympanograms were within normal limits bilaterally. Word recognition scores were excellent. Todays test results were discussed with the patient. Communication strategies and hearing aid options were discussed with the patient including benefits and limitations of amplification. Patient meets [place] Central Office Criteria for amplification. The following hearing aids were ordered: x2 Model: NEXIA 60 MICRO LUBA-R Warranty: 3YR Circuit: NEXIA Options: AUTO-PHONE [STD], DIRECTIONAL MICROPHONE [STD], PUSH BUTTON [STD], *RESOUND NEXIA 60 CHARGING SYSTEM, TINNITUS SOUND GENERATOR [STD], WIRELESS [STD], LP SIZE 2 (NEXIA) SF3 8PIN Shell Color: DEEP BLACK (73) LUBA Item: DOME OPEN SFIT3 P: Patient RTC in 4 weeks for a 1-hour hearing aid fitting appointment with MEGAN ABREU 5 Face time with patient 45 minutes /blane/ SOWMYA CARROLL Staff Croze Machine Operator Signed: 05/13/2024 13:44 05/17/2024 ADDENDUM STATUS: COMPLETED Hearing aids received by [facility], Verified in [facility]. Fitting is schedule for 06/03/24@1300 with BRADY 5 /blane/ L[address] [place] GIS SCIENTIST Signed: 05/17/2024 10:18 SOWMYA CARROLL [facility]
--- OUTSIDE RECORDS SUMMARY | 2024-05-13 10:33 | XMS_ITS | Encounter Summary ---
Author Name [facility] [place] Organization [facility] [place] [facility] [place] Address [address], [place] [address] Care Team Providers Care Distribution Systems Superintendent Name Role Phone CASEY GONZALEZ Primary Care Provider Unavailabl e Selected Encounter This section includes the information on record at [place] for the Encounter. Date/Time Encounter Type Encounter Description Reason Pro vider Source May 13, 2024 02:33 PM Outpatient Encounter ADMIN PAT ACTIVTIES (AJAYNONCT) IHE Encounter Template Text not used by [place] Plan of Treatment: Future Appointments (+ 6 months) and Future Tests (+/- 45 days) The Plan of Treatment section includes future care activities for the patient from all [place] treatmentfacilities. This section includes future appointments and future orders which are active, pending or scheduled. Future Appointments This section includes appointments that were scheduled to occur 6 months from the date of the Encounter, up to a maximum of 20 appointments. The data comes from all [place] treatment facilities. Appointment Date/Time Appointment Type Appointme nt Facility Name Jun 03, 2024 01:00 PM AMBULATORY - REHAB MEDICIN E [facility] Lab Results: +/- 30 days of the encounter This section includes the Chemistry and Hematology Lab Results on record with [place] for the patient. Radiology Reports and Pathology Reports are provided separately, in subsequent sections. Lab Results This section contains the Chemistry/Hematology Results that were resulted 30 days before or 30 daysafter the date of the Encounter. Date/Time Source Result Type Result - Unit Interpretation Reference Range Specimen Type Comment May 13, 2024 03:31 PM [facility] Specimen Type: SERUM No comment entered. Ordering Provider: CASEY GONZALEZ Report Released Date/Time: May 13, 2024 03:24 PM Reporting Lab: [address] [address] Performing Lab: [address] [address] LYME SCREEN Negative Negative May 13, 2024 03:31 PM [facility] LIPID PROFILE PLASMA Specimen Type: PLASM A [...] May 13, 2024 03:24 PM Reporting Lab: [address] [address] Performing Lab: [address] [address] CHOLESTEROL 234 mg/dL H 0-199 TRIGLYCERIDE 141 mg/dL 0-149 HDL CHOLESTEROL 45 mg/dL 40-69 DIRECT LDL CHOL. 197 mg/dL H 0-100 May 13, 2024 03:31 PM [facility] CBC/PLT BLOOD Specimen Type: BLOOD No comment entered. Ordering Provider: CASEY GONZALEZ Report Released Date/Time: May 13, 2024 03:24 PM Reporting Lab: [address] [address] Performing Lab: [address] [address] WBC 7.6 10*3/uL 5.0-10.0 RBC 4.50 10*6/uL L 4.6-6.2 HGB 14.2 g/dL 14.0-18.0 HCT 41.8 L 42.0-52.0 MCV 92.9 fL 80.0-94.0 MCH 31.6 pg H 27.0-31.0 MCHC 34.0 g/dL 32.0-36.0 PLT 188 10*3/uL 150-450 MPV 9.9 fL 9.0-13.1 RDW 12.5 11.0-16.0 NRBC 0.0 0.0-0.0 May 13, 2024 03:31 PM [facility] GLYCOHEMOGLOBIN BLOOD Specimen Type: BLOOD Comment: [place] guidelines for A1c interpretation: Glycemic control targets are based on Shared Decision Making between clinicians and patients. Criteria used to establish an A1c target recommendation can be found at https://www.[place].gov/qualityandpatientsafety/ and include the use of result accuracy [...] 8.73 and 9.27. Ref: https://ngsp.org/CAPdata.asp. The in-house [employer] D-100 analyzer has a historical CV <= 2%. Contact the laboratory for further performance characteristics of this assay. Ordering Provider: CASEY GONZALEZ Report Released Date/Time: May 13, 2024 03:24 PM Reporting Lab: [address] Performing Lab: [place] [phone] GLYCOHEMOGLOBIN 5.2 4.4-6.4 May 13, 2024 03:31 PM [facility] URINALYSIS URINE Specimen Type: URINE Comment: Microscopic not indicated Ordering Provider: CASEY GONZALEZ Report Released Date/Time: May 13, 2024 03:24 PM Reporting Lab: [place] [phone] Performing Lab: [place] [address] URINE COLOR Colorless Colorless-Yellow APPEARANCE Clear Clear UROBILINOGEN Normal mg/dL Normal URINE BLOOD Negative Negative URINE BILIRUBIN Negative Negative URINE KETONES Negative mg/dL Negative URINE PROTEIN Negative mg/dL Negative-Tr colt URINE PH 5.5 4.5-8.0 URINE NITRITE Negative Negative URINE LEUKOCYTE EST Negative Negative SPECIFIC GRAVITY 1.014 1.005-1.030 URINE GLUCOSE Negative mg/dL Negative May 13, 2024 03:31 PM [facility] PSA S GRIS Specimen Type: SERUM No comment entered. Ordering Provider: CASEY GONZALEZ Report Released Date/Time: May 13, 2024 03:24 PM Reporting Lab: [place] [phone] Performing Lab: [place] [phone] PSA 0.304 ng/mL 0-3.999 May 13, 2024 03:31 PM [facility] THYROID PROFILE PLASMA Specimen Type: ANNIA NOVAK Comment: Estimated Glomerular Filtration Rate (eGFR) calculated [...] May 13, 2024 03:24 PM Reporting Lab: [address] [address] Performing Lab: [address] [address] TSH 1.3396 m[IU]/mL 0.3500-4.9400 FREE T4 0.88 ng/mL 0.70-1.48 May 13, 2024 03:31 PM [facility] PANEL 5 PLASMA Specimen Type: PLASM A [...] May 13, 2024 03:24 PM Reporting Lab: [address] [address] Performing Lab: [address] [address] CREATININE 0.99 mg/dL 0.72-1.25 UREA NITROGEN 18 [...] PHOS 74 U/L 40-150 eGFR (CKD-EPI) 85 May 13, 2024 03:31 PM [facility] 25-OH VITAMIN D SERUM Specime n Type: [...] May 13, 2024 03:24 PM Reporting Lab: [address] [address] Performing Lab: [address] [address] 25-OH VITAMIN D 23.4 ng/mL 20.0-50.0 Social History: Smoking Status (Most current) and Tobacco Use (All prior to encounter date) This section includes the most current, and the historical, smoking and tobacco- related health factors from the [place] facility where the Encounter took place. Current Smoking Status This section includes the most current smoking, or tobacco-related health factor, from the [place] facility where the Encounter took place. Date/Time Current Smoking Status Comment Facil maciel May 19, 2002 09:02 AM HF V9 CURRENT NON-SMOKER [facility] Tobacco Use History This section includes a history of the smoking, or tobacco-related health factors, that were collected on or before the date of the Encounter. The data comes from the [place] facility where the Encounter took place. Date/Time Smoking Status/Tobacco Use Comment F acility Jan 15, 2001 08:50 AM HF V9 CURRENT NON-SMOKER quit 2 yrs ago [facility] Aug 28, 1998 10:26 AM [facility] Radiology Reports: +/- 30 days of the [...] the Encounter. The data comes from all [place] treatment facilities. Date/Time Radiology Report Provider Source May 13, 2024 03:44 PM SHOULDER-RIGHT 2 OR MORE VIEWS: ROSELYN BECERRA [id number] -1960 M Exm Date: MAY 13, 2024@15:44 Req Phys: CASEY GONZALEZ Loc: [facility] PACT JUNE 04 (Req'g Img Loc: [facility] Service: Unknown [facility] [place] [address] (Case [id number] COMPLETE)SHOULDER-RIGHT 2 OR MORE VIEWS (RAD Detailed) CPT:77868 Reason for Study: right shoulder pain Clinical History: Report Status: Verified Date Reported: MAY 17, 2024 Date Verified: MAY 17, 2024 Electrical Intern E-Sig: Report: Right shoulder CLINICAL INFORMATION: Right [...] Interpreting Staff: PILLO POLANCO, RADIOLOGIST Verified by manager audio for PILLO POLANCO /PILLO ACKERMAN [facility] Encounter Notes: All associated encounter notes This section contains the clinical notes associated to the Encounter. Date/Time Encounter Note(s) Provider Source May 13, 2024 02:33 PM PRIMARY CARE ADMIN ISTRATIVE NOTE: LOCAL TITLE: PC ADMINISTRATIVE NOTE STANDARD TITLE: PRIMARY CARE ADMINISTRATIVE NOTE DATE OF NOTE: MAY 13, 2024@14:33 ENTRY DATE: MAY 13, 2024@14:33:21 AUTHOR: PIA GARCIA EXP COSIGNER: URGENCY: STATUS: COMPLETED PT's new address is: [address] [place] [id number] /es/ PIA GARCIA Advanced Deputy Director Of Nursing Signed: 05/13/2024 14:33 PIA GARCIA[facility]
--- OUTSIDE RECORDS SUMMARY | 2024-05-13 11:00 | XMS_ITS | Encounter Summary ---
Author Name [facility] [place] [facility] [place] [facility] [place] [facility] [place] Address [address] [place] [address] Care Team Providers Care Bobbin Dumper Name Role Phone CASEY GONZALEZ Primary Care Provider Unavailabl e Selected Encounter This section includes the information on record at [place] for the Encounter. Date/Time Encounter Type Encounter Description Reason Provider Source May 13, 2024 03:00 PM OFFICE O/P EST MOD 30 MIN PRIMARY CARE/MEDICINE ICD-10-CM I10 Essential (primary) hypertension DARIN GONZALEZ IHE Encounter Template Text not used by [place] Assessments - Encounter Diagnoses This section includes the primary and secondary diagnoses documented for the Encounter. Date/Time Primary/Secondary Diagnosis Diagnosis Name Provider Source May 13, 2024 03:34 PM PRIMARY Essential (primary) hypertension [facility] May 13, 2024 03:34 PM SECONDARY Contact with and exposure to other hazardous substances CASEY [facility]ON[facility]ALEZ [facility] May 13, 2024 03:34 PM SECONDARY Encounter for immunization MIGUELINA SAINI [facility] May 13, 2024 03:34 PM SECONDARY Rash and other nonspecific skin eruption CASEY GONZALEZ [facility] Plan of Treatment: Future Appointments (+ 6 months) and Future Tests (+/- 45 days) The Plan of Treatment section includes future care activities for the patient from all [place] [facility]. This section includes future appointments and future orders which are active, pending or scheduled. Future Appointments This section includes appointments that were scheduled to occur 6 months from the date of the Encounter, up to a maximum of 20 appointments. The data comes from all [facility] facilities. Appointment Date/Time Appointment Type Appointme nt Facility Name Jun 03, 2024 01:00 PM AMBULATORY - REHAB MEDICIN E [facility] Lab Results: +/- 30 days of the encounter This section includes the Chemistry and Hematology Lab Results on record with [place] for the patient. Radiology Reports and Pathology Reports are provided separately, in subsequent sections. Lab Results This section contains the Chemistry/Hematology Results that were resulted 30 days before or 30 daysafter the date of the Encounter. Date/Time Source Result Type Result - Unit Interpretation Reference Range Specimen Type Comment May 13, 2024 03:31 PM [facility] N LYME SCREEN SERUM Specimen Type: SERUM No comment entered. Ordering Provider: CASEY GONZALEZ Report Released Date/Time: May 13, 2024 03:24 PM Reporting Lab: [address] [id number] Performing Lab: [address] [address] LYME SCREEN Negative Negative May 13, 2024 [...] May 13, 2024 03:24 PM Reporting Lab: [address] [address] Performing Lab: [address] [address] CHOLESTEROL 234 mg/dL H 0-199 TRIGLYCERIDE 141 mg/dL 0-149 HDL CHOLESTEROL 45 mg/dL 40-69 DIRECT LDL CHOL. 197 mg/dL H 0-100 May 13, 2024 03:31 PM [facility] GLYCOHEMOGLOBIN BLOOD Specimen Type: BLOOD Comment: [place] guidelines for A1c interpretation: Glycemic control targets are based on Shared Decision Making between clinicians and patients. Criteria used to establish an A1c target recommendation can be found at https://www.[place].gov/qualityandpatientsafety/ and include the use of result accuracy [...] 8.73 and 9.27. Ref: https://ngsp.org/CAPdata.asp. The in-house [employer] D-100 analyzer has a historical CV <= 2%. Contact the laboratory for further performance characteristics of this assay. Ordering Provider: CASEY GONZALEZ Report Released Date/Time: May 13, 2024 03:24 PM Reporting Lab: [place] [id number] Performing Lab: [address] GLYCOHEMOGLOBIN 5.2 4.4-6.4 May 13, 2024 03:31 PM [facility] CBC/PLT BLOOD Specimen Type: BLOOD No comment entered. Ordering Provider: CASEY GONZALEZ Report Released Date/Time: May 13, 2024 03:24 PM Reporting Lab: [place] [id number] Performing Lab: [place] [id number] WBC 7.6 10*3/uL 5.0-10.0 RBC 4.50 10*6/uL [...] May 13, 2024 03:24 PM Reporting Lab: [place] [id number] Performing Lab: [place] [id number] PSA 0.304 ng/mL 0-3.999 May 13, 2024 [...] May 13, 2024 03:24 PM Reporting Lab: [address] [address] Performing Lab: [address] [address] TSH 1.3396 m[IU]/mL 0.3500-4.9400 FREE T4 0.88 ng/mL 0.70-1.48 May 13, 2024 03:31 PM [facility] URINALYSIS URINE Specimen Type: URINE Comment: Microscopic not indicated Ordering Provider: CASEY GONZALEZ Report Released Date/Time: May 13, 2024 03:24 PM Reporting Lab: [address] [address] Performing Lab: [place] [id number] URINE COLOR Colorless Colorless-Yellow APPEARANCE Clear Clear [...] May 13, 2024 03:24 PM Reporting Lab: [address] [address] Performing Lab: [address] [address] 25-OH VITAMIN D 23.4 ng/mL 20.0-50.0 May [...] May 13, 2024 03:24 PM Reporting Lab: [address] [address] Performing Lab: [address] [address] CREATININE 0.99 mg/dL 0.72-1.25 UREA NITROGEN 18 [...] 13, 2024 02:47 PM 138/81 [facility] May 13, 2024 02:37 PM 98.2 65 138/95 96 8 214.0 30 [facility] Immunizations: All administered on the encounter date This section contains immunizations associated to the Encounter. Immunization Series Date Issued Administered By Site Reaction Lot Number CVX Code Drug Tractor Operator Battery Comment(s) Source INFLUENZA, SPLIT VIRUS, TRIVALENT, PF May 13, 2024 HI SAINI LEFT DELTO ID [id number] [facility] Completed Series, ADMINISTERE D AT [place], [facility] Social History: Smoking Status (Most current) and Tobacco Use (All prior to encounter date) This section includes the most current, and the historical, smoking and tobacco- related health factors from the [place] facility where the Encounter took place. Current Smoking Status This section includes the most current smoking, or tobacco-related health factor, from the [place] facility where the Encounter took place. Date/Time Current Smoking Status Comment [facility]io [facility] May 13, 2024 03:00 PM VA-TOBACCO NEVER USED [facility] Tobacco Use History This section includes a history of the smoking, or tobacco-related health factors, that were collected on or before the date of the Encounter. The data comes from the [place] facility where the Encounter took place. Date/Time [...] the Encounter. The data comes from all [place] treatment facilities. Date/Time Radiology Report Provider Source May 13, 2024 03:44 PM SHOULDER-RIGHT 2 OR MORE VIEWS: ROSELYN BECERRA Cristino [id number] -[id number] M Exm Date: MAY 13, 2024@15:44 Req Phys: CASEY GONZALEZ Loc: [facility] JUNE 04 (Req'g Img Loc: [facility] RADIOLOG[facility] Service: [place] [address] (Case [id number] COMPLETE)SHOULDER-RIGHT 2 OR MORE VIEWS (RAD Detailed) CPT:51095 Reason for Study: right shoulder pain Clinical History: Report Status: Verified Date Reported: MAY 17, 2024 Date Verified: MAY 17, 2024 Peanut Salter E-Sig: Report: Right shoulder CLINICAL INFORMATION: Right [...] Interpreting Staff: PILLO POLANCO, RADIOLOGIST Verified by pharmaceutical assistant for PILLO POLANCO /BHM PILLO POLANCO [facility] Encounter Notes: All associated encounter notes This section contains the clinical notes associated to the Encounter. Date/Time Encounter Note(s) Provider Source May 18, 2024 10:39 AM ADDENDUM: LOCAL TITLE: Addendum STANDARD TITLE: ADDENDUM DATE OF NOTE: MAY 18, 2024@10:39:42 ENTRY DATE: MAY 18, 2024@10:39:43 AUTHOR: CASEY GONZALEZ EXP COSIGNER: URGENCY: STATUS: COMPLETED rec- PT for right shoulder Date Procedure CPT Status Case # 05/13/2024 SHOULDER-RIGHT 2 OR MORE VIEWS [id number] Verified 1595 Mild arthritic changes in the right shoulder. No radiographic evidence of acute osseous abnormality. 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 Melendez at [facility] - pain medicine /chiki GONZALEZ Nurse Practitioner Signed: 05/13/2024 15:18 Receipt Acknowledged By: 05/16/2024 15:16 /blane/ KATHY BARON Advanced Maintenance Shop Clerk 05/16/2024 ADDENDUM STATUS: COMPLETED Requested medical records. And disc to be sent to [place] for download. /blane/ KATHY BARON Advanced Maintenance Shop Clerk Signed: 05/16/2024 15:17 05/16/2024 ADDENDUM STATUS: COMPLETED Received records placed in providers box. /blane/ KATHY BARON Advanced Maintenance Shop Clerk Signed: 05/16/2024 15:35 05/18/2024 ADDENDUM STATUS: COMPLETED SEE 05/18 PC CARE MANAGEMENT NOTE. /blane/ Abimbola Stewart,MSN,RN Patient Silverware Etcher Signed: 05/18/2024 11:08 CASEY GONZALEZ [facility] May 14, 2024 12:57 PM ADDENDUM: LOCAL TITLE: Addendum STANDARD TITLE: ADDENDUM DATE OF NOTE: MAY 14, 2024@12:57:34 ENTRY DATE: MAY 14, 2024@12:57:34 AUTHOR: CASEY GONZALEZ EXP COSIGNER: URGENCY: STATUS: COMPLETED please relay to pt Recent labwork Collection DT Specimen Test Name Result Units Ref Range 05/13/2024 15:31 URINE !! URINE COLOR Colorless Ref: Colorless-Yellow !! APPEARANCE Clear Ref: Clear !! SPECIFIC GRAVITY 1.014 1.005 - 1.030 !! UROBILINOGEN Normal mg/dL Ref: Normal !! URINE BLOOD Negative Ref: Negative !! URINE BILIRUBIN Negative Ref: Negative !! URINE KETONES Negative mg/dL Ref: Negative !! URINE GLUCOSE Negative mg/dL Ref: Negative !! URINE PROTEIN Negative mg/dL Ref: Negative-Trace !! URINE PH 5.5 4.5 - 8.0 !! URINE NITRITE Negative Ref: Negative !! URINE LEUKOCYTE ENegative Lucy/uL Ref: Negative 05/13/2024 15:31 BLOOD !! GLYCOHEMOGLOBIN 5.2 % 4.4 - 6.4 05/13/2024 15:31 BLOOD WBC 7.6 K/cmm 5.0 - 10.0 RBC 4.50 L M/cmm 4.6 - 6.2 HGB 14.2 g/dL 14.0 - 18.0 HCT 41.8 L % 42.0 - 52.0 MCV 92.9 fL 80.0 - 94.0 MCH 31.6 H pg 27.0 - 31.0 MCHC 34.0 g/dL 32.0 - 36.0 RDW 12.5 % 11.0 - 16.0 PLT 188 K/cmm 150 - 450 MPV 9.9 fL 9.0 - 13.1 NRBC 0.0 % 0.0 - 0.0 05/13/2024 15:31 PLASMA!! CHOLESTEROL 234 H mg/dL 0 - 199 !! TRIGLYCERIDE 141 mg/dL 0 - 149 !! HDL CHOLESTEROL 45 mg/dL 40 - 69 !! DIRECT LDL CHOL. 197 H mg/dL 0 - 100 Recommend low dose statin Please reduce foods high in cholesterol, carbohydates, saturated fats, fats, processed foods.Increase foods Increase foods high in unsaturated fats. Please remember to exercise to 30 mins per day 3-5 days per week. Foods rich in unsaturated fats: e.g. olive and canola oil, avocados, almonds, pecans, walnuts Low carbohydrate and fibre rich foods: e.g. whole grains, whole wheat bread and pasta, oatmeal, oat bran, brown rice, barley, legumes Fatty fish: e.g. salmon, alas Phytosterols and stanols: e.g. nuts, seeds, vegetable oils, fortified food products such as orange juice, yogurt, salad dressing Foods to avoid: High cholesterol foods: e.g. egg yolks, whole milk products, and organ meats Canola oil and Other processed vegetable oils Potato chips and Other packaged Foods Damon and Other processed meats !! SODIUM 139 mmol/L 136 - 145 !! POTASSIUM 4.1 mmol/L 3.5 - 5.1 !! CHLORIDE 109 H mmol/L 98 - 107 !! CO2 24 mmol/L 22 - 29 !! ANION GAP 6.0 mEq/L 3 - 19 !! GLUCOSE 94 mg/dL 74 - 100 !! UREA NITROGEN 18 mg/dL 9 - 25 !! CREATININE 0.99 mg/dL 0.72 - 1.25 !! eGFR (CKD-EPI) 85 SEE EVAL !! CALCIUM 9.2 mg/dL 8.4 - 10.2 !! TOTAL PROTEIN 7.0 g/dL 6.4 - 8.3 !! ALBUMIN 4.2 g/dL 3.5 - 5.2 !! TOTAL BILIRUBIN 0.3 mg/dL 0.2 - 1.2 !! AST 24 U/L 5 - 34 !! ALT 36 U/L 0 - 55 !! ALK PHOS 74 U/L 40 - 150 !! TSH 1.3396 mIU/mL 0.3500 - 4.9400 !! FREE T4 0.88 ng/mL 0.70 - 1.48 05/13/2024 15:31 SERUM !! PSA 0.304 ng/mL 0 - 3.999 !! 25-OH VITAMIN D 23.4 ng/mL 20.0 - 50.0 /es/ CASEY GONZALEZ Nurse Practitioner Signed: 05/14/2024 12:57 Receipt Acknowledged By: 05/16/2024 10:43 /es/ Abimbola Stewart,MSN,RN Patient Silverware Etcher for JACINTA WALLS --- Original Document --- 05/13/24 PC PROGRESS NOTE: FEB 24, 2022 ROSELYN BECERRA Address: [address] [place] [address] [place] [address] County: [place] Marital Status: Age: 64 Uatsdin: UNKNOWN/NO PREFERENCE Sex: MALE Occupation: [employer] Period of Service: [employer] Branch of Service: [employer] Combat: NO POW: Eligibility: [place] LESS THAN 50% Status: VERIFIED Means Test: NO LONGER REQUIRED NOK: EDGAR BECERRA Relation: SPOUSE [address] [place] [address] [place] TINNITUS 10% SC FOOT PAIN 10% SC SCARS 0% SC TENDON INFLAMMATION 10% SC IMPAIRED HEARING 0% SC Type of visit: (x)Routine annual visit ( )Episodic visit ( )New pt visit ( )F/U hosp visit HPI/CC:Patient presents to clinic for ongoing management of chronic medical problems. 64yo male here for routine PCP visit, he reports he had Covid 19 in August recovered fully from his mild s/s. Pt with multiple smooth rased papules on this forearms and ankles which have developed chronically on andoff for the past 8 months. He reports that none of the people who live with him get these outbreaks. they are highly puritic when they occur. was [place] for [place] Pt states that he currently gets epidural pain management through through [facility]. He has multiple herniated discs in his lumbar spine. right shoulder has been painful for the past x 6 months,radiating down to elbow getting worse,i suspect tendonitis. two years ago kidney stone where [place] Today he asks to renewed medications including lisinopril, baclofen and diclofenac. Active problems - Computerized Problem List is the source for the followin. Complaining of erectile dysfunction 2. Tinnitus 3. History of polyp of colon 4. Vitamin D deficiency 5. Personal History of Tobacco Use 6. Plantar Fasciitis Active Outpatient Medications (including Supplies): Active Outpatient Medications Status 1) LISINOPRIL 40MG TAB TAKE ONE-HALF TABLET BY MOUTH ACTIVE DAILY FOR BLOOD PRESSURE/HEART 2) SILDENAFIL CITRATE 100MG TAB TAKE ONE-HALF TABLET BY ACTIVE MOUTH DIRECTED FOR ERECTILE DYSFUNCTION - DO NOT TAKE WITH ANY MEDICATION CONTAINING NITRATES (LIMIT: 4 DOSES/30 DAYS OR 12 DOSES/90 DAYS, NON-REPLACEABLE MEDICATION) Pending Outpatient Medications Status 1) VALACYCLOVIR HCL 500MG TAB TAKE ONE TABLET BY MOUTH PENDING THREE TIMES A DAY NEEDED 3 Total Medications NON-VA MEDS - NONE FOUND ALLERGIES: NUTS MEDICATION RECONCILIAITION: The Outpatient Essential Medication List for review (EMLR) was reviewed with the patient/caregiver and the patient was provided an updated reconciled medication list. Discrepancies were corrected. Recent radiology results No data available Recent labwork No data available PANEL 1 Roberta. date GLUCOSE BUN CREAT SODIUM K CHLOR CO2 04/03/21 09:42 97 20 0.83 139 4.2 107 25 VITAL SIGNS: BP: 138/81 (05/13/2024 14:47) PULSE: 65 (05/13/2024 14:37) TEMPERATURE: 98.2 F [36.8 C] (05/13/2024 14:37) HT: 70.5 in [179.1 cm] (02/24/2022 15:00) WT: 214.0 lb [97.07 kg] (05/13/2024 14:37) PAIN: 8 (05/13/2024 14:37) BODY MASS INDEX - NO HEIGHTS FOUND MAY 13, 2024@14:37 -- PULSE OXIMETRY: 96 PMHX: Surgeries: Vasectomy, attempted reversal, T&A Family:Mother age 75 pre Diabetes; Father age 74 [place] and DM 1 brother congenital heart disease valve replaced shunt 2 cvas 1 Sister healthy no h/o prostate cancer or colon cancer in [place] Social: ; 2 adult children healthy Tobacco: Quit 1999, aprox 6 pack year Hx, no oral tobacco ETOH: 1-2 bourbons daily Occupation: [employer] Tobacco: Quit 1999, aprox 6 pack year Hx, no oral tobacco ETOH: 1-2 bourbons daily ROS: 14 point ROS obtained and negative except as stated above/in HPI GEN: nad, well-groomed EYES: perrl, eomi, conjunctiva clear, no lid abnormalities ENT: TMs clear bilaterally, oropharynx clear w/o exudate NECK: supple, no lymphadenopathy, nonpalpable thyroid RESP: normal respirations, good chest wall expansion bilaterally, clear to auscultation bilaterally, no r/r/w CV: RRR, no M/R/G, radial pulses 2+ and regular ABD: soft, ntnd SKIN: warm/dry, no lesions NEURO: motor and tone normal in all extremities MS: normal gait, 5/5 muscle strength in the bilateral upper and lower extremities PSYCH: normal affect, insight normal Impression/Plan: Low back pain, unspecified:gets epidural pain clinic tx from [facility]. get MRI and records from pain management. Essential (primary) hypertension: stable.b/p at goal continue lisinopril rash- referred to dermatology Risks/Benefits possible adverse s/s reviewed with patient with regard to testing/new medications Patient was given an opportunity to ask questions, questions addressed and pt verbalized understanding I recommend risk factor modifications: -attaining and maintaining ideal body weight -engaging in regular physical activity -consuming foods low in saturated fat, cholesterol, and calories -minimize use alcohol I spent 30 minutes today performing medically necessary history and exam, managing the patients conditions, documenting clinical info in health record, along with the following: x Preparing to see pt. (ex.: review of tests, last visit notes) Obtain/review separately obtained history x Ordering tests, procedures, medications Refer and/or communicate with other providers regarding patient x Independently interpreting results & communicating results to patient/caregiver Care coordination (not separately reported) x Counseling and education pt/family/caregiver Total time for this encounter does not include time spent performing any separately reported procedure or service by me or the clinical staff RTC: 6 months MEDICATION RECONCILIAITION: The Outpatient Essential Medication List for review (EMLR) was reviewed with the patient/caregiver and the patient was provided an update reconciled medication list. Discrepanices were corrected or sent to the ordering provider to correct. ( ) [place]/caregiver refused a copy of EMLR ( ) [place]/caregiver refused a copy of EMLR and stated they will maintain their own list (x) [place]/caregiver was handed a copy of EMLR at todays visit ( ) [place]/caregiver requests copy of EMLR to be mailed to them at their address (verify address on file) ( ) /caregiver requests copy of EMLR to be sent to them via Secure Messaging (must have My [employer] account) Toxic Exposure Screening Follow-Up: Exposure Concern(s): 05/13/2024 Other Environmental Concerns - Toxic Exposure Concern asbestos Follow-up Question(s): 05/13/2024 No Questions - Toxic Exposure Concern declines further assistance at this time. /blane/ CASEY GONZALEZ Nurse Practitioner Signed: 05/13/2024 15:34 CASEY GONZALEZ [facility] May 13, 2024 03:18 PM ADDENDUM: LOCAL TITLE: Addendum STANDARD TITLE: ADDENDUM DATE OF NOTE: MAY 13, 2024@15:18:24 ENTRY DATE: MAY 13, 2024@15:18:25 AUTHOR: CASEY GONZALEZ EXP COSIGNER: URGENCY: STATUS: COMPLETED Dr. Melendez at [facility] - pain medicine /blane/ CASEY GONZALEZ Nurse Practitioner Signed: 05/13/2024 15:18 Receipt Acknowledged By: 05/16/2024 15:16 /blane/ KATHY BARON Advanced Maintenance Shop Clerk --- Original Document --- 05/13/24 Pc Chart Review Note: [facility] , [address], [place] [address] please request MRI L spine disc from this location /blane/ CASEY GONZALEZ Nurse Practitioner Signed: 05/13/2024 15:17 Receipt Acknowledged By: * AWAITING SIGNATURE * KATHY BARON PAIGE A [facility] May 13, 2024 03:16 PM PRIMARY CARE NOTE: LOCAL TITLE: Pc Chart Review Note STANDARD TITLE: PRIMARY CARE NOTE DATE OF NOTE: MAY 13, 2024@15:16 ENTRY DATE: MAY 13, 2024@15:16:37 AUTHOR: CASEY GONZALEZ EXP COSIGNER: URGENCY: STATUS: COMPLETED Pc Chart Review Note Has ADDENDA [facility] , [address] [place] [address] please request MRI L spine disc from this location /chiki GONZALEZ Nurse Practitioner Signed: 05/13/2024 15:17 Receipt Acknowledged By: 05/16/2024 15:16 /balne/ KATHY BARON Advanced Maintenance Shop Clerk 05/13/2024 ADDENDUM STATUS: COMPLETED Dr. Melendez at [facility] - pain medicine /chiki GONZALEZ Nurse Practitioner Signed: 05/13/2024 15:18 Receipt Acknowledged By: 05/16/2024 15:16 /chiki BARON Advanced Maintenance Shop Clerk 05/16/2024 ADDENDUM STATUS: COMPLETED Requested medical records. And disc to be sent to [facility] for download. /chiki BARON Advanced Maintenance Shop Clerk Signed: 05/16/2024 15:17 05/16/2024 ADDENDUM STATUS: COMPLETED Received records placed in providers box. /chiki BARON Advanced Maintenance Shop Clerk Signed: 05/16/2024 15:35 05/18/2024 ADDENDUM STATUS: COMPLETED rec- PT for right shoulder Date Procedure CPT Status Case # 05/13/2024 SHOULDER-RIGHT 2 OR MORE VIEWS [id number] Verified 1595 Mild arthritic changes in the right shoulder. No radiographic evidence of acute osseous abnormality. /chiki GONZALEZ Nurse Practitioner Signed: 05/18/2024 10:39 Receipt Acknowledged By: 05/18/2024 11:07 /blane/ Abimbola StewartMSN,RN Patient Silverware Etcher for JACINTA WALLS 05/18/2024 ADDENDUM STATUS: COMPLETED SEE 05/18 PC CARE MANAGEMENT NOTE. /blane/ Abimbola StewartMSN,RN Patient Silverware Etcher Signed: 05/18/2024 11:08 [facility] May 13, 2024 02:58 PM PRIMARY CARE NOTE: LOCAL TITLE: PC PROGRESS NOTE STANDARD TITLE: PRIMARY CARE NOTE DATE OF NOTE: MAY 13, 2024@14:58 ENTRY DATE: MAY 13, 2024@14:58:50 AUTHOR: CASEY GONZALEZ EXP COSIGNER: URGENCY: STATUS: COMPLETED PC PROGRESS NOTE Has ADDENDA FEB 24, 2022 ROSELYN BECERRA Address: [address] [place] [address] [place] [address] County: [place] Marital Status: Age: 64 Uatsdin: UNKNOWN/NO PREFERENCE Sex: MALE Occupation: [employer] Period of Service: [employer] Branch of Service: [employer] Combat: NO POW: Eligibility: SC LESS THAN 50% Status: VERIFIED Means Test: NO LONGER REQUIRED NOK: EDGAR BECERRA Relation: SPOUSE [address] [place] [address] [place] TINNITUS 10% SC FOOT PAIN 10% SC SCARS 0% SC TENDON INFLAMMATION 10% SC IMPAIRED HEARING 0% SC Type of visit: (x)Routine annual visit ( )Episodic visit ( )New pt visit ( )F/U hosp visit HPI/CC:Patient presents to [facility] clinic for ongoing management of chronic medical problems. 64yo male here for routine PCP visit, he reports he had Covid 19 in August recovered fully from his mild s/s. Pt with multiple smooth rased papules on this forearms and ankles which have developed chronically on andoff for the past 8 months. He reports that none of the people who live with him get these outbreaks. they are highly puritic when they occur. was given pred[place] for [place] Pt states that he currently gets epidural pain management through through [facility]. He has multiple herniated discs in his lumbar spine. right shoulder has been painful for the past x 6 months,radiating down to elbow getting worse,i suspect tendonitis. two years ago kidney stone where [place] Today he asks to renewed medications including lisinopril, baclofen and diclofenac. Active problems - Computerized Problem List is the source for the followin. Complaining of erectile dysfunction 2. Tinnitus 3. History of polyp of colon 4. Vitamin D deficiency 5. Personal History of Tobacco Use 6. Plantar Fasciitis Active Outpatient Medications (including Supplies): Active Outpatient Medications Status 1) LISINOPRIL 40MG TAB TAKE ONE-HALF TABLET BY MOUTH ACTIVE DAILY FOR BLOOD PRESSURE/HEART 2) SILDENAFIL CITRATE 100MG TAB TAKE ONE-HALF TABLET BY ACTIVE MOUTH DIRECTED FOR ERECTILE DYSFUNCTION - DO NOT TAKE WITH ANY MEDICATION CONTAINING NITRATES (LIMIT: 4 DOSES/30 DAYS OR 12 DOSES/90 DAYS, NON-REPLACEABLE MEDICATION) Pending Outpatient Medications Status 1) VALACYCLOVIR HCL 500MG TAB TAKE ONE TABLET BY MOUTH PENDING THREE TIMES A DAY NEEDED 3 Total Medications NON-VA MEDS - NONE FOUND ALLERGIES: NUTS MEDICATION RECONCILIAITION: The Outpatient Essential Medication List for review (EMLR) was reviewed with the patient/caregiver and the patient was provided an updated reconciled medication list. Discrepancies were corrected. Recent radiology results No data available Recent labwork No data available PANEL 1 Roberta. date GLUCOSE BUN CREAT SODIUM K CHLOR CO2 04/03/21 09:42 97 20 0.83 139 4.2 107 25 VITAL SIGNS: BP: 138/81 (05/13/2024 14:47) PULSE: 65 (05/13/2024 14:37) TEMPERATURE: 98.2 F [36.8 C] (05/13/2024 14:37) HT: 70.5 in [179.1 cm] (02/24/2022 15:00) WT: 214.0 lb [97.07 kg] (05/13/2024 14:37) PAIN: 8 (05/13/2024 14:37) BODY MASS INDEX - NO HEIGHTS FOUND MAY 13, 2024@14:37 -- PULSE OXIMETRY: 96 PMHX: Surgeries: Vasectomy, attempted reversal, T&A Family:Mother age 75 pre Diabetes; Father age 74 ND and DM 1 brother congenital heart disease valve replaced shunt 2 cvas 1 Sister healthy no h/o prostate cancer or colon cancer in jeff[place] Social: ; 2 adult children healthy Tobacco: Quit 1999, aprox 6 pack year Hx, no oral tobacco ETOH: 1-2 bourbons daily 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 Tobacco: Quit 1999, aprox 6 pack year Hx, no oral tobacco ETOH: 1-2 bourbons daily ROS: 14 point ROS obtained and negative except as stated above/in HPI GEN: nad, well-groomed EYES: perrl, eomi, conjunctiva clear, no lid abnormalities ENT: TMs clear bilaterally, oropharynx clear w/o exudate NECK: supple, no lymphadenopathy, nonpalpable thyroid RESP: normal respirations, good chest wall expansion bilaterally, clear to auscultation bilaterally, no r/r/w CV: RRR, no M/R/G, radial pulses 2+ and regular ABD: soft, ntnd SKIN: warm/dry, no lesions NEURO: motor and tone normal in all extremities MS: normal gait, 5/5 muscle strength in the bilateral upper and lower extremities PSYCH: normal affect, insight normal Impression/Plan: Low back pain, unspecified:gets epidural pain clinic tx from [facility]. get MRI and records from pain management. Essential (primary) hypertension: stable.b/p at goal continue lisinopril rash- referred to dermatology Risks/Benefits possible adverse s/s reviewed with patient with regard to testing/new medications Patient was given an opportunity to ask questions, questions addressed and pt verbalized understanding I recommend risk factor modifications: -attaining and maintaining ideal body weight -engaging in regular physical activity -consuming foods low in saturated fat, cholesterol, and calories -minimize use alcohol I spent 30 minutes today performing medically necessary history and exam, managing the patients conditions, documenting clinical info in health record, along with the following: x Preparing to see pt. (ex.: review of tests, last visit notes) Obtain/review separately obtained history x Ordering tests, procedures, medications Refer and/or communicate with other providers regarding patient x Independently interpreting results & communicating results to patient/caregiver Care coordination (not separately reported) x Counseling and education pt/family/caregiver Total time for this encounter does not include time spent performing any separately reported procedure or service by me or the clinical staff RTC: 6 months MEDICATION RECONCILIAITION: The Outpatient Essential Medication List for review (EMLR) was reviewed with the patient/caregiver and the patient was provided an update reconciled medication list. Discrepanices were corrected or sent to the ordering provider to correct. ( ) [place]/caregiver refused a copy of EMLR ( ) /caregiver refused a copy of EMLR and stated they will maintain their own list (x) /caregiver was handed a copy of EMLR at todays visit ( ) /caregiver requests copy of EMLR to be mailed to them at their address (verify address on file) ( ) [place]/caregiver requests copy of EMLR to be sent to them via Secure Messaging (must have My [employer] account) Toxic Exposure Screening Follow-Up: Exposure Concern(s): 05/13/2024 Other Environmental Concerns - Toxic Exposure Concern asbestos Follow-up Question(s): 05/13/2024 No Questions - Toxic Exposure Concern declines further assistance at this time. /blane/ CASEY GONZALEZ Nurse Practitioner Signed: 05/13/2024 15:34 05/14/2024 ADDENDUM STATUS: COMPLETED please relay to pt Recent labwork Collection DT Specimen Test Name Result Units Ref Range 05/13/2024 15:31 URINE !! URINE COLOR Colorless Ref: Colorless-Yellow !! APPEARANCE Clear Ref: Clear !! SPECIFIC GRAVITY 1.014 1.005 - 1.030 !! UROBILINOGEN Normal mg/dL Ref: Normal !! URINE BLOOD Negative Ref: Negative !! URINE BILIRUBIN Negative Ref: Negative !! URINE KETONES Negative mg/dL Ref: Negative !! URINE GLUCOSE Negative mg/dL Ref: Negative !! URINE PROTEIN Negative mg/dL Ref: Negative-Trace !! URINE PH 5.5 4.5 - 8.0 !! URINE NITRITE Negative Ref: Negative !! URINE LEUKOCYTE ENegative Lucy/uL Ref: Negative 05/13/2024 15:31 BLOOD !! GLYCOHEMOGLOBIN 5.2 % 4.4 - 6.4 05/13/2024 15:31 BLOOD WBC 7.6 K/cmm 5.0 - 10.0 RBC 4.50 L M/cmm 4.6 - 6.2 HGB 14.2 g/dL 14.0 - 18.0 HCT 41.8 L % 42.0 - 52.0 MCV 92.9 fL 80.0 - 94.0 MCH 31.6 H pg 27.0 - 31.0 MCHC 34.0 g/dL 32.0 - 36.0 RDW 12.5 % 11.0 - 16.0 PLT 188 K/cmm 150 - 450 MPV 9.9 fL 9.0 - 13.1 NRBC 0.0 % 0.0 - 0.0 05/13/2024 15:31 PLASMA!! CHOLESTEROL 234 H mg/dL 0 - 199 !! TRIGLYCERIDE 141 mg/dL 0 - 149 !! HDL CHOLESTEROL 45 mg/dL 40 - 69 !! DIRECT LDL CHOL. 197 H mg/dL 0 - 100 Recommend low dose statin Please reduce foods high in cholesterol, carbohydates, saturated fats, fats, processed foods.Increase foods Increase foods high in unsaturated fats. Please remember to exercise to 30 mins per day 3-5 days per week. Foods rich in unsaturated fats: e.g. olive and canola oil, avocados, almonds, pecans, walnuts Low carbohydrate and fibre rich foods: e.g. whole grains, whole wheat bread and pasta, oatmeal, oat bran, brown rice, barley, legumes Fatty fish: e.g. salmon, alas Phytosterols and stanols: e.g. nuts, seeds, vegetable oils, fortified food products such as orange juice, yogurt, salad dressing Foods to avoid: High cholesterol foods: e.g. egg yolks, whole milk products, and organ meats Canola oil and Other processed vegetable oils Potato chips and Other packaged Foods Damon and Other processed meats !! SODIUM 139 mmol/L 136 - 145 !! POTASSIUM 4.1 mmol/L 3.5 - 5.1 !! CHLORIDE 109 H mmol/L 98 - 107 !! CO2 24 mmol/L 22 - 29 !! ANION GAP 6.0 mEq/L 3 - 19 !! GLUCOSE 94 mg/dL 74 - 100 !! UREA NITROGEN 18 mg/dL 9 - 25 !! CREATININE 0.99 mg/dL 0.72 - 1.25 !! eGFR (CKD-EPI) 85 SEE EVAL !! CALCIUM 9.2 mg/dL 8.4 - 10.2 !! TOTAL PROTEIN 7.0 g/dL 6.4 - 8.3 !! ALBUMIN 4.2 g/dL 3.5 - 5.2 !! TOTAL BILIRUBIN 0.3 mg/dL 0.2 - 1.2 !! AST 24 U/L 5 - 34 !! ALT 36 U/L 0 - 55 !! ALK PHOS 74 U/L 40 - 150 !! TSH 1.3396 mIU/mL 0.3500 - 4.9400 !! FREE T4 0.88 ng/mL 0.70 - 1.48 05/13/2024 15:31 SERUM !! PSA 0.304 ng/mL 0 - 3.999 !! 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 /blane/ Abimbola StewartMSN,RN Patient Silverware Etcher Signed: 05/16/2024 10:44 CASEY GONZALEZ [facility] May 13, 2024 02:38 PM PRIMARY CARE NURSI NG NOTE: LOCAL TITLE: Pc Health Tech/solar installation manager Note STANDARD TITLE: PRIMARY CARE NURSING NOTE DATE OF NOTE: MAY 13, 2024@14:38 ENTRY DATE: MAY 13, 2024@14:38:42 AUTHOR: CLIFTON SAINI EXP COSIGNER: URGENCY: STATUS: COMPLETED The patient was given a list of his current medications, instructed to review and discuss any changes or problems with their provider. Patient advised to carry a list of current medications and any allergies with them in the event of emergency situations. Yes - [place]/Caregiver verbalized understanding of topics discussed and education provided Provider notified of elevated B/P >/= 140/90. Not Applicable Influenza Immunization: Influenza, Trivalent, Preservative Free (Fluarix-Syringe) Administered: INFLUENZA, SPLIT VIRUS, TRIVALENT, PF Date Administered: May 13, 2024 14:40 Series: Complete Tractor Operator Battery: [place] Lot: [id number] Exp Date: Jan 16, 2025 [facility]: [id number] Admin Route/Site: INTRAMUSCULAR/LEFT DELTOID Dosage: 0.5mL Vaccine Information Statement(s): INFLUENZA(FLU) VACC(INACTIVATED OR RECOMBINANT)VIS Feb 22, 2021 (ARGENTINE) Order By: Policy Administered By: Clifton Saini The Influenza Vaccine Information Statement (VIS) was reviewed with the patient/caregiver which lists the benefits and risks of the vaccine and the risks of not receiving the Influenza vaccine. The patient/caregiver denied any prior severe reaction to this vaccine or its components or a severe allergic reaction, such as anaphylaxis, to any vaccine or any injectable therapy. The patient/caregiver gave verbal consent to receive the vaccine. Tobacco Use Screening: The patient has never used tobacco. 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 No questions at this time [place]/caregiver was informed of local points of contact. Contact information for local resources: Benefits/Claim Questions: Chlorogen Benefits Administration (VBA): [facility] Enrollment: Health Benefits: [phone] Ext. [phone] Registry Coordinator: Ext. [phone] Toxic Exposure Screening Follow-Up reminder is needed. Name of person notified: Paramjit Pneumococcal Conjugate Vaccine (PCV15/PCV20): Refuses PCV vaccine Immunization: PNEUMOCOCCAL CONJUGATE, UNSPECIFIED FORMULATION Refusal Reason: PATIENT DECISION Patient refuses all immunization(s) in the PneumoPCV group Date Documented: 05/13/24 14:41 Depression Screening: Perform PHQ-2 A PHQ-2 screen was performed. The score was 0 which is a negative screen for depression. Over the past two weeks, how often have you been bothered by the following problems? 1. Little interest or pleasure in doing things Not at all 2. Feeling down, depressed, or hopeless Not at all Alcohol Use Screen (AUDIT-C): Alcohol Screen: SCREEN FOR ALCOHOL (AUDIT-C) An alcohol screening test (AUDIT-C) was negative (score=1). 1. How often did you have a drink containing alcohol in the past year? Consider a drink to be a 12 ounce can or bottle of regular beer, 8 ounces of malt liquor, a 5 ounce glass of table wine, or a 1.5 ounce shot of liquor (like scotch, gin, or vodka). Monthly or less 2. How many drinks containing alcohol did you have on a typical day when you were drinking in the past year? One or two drinks 3. How often did you have six or more drinks on one occasion in the past year? Never COVID-19 Immunization: Refused Moderna Monovalent COVID-19 vaccine Immunization: COVID-19 (MODERNA), MRNA, LNP-S, PF, 50 MCG/0.5 ML (AGES 12+ YEARS) Refusal Reason: PATIENT DECISION Patient refuses all immunization(s) in the COVID-19 group Date Documented: 05/13/24 14:43 Homelessness/Food Insecurity Screen: In the past 2 months, have you been living in stable housing that you own, rent, or stay in as part of a household? Yes - Living in stable housing. Are you worried or concerned that in the next 2 months you may NOT have stable housing that you own, rent, or stay in as part of a household? No - Not worried about housing near future The reports the following: Within the past 12 months, you worried whether your food would run out before you got money to buy more. Never true Within the past 12 months, the food you bought just didn't last and you didn't have money to get more. Never true Suicide Screen: C-SSRS Screening [place] Suicide Severity Rating Scale (C-SSRS) screener 1. Over the past month, have you wished you were or wished you could go to sleep and not wake up? No 2. Over the past month, have you had any actual thoughts of killing yourself? No 3. Over the past month, have you been thinking about how you might do this? Response not required due to responses to other questions. 4. Over the past month, have you had these thoughts and had some intention of acting on them? Response not required due to responses to other questions. 5. Over the past month, have you started to work out or worked out the details of how to kill yourself? Response not required due to responses to other questions. 6. If yes, at any time in the past month did you intend to carry out this plan? Response not required due to responses to other questions. 7. In your lifetime, have you ever done anything, started to do anything, or prepared to do anything to end your life (for example, collected pills, obtained a gun, gave away valuables, went to the roof but didn't jump)? No 8. If YES, was this within the past 3 months? Response not required due to responses to other questions. Sexual Orientation: The patient thinks of their sexual orientation as: Straight or Heterosexual PTSD Screening: PC-PTSD-5 A PTSD screening test (PC-PTSD-5) was negative (score=0). IN THE PAST MONTH, have you ever had any experience that was so frightening, horrible or traumatic. For example: A serious accident or fire a physical or sexual assault or abuse An earthquake or flood A war Seeing someone be killed or seriously injured Having a loved one through homicide or suicide 1. Have you ever experienced this kind of event? NO 2. Had nightmares about the event(s) or thought about the event(s) when you did not want to? Response not required due to responses to other questions. 3. Tried hard not to think about the event(s) or went out of your way to avoid situations that reminded you of the event(s)? Response not required due to responses to other questions. 4. Been constantly on guard, watchful, or easily startled? Response not required due to responses to other questions. 5. Prim numb or detached from people, activities, or your surroundings? Response not required due to responses to other questions. 6. Prim guilty or unable to stop blaming yourself or others for the event(s) or any problems the event(s) may have caused? Response not required due to responses to other questions. /blane/ Clifton Saini LPN Staff MEHRAN Signed: 05/13/2024 14:47 CLIFTON SAINI [facility]
--- OUTSIDE RECORDS SUMMARY | 2024-05-17 06:21 | XMS_ITS | Encounter Summary ---
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 Date/Time Encounter Type Encounter Description Reason Pro vider Source May 17, 2024 10:21 AM Outpatient Encounter ADMIN PAT ACTIVTIES (AJAYNONCT) [facility] Encounter Template Text not used by [place] Plan of Treatment: Future Appointments (+ 6 months) and Future Tests (+/- 45 days) The Plan of Treatment section includes future care activities for the patient from all [place] treatmentfacilities. This section includes future appointments and future orders which are active, pending or scheduled. Future Appointments This section includes appointments that were scheduled to occur 6 months from the date of the Encounter, up to a maximum of 20 appointments. The data comes from all [place] treatment facilities. Appointment Date/Time Appointment Type Appointme nt Facility Name Jun 03, 2024 01:00 PM AMBULATORY - REHAB MEDICIN E [facility] Lab Results: +/- 30 days of the encounter This section includes the Chemistry and Hematology Lab Results on record with [place] for the patient. Radiology Reports and Pathology Reports are provided separately, in subsequent sections. Lab Results This section contains the Chemistry/Hematology Results that were resulted 30 days before or 30 daysafter the date of the Encounter. Date/Time Source Result Type Result - Unit Interpretation Reference Range Specimen Type Comment May 13, 2024 03:31 PM [facility] SERUM Specimen Type: SERUM No comment entered. Ordering Provider: CASEY GONZALEZ Report Released Date/Time: May 13, 2024 03:24 PM Reporting Lab: [address] [address] Performing Lab: [address] [address] LYME SCREEN Negative Negative May 13, 2024 03:31 PM [facility] LIPID PROFILE PLASMA Specimen Type: PLASM A [...] May 13, 2024 03:24 PM Reporting Lab: [address] [address] Performing Lab: [address] [address] CHOLESTEROL 234 mg/dL H 0-199 TRIGLYCERIDE 141 mg/dL 0-149 HDL CHOLESTEROL 45 mg/dL 40-69 DIRECT LDL CHOL. 197 mg/dL H 0-100 May 13, 2024 03:31 PM [facility] GLYCOHEMOGLOBIN BLOOD Specimen Type: BLOOD Comment: [place] guidelines for A1c interpretation: Glycemic control targets are based on Shared Decision Making between clinicians and patients. Criteria used to establish an A1c target recommendation can be found at https://www.[place].gov/qualityandpatientsafety/ and include the use of result accuracy [...] 8.73 and 9.27. Ref: https://ngsp.org/CAPdata.asp. The in-house [employer]-Sprio D-100 analyzer has a historical CV <= 2%. Contact the laboratory for further performance characteristics of this assay. Ordering Provider: CASEY GONZALEZ Report Released Date/Time: May 13, 2024 03:24 PM Reporting Lab: [address] [address] Performing Lab: [address] [address] GLYCOHEMOGLOBIN 5.2 4.4-6.4 May 13, 2024 03:31 PM [facility] CBC/PLT BLOOD Specimen Type: BLOOD No comment entered. Ordering Provider: CASEY GONZALEZ Report Released Date/Time: May 13, 2024 03:24 PM Reporting Lab: [address] [address] Performing Lab: [address] [address] WBC 7.6 10*3/uL 5.0-10.0 RBC 4.50 10*6/uL L 4.6-6.2 HGB 14.2 g/dL 14.0-18.0 HCT 41.8 L 42.0-52.0 MCV 92.9 fL 80.0-94.0 MCH 31.6 pg H 27.0-31.0 MCHC 34.0 g/dL 32.0-36.0 PLT 188 10*3/uL 150-450 MPV 9.9 fL 9.0-13.1 RDW 12.5 11.0-16.0 NRBC 0.0 0.0-0.0 May 13, 2024 03:31 PM [facility] PSA S GRIS Specimen Type: SERUM No comment entered. Ordering Provider: CASEY GONZALEZ Report Released Date/Time: May 13, 2024 03:24 PM Reporting Lab: [address] [address] Performing Lab: [address] [address] PSA 0.304 ng/mL 0-3.999 May 13, 2024 03:31 PM [facility] URINALYSIS URINE Specimen Type: URINE Comment: Microscopic not indicated Ordering Provider: CASEY GONZALEZ Report Released Date/Time: May 13, 2024 03:24 PM Reporting Lab: [address] [address] Performing Lab: [address] [address] URINE COLOR Colorless Colorless-Yellow APPEARANCE Clear Clear UROBILINOGEN Normal mg/dL Normal URINE BLOOD Negative Negative URINE BILIRUBIN Negative Negative URINE KETONES Negative mg/dL Negative URINE PROTEIN Negative mg/dL Negative-Tr colt URINE PH 5.5 4.5-8.0 URINE NITRITE Negative Negative URINE LEUKOCYTE EST Negative Negative SPECIFIC GRAVITY 1.014 1.005-1.030 URINE GLUCOSE Negative mg/dL Negative May 13, 2024 03:31 PM [facility] THYROID PROFILE PLASMA Specimen Type: ANNIA NOVAK [...] May 13, 2024 03:24 PM Reporting Lab: [address] [address] Performing Lab: [address] [address] TSH 1.3396 m[IU]/mL 0.3500-4.9400 FREE T4 0.88 ng/mL 0.70-1.48 May 13, 2024 03:31 PM [facility] 25-OH VITAMIN D SERUM Specime n Type: [...] May 13, 2024 03:24 PM Reporting Lab: [address] [address] Performing Lab: [address] [address] 25-OH VITAMIN D 23.4 ng/mL 20.0-50.0 May 13, 2024 03:31 PM [facility] PANEL 5 PLASMA Specimen Type: PLASM A [...] May 13, 2024 03:24 PM Reporting Lab: [address] [address] Performing Lab: [address] [address] CREATININE 0.99 mg/dL 0.72-1.25 UREA NITROGEN 18 [...] and tobacco- related health factors from the [place] facility where the Encounter took place. Current Smoking Status This section includes the most current smoking, or tobacco-related health factor, from the [place] facility where the Encounter took place. Date/Time Current Smoking Status Comment [facility]ilario st May 19, 2002 09:02 AM HF V9 CURRENT NON-SMOKER [facility] Tobacco Use History This section includes a history of the smoking, or tobacco-related health factors, that were collected on or before the date of the Encounter. The data comes from the [place] facility where the Encounter took place. Date/Time Smoking Status/Tobacco Use Comment F acility Jan 15, 2001 08:50 AM HF V9 CURRENT NON-SMOKER quit 2 yrs ago [facility] Aug 28, 1998 10:26 AM [facility] Radiology Reports: +/- 30 days of [...] the Encounter. The data comes from all [place] treatment facilities. Date/Time Radiology Report Provider Source May 13, 2024 03:44 PM SHOULDER-RIGHT 2 OR MORE VIEWS: ROSELYN BECERRA [id number] -[id number] M Exm Date: MAY 13, 2024@15:44 Req Phys: CASEY GONZALEZ Loc: [facility] PACT JUNE 04 (Req'g Img Loc: [facility] RADIOLOG[facility] Service: Unknown [facility] [place] [address] (Case [id number] COMPLETE)SHOULDER-RIGHT 2 OR MORE VIEWS (RAD Detailed) CPT:92190 Reason for Study: right shoulder pain Clinical History: Report Status: Verified Date Reported: MAY 17, 2024 Date Verified: MAY 17, 2024 Product Representative E-Sig: Report: Right shoulder CLINICAL INFORMATION: Right [...] Interpreting Staff: PILLO POLANCO, RADIOLOGIST Verified by dispensing audiologist for PILLO POLANCO /PILLO ACKERMAN [facility] Encounter Notes: All associated encounter notes This section contains the clinical notes associated to the Encounter. Date/Time Encounter Note(s) Provider Source May 17, 2024 10:21 AM LETTERS: LOCAL TITLE: SPECIALTY CONTACT LETTER STANDARD TITLE: LETTERS DATE OF NOTE: MAY 17, 2024@10:21 ENTRY DATE: MAY 17, 2024@10:21:30 AUTHOR: FRANCES ANDUJAR EXP COSIGNER: URGENCY: STATUS: COMPLETED [facility] [address] [place] [address] ROSELYN W HERNAN [address] [address] MAY 17, 2024 Dear ROSELYN BECERRA, We have been unable to contact you by telephone to schedule an appointment in our Dermatology clinic. Your health and well-being are important to us. Please call us at or . Select Option #2 and then #3. We look forward to hearing from you soon. Sincerely yours, Dermatology [facility]
--- OUTSIDE RECORDS SUMMARY | 2024-05-27 11:00 | XMS_ITS | Encounter Summary ---
Author Name [facility] Address [address] [facility], [place] [address] Care Team Providers Care Mica Plate Layer Hand Name Role Phone CASEY GONZALEZ Primary Care Provider Unavailabl e Selected Encounter This section includes the information on record at [facility] for the Encounter. Date/Time Encounter Type Encounter Description Reason Pro vider Source May 27, 2024 03:00 PM Outpatient Encounter ADMIN PAT ACTIVTIES (AJAYNONCT) [facility] Encounter Template Text not used by [facility] Plan of Treatment: Future Appointments (+ 6 months) and Future Tests (+/- 45 days) The Plan of Treatment section includes future care activities for the patient from all [facility] treatmentfacilities. This section includes future appointments and future orders which are active, pending or scheduled. Future Appointments This section includes appointments that were scheduled to occur 6 months from the date of the Encounter, up to a maximum of 20 appointments. The data comes from all [facility] treatment facilities. Appointment Date/Time Appointment Type Appointme nt Facility Name Jun 03, 2024 01:00 PM AMBULATORY - REHAB MEDICIN E [facility] Lab Results: +/- 30 days of the encounter This section includes the Chemistry and Hematology Lab Results on record with [facility] for the patient. Radiology Reports and Pathology Reports are provided separately, in subsequent sections. Lab Results This section contains the Chemistry/Hematology Results that were resulted 30 days before or 30 daysafter the date of the Encounter. Date/Time Source Result Type Result - Unit Interpretation Reference Range Specimen Type Comment May 13, 2024 03:31 PM [facility] SERUM Specimen Type: SERUM No comment entered. Ordering Provider: CASEY GONZALEZ Report Released Date/Time: May 13, 2024 03:24 PM Reporting Lab: [address] [phone] Performing Lab: [address] [address] LYME SCREEN Negative Negative May 13, 2024 03:31 PM [facility] LIPID PROFILE PLASMA Specimen Type: PLASM [...] May 13, 2024 03:24 PM Reporting Lab: [address] [address] Performing Lab: [address] [address] CHOLESTEROL 234 mg/dL H 0-199 TRIGLYCERIDE 141 mg/dL 0-149 HDL CHOLESTEROL 45 mg/dL 40-69 DIRECT LDL CHOL. 197 mg/dL H 0-100 May 13, 2024 03:31 PM [facility] GLYCOHEMOGLOBIN BLOOD Specimen Type: BLOOD Comment: [facility] guidelines for A1c interpretation: Glycemic control targets are based on Shared Decision Making between clinicians and patients. Criteria used to establish an A1c target recommendation can be found at https://www.fl.gov/qualityandpatientsafety/ and include the use of result accuracy [...] 8.73 and 9.27. Ref: https://ngsp.org/CAPdata.asp. The in-house [employer] D-100 analyzer has a historical CV <= 2%. Contact the laboratory for further performance characteristics of this assay. Ordering Provider: CASEY GONZALEZ Report Released Date/Time: May 13, 2024 03:24 PM Reporting Lab: [address] [address] Performing Lab: [address] [address] GLYCOHEMOGLOBIN 5.2 4.4-6.4 May 13, 2024 03:31 PM [facility] CBC/PLT BLOOD Specimen Type: BLOOD No comment entered. Ordering Provider: CASEY GONZALEZ Report Released Date/Time: May 13, 2024 03:24 PM Reporting Lab: [address] [address] Performing Lab: [address] [address] WBC 7.6 10*3/uL 5.0-10.0 RBC 4.50 10*6/uL L 4.6-6.2 HGB 14.2 g/dL 14.0-18.0 HCT 41.8 L 42.0-52.0 MCV 92.9 fL 80.0-94.0 MCH 31.6 pg H 27.0-31.0 MCHC 34.0 g/dL 32.0-36.0 PLT 188 10*3/uL 150-450 MPV 9.9 fL 9.0-13.1 RDW 12.5 11.0-16.0 NRBC 0.0 0.0-0.0 May 13, 2024 03:31 PM [facility] PSA S GRIS Specimen Type: SERUM No comment entered. Ordering Provider: CASEY GONZALEZ Report Released Date/Time: May 13, 2024 03:24 PM Reporting Lab: [address] [address] Performing Lab: [address] [address] PSA 0.304 ng/mL 0-3.999 May 13, 2024 03:31 PM [facility] URINALYSIS URINE Specimen Type: URINE Comment: Microscopic not indicated Ordering Provider: CASEY GONZALEZ Report Released Date/Time: May 13, 2024 03:24 PM Reporting Lab: [address] [address] Performing Lab: [address] [address] URINE COLOR Colorless Colorless-Yellow APPEARANCE Clear Clear UROBILINOGEN Normal mg/dL Normal URINE BLOOD Negative Negative URINE BILIRUBIN Negative Negative URINE KETONES Negative mg/dL Negative URINE PROTEIN Negative mg/dL Negative-Tr colt URINE PH 5.5 4.5-8.0 URINE NITRITE Negative Negative URINE LEUKOCYTE EST Negative Negative SPECIFIC GRAVITY 1.014 1.005-1.030 URINE GLUCOSE Negative mg/dL Negative May 13, 2024 03:31 PM [facility] THYROID PROFILE PLASMA Specimen Type: ANNIA NOVAK [...] May 13, 2024 03:24 PM Reporting Lab: [address] [address] Performing Lab: [address] [address] TSH 1.3396 m[IU]/mL 0.3500-4.9400 FREE T4 0.88 ng/mL 0.70-1.48 May 13, 2024 03:31 PM [facility] 25-OH VITAMIN D SERUM Specime n [...] May 13, 2024 03:24 PM Reporting Lab: [address] [address] Performing Lab: [address] [address] 25-OH VITAMIN D 23.4 ng/mL 20.0-50.0 May 13, 2024 03:31 PM [facility] PANEL 5 PLASMA Specimen Type: PLASM [...] May 13, 2024 03:24 PM Reporting Lab: [address] [address] Performing Lab: [address] [address] CREATININE 0.99 mg/dL 0.72-1.25 UREA NITROGEN 18 [...] and tobacco- related health factors from the [facility] facility where the Encounter took place. Current Smoking Status This section includes the most current smoking, or tobacco-related health factor, from the [facility] facility where the Encounter took place. Date/Time Current Smoking Status Comment [facility] May 19, 2002 09:02 AM HF V9 CURRENT NON-SMOKER [facility] Tobacco Use History This section includes a history of the smoking, or tobacco-related health factors, that were collected on or before the date of the Encounter. The data comes from the [facility] facility where the Encounter took place. Date/Time Smoking Status/Tobacco Use Comment F acility Jan 15, 2001 08:50 AM HF V9 CURRENT NON-SMOKER quit 2 yrs ago [facility] Aug 28, 1998 10:26 AM [facility] Radiology Reports: +/- 30 days of [...] the Encounter. The data comes from all [facility] treatment facilities. Date/Time Radiology Report Provider Source May 13, 2024 03:44 PM SHOULDER-RIGHT 2 OR MORE VIEWS: ROSELYN BECERRA [phone] -1960 M Exm Date: MAY 13, 2024@15:44 Req Phys: CASEY GONZALEZ Loc: [facility] PACT JUNE 04 (Req'g Img Loc: [facility] RADIOLOGY Service: Unknown [facility] [place] [address] (Case [id number] COMPLETE)SHOULDER-RIGHT 2 OR MORE VIEWS (RAD Detailed) CPT:89892 Reason for Study: right shoulder pain Clinical History: Report Status: Verified Date Reported: MAY 17, 2024 Date Verified: MAY 17, 2024 Reference And Instruction Librarian E-Sig: Report: Right shoulder CLINICAL INFORMATION: Right [...] Interpreting Staff: PILLO POLANCO, RADIOLOGIST Verified by transition advisor for PILLO POLANCO /PILLO ACKERMAN [facility] Encounter Notes: All associated encounter notes This section contains the clinical notes associated to the Encounter. Date/Time Encounter Note(s) Provider Source Apr 06, 2024 03:00 PM NONVA NOTE: LOCAL TITLE: OUTSIDE MEDICAL RECORD-OTHER STANDARD TITLE: NONVA NOTE DATE OF NOTE: APR 06, 2024@15:00 ENTRY DATE: MAY 27, 2024@15:01:03 AUTHOR: DEVORA LOBO EXP COSIGNER: URGENCY: STATUS: COMPLETED The scanned image may be viewed in [employer]. /es/ DEVORA LOBO PSYCHOLOGICAL STRESS EVALUATOR Signed: 05/27/2024 15:01 DEVORA LOBO-[facility]
--- OUTSIDE RECORDS SUMMARY | 2025-01-09 10:22 | XMS_ITS | Continuity of Care Document ---
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 It does not include entries that were removed or entered in error. Problem Status Onset Date Problem Type Date of Resolution Comments Source Complaining of erectile dysfunction Active Condition [facility] Exposure to potentially hazardous substance (SCT [id number]) [facility] History of polyp of colon Active Condition Jun 17, 2022 Entered By: JOVANNY BRAN Comment: Cscope 03/10/2022- WNL repeat in 10y (2031) [facility] Hypertension Active Condition [facility] Personal History of Tobacco Use Active Condition [facility] Plantar Fasciitis Active Condition [facility] Tinnitus Active Condition [facility] Vitamin D deficiency Active Condition [facility] Diagnosis: ICD-10-CM H90.3 Sensorineural hearing loss, bilateral Active Diagnosis [facility] Diagnosis: ICD-10-CM Z71.89 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ed counseling Active Diagnosis [facility] Diagnosis: ICD-10-CM Z65.9 Problem related to unspecified psychosocial circumstances Active Diagnosis [facility] Diagnosis: ICD-10-CM I10 Essential (primary) hypertension Active Diagnosis [facility] Medications Combined list of outpatient medications from [facility] facilities.Medications provided include 1) outpatient medications from the last 15 months, and 2) patient-reported medications. Medication Details Route Status Patient Instructions Prescription Expires Prescription Number Last Dispense Date Ordering Provider Order Date Order Qty Source ATORVASTATI N CA 10MG TAB TAKE ONE-HALF TABLET BY MOUTH DAILY FOR CHOLESTE ROL -DO NOT DRINK GRAPEFRU IT JUICE WHILE ON THIS DRUG ORAL ACTIVE 05/15/2025 [id number] CASEY GONZALEZ 2023 45 [place] [facility] BACLOFEN 10MG TAB TAKE ONE-HALF TABLET BY MOUTH THREE TIMES A DAY FOR MUSCLE SPASMS ORAL ACTIVE 05/14/2025 [id number] CASEY GONZALEZ 2023 135 [place] [facility] DICLOFENAC NA 75MG TAB,EC TAKE ONE TABLET BY MOUTH TWICE A DAY NEEDED FOR PAIN/INF LAMMATIO N ORAL ACTIVE 05/14/2025 [id number] 5 CASEY GONZALEZ 2023 90 [place] [facility] LISINOPRIL 40MG TAB TAKE ONE-HALF TABLET BY MOUTH DAILY FOR HIGH BLOOD PRESSURE ORAL ACTIVE 05/14/2025 [id number] 5 CASEY GONZALEZ 2023 45 [place] [facility] Allergies, Adverse Reactions, Alerts Combined list of allergies from Department of Defense and Veterans Affairs facilities. It does not include entries that were removed or entered in error. Substance Category Reaction Severity Reaction type Status Date Reported Comments Source NUTS Propensity to adverse reactions to substance (finding) Eruption active 8 [facility] Immunizations Combined list of available immunizations from the Department of Defense and Veterans Affairs facilities. Immunization Series Date Given Administered By Site Reaction Lot Number CVX Code Drug Taco Maker Status Comments Source INFLUENZA, SPLIT VIRUS, TRIVALENT, PF 2023 [place] MEDINA LEFT DELTO ID [id number] 140 complet ed Completed Series, ADMINISTE RED AT [place], [place] [facility] COVID-19 (PFIZER), MRNA, LNP-S, BIVALENT BOOSTER, PF, 30 MCG/0.3 ML DOSE 1 2021 NONE 300 complet ed PFR; [id number]; 3 [place] [facility] INFLUENZA, INJECTABLE, QUADRIVALENT, PRESERVATIVE FREE 2021 NONE 150 complet ed Booster for Series, [place] [facility] TDAP 2021 115 complet ed [place] [facility] COVID-19 ([employer]), MRNA, LNP-S, PF, 30 MCG/0.3 ML DOSE 1 2020 208 complet ed HISTORICA L INFORMATI ON - FROM OTHER REGISTRY, [place] [facility] INFLUENZA, INJECTABLE, QUADRIVALENT, PRESERVATIVE FREE 2020 NONE 150 complet ed [place] [facility] PNEUMOCOCCAL POLYSACCHARID E PPV23 2020 NONE 33 complet ed Completed Series, [place] [facility] COVID-19 (PFIZER), MRNA, LNP-S, PF, 30 MCG/0.3 ML DOSE 2 2020 208 complet ed PFR; [id number]; 1 [place] COVID-19 (PFIZER), MRNA, LNP-S, PF, 30 MCG/0.3 ML DOSE 1 2020 208 complet ed PFR; [id number]; 1 [place] INFLUENZA, INJECTABLE, QUADRIVALENT, PRESERVATIVE FREE 2019 150 complet ed [place] [facility] ZOSTER RECOMBINANT 2 2019 187 complet ed [place] [facility] INFLUENZA, INJECTABLE, QUADRIVALENT, PRESERVATIVE FREE 2018 150 complet ed [place] [facility] ZOSTER RECOMBINANT 1 2018 187 complet ed [place] [facility] HEP A, ADULT 2018 52 complet ed [place] [facility] HEP A, ADULT 2018 52 complet ed [place] [facility] INFLUENZA, SEASONAL, INJECTABLE 2018 141 complet ed [place] [facility] INFLUENZA A & B (HISTORICAL) 2017 88 complet ed [place] [facility] TDAP 2017 115 complet ed [place] [facility] TD(ADULT) UNSPECIFIED FORMULATION 1996 139 complet ed [facility] [place] [facility] Results Combined list of [...] May 13, 2024 03:24 PM Reporting Lab: [address] [address] Performing Lab: [address] [address] [facility] LIPID PROFILE CHOLESTERO L [MASS/VOLU [...] decrease <15 G5 Kidney failure Ordering Provider: JAKC GONZALEZ Report Released Date/Time: May 13, 2024 03:24 PM Reporting Lab: [address] [address] Performing Lab: [address] [address] [facility] LIPID PROFILE TRIGLYCERI DE [MASS/VOLU [...] 2024 03:24 PM Reporting Lab: [place] [address] [address] Performing Lab: [place] [address] [address] [facility] LIPID PROFILE CHOLESTERO L IN [...] 2024 03:24 PM Reporting Lab: [place] [address] [address] Performing Lab: [place] [address] [address] [facility] LIPID PROFILE CHOLESTERO L IN [...] May 13, 2024 03:24 PM Reporting Lab: [address] [address] Performing Lab: [address] [address] [facility] GLYCOHEM OGLOBIN HEMOGLOBIN A1C/HEMOGL OBIN.TOTAL IN BLOOD BY HPLC 5.2 4.4 - 6.4 05/13 Specimen Type: BLOOD Comment: [facility] guidelines for A1c interpretat ion: Glycemic control targets are based on Shared Decision Making between clinicians and patients. Criteria used to establish an A1c target recommendat ion can be found at https://www .vt.gov/danny lityandpati entsafety/ and include the use of [...] 9.27. Ref: https://ngs p.org/CAPda ta.asp. The in-house [employer] D-100 analyzer has a historical CV <= 2%. Contact the laboratory for further performance characteris tics of this assay. Ordering Provider: JACK GONZALEZ A Report Released Date/Time: May 13, 2024 03:24 PM Reporting Lab: [place] [id number] Performing Lab: [place] [id number] CBC/PLT LEUKOCYTES [#/VOLUME] IN BLOOD BY AUTOMATED COUNT 7.6 10*3/uL 5.0 - 10.0 05/13 Specimen Type: BLOOD No comment entered. Ordering Provider: JACK GONZALEZ A Report Released Date/Time: May 13, 2024 03:24 PM Reporting Lab: [place] [id number] Performing Lab: [address] CBC/PLT ERYTHROCYT ES [#/VOLUME] IN BLOOD BY AUTOMATED COUNT 4.50 10*6/uL 4.6 - 6.2 05/13 L Specimen Type: BLOOD No comment entered. Ordering Provider: JACK GONZALEZ A Report Released Date/Time: May 13, 2024 03:24 PM Reporting Lab: [place] [id number] Performing Lab: [place] [phone] CBC/PLT HEMOGLOBIN [MASS/VOLU ME] IN BLOOD 14.2 g/dL 14.0 - 18.0 05/13 Specimen Type: BLOOD No comment entered. Ordering Provider: JACK GONZALEZ A Report Released Date/Time: May 13, 2024 03:24 PM Reporting Lab: [place] [phone] Performing Lab: [place] [id number] [place] [address] CBC/PLT HEMATOCRIT [VOLUME FRACTION] OF BLOOD BY AUTOMATED COUNT 41.8 42.0 - 52.0 05/13 L Specimen Type: BLOOD No comment entered. Ordering Provider: JACK GONZALEZ A Report Released Date/Time: May 13, 2024 03:24 PM Reporting Lab: [address] [address] Performing Lab: [address] [address] [facility] CBC/PLT MCV [ENTITIC VOLUME] BY AUTOMATED COUNT 92.9 fL 80.0 - 94.0 05/13 Specimen Type: BLOOD No comment entered. Ordering Provider: JACK GONZALEZ A Report Released Date/Time: May 13, 2024 03:24 PM Reporting Lab: [address] [address] Performing Lab: [address] [address] [facility] CBC/PLT MCH [ENTITIC MASS] BY AUTOMATED COUNT 31.6 pg 27.0 - 31.0 05/13 H Specimen Type: BLOOD No comment entered. Ordering Provider: JACK GONZALEZ A Report Released Date/Time: May 13, 2024 03:24 PM Reporting Lab: [address] [address] Performing Lab: [address] [address] [facility] CBC/PLT MCHC [MASS/VOLU ME] BY AUTOMATED COUNT 34.0 g/dL 32.0 - 36.0 05/13 Specimen Type: BLOOD No comment entered. Ordering Provider: JACK GONZALEZ A Report Released Date/Time: May 13, 2024 03:24 PM Reporting Lab: [address] [address] Performing Lab: [address] [address] [facility] CBC/PLT PLATELETS [#/VOLUME] IN BLOOD 188 10*3/uL 150 - 450 05/13 Specimen Type: BLOOD No comment entered. Ordering Provider: JACK GONZALEZ A Report Released Date/Time: May 13, 2024 03:24 PM Reporting Lab: [address] [address] Performing Lab: [address] [address] [facility] CBC/PLT PLATELET MEAN VOLUME [ENTITIC VOLUME] IN BLOOD 9.9 fL 9.0 - 13.1 05/13 Specimen Type: BLOOD No comment entered. Ordering Provider: JACK GONZALEZ A Report Released Date/Time: May 13, 2024 03:24 PM Reporting Lab: [address] [address] Performing Lab: [place] [id number] [place] [address] CBC/PLT ERYTHROCYT E DISTRIBUTI ON WIDTH [ENTITIC VOLUME] BY AUTOMATED COUNT 12.5 11.0 - 16.0 05/13 Specimen Type: BLOOD No comment entered. Ordering Provider: JACK GONZALEZ A Report Released Date/Time: May 13, 2024 03:24 PM Reporting Lab: [place] [phone] Performing Lab: [place] [phone] [place] [address] CBC/PLT NUCLEATED ERYTHROCYT ES/100 ERYTHROCYT ES IN BLOOD 0.0 0.0 - 0.0 05/13 Specimen Type: BLOOD No comment entered. Ordering Provider: JACK GONZALEZ A Report Released Date/Time: May 13, 2024 03:24 PM Reporting Lab: [address] [address] Performing Lab: [place] [id number] [place] [address] PSA PROSTATE SPECIFIC AG [MASS/VOLU ME] IN SERUM OR PLASMA 0.304 ng/mL 0 - 3.999 05/13 Specimen Type: SERUM No comment entered. Ordering Provider: JACK GONZALEZ A Report Released Date/Time: May 13, 2024 03:24 PM Reporting Lab: [place] [phone] Performing Lab: [place] [phone] [place] [address] URINALYS IS COLOR OF URINE Colorles s 05/13 Specimen Type: URINE Comment: Microscopic not indicated Ordering Provider: JACK GONZALEZ A Report Released Date/Time: May 13, 2024 03:24 PM Reporting Lab: [address] [address] Performing Lab: [address] [address] [facility] URINALYS IS APPEARANCE OF URINE Clear 05/13 Specimen Type: URINE Comment: Microscopic not indicated Ordering Provider: JACK GONZALEZ A Report Released Date/Time: May 13, 2024 03:24 PM Reporting Lab: [address] [address] Performing Lab: [address] [address] [facility] URINALYS IS UROBILINOG EN [MASS/VOLU ME] IN URINE BY TEST STRIP Normalmg /dL 05/13 Specimen Type: URINE Comment: Microscopic not indicated Ordering Provider: JACK GONZALEZ A Report Released Date/Time: May 13, 2024 03:24 PM Reporting Lab: [address] [address] Performing Lab: [address] [address] [facility] URINALYS IS HEMOGLOBIN [PRESENCE] IN URINE BY TEST STRIP Negative 05/13 Specimen Type: URINE Comment: Microscopic not indicated Ordering Provider: JACK GONZALEZ A Report Released Date/Time: May 13, 2024 03:24 PM Reporting Lab: [address] [address] Performing Lab: [address] [address] [facility] URINALYS IS BILIRUBIN. TOTAL [PRESENCE] IN URINE BY TEST STRIP Negative 05/13 Specimen Type: URINE Comment: Microscopic not indicated Ordering Provider: JACK GONZALEZ A Report Released Date/Time: May 13, 2024 03:24 PM Reporting Lab: [address] [address] Performing Lab: [address] [address] [facility] URINALYS IS KETONES [MASS/VOLU ME] IN URINE BY TEST STRIP Negative mg/dL 05/13 Specimen Type: URINE Comment: Microscopic not indicated Ordering Provider: JACK GONZALEZ A Report Released Date/Time: May 13, 2024 03:24 PM Reporting Lab: [address] [address] Performing Lab: [address] [address] [facility] URINALYS IS PROTEIN [MASS/VOLU ME] IN URINE BY TEST STRIP Negative mg/dL 05/13 Specimen Type: URINE Comment: Microscopic not indicated Ordering Provider: JACK GONZALEZ A Report Released Date/Time: May 13, 2024 03:24 PM Reporting Lab: [address] [address] Performing Lab: [address] [address] [facility] URINALYS IS PH OF URINE BY TEST STRIP 5.5 4.5 - 8.0 05/13 Specimen Type: URINE Comment: Microscopic not indicated Ordering Provider: JACK GONZALEZ A Report Released Date/Time: May 13, 2024 03:24 PM Reporting Lab: [address] [address] Performing Lab: [address] [address] [facility] URINALYS IS NITRITE [PRESENCE] IN URINE BY TEST STRIP Negative 05/13 Specimen Type: URINE Comment: Microscopic not indicated Ordering Provider: JACK GONZALEZ IGE A Report Released Date/Time: May 13, 2024 03:24 PM Reporting Lab: [address] [address] Performing Lab: [address] [address] [facility] URINALYS IS LEUKOCYTE ESTERASE [PRESENCE] IN URINE BY TEST STRIP Negative 05/13 Specimen Type: URINE Comment: Microscopic not indicated Ordering Provider: JACK GONZALEZ A Report Released Date/Time: May 13, 2024 03:24 PM Reporting Lab: [address] [address] Performing Lab: [address] [address] [facility] URINALYS IS SPECIFIC GRAVITY OF URINE 1.014 1.005 - 1.030 05/13 Specimen Type: URINE Comment: Microscopic not indicated Ordering Provider: JACK GONZALEZ Report Released Date/Time: May 13, 2024 03:24 PM Reporting Lab: [place] [phone] Performing Lab: [address] [address] [facility] URINALYS IS GLUCOSE [MASS/VOLU ME] IN URINE BY TEST STRIP Negative mg/dL 05/13 Specimen Type: URINE Comment: Microscopic not indicated Ordering Provider: JACK GONZALEZ Report Released Date/Time: May 13, 2024 03:24 PM Reporting Lab: [address] [address] Performing Lab: [place] [phone] [facility] THYROID PROFILE THYROTROPI N [UNITS/VOL UME] IN [...] 2024 03:24 PM Reporting Lab: [place] [address] [address] Performing Lab: [address] [address] [facility] THYROID PROFILE FREE T4 0.88 [...] 13, 2024 03:24 PM Reporting Lab: [place] [address] [address] Performing Lab: [place] [phone] [facility] 25-OH VITAMIN D 25-HYDROXY VITAMIN [...] 13, 2024 03:24 PM Reporting Lab: [place] [address] [address] Performing Lab: [place] [address] [place] [address] [facility] PANEL 5 CREATININE [MASS/VOLU ME] [...] 2024 03:24 PM Reporting Lab: [place] [facility] [address] [facility] [address] Performing Lab: [place] [facility] [address] [facility] [address] [facility] PANEL 5 UREA NITROGEN [MASS/VOLU [...] 2024 03:24 PM Reporting Lab: [place] [facility] [address] [facility] [address] Performing Lab: [place] [facility] [address] [facility] [address] [facility] PANEL 5 GLUCOSE [MASS/VOLU ME] [...] May 13, 2024 03:24 PM Reporting Lab: [address] [address] Performing Lab: [address] [address] [facility] PANEL 5 SODIUM [MOLES/VOL UME] [...] May 13, 2024 03:24 PM Reporting Lab: [address] [address] Performing Lab: [address] [address] [facility] 5 POTASSIUM [MOLES/VOL UME] IN SERUM OR [...] 2024 03:24 PM Reporting Lab: [place] [address] [address] Performing Lab: [place] [address] [address] [facility] PANEL 5 CHLORIDE [MOLES/VOL UME] [...] 2024 03:24 PM Reporting Lab: [place] [address] [address] Performing Lab: [place] [address] [address] [facility] PANEL 5 CARBON DIOXIDE, TOTAL [...] 2024 03:24 PM Reporting Lab: [place] [address] [address] Performing Lab: [place] [address] [address] [facility] PANEL 5 CALCIUM [MASS/VOLU ME] [...] 2024 03:24 PM Reporting Lab: [place] [address] [address] Performing Lab: [place] [address] [address] [facility] PANEL 5 PROTEIN [MASS/VOLU ME] [...] 2024 03:24 PM Reporting Lab: [place] [address] [address] Performing Lab: [place] [address] [address] [facility] PANEL 5 ALBUMIN [MASS/VOLU ME] [...] 2024 03:24 PM Reporting Lab: [place] [address] [address] Performing Lab: [place] [address] [address] [facility] PANEL 5 BILIRUBIN. TOTAL [MASS/VOLU [...] 2024 03:24 PM Reporting Lab: [place] [address] [address] Performing Lab: [place] [address] [address] [facility] PANEL 5 ASPARTATE AMINOTRANS FERASE [...] 2024 03:24 PM Reporting Lab: [place] [address] [address] Performing Lab: [place] [address] [address] [facility] PANEL 5 ALANINE AMINOTRANS [...] 2024 03:24 PM Reporting Lab: [place] [facility] [address] [facility] [address] Performing Lab: [place] [facility] [address] [facility] [address] [facility] PANEL 5 ANION GAP 3 IN SERUM [...] 2024 03:24 PM Reporting Lab: [place] [facility] [address] [facility] [address] Performing Lab: [place] [facility] [address] [facility] [address] [facility] PANEL 5 ALKALINE PHOSPHATAS E [...] 2024 03:24 PM Reporting Lab: [place] [facility] [address] [facility] [address] Performing Lab: [place] [address] [address] [facility] PANEL 5 GLOMERULAR FILTRATION RATE/1.73 SQ M.PREDICTE [...] May 13, 2024 03:24 PM Reporting Lab: [address] [address] Performing Lab: [address] [address] [facility] Vital Signs Combined list of inpatient and outpatient Vital Signs from Department of [facility] and [facility], ranging from 12 months to all on record, depending upon the facility. Vital Sign Value Date Comments Source SYSTOLIC BLOOD PRESSURE 138 05/13/2024 14:37:00 [facility] DIASTOLIC BLOOD PRESSURE 95 05/13/2024 14:37:00 [facility] PULSE OXIMETRY 96 05/13/2024 14:37:00 L LUDMILA [facility] WEIGHT 214.0 05/13/2024 14:37:00 [facility] BMI 30 kg/m2 05/13/2024 14:37:00 [facility]GAN[place] [facility]ANE [facility] PAIN 8 05/13/2024 14:37:00 [facility] TEMPERATURE 98.2 05/13/2024 14:37:00 TIN GILMER [facility] PULSE 65 05/13/2024 14:37:00 [facility] Encounters Combined list of: 1) Encounters from Department of Veterans Affairs facilities going backup to the last 18 months, not all [place] inpatient encounters are included; 2) Encounters from the Department of [facility] facilities going backup to 280 months. Location Location Details Encounter Type Encounter Number Reason For Visit Attending Provider ADM Date DC Date Status Disposition Source [facility] Outpatient Encounter [id number] 20 04/27 [place] [facility] HEARING AID EXAM BOTH EARS [id number] Diagnos is: ICD-10- CM H90.3 Sensori neural hearing loss, vidya RAJESH Smith S 05/13 [place] [facility] Outpatient Encounter [id number] 05/13 [place] [facility] CASE MANAGEMENT [id number] Diagnos is: ICD-10- CM Z65.9 Problem related to unspeci fied psychos ocial circums MAYRA Snow 05/13 [place] [facility] OFFICE O/P EST MOD 30 MIN [id number] Diagnos is: ICD-10- CM I10 Essenti al (primar y) hyperte nsFelipa Javier 05/13 [place] [facility] HC PRO PHONE CALL 5-10 MIN [id number] Diagnos is: ICD-10- CM 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 OCTAVIA Nelson VIA Brayan 05/16 [place] [facility] Outpatient Encounter [id number] 19 05/17 [place] [facility] HC PRO PHONE CALL 5-10 MIN [id number] Diagnos is: ICD-10- CM 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 Social History Type Response Date Comment [facility] e [facility]2024 [facility]2020 [facility] of [facility]2018 [facility] History of tobacco use V9 LIFETIME NON-USER OF TOBACCO 08/20/2017 [facility] History of tobacco use HF V9 CURRENT NON-SMOKER 05/19/2002 [facility] History of tobacco use HF V9 CURRENT NON-SMOKER 01/15/2001 quit 2 yrs ago [facility] History of tobacco use NON-TOBACCO USER 08/28/1998 [facility]
--- OUTSIDE RECORDS SUMMARY | 2025-01-09 15:23 | XMS_ITS | Data Portability ---
Author Organization [place] - [facility] - [place] & [place] [facility] Address [address] [place] [phone] Assessment No assessment recorded. Plan of Treatment Reminders Order Date Submit Date Provider Last Modified By Organization Details Last Modified Time Details Appointments None recorded. Lab None recorded. Referral None recorded. Procedures None recorded. Surgeries None recorded. Imaging XR, abdomen, 1 view - please send pt back to when finished 2022 [facility] (Radiology)[address] [place], [address], 3 11:39:29 Medication Orders None recorded. Patient TargetsNo targets recorded. Patient InstructionsNo instructions recorded. Reason for Referral None Reported. Results Created Date Observation Date Name Description Value Unit Range Abnormal Flag Note LastModifiedBy Organization Detail LastModifiedTime 02/12/2002/11/2023 XR, abdom en, 1 view [facility] [place] [address] Phone: Fax: Name: RAZA COATES Exam Date: 023 : 960 Age 62 Gender : M Access ion: [id number] Physic dar: NIC DEL VALLE Facili ty: [facility] Facili ty HSV: Outpat ient Exam: ABD [...] Domenico Randall . Transc ribed by Reynaldo Estrdaa PA-C Dictat ed By: SKYLAR RANDALL Transc ribed By: SKYLAR RANDALL Transc ribed On: 023 10:22 AM Electr onical ly signed by: SKYLAR RANDALL 023 Thank you for referr RAZA Xavier S to [facility]. Legall y authen ticate d by SANCHEZ CHENG 02-11 10:22: 14 CC'ed Logic: Orderi ng Provid er: IVON Queen CC Provid er: ESTEBAN LINDQUIST Attend ing Provid er: IVON Queen Referr ing Provid er: IVON Queen Admitt ing Provid er: IVON Queen [email or web address] [facility] (Radiology) [address] [place] [address] [place], [address], 02/11/2023 15:10:44 Result Notes Documentation Provider Name and Address Organization Details Recorded Time Xr, Abdomen, 1 View : [address] [place] [address] Name: ROSELYN COATES Exam Date: 02/11/2023 : 1960 Age 62 Gender: M Physician: CUONG DEL VALLE Facility: [facility] Facility HSV: Outpatient Exam: ABD KUB 1V SINGLE VIEW ABDOMEN: HISTORY: Nephrolithiasis, intermittent pain FINDINGS: No abnormal radiopacities are seen in the abdomen. The visualized bony structures are intact. There is moderate colonic stool noted. There is no obstruction. There are no obstructing stones visualized. There are phleboliths within the pelvis appear there are degenerative changes of the spine noted. IMPRESSION: No obstructing stones visualized. Moderate colonic stool. Images reviewed, interpreted, and dictated by Dr. Domenico Randall. Transcribed by Reynaldo Estrada PA-C Dictated By: SKYLAR RANDALL Transcribed By: SKYLAR RANDALL Transcribed On: 02/11/2023 10:22 AM Electronically signed by: SKYLAR RANDALL 02/11/2023 Thank you for referring ROSELYN COATES to [facility]. Legally authenticated by SANCHEZ CHENG 2023-02-11 10:22:14 CC'ed Logic: Ordering Provider: IVON HUTCHINS CC Provider: ESTEBAN LINDQUIST Attending Provider: IVON HUTCHINS Referring Provider: IVON HUTCHINS Admitting Provider: IVON Del Valle Jr, MD [address] [place] [address], [address], [place], [address] - [facility] & [place] 02/11/2023 15:10:44 Problems Name Problem SNOMED Code Status Onset Date Resolution Date Notes Provider Name and Address Organization Details Recorded Time Hypertensive disorder 10726296 Active 2022 Ailin Fontenot null, [place] - [facility] & [place] 3 08:51:42 Problem Notes None recorded. Medical Equipment None Reported. [...] Updated DateTime 02/11/2023 172.72 cm 32.7 kg/m2 74751.36 g 97.7 [degF] Ailin Fontenot [place] - [facility] & [place] 02/11/2023 08:49:58 Social History None recorded. Functional Status None recorded. Mental Status None recorded. Family History Relationship Description Onset Age of this Age Resolved Age Notes LastModified by Organization Details LastModified Time Father Myocardial infarction [email or web address] Not available 01/18 08:50:41 Medical History No medical history recorded. Past Encounters Encounter ID Performer Location Encounter Start Date Encounter Closed Date Diagnosis/Indication Diagnosis SNOMED-CT Code Diagnosis ICD10 Code Diagnosis Note [id number] Cuong Del Valle Jr, MD [facility] [address] [address] 02/11/2023 08:40:04 02/11/2023 11:16:16 Kidney stone 33619226 N20.0 Patient with recent right-side d flank [...] Jimenez Member ID Guarantor Name 02/06/2024 1 [facility] Roselyn Coates [id number] Notes Date Note Type Note Provider Name and Address Organization Details Recorded Time 02/11/2023 text/html Patient is a 62-year-old white male with recent right-sided flank pain. He presented to [facility] on January [address] [...] as well and a CT scan at [facility] showed a 2 mm stone at that point. Cuong Del Valle Jr, MD [address] [place] [address], [address], [place], [address], [facility] [place] [facility] [place] [facility] [place] 02/11/2023 13:18:04
--- OUTSIDE RECORDS SUMMARY | 2025-01-09 15:23 | XMS_ITS | Referral Summary ---
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 Role Phone Unavailable Primary Care Provider Unavailabl e Social History Tobacco Use Types Packs/Day Years Used Date Smoking Tobacco: Never Assessed Interpersonal Safety Answer Date Record ed Family or friends hurt you Not on file 11/15 Family or friends insult you Not on file Family or friends threaten you Not on file 0 11/16/2023 Family or friends scream or curse at you Not on file 11/16/2023 Food Insecurity Answer Date Recorded Food run out past 12 months Not on file 10/19 Food did not last past 12 months Not on file 11/16/2023 Employment Answer Date Recorded Help finding and keeping a job Not on file 0 11/16/2023 Family and Community Support Answer Almas e Recorded Help with Day to Day Activities Not on file 11/16/2023 Feeling Lonely or Isolated Not on file 11/15 Educational Attainment Answer Date Pavel rded Speak language other than Venezuelan at home Not on file 11/16/2023 Want help with school or training Not on file 11/16/2023 Depression Answer Date Recorded PHQ-2 Risk Not on file 11/16/2023 Disabilities Answer Date Recorded Difficulty concentrating Not on file 024 Difficulty doing errands alone Not on file 0 11/16/2023 Substance Use Answer Date Recorded Used prescription meds for non-medical reasons N ot on file 11/16/2023 Used illegal drugs past 12 months Not on file 11/16/2023 Sex and Gender Information Value Date Recorded Sex Assigned at Not on file Legal Sex Male 8:51 AM CDT Gender Identity Not on file Sexual Orientation Not on file Plan of Treatment Not on file Insurance [facility] [address]
--- OUTSIDE RECORDS SUMMARY | 2025-01-09 15:23 | XMS_ITS | Clinical Summary ---
Author Organization [facility] In iatives Address [address] [place] [address] Care Team Providers Care Cap Coverer Name Role Phone Unavailable Primary Care Provider [...] Date Pavel rded Speak language other than Brazilian at home Not on file 11/16/2023 Want [...] Plan of Treatment Not on file Insurance [facility] [address] [facility]
--- OUTSIDE RECORDS SUMMARY | 2025-01-09 15:23 | XMS_ITS | Encounter Summary ---
Author Organization [facility] In iatives Address [address] [place] [address] Care Team Providers Care Land Appraiser Name Role Phone Unavailable Primary Care Provider Unavailabl e Reason for Referral * Consultation (Routine) - Closed Specialty Diagnoses / Procedures Referred By Contac t Referred To Contact Neurology Diagnoses DDD (degenerative disc disease), lumbar Lumbar radiculopathy Spinal stenosis of lumbar region, unspecified whether neurogenic claudication present Royer Melendez MD [address] [place] [address] [address] [place] [address] Phone: tel: fax: Irving Koenig MD Phone: tel: fax: Referral ID Status Reason Start Date Expiration Date V isits Requested Visits Authorized [id number] Closed Specialty Services Required 11/16/2023 11/15/2024 1 1 Encounter Details Date Type Department Care Team (Late st Contact Info) Description 11/16/2023 Outside Orders [facility] Neurology - [address] [facility] [address] [place] [address] Irving Koenig MD [address] [place] [address] DDD (degenerative disc disease), lumbar (Primary Dx); Lumbar radiculopathy; Spinal stenosis of lumbar region, unspecified whether neurogenic claudication present Social History Tobacco Use Types Packs/Day Years [...] Date Pavel rded Speak language other than Divehi at home Not on file 11/16/2023 Want [...] on file Sexual Orientation Not on file documented as of this encounter Plan of Treatment Scheduled Referrals Name Type Priority Associated Diagnoses Orde r Schedule Ambulatory referral to Neurology Outpatient Referral Routine DDD (degenerative disc disease), lumbar Lumbar radiculopathy Spinal stenosis of lumbar region, unspecified whether neurogenic claudication present Ordered: 11/16/2023 documented as of this encounter Visit Diagnoses Diagnosis DDD (degenerative disc disease), lumbar- Primary Degeneration of lumbar or lumbosacral intervertebral disc Lumbar radiculopathy Thoracic or lumbosacral neuritis or radiculitis, unspecified Spinal stenosis of lumbar region, unspecified whether neurogenic claudication present documented in this encounter
[2025-01-09 15:28] VITALS: BP 112/67; PULSE 73; RESP 12; O2SAT 96; BMI 31.9
--- NOTE | 2025-01-09 15:41 | EXP.PAIN.SOA ---
[facility] Disclaimer: The information contained in this section may have been updated after the patient was seen, as this information can be updated by other users. Medical History Hyperlipidemia Angina pectoris Abnormal findings on diagnostic imaging of heart/coronary circulation Family history of coronary artery disease in father Palpitations Fatigue Dizziness HTN (hypertension) Numbness and tingling of both lower extremities Back pain Family History Other No significant family history Social History Smoking Status: Never smoker alcohol intake: current substance use type: denies use current occupational status: other Travel in the last 8 weeks?: None household members: spouse housing: house marital status: education level: other service: Yes PM Subjective & Objective Subjective Subjective:: Patient is a pleasant 64-year-old male who presents today for follow-up of bilateral SI injections on 12/27/2024. He does state that it did take about 7 days for this 1 to kick in. He did have a lot of concern that it was really dental work. Patient states that he did provide significant improvements however not as well as he has gotten in the past. He is rating more of a 60% relief currently however he does also feel like some of his pain symptoms have changed. Patient is starting to experience more numbness and tingling primarily down the right leg which he did had in the past and had his last epidural that significantly helped and had not been having any issues with this since. Patient does also feel like he has gotten more pain in and around his buttocks. Patient is interested in seeing about repeating additional injections for the worsening radicular symptoms. Patient has continued conservative treatment including compounded cream, baclofen 5 mg twice a day from our office. His Mark has been reviewed and is appropriate. Review of Systems: General: No recent weight changes, no fever, no sleep disturbances Respiratory: No cough, no shortness of air, no recurring pulmonary infections Cardiovascular/peripheral vascular: No chest pain, no palpitations, no edema, no shortness of breath Gastrointestinal: No new onset incontinence, normal bowel movements reported Genitourinary: No new onset incontinence Musculoskeletal: Low back pain, right leg numbness tingling, buttocks pain Psychiatric: [Normal mood/affect] Neurological: [Denies weakness in extremities], [denies balance issues] Pain at rest (0-10 scale): 8 Objective Objective:: Physical Exam: General: Alert and oriented x3, no acute distress, pleasant and cooperative Lungs: Respirations even and unlabored, symmetrical chest expansion Eyes: PERRL Musculoskeletal: Flexion and extension of lumbar [spine] somewhat guarded secondary to pain, [antalgic gait noted] positive right leg raise Neurological: Speech clear, no gross sensory deficit Has patient had previous pain injection?: Yes Percent improvement in pain since last injection: 60% ongoing Conservative treatment options previously tried: Home exercise plan Length of treatment: Longer than 12 weeks Meds Home Medications and Allergies Home Medications ?Medication ?Instructions ?Recorded ?Confirmed ?Type diclofenac sodium 75 mg 75 mg PO BID #180 tabs 08/08/24 01/09/25 Rx tablet,delayed release lisinopril 40 mg tablet 40 mg PO DAILY 90 days #90 tabs 10/25/24 01/09/25 Rx aspirin 81 mg tablet,delayed 81 mg PO DAILY #30 tabs 11/09/24 01/09/25 Rx release (Adult Low Dose Aspirin) atorvastatin 80 mg tablet 80 mg PO DAILY #90 tabs 11/09/24 01/09/25 Rx carvedilol 3.125 mg tablet (Coreg) 3.125 mg PO BID #60 tabs 11/09/24 01/09/25 Rx prasugrel HCl 10 mg tablet 10 mg PO DAILY 90 days #90 tabs 11/23/24 01/09/25 Rx (Effient) baclofen 5 mg tablet 5 mg PO TID #90 tabs 11/30/24 01/09/25 Rx prednisone 20 mg tablet 20 mg PO BID #10 tabs 12/19/24 01/09/25 Rx amlodipine 10 mg tablet See Rx Instructions .Route 01/09/25 01/09/25 Rx .COMPLEX #90 tabs New Prescriptions to Start Prescriptions: Allergies Allergy/AdvReac Type Severity Reaction Status Date / Time No Known Allergies Allergy Verified 12/08/24 15:23 Assessment and Plan *Assessment and plan (1) Lumbar radiculopathy: Status: Acute Category: Medical Code(s): M54.16 - Radiculopathy, lumbar region (2) Degenerative disc disease, lumbar: Status: Acute Category: Medical Code(s): M51.369 - Other intervertebral disc degeneration, lumbar region without mention of lumbar back pain or lower extremity pain (3) Lumbar spinal stenosis: Status: Acute Qualifiers: Neurogenic claudication status: unspecified Qualified Code(s): M48.061 - Spinal stenosis, lumbar region without neurogenic claudication Category: Medical Code(s): M48.061 - Spinal stenosis, lumbar region without neurogenic claudication Plan Patient is experiencing worsening pain in his low back with numbness and tingling into his lower right leg. Patient did have limited range of motion of his lumbar spine with a positive leg raise. I did discuss with patient that I do believe they would benefit from a lumbar epidural steroid injection. Risk and benefits were discussed with patient and the patient would like to proceed forward with this plan of care. Patient is currently on blood thinners written by Dr. Ladd's office. We will reach out to this provider and confirm he can stop this medication prior to this injection. Patient has had chronic low back pain for longer than 6 months.. Patient has tried and failed conservative therapy including oral medications, heat and ice, topicals and continued at home stretching exercise for longer than 12 weeks between injections. Patient did previously have a lumbar epidural back in September that provided 90% relief and lasted longer than 3 months. We will schedule the patient for an LESI L4-L5 under fluoroscopy. I will also increase the concentration on his compounded cream and send in refills of his baclofen. Patient has been instructed to contact the clinic with any concerns before the next appointment. Dr. Melendez has reviewed this note and agrees with this plan of care. This note was dictated using voice recognition software and make contain errors or omissions. All injections are used with Lidocaine, Bupivacaine and dexamethasone. Occasionally urine drug screen is needed to verify patient's compliance with our office pain contract. This is ordered based off specific treatments related to chronic pain with the potential to abuse certain medications.
== END 2025-01-09 23:59 | disposition home or self-care (01) ==
PROVIDERS: PCP Nurse Practitioner Family; Visit Provider Nurse Practitioner Family
DX: M48.062 Spinal stenosis, lumbar region with neurogenic claudication (principal); M51.360 Other intervertebral disc degeneration, lumbar region with discogenic back pain only; Z79.01 Long term (current) use of anticoagulants
CPT/HCPCS: 99212; G0463

== ENCOUNTER 2025-01-17 10:10 | Outpatient (POV) | payer OTHER, SELFPAY ==
--- OUTSIDE RECORDS SUMMARY | 2025-01-09 10:22 | XMS_ITS | Continuity of Care Document ---
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 It does not include entries that were removed or entered in error. Problem Status Onset Date Problem Type Date of Resolution Comments Source Complaining of erectile dysfunction Active Condition [facility] Exposure to potentially hazardous substance (SCT [id number]) [facility] History of polyp of colon Active Condition Jun 17, 2022 Entered By: JOVANNY BRAN Comment: Cscope 03/10/2022- WNL repeat in 10y (2031) [facility] Hypertension Active Condition [facility] Personal History of Tobacco Use Active Condition [facility] Plantar Fasciitis Active Condition [facility] Tinnitus Active Condition [facility] Vitamin D deficiency Active Condition [facility] Diagnosis: ICD-10-CM H90.3 Sensorineural hearing loss, bilateral Active Diagnosis [facility] Diagnosis: ICD-10-CM Z71.89 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ed counseling Active Diagnosis [facility] Diagnosis: ICD-10-CM Z65.9 Problem related to unspecified psychosocial circumstances Active Diagnosis [facility] Diagnosis: ICD-10-CM I10 Essential (primary) hypertension Active Diagnosis [facility] Medications Combined list of outpatient medications from [facility] and [facility] facilities.Medications provided include 1) outpatient medications from the last 15 months, and 2) patient-reported medications. Medication Details Route Status Patient Instructions Prescription Expires Prescription Number Last Dispense Date Ordering Provider Order Date Order Qty Source ATORVASTATI N CA 10MG TAB TAKE ONE-HALF TABLET BY MOUTH DAILY FOR CHOLESTE ROL -DO NOT DRINK GRAPEFRU IT JUICE WHILE ON THIS DRUG ORAL ACTIVE 05/15/2025 [id number] CASEY GONZALEZ 2023 45 [place] [facility] BACLOFEN 10MG TAB TAKE ONE-HALF TABLET BY MOUTH THREE TIMES A DAY FOR MUSCLE SPASMS ORAL ACTIVE 05/14/2025 [id number] 5 CASEY GONZALEZ 2023 135 [place] [facility] DICLOFENAC NA 75MG TAB,EC TAKE ONE TABLET BY MOUTH TWICE A DAY NEEDED FOR PAIN/INF LAMMATIO N ORAL ACTIVE 05/14/2025 [id number] 5 CASEY GONZALEZ 2023 90 [place] [facility] LISINOPRIL 40MG TAB TAKE ONE-HALF TABLET BY MOUTH DAILY FOR HIGH BLOOD PRESSURE ORAL ACTIVE 05/14/2025 [id number] 5 CASEY GONZALEZ 2023 45 [place] [facility] Allergies, Adverse Reactions, Alerts Combined list of allergies from Department of Defense and Veterans Affairs facilities. It does not include entries that were removed or entered in error. Substance Category Reaction Severity Reaction type Status Date Reported Comments Source NUTS Propensity to adverse reactions to substance (finding) Eruption active 8 [facility] Immunizations Combined list of available immunizations from the Department of Defense and Veterans Affairs facilities. Immunization Series Date Given Administered By Site Reaction Lot Number CVX Code Drug White Washer Piler Status Comments Source INFLUENZA, SPLIT VIRUS, TRIVALENT, PF 2023 [place] MEDINA LEFT DELTO ID [id number] 140 complet ed Completed Series, ADMINISTE RED AT DC, [place] [facility] COVID-19 (PFIZER), MRNA, LNP-S, BIVALENT BOOSTER, PF, 30 MCG/0.3 ML DOSE 1 2021 NONE 300 complet ed PFR; [id number]; 3 [place] [facility] INFLUENZA, INJECTABLE, QUADRIVALENT, PRESERVATIVE FREE 2021 NONE 150 complet ed Booster for Series, [place] [facility] TDAP 2021 115 complet ed [place] [facility] COVID-19 (Piczo), MRNA, LNP-S, PF, 30 MCG/0.3 ML DOSE 1 2020 208 complet ed HISTORICA L INFORMATI ON - FROM OTHER REGISTRY, [place] [facility] INFLUENZA, INJECTABLE, QUADRIVALENT, PRESERVATIVE FREE 2020 NONE 150 complet ed [place] [facility] PNEUMOCOCCAL POLYSACCHARID E PPV23 2020 NONE 33 complet ed Completed Series, [place] [facility] COVID-19 (PFIZER), MRNA, LNP-S, PF, 30 MCG/0.3 ML DOSE 2 2020 208 complet ed PFR; [id number]; 1 [place] [facility] COVID-19 (PFIZER), MRNA, LNP-S, PF, 30 MCG/0.3 ML DOSE 1 2020 208 complet ed PFR; [id number]; 1 [place] [facility] INFLUENZA, INJECTABLE, QUADRIVALENT, PRESERVATIVE FREE 2019 150 complet ed [place] [facility] ZOSTER RECOMBINANT 2 2019 187 complet ed [place] [facility] INFLUENZA, INJECTABLE, QUADRIVALENT, PRESERVATIVE FREE 2018 150 complet ed [place] [facility] ZOSTER RECOMBINANT 1 2018 187 complet ed [place] [facility] HEP A, ADULT 2018 52 complet ed [place] [facility] HEP A, ADULT 2018 52 complet ed [place] [facility] INFLUENZA, SEASONAL, INJECTABLE 2018 141 complet ed [place] [facility] INFLUENZA A & B (HISTORICAL) 2017 88 complet ed [place] [facility] TDAP 2017 115 complet ed [place] [facility] TD(ADULT) UNSPECIFIED FORMULATION 1996 139 complet ed [facility] [place] [facility] Results Combined list of recent [...] May 13, 2024 03:24 PM Reporting Lab: [address] [address] Performing Lab: [address] [address] [facility] LIPID PROFILE CHOLESTERO L [...] May 13, 2024 03:24 PM Reporting Lab: [address] [address] Performing Lab: [address] [address] [facility] LIPID PROFILE TRIGLYCERI DE [...] 2024 03:24 PM Reporting Lab: [place]IA MOCK [address] [address] Performing Lab: OLIVIA MOCK [address] [address] [facility] LIPID PROFILE CHOLESTERO L [...] 2024 03:24 PM Reporting Lab: OL[place]IA MOCK [address] [address] Performing Lab: [place]IA MOCK [address] [address] [facility] LIPID PROFILE CHOLESTERO L [...] May 13, 2024 03:24 PM Reporting Lab: [address] [address] Performing Lab: [address] [address] [facility] GLYCOHEM OGLOBIN HEMOGLOBIN A1C/HEMOGL OBIN.TOTAL IN BLOOD BY HPLC 5.2 4.4 - 6.4 05/13 Specimen Type: BLOOD Comment: [facility] guidelines for A1c interpretat ion: Glycemic control targets are based on Shared Decision Making between clinicians and patients. Criteria used to establish an A1c target recommendat ion can be found at https://www .[place].gov/danny lityandpati entsafety/ and include the use of [...] 9.27. Ref: https://ngs p.org/CAPda ta.asp. The in-house Piczo-Workboard D-100 analyzer has a historical CV <= 2%. Contact the laboratory for further performance characteris tics of this assay. Ordering Provider: JACK GONZALEZ A Report Released Date/Time: May 13, 2024 03:24 PM Reporting Lab: [place] [id number] Performing Lab: [place] [id number] CBC/PLT LEUKOCYTES [#/VOLUME] IN BLOOD BY AUTOMATED COUNT 7.6 10*3/uL 5.0 - 10.0 05/13 Specimen Type: BLOOD No comment entered. Ordering Provider: JACK GONZALEZ A Report Released Date/Time: May 13, 2024 03:24 PM Reporting Lab: [place] [id number] Performing Lab: [address] CBC/PLT ERYTHROCYT ES [#/VOLUME] IN BLOOD BY AUTOMATED COUNT 4.50 10*6/uL 4.6 - 6.2 05/13 L Specimen Type: BLOOD No comment entered. Ordering Provider: JACK GONZALEZ A Report Released Date/Time: May 13, 2024 03:24 PM Reporting Lab: [place] [id number] Performing Lab: [place] [id number] CBC/PLT HEMOGLOBIN [MASS/VOLU ME] IN BLOOD 14.2 g/dL 14.0 - 18.0 05/13 Specimen Type: BLOOD No comment entered. Ordering Provider: JACK GONZALEZ A Report Released Date/Time: May 13, 2024 03:24 PM Reporting Lab: [place] [id number] Performing Lab: [place] [id number] [place] [address] CBC/PLT HEMATOCRIT [VOLUME FRACTION] OF BLOOD BY AUTOMATED COUNT 41.8 42.0 - 52.0 05/13 L Specimen Type: BLOOD No comment entered. Ordering Provider: JACK GONZALEZ A Report Released Date/Time: May 13, 2024 03:24 PM Reporting Lab: [address] [address] Performing Lab: [address] [address] [facility] CBC/PLT MCV [ENTITIC VOLUME] BY AUTOMATED COUNT 92.9 fL 80.0 - 94.0 05/13 Specimen Type: BLOOD No comment entered. Ordering Provider: JACK GONZALEZ A Report Released Date/Time: May 13, 2024 03:24 PM Reporting Lab: [address] [address] Performing Lab: [address] [address] [facility] CBC/PLT MCH [ENTITIC MASS] BY AUTOMATED COUNT 31.6 pg 27.0 - 31.0 05/13 H Specimen Type: BLOOD No comment entered. Ordering Provider: JACK GONZALEZ A Report Released Date/Time: May 13, 2024 03:24 PM Reporting Lab: [address] [address] Performing Lab: [address] [address] [facility] CBC/PLT MCHC [MASS/VOLU ME] BY AUTOMATED COUNT 34.0 g/dL 32.0 - 36.0 05/13 Specimen Type: BLOOD No comment entered. Ordering Provider: JACK GONZALEZ A Report Released Date/Time: May 13, 2024 03:24 PM Reporting Lab: [address] [address] Performing Lab: [address] [address] [facility] CBC/PLT PLATELETS [#/VOLUME] IN BLOOD 188 10*3/uL 150 - 450 05/13 Specimen Type: BLOOD No comment entered. Ordering Provider: JACK GONZALEZ A Report Released Date/Time: May 13, 2024 03:24 PM Reporting Lab: [address] [address] Performing Lab: [address] [address] [facility] CBC/PLT PLATELET MEAN VOLUME [ENTITIC VOLUME] IN BLOOD 9.9 fL 9.0 - 13.1 05/13 Specimen Type: BLOOD No comment entered. Ordering Provider: JACK GONZALEZ A Report Released Date/Time: May 13, 2024 03:24 PM Reporting Lab: [address] [address] Performing Lab: [place] [id number] [place] [address] CBC/PLT ERYTHROCYT E DISTRIBUTI ON WIDTH [ENTITIC VOLUME] BY AUTOMATED COUNT 12.5 11.0 - 16.0 05/13 Specimen Type: BLOOD No comment entered. Ordering Provider: JACK GONZALEZ A Report Released Date/Time: May 13, 2024 03:24 PM Reporting Lab: [place] [id number] Performing Lab: [place] [address] [place] [address] CBC/PLT NUCLEATED ERYTHROCYT ES/100 ERYTHROCYT ES IN BLOOD 0.0 0.0 - 0.0 05/13 Specimen Type: BLOOD No comment entered. Ordering Provider: JACK GONZALEZ A Report Released Date/Time: May 13, 2024 03:24 PM Reporting Lab: [address] [address] Performing Lab: [place] [id number] [place] [address] PSA PROSTATE SPECIFIC AG [MASS/VOLU ME] IN SERUM OR PLASMA 0.304 ng/mL 0 - 3.999 05/13 Specimen Type: SERUM No comment entered. Ordering Provider: JACK GONZALEZ A Report Released Date/Time: May 13, 2024 03:24 PM Reporting Lab: [place] [id number] Performing Lab: [place] [id number] [place] [address] URINALYS IS COLOR OF URINE Colorles s 05/13 Specimen Type: URINE Comment: Microscopic not indicated Ordering Provider: JACK GONZALEZ A Report Released Date/Time: May 13, 2024 03:24 PM Reporting Lab: [address] [address] Performing Lab: [address] [address] [facility] URINALYS IS APPEARANCE OF URINE Clear 05/13 Specimen Type: URINE Comment: Microscopic not indicated Ordering Provider: JACK GONZALEZ A Report Released Date/Time: May 13, 2024 03:24 PM Reporting Lab: [address] [address] Performing Lab: [address] [address] [facility] URINALYS IS UROBILINOG EN [MASS/VOLU ME] IN URINE BY TEST STRIP Normalmg /dL 05/13 Specimen Type: URINE Comment: Microscopic not indicated Ordering Provider: JACK GONZALEZ A Report Released Date/Time: May 13, 2024 03:24 PM Reporting Lab: [address] [address] Performing Lab: [address] [address] [facility] URINALYS IS HEMOGLOBIN [PRESENCE] IN URINE BY TEST STRIP Negative 05/13 Specimen Type: URINE Comment: Microscopic not indicated Ordering Provider: JACK GONZALEZ A Report Released Date/Time: May 13, 2024 03:24 PM Reporting Lab: [address] [address] Performing Lab: [address] [address] [facility] URINALYS IS BILIRUBIN. TOTAL [PRESENCE] IN URINE BY TEST STRIP Negative 05/13 Specimen Type: URINE Comment: Microscopic not indicated Ordering Provider: JACK GONZALEZ A Report Released Date/Time: May 13, 2024 03:24 PM Reporting Lab: [address] [address] Performing Lab: [address] [address] [facility] URINALYS IS KETONES [MASS/VOLU ME] IN URINE BY TEST STRIP Negative mg/dL 05/13 Specimen Type: URINE Comment: Microscopic not indicated Ordering Provider: JACK GONZALEZ A Report Released Date/Time: May 13, 2024 03:24 PM Reporting Lab: [address] [address] Performing Lab: [address] [address] [facility] URINALYS IS PROTEIN [MASS/VOLU ME] IN URINE BY TEST STRIP Negative mg/dL 05/13 Specimen Type: URINE Comment: Microscopic not indicated Ordering Provider: JACK GONZALEZ A Report Released Date/Time: May 13, 2024 03:24 PM Reporting Lab: [address] [address] Performing Lab: [address] [address] [facility] URINALYS IS PH OF URINE BY TEST STRIP 5.5 4.5 - 8.0 05/13 Specimen Type: URINE Comment: Microscopic not indicated Ordering Provider: JACK GONZALEZ A Report Released Date/Time: May 13, 2024 03:24 PM Reporting Lab: [address] [address] Performing Lab: [address] [address] [facility] URINALYS IS NITRITE [PRESENCE] IN URINE BY TEST STRIP Negative 05/13 Specimen Type: URINE Comment: Microscopic not indicated Ordering Provider: JACK GONZALEZ IGE A Report Released Date/Time: May 13, 2024 03:24 PM Reporting Lab: [address] [address] Performing Lab: [address] [address] [facility] URINALYS IS LEUKOCYTE ESTERASE [PRESENCE] IN URINE BY TEST STRIP Negative 05/13 Specimen Type: URINE Comment: Microscopic not indicated Ordering Provider: JACK GONZALEZ A Report Released Date/Time: May 13, 2024 03:24 PM Reporting Lab: [address] [address] Performing Lab: [address] [address] [facility] URINALYS IS SPECIFIC GRAVITY OF URINE 1.014 1.005 - 1.030 05/13 Specimen Type: URINE Comment: Microscopic not indicated Ordering Provider: JACK GONZALEZ Report Released Date/Time: May 13, 2024 03:24 PM Reporting Lab: [place] [id number] Performing Lab: [address] [address] [facility] URINALYS IS GLUCOSE [MASS/VOLU ME] IN URINE BY TEST STRIP Negative mg/dL 05/13 Specimen Type: URINE Comment: Microscopic not indicated Ordering Provider: JACK GONZALEZ Report Released Date/Time: May 13, 2024 03:24 PM Reporting Lab: [address] [address] Performing Lab: [place] [id number] [facility] THYROID PROFILE THYROTROPI N [UNITS/VOL [...] 2024 03:24 PM Reporting Lab: [place] [address] [address] Performing Lab: [address] [address] [facility] THYROID PROFILE FREE T4 [...] 13, 2024 03:24 PM Reporting Lab: [place] [address] [address] Performing Lab: [place] [id number] [facility] 25-OH VITAMIN D 25-HYDROXY [...] 13, 2024 03:24 PM Reporting Lab: [place] [address] [address] Performing Lab: [place] [address] [place] [address] [facility] PANEL 5 CREATININE [MASS/VOLU [...] 2024 03:24 PM Reporting Lab: [place] [facility] [address] [facility] [address] Performing Lab: [place] MOCK [facility] [address] [facility] [address] [facility] PANEL 5 UREA NITROGEN [...] 2024 03:24 PM Reporting Lab: [place] MOCK [facility] [address] [facility] [address] Performing Lab: OL[place]IA MOCK [facility] [address] [facility] [address] [facility] PANEL 5 GLUCOSE [MASS/VOLU [...] May 13, 2024 03:24 PM Reporting Lab: [address] [address] Performing Lab: [address] [address] [facility] PANEL 5 SODIUM [MOLES/VOL [...] May 13, 2024 03:24 PM Reporting Lab: [address] [address] Performing Lab: [address] [address] [facility] 5 POTASSIUM [MOLES/VOL UME] IN SERUM [...] 2024 03:24 PM Reporting Lab: [place] [address] [address] Performing Lab: [place] [address] [address] [facility] PANEL 5 CHLORIDE [MOLES/VOL [...] 2024 03:24 PM Reporting Lab: [place] [address] [address] Performing Lab: [place] [address] [address] [facility] PANEL 5 CARBON DIOXIDE, [...] 2024 03:24 PM Reporting Lab: [place] [address] [address] Performing Lab: OLIVIA [address] [address] [facility] PANEL 5 CALCIUM [MASS/VOLU [...] 2024 03:24 PM Reporting Lab: [place] [address] [address] Performing Lab: [place] [address] [address] [facility] PANEL 5 PROTEIN [MASS/VOLU [...] 2024 03:24 PM Reporting Lab: [place] [address] [address] Performing Lab: [place] [address] [address] [facility] PANEL 5 ALBUMIN [MASS/VOLU [...] 2024 03:24 PM Reporting Lab: [place] [address] [address] Performing Lab: [place] [address] [address] [facility] PANEL 5 BILIRUBIN. TOTAL [...] 2024 03:24 PM Reporting Lab: [place] [address] [address] Performing Lab: [place] [address] [address] [facility] PANEL 5 ASPARTATE AMINOTRANS [...] 2024 03:24 PM Reporting Lab: [place] [address] [address] Performing Lab: [place] [address] [address] [facility] PANEL 5 ALANINE AMINOTRANS [...] 2024 03:24 PM Reporting Lab: [place] [facility] [address] [facility] [address] Performing Lab: [place] MOCK [facility] [address] [facility] [address] [facility] PANEL 5 ANION GAP 3 IN [...] 2024 03:24 PM Reporting Lab: [place] [facility] [address] [facility] [address] Performing Lab: [place] MOCK [facility] [address] [facility] [address] [facility] PANEL 5 ALKALINE PHOSPHATAS [...] 2024 03:24 PM Reporting Lab: [place] [facility] [address] [facility] [address] Performing Lab: [place] [address] [address] [facility] PANEL 5 GLOMERULAR FILTRATION RATE/1.73 [...] May 13, 2024 03:24 PM Reporting Lab: [address] [address] Performing Lab: [address] [address] [facility] Vital Signs Combined list of inpatient and outpatient Vital Signs from Department of [facility] and [facility], ranging from 12 months to all on record, depending upon the facility. Vital Sign Value Date Comments Source SYSTOLIC BLOOD PRESSURE 138 05/13/2024 14:37:00 [facility] DIASTOLIC BLOOD PRESSURE 95 05/13/2024 14:37:00 [facility] PULSE OXIMETRY 96 05/13/2024 14:37:00 [facility] WEIGHT 214.0 05/13/2024 14:37:00 [facility] BMI 30 kg/m2 05/13/2024 14:37:00 [facility] PAIN 8 05/13/2024 14:37:00 [facility] TEMPERATURE 98.2 05/13/2024 14:37:00 [facility] PULSE 65 05/13/2024 14:37:00 [facility] Encounters Combined list of: 1) Encounters from Department of Veterans Affairs facilities going backup to the last 18 months, not all [place] inpatient encounters are included; 2) Encounters from the Department of [facility] facilities going backup to 280 months. Location Location Details Encounter Type Encounter Number Reason For Visit Attending Provider ADM Date DC Date Status Disposition Source [facility] Outpatient Encounter [id number] 04/27 [place] [facility] HEARING AID EXAM BOTH EARS [id number] Diagnos is: ICD-10- CM H90.3 Sensori neural hearing loss, vidya RAJESH Smith S 05/13 [place] [facility] Outpatient Encounter [id number] 05/13 [place] [facility] CASE MANAGEMENT [id number] Diagnos is: ICD-10- CM Z65.9 Problem related to unspeci fied psychos ocial circums MAYRA Snow 05/13 [place] [facility] OFFICE O/P EST MOD 30 MIN [id number] Diagnos is: ICD-10- CM I10 Essenti al (primar y) hyperte nsFelipa Javier 05/13 [place] [facility] HC PRO PHONE CALL 5-10 MIN [id number] Diagnos is: ICD-10- CM 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.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 OCTAVIA Nelson VIA Brayan 05/16 [place] [facility] Outpatient Encounter [id number] 05/17 [place] [facility] HC PRO PHONE CALL 5-10 MIN [id number] Diagnos is: ICD-10- CM 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 Social History Type Response Date Comment [facility] e Tobacco smoking status [facility] NEVER USED 05/13/2024 [facility] of [facility]2022 [facility]07/2020 [facility]2018 [facility] History of tobacco use V9 LIFETIME NON-USER OF TOBACCO 08/20/2017 [facility] History of tobacco use HF V9 CURRENT NON-SMOKER 05/19/2002 [facility] History of tobacco use HF V9 CURRENT NON-SMOKER 01/15/2001 quit 2 yrs ago [facility] History of tobacco use NON-TOBACCO USER 08/28/1998 [facility]
--- OUTSIDE RECORDS SUMMARY | 2025-01-17 10:13 | XMS_ITS | Encounter Summary ---
Author Organization [facility] [facility] ([place], [place], [place], [place]) Address [address] [place] [address] Care Team Providers Care Fire Prevention Engineer Name Role Phone Unavailable Primary Care Provider Unavailabl e Reason for Referral * Consultation (Routine) - Closed Specialty Diagnoses / Procedures Referred By Contac t Referred To Contact Neurology Diagnoses DDD (degenerative disc disease), lumbar Lumbar radiculopathy Spinal stenosis of lumbar region, unspecified whether neurogenic claudication present Royer Melendez MD [address] [facility] [address] [place] [address] Phone: tel: fax: Irving Koenig MD Phone: tel: fax: Referral ID Status Reason Start Date Expiration Date V isits Requested Visits Authorized [id number] Closed Specialty Services Required 11/16/2023 11/15/2024 1 1 Encounter Details Date Type Department Care Team (Late st Contact Info) Description 11/16/2023 Outside Orders [facility] Neurology - [address] [facility] [address] [place] [address] Irving Koenig MD [address] [place], [place] [id number] DDD (degenerative disc disease), lumbar (Primary Dx); Lumbar radiculopathy; Spinal stenosis of lumbar region, unspecified whether neurogenic claudication present Social History Tobacco Use Types Packs/Day Years Used Date Smoking Tobacco: Never Assessed Food Insecurity Answer Date Recorded Food run [...] Date Pavel rded Speak language other than Afghan at home Not on file 11/16/2023 Want help with school or training Not on file 11/16/2023 Substance Use Answer Date Recorded Used [...]
--- OUTSIDE RECORDS SUMMARY | 2025-01-17 10:13 | XMS_ITS | Clinical Summary ---
Author Organization [facility] ([place], [place], [place], [place]) Address [address] [place] [address] Care Team Providers Care Arrow Point Attacher Name Role Phone Unavailable Primary Care Provider [...] Date Pavel rded Speak language other than Estonian at home Not on file 11/16/2023 Want [...] Plan of Treatment Not on file Insurance [facility]
--- OUTSIDE RECORDS SUMMARY | 2025-01-17 10:14 | XMS_ITS | Data Portability ---
Author Organization [place] - [facility] - [place] & [place] [facility] ADMIN Address [address] [place] [id number] Assessment No assessment recorded. Plan of Treatment Reminders Order Date Submit Date Provider Last Modified By Organization Details Last Modified Time Details Appointments None recorded. Lab None recorded. Referral None recorded. Procedures None recorded. Surgeries None recorded. Imaging XR, abdomen, 1 view - please send pt back to when finished 2022 [facility] (Radiology)[address] [place], [id number], 3 11:39:29 Medication Orders None recorded. Patient TargetsNo targets recorded. Patient InstructionsNo instructions recorded. Reason for Referral None Reported. Results Created Date Observation Date Name Description Value Unit Range Abnormal Flag Note LastModifiedBy Organization Detail LastModifiedTime 02/12/20 23 02/11/2023 XR, abdom en, 1 view [facility] [address] [place] [id number] Phone: Fax: Name: RAZA COATES Exam Date: 023 : 960 Age 62 Gender : M Access ion: [id number] Physic dar: NIC DEL VALLE Facili ty: [facility] Facili ty HSV: Outpat ient Exam: [...] you for referr RAZA Xavier S to [facility]. Legall y authen ticate d by SANCHEZ CHENG 02-11 10:22: 14 CC'ed Logic: Orderi ng Provid er: IVON Queen CC Provid er: ESTEBAN LINDQUIST Attend ing Provid er: IVON Queen Referr ing Provid er: IVON Queen Admitt ing Provid er: IVON Queen [email or web address] [facility] (Radiology) [address] [place] [address] [place], [address], 02/11/2023 15:10:44 Result Notes Documentation Provider Name and Address Organization Details Recorded Time Xr, Abdomen, 1 View : [address] [place] [address] Name: ROSELYN COATES Exam Date: 02/11/2023 : 1960 Age 62 Gender: M Physician: CUONG DEL VALLE Facility: [facility] Facility HSV: Outpatient Exam: ABD KUB 1V [...] Thank you for referring ROSELYN COATES to [facility]. Legally authenticated by SANCHEZ CHENG 2023-02-11 10:22:14 CC'ed Logic: Ordering Provider: IVON HUTCHINS CC Provider: ESTEBAN LINDQUIST Attending Provider: IVON HUTCHINS Referring Provider: IVNO HUTCHINS Admitting Provider: IVON Del Valle Jr, MD [address] [place] [address], [address], [place], [address] - [facility] & [place] 02/11/2023 15:10:44 Problems Name Problem SNOMED Code Status Onset Date Resolution Date Notes Provider Name and Address Organization Details Recorded Time Hypertensive disorder 72022735 Active 2022 Ailin Fontenot null, [place] - [facility] & [place] 3 08:51:42 Problem Notes None recorded. Medical [...] Updated DateTime 02/11/2023 172.72 cm 32.7 kg/m2 33794.36 g 97.7 [degF] Ailin Fontenot [place] - [facility] & [place] 02/11/2023 08:49:58 Social History None recorded. Functional Status None recorded. Mental Status None recorded. Family History Relationship Description Onset Age of this Age Resolved Age Notes LastModified by Organization Details LastModified Time Father Myocardial infarction [email or web address] Not available 01/18 08:50:41 Medical History No medical history recorded. Past Encounters Encounter ID Performer Location Encounter Start Date Encounter Closed Date Diagnosis/Indication Diagnosis SNOMED-CT Code Diagnosis ICD10 Code Diagnosis Note [id number] Cuong Del Valle Jr, MD [facility]rology [address] [address] 02/11/2023 08:40:04 02/11/2023 11:16:16 Kidney stone [id number] N20.0 Patient with recent right-side d flank [...] Jimenez Member ID Guarantor Name 02/06/2024 1 [facility] [place] [facility] Roselyn Coates [id number] Notes Date Note Type Note Provider Name and Address Organization Details Recorded Time 02/11/2023 text/html Patient is a 62-year-old white male with recent right-sided flank pain. He presented to [facility] on January [address] [...] as well and a CT scan at [facility] showed a 2 mm stone at that point. Cuong Del Valle Jr, MD [address] [place] [address], [address], [place], [address], [facility] - [place] - [place] & [place] 02/11/2023 13:18:04
--- OUTSIDE RECORDS SUMMARY | 2025-01-17 10:14 | XMS_ITS | Referral Summary ---
Author Organization [employer] ([place], [place], [place], [place]) Address [address] [place] [address] Care Team Providers Care Varnish Mixer Name Role Phone Unavailable Primary Care Provider [...] Date Pavel rded Speak language other than Setswana at home Not on file 11/16/2023 Want [...] Plan of Treatment Not on file [facility]
[2025-01-17 10:20] VITALS: BP 140/73; PULSE 58; RESP 18; O2SAT 98; BMI 31.9
--- NOTE | 2025-01-17 10:33 | EXP.PAIN.SOA ---
[facility] Disclaimer: The information contained in this section may have been updated after the patient was seen, as this information can be updated by other users. Medical History Hyperlipidemia Angina pectoris Abnormal findings on diagnostic imaging of heart/coronary circulation Family history of coronary artery disease in father Palpitations Fatigue Dizziness HTN (hypertension) Numbness and tingling of both lower extremities Back pain Family History Other No significant family history Social History Smoking Status: Never smoker alcohol intake: current substance use type: denies use current occupational status: other Travel in the last 8 weeks?: None household members: spouse housing: house marital status: education level: other service: Yes PM Subjective & Objective Subjective Subjective:: Patient is a pleasant 64-year-old male who presents today for worsening low back and buttocks pain. He does state that he is still having the symptoms into his legs however he is not able to stop his blood thinner due to having a recent cardiac stent on November 21. Patient denies any other changes from our last visit. Patient is interested in any help we may be able to provide. Previously we had discussed the possibility of doing some piriformis injections. He does have questions today whether or not if that could be tried since he cannot do the epidurals. Patient does state the pain is worse with increased activity and is interfering with his ability perform activities of daily living such as cooking and cleaning. He does state that the increased concentration on the compounded cream did help however it is still more temporary. He does state that the baclofen 10 mg also helps but it does cause increased drowsiness so he has to take it only at night. Patient has had recent oral steroids about a month ago. His Mark has been reviewed and is appropriate. Review of Systems: General: No recent weight changes, no fever, no sleep disturbances Respiratory: No cough, no shortness of air, no recurring pulmonary infections Cardiovascular/peripheral vascular: No chest pain, no palpitations, no edema, no shortness of breath Gastrointestinal: No new onset incontinence, normal bowel movements reported Genitourinary: No new onset incontinence Musculoskeletal: Buttocks pain Psychiatric: [Normal mood/affect] Neurological: [Denies weakness in extremities], [denies balance issues] Pain at rest (0-10 scale): 8 Objective Objective:: Physical Exam: General: Alert and oriented x3, no acute distress, pleasant and cooperative Lungs: Respirations even and unlabored, symmetrical chest expansion Eyes: PERRL Musculoskeletal: Flexion and extension of lumbar [spine] somewhat guarded secondary to pain, [antalgic gait noted] point tenderness along bilateral piriformis muscles Neurological: Speech clear, no gross sensory deficit Has patient had previous pain injection?: No Conservative treatment options previously tried: Home exercise plan Length of treatment: Longer than 12 weeks Meds Home Medications and Allergies Home Medications ?Medication ?Instructions ?Recorded ?Confirmed ?Type diclofenac sodium 75 mg 75 mg PO BID #180 tabs 08/08/24 01/17/25 Rx tablet,delayed release lisinopril 40 mg tablet 40 mg PO DAILY 90 days #90 tabs 10/25/24 01/17/25 Rx aspirin 81 mg tablet,delayed 81 mg PO DAILY #30 tabs 11/09/24 01/17/25 Rx release (Adult Low Dose Aspirin) atorvastatin 80 mg tablet 80 mg PO DAILY #90 tabs 11/09/24 01/17/25 Rx carvedilol 3.125 mg tablet (Coreg) 3.125 mg PO BID #60 tabs 11/09/24 01/17/25 Rx prasugrel HCl 10 mg tablet 10 mg PO DAILY 90 days #90 tabs 11/23/24 01/17/25 Rx (Effient) prednisone 20 mg tablet 20 mg PO BID #10 tabs 12/19/24 01/17/25 Rx amlodipine 10 mg tablet See Rx Instructions .Route 01/09/25 01/17/25 Rx .COMPLEX #90 tabs baclofen 5 mg tablet 5 mg PO TID #90 tabs 01/09/25 01/17/25 Rx New Prescriptions to Start Prescriptions: Allergies Allergy/AdvReac Type Severity Reaction Status Date / Time No Known Allergies Allergy Verified 12/08/24 15:23 Assessment and Plan *Assessment and plan (1) Bilateral piriformis syndrome: Status: Acute Category: Medical Code(s): G57.03 - Lesion of sciatic nerve, bilateral lower limbs (2) Myofascial pain: Status: Acute Category: Medical Code(s): M79.18 - Myalgia, other site Plan I did review however with the patient where he does have point tenderness on his bilateral piriformis muscles during today's visit with limited range of motion that he very well may benefit from piriformis injections. Risk and benefits were discussed with patient and he would like to proceed forward with this plan of care. Patient is unable to proceed forward with any epidurals due to the recent cardiac stent and being on blood thinners. I did also discuss with the patient that I will send in methocarbamol 500 mg 3 times daily as needed for him to try during the day as it is less sedating. Patient agrees with this plan of care. Patient has tried and failed conservative therapy including oral medication, heat and ice, topicals, at home stretching exercise for longer than 12 weeks that was physician guided. Patient will be scheduled for bilateral piriformis muscle injections without fluoroscopic or ultrasound guidance. Patient agrees with this plan of care. Patient has been instructed to contact the clinic with any concerns before the next appointment. Dr. Melendez has reviewed this note and agrees with this plan of care. This note was dictated using voice recognition software and make contain errors or omissions. All injections are used with Lidocaine, Bupivacaine and dexamethasone. Occasionally urine drug screen is needed to verify patient's compliance with our office pain contract. This is ordered based off specific treatments related to chronic pain with the potential to abuse certain medications.
== END 2025-01-17 23:59 | disposition home or self-care (01) ==
PROVIDERS: PCP Nurse Practitioner Family; Visit Provider Nurse Practitioner Family
DX: G57.03 Lesion of sciatic nerve, bilateral lower limbs (principal); M79.18 Myalgia, other site; Z79.899 Other long term (current) drug therapy; Z79.01 Long term (current) use of anticoagulants
CPT/HCPCS: 99212; G0463

== ENCOUNTER 2025-02-07 08:35 | Day surgery (SDC) | payer OTHER, SELFPAY ==
[2025-02-07 08:49] VITALS: BP 160/87; PULSE 73; RESP 18; O2SAT 96; BMI 31.9
[2025-02-07] MEDS: LIDOCAINE 1% 5ML PF VIAL 5 ML (09:07)
[2025-02-07] MEDS: BUPIVACAINE 0.25% 10ML INJ 25 MG IJ (09:07)
[2025-02-07] MEDS: DEXAMETHASONE 10MG/ML 1ML VIAL 10 MG (09:07)
[2025-02-07 09:08] VITALS: BP 143/76; PULSE 89; RESP 18; O2SAT 96
[2025-02-07 09:10] VITALS: BP 143/76; PULSE 89; RESP 18; O2SAT 96
--- NOTE | 2025-02-07 09:12 | EXP.PAIN.PRO ---
Procedure Date: 02/07/25 Time: 08:55 Anesthesiologist:: Anthony Coulter CRNA Complications:: None Pre-procedure Diagnosis:: Bilateral piriformis syndrome Post-procedure Diagnosis:: Same Indications for Procedure:: Patient is a pleasant 64-year-old male who comes our clinic today for bilateral piriformis muscle injection. Patient describes bilateral buttock pain as constant, dull, aching. Patient rates his pain 7/10. He is having difficulty sitting due to the pain. Procedure Details:: Details of the procedure explained to the patient. The patient was taken to the procedure room placed in the prone position on fluoroscopy table. The area over the bilateral buttock was cleaned using chlorhexidine as a cleansing solution. Using a 22-gauge 3 and half inch spinal needle the left piriformis muscle was accessed with ease using fluoroscopy guidance. Needle position was confirmed using contrast dye 0.5 cc and a lateral spread. After negative aspiration 3 cc of 1% lidocaine +3 cc 0.25% Marcaine and 10 mg of dexamethasone was injected incrementally. The same procedure was carried out over the right piriformis muscle. Patient tolerated procedure without difficulty. There are no complications. Plan and Disposition:: Patient was discharged without incident.
[2025-02-07 09:17] VITALS: BP 128/73; PULSE 63; RESP 18; O2SAT 97
[2025-02-07] MEDS: IOPAMIDOL-200 (41%);10ML VIAL 10 ML IV (09:17)
== END 2025-02-07 09:17 | disposition home or self-care (01) ==
PROVIDERS: PCP Nurse Practitioner Family; Visit Provider Nurse Anesthetist, Certified Registered
DX: G57.03 Lesion of sciatic nerve, bilateral lower limbs (principal); M79.18 Myalgia, other site; M54.50 Low back pain, unspecified; E78.5 Hyperlipidemia, unspecified; I10 Essential (primary) hypertension; Z79.82 Long term (current) use of aspirin; Z79.899 Other long term (current) drug therapy; Z79.02 Long term (current) use of antithrombotics/antiplatelets
CPT/HCPCS: 20552; J0665; J1100; J2003; Q9966

== ENCOUNTER 2025-02-21 14:42 | Outpatient (POV) | payer OTHER, SELFPAY ==
--- OUTSIDE RECORDS SUMMARY | 2025-01-09 10:22 | XMS_ITS | Continuity of Care Document ---
Author Name [facility] Organization [facility] Care Team Providers Care Class A Regional Drivers Name Role Phone [facility] Unavailable Unavailable Problems Combined list of problems from [facility] and [facility] facilities. It does not include entries that were removed or entered in error. Problem Status Onset Date Problem Type Date of Resolution Comments Source Complaining of erectile dysfunction Active Condition [facility] Exposure to potentially hazardous substance (SCT [id number]) Active Condition [facility] History of polyp of colon Active Condition Jun 17, 2022 Entered By: JOVANNY BRAN Comment: Cscope 03/10/2022- WNL repeat in 10y (2031) [facility] Hypertension Active Condition [facility] Personal History of Tobacco Use Active Condition [facility] Plantar Fasciitis Active Condition [facility] Tinnitus Active Condition [facility] Vitamin D deficiency Active Condition [facility] Diagnosis: ICD-10-CM H90.3 Sensorineural hearing loss, bilateral Active Diagnosis [facility] Diagnosis: ICD-10-CM Z71.89 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ed counseling Active Diagnosis [facility] Diagnosis: ICD-10-CM Z65.9 Problem related to unspecified psychosocial circumstances Active Diagnosis [facility] Diagnosis: ICD-10-CM I10 Essential (primary) hypertension Active Diagnosis [facility] Medications Combined list of outpatient medications from [facility] and [facility] facilities.Medications provided include 1) outpatient medications from the last 15 months, and 2) patient-reported medications. Medication Details Route Status Patient Instructions Prescription Expires Prescription Number Last Dispense Date Ordering Provider Order Date Order Qty Source ATORVASTATI N CA 10MG TAB TAKE ONE-HALF TABLET BY MOUTH DAILY FOR CHOLESTE ROL -DO NOT DRINK GRAPEFRU IT JUICE WHILE ON THIS DRUG ORAL ACTIVE 05/15/2025 [id number] CASEY GONZALEZ 2023 45 [place] [facility] BACLOFEN 10MG TAB TAKE ONE-HALF TABLET BY MOUTH THREE TIMES A DAY FOR MUSCLE SPASMS ORAL ACTIVE 05/14/2025 [id number] 5 CASEY GOZNALEZ 2023 135 [place] [facility] DICLOFENAC NA 75MG TAB,EC TAKE ONE TABLET BY MOUTH TWICE A DAY NEEDED FOR PAIN/INF LAMMATIO N ORAL ACTIVE 05/14/2025 [id number] 5 CASEY GONZALEZ 2023 90 [place] [facility] LISINOPRIL 40MG TAB TAKE ONE-HALF TABLET BY MOUTH DAILY FOR HIGH BLOOD PRESSURE ORAL ACTIVE 05/14/2025 [id number] 5 CASEY GONZALEZ 2023 45 [place] [facility] Allergies, Adverse Reactions, Alerts Combined list of allergies from Department of Defense and Veterans Affairs facilities. It does not include entries that were removed or entered in error. Substance Category Reaction Severity Reaction type Status Date Reported Comments Source NUTS Propensity to adverse reactions to substance (finding) Eruption active 8 [facility] Immunizations Combined list of available immunizations from the Department of Defense and Veterans Affairs facilities. Immunization Series Date Given Administered By Site Reaction Lot Number CVX Code Drug Contracts Paralegal Status Comments Source INFLUENZA, SPLIT VIRUS, TRIVALENT, PF 2023 [place] MEDINA LEFT DELTO ID [id number] 140 complet ed Completed Series, ADMINISTE RED AT [place], [place] [facility] COVID-19 (PFIZER), MRNA, LNP-S, BIVALENT BOOSTER, PF, 30 MCG/0.3 ML DOSE 1 2021 NONE 300 complet ed PFR; [id number]; 3 [place] [facility] INFLUENZA, INJECTABLE, QUADRIVALENT, PRESERVATIVE FREE 2021 NONE 150 complet ed Booster for Series, [place] [facility] TDAP 2021 115 complet ed [place] [facility] COVID-19 ([email or web address]), MRNA, LNP-S, PF, 30 MCG/0.3 ML DOSE 1 2020 208 complet ed HISTORICA L INFORMATI ON - FROM OTHER REGISTRY, [place] [facility] INFLUENZA, INJECTABLE, QUADRIVALENT, PRESERVATIVE FREE 2020 NONE 150 complet ed [place] [facility] PNEUMOCOCCAL POLYSACCHARID E [id number] 2020 NONE 33 complet ed Completed Series, [place] [facility] COVID-19 (PFIZER), MRNA, LNP-S, PF, 30 MCG/0.3 ML DOSE 2 2020 208 complet ed PFR; [id number]; 1 [place] COVID-19 (PFIZER), MRNA, LNP-S, PF, 30 MCG/0.3 ML DOSE 1 2020 208 complet ed PFR; [id number]; 1 [place] INFLUENZA, INJECTABLE, QUADRIVALENT, PRESERVATIVE FREE 2019 150 complet ed [place] [facility] ZOSTER RECOMBINANT 2 2019 187 complet ed [place] [facility] INFLUENZA, INJECTABLE, QUADRIVALENT, PRESERVATIVE FREE 2018 150 complet ed [place] [facility] ZOSTER RECOMBINANT 1 2018 187 complet ed [place] [facility] HEP A, ADULT 2018 52 complet ed [place] [facility] HEP A, ADULT 2018 52 complet ed [place] [facility] INFLUENZA, SEASONAL, INJECTABLE 2018 141 complet ed [place] [facility] INFLUENZA A & B (HISTORICAL) 2017 88 complet ed [place] [facility] TDAP 2017 115 complet ed [place] [facility] TD(ADULT) UNSPECIFIED FORMULATION 1996 139 complet ed [facility] [place] [facility] Results Combined list of recent [...] May 13, 2024 03:24 PM Reporting Lab: [address] [address] Performing Lab: [address] [address] [facility] LIPID PROFILE CHOLESTERO L [MASS/VOLU ME] [...] May 13, 2024 03:24 PM Reporting Lab: [address] [address] Performing Lab: [address] [address] [facility] LIPID PROFILE TRIGLYCERI DE [MASS/VOLU ME] [...] 2024 03:24 PM Reporting Lab: OLIVIA MOCK [address] [address] Performing Lab: OLIVIA MOCK [address] [address] [facility] LIPID PROFILE CHOLESTERO L IN HDL [...] 2024 03:24 PM Reporting Lab: OLIVIA MOCK [address] [address] Performing Lab: OLIVIA MOCK [address] [address] [facility] LIPID PROFILE CHOLESTERO L IN LDL [...] May 13, 2024 03:24 PM Reporting Lab: [address] [address] Performing Lab: [address] [address] [facility] GLYCOHEM OGLOBIN HEMOGLOBIN A1C/HEMOGL OBIN.TOTAL IN BLOOD BY HPLC 5.2 4.4 - 6.4 05/13 Specimen Type: BLOOD Comment: [facility] guidelines for A1c interpretat ion: Glycemic control targets are based on Shared Decision Making between clinicians and patients. Criteria used to establish an A1c target recommendat ion can be found at https://www .ri.gov/danny lityandpati entsafety/ and include the use of [...] 9.27. Ref: https://ngs p.org/CAPda ta.asp. The in-house [employer] D-100 analyzer has a historical CV <= 2%. Contact the laboratory for further performance characteris tics of this assay. Ordering Provider: JAKC GONZALEZ A Report Released Date/Time: May 13, 2024 03:24 PM Reporting Lab: [place] [phone] Performing Lab: [place] [id number] CBC/PLT LEUKOCYTES [#/VOLUME] IN BLOOD BY AUTOMATED COUNT 7.6 10*3/uL 5.0 - 10.0 05/13 Specimen Type: BLOOD No comment entered. Ordering Provider: JACK GONZALEZ A Report Released Date/Time: May 13, 2024 03:24 PM Reporting Lab: [place] [phone] Performing Lab: [address] CBC/PLT ERYTHROCYT ES [#/VOLUME] IN BLOOD BY AUTOMATED COUNT 4.50 10*6/uL 4.6 - 6.2 05/13 L Specimen Type: BLOOD No comment entered. Ordering Provider: JACK GONZALEZ A Report Released Date/Time: May 13, 2024 03:24 PM Reporting Lab: [place] [phone] Performing Lab: [place] [phone] CBC/PLT HEMOGLOBIN [MASS/VOLU ME] IN BLOOD 14.2 g/dL 14.0 - 18.0 05/13 Specimen Type: BLOOD No comment entered. Ordering Provider: JACK GONZALEZ A Report Released Date/Time: May 13, 2024 03:24 PM Reporting Lab: [place] [phone] Performing Lab: [place] [id number] [place] [address] CBC/PLT HEMATOCRIT [VOLUME FRACTION] OF BLOOD BY AUTOMATED COUNT 41.8 42.0 - 52.0 05/13 L Specimen Type: BLOOD No comment entered. Ordering Provider: JACK GONZALEZ A Report Released Date/Time: May 13, 2024 03:24 PM Reporting Lab: [address] [address] Performing Lab: [address] [address] [facility] CBC/PLT MCV [ENTITIC VOLUME] BY AUTOMATED COUNT 92.9 fL 80.0 - 94.0 05/13 Specimen Type: BLOOD No comment entered. Ordering Provider: JACK GONZALEZ A Report Released Date/Time: May 13, 2024 03:24 PM Reporting Lab: [address] [address] Performing Lab: [address] [address] [facility] CBC/PLT MCH [ENTITIC MASS] BY AUTOMATED COUNT 31.6 pg 27.0 - 31.0 05/13 H Specimen Type: BLOOD No comment entered. Ordering Provider: JACK GONZALEZ A Report Released Date/Time: May 13, 2024 03:24 PM Reporting Lab: [address] [address] Performing Lab: [address] [address] [facility] CBC/PLT MCHC [MASS/VOLU ME] BY AUTOMATED COUNT 34.0 g/dL 32.0 - 36.0 05/13 Specimen Type: BLOOD No comment entered. Ordering Provider: JACK GONZALEZ A Report Released Date/Time: May 13, 2024 03:24 PM Reporting Lab: [address] [address] Performing Lab: [address] [address] [facility] CBC/PLT PLATELETS [#/VOLUME] IN BLOOD 188 10*3/uL 150 - 450 05/13 Specimen Type: BLOOD No comment entered. Ordering Provider: JACK GONZALEZ A Report Released Date/Time: May 13, 2024 03:24 PM Reporting Lab: [address] [address] Performing Lab: [address] [address] [facility] CBC/PLT PLATELET MEAN VOLUME [ENTITIC VOLUME] IN BLOOD 9.9 fL 9.0 - 13.1 05/13 Specimen Type: BLOOD No comment entered. Ordering Provider: JACK GONZALEZ A Report Released Date/Time: May 13, 2024 03:24 PM Reporting Lab: [address] [address] Performing Lab: [place] [phone] [place] [address] CBC/PLT ERYTHROCYT E DISTRIBUTI ON WIDTH [ENTITIC VOLUME] BY AUTOMATED COUNT 12.5 11.0 - 16.0 05/13 Specimen Type: BLOOD No comment entered. Ordering Provider: JACK GONZALEZ A Report Released Date/Time: May 13, 2024 03:24 PM Reporting Lab: [place] [phone] Performing Lab: [place] [phone] [place] [address] CBC/PLT NUCLEATED ERYTHROCYT ES/100 ERYTHROCYT ES IN BLOOD 0.0 0.0 - 0.0 05/13 Specimen Type: BLOOD No comment entered. Ordering Provider: JACK GONZALEZ A Report Released Date/Time: May 13, 2024 03:24 PM Reporting Lab: [address] [address] Performing Lab: [place] [phone] [place] [address] PSA PROSTATE SPECIFIC AG [MASS/VOLU ME] IN SERUM OR PLASMA 0.304 ng/mL 0 - 3.999 05/13 Specimen Type: SERUM No comment entered. Ordering Provider: JACK GONZALEZ A Report Released Date/Time: May 13, 2024 03:24 PM Reporting Lab: [place] [phone] Performing Lab: [place] [phone] [place] [address] URINALYS IS COLOR OF URINE Colorles s 05/13 Specimen Type: URINE Comment: Microscopic not indicated Ordering Provider: JACK GONZALEZ A Report Released Date/Time: May 13, 2024 03:24 PM Reporting Lab: [address] [address] Performing Lab: [address] [address] [facility] URINALYS IS APPEARANCE OF URINE Clear 05/13 Specimen Type: URINE Comment: Microscopic not indicated Ordering Provider: JACK GONZALEZ A Report Released Date/Time: May 13, 2024 03:24 PM Reporting Lab: [address] [address] Performing Lab: [address] [address] [facility] URINALYS IS UROBILINOG EN [MASS/VOLU ME] IN URINE BY TEST STRIP Normalmg /dL 05/13 Specimen Type: URINE Comment: Microscopic not indicated Ordering Provider: JACK GONZALEZ A Report Released Date/Time: May 13, 2024 03:24 PM Reporting Lab: [address] [address] Performing Lab: [address] [address] [facility] URINALYS IS HEMOGLOBIN [PRESENCE] IN URINE BY TEST STRIP Negative 05/13 Specimen Type: URINE Comment: Microscopic not indicated Ordering Provider: JACK GONZALEZ A Report Released Date/Time: May 13, 2024 03:24 PM Reporting Lab: [address] [address] Performing Lab: [address] [address] [facility] URINALYS IS BILIRUBIN. TOTAL [PRESENCE] IN URINE BY TEST STRIP Negative 05/13 Specimen Type: URINE Comment: Microscopic not indicated Ordering Provider: JACK GONZALEZ A Report Released Date/Time: May 13, 2024 03:24 PM Reporting Lab: [address] [address] Performing Lab: [address] [address] [facility] URINALYS IS KETONES [MASS/VOLU ME] IN URINE BY TEST STRIP Negative mg/dL 05/13 Specimen Type: URINE Comment: Microscopic not indicated Ordering Provider: JACK GONZALEZ A Report Released Date/Time: May 13, 2024 03:24 PM Reporting Lab: [address] [address] Performing Lab: [address] [address] [facility] URINALYS IS PROTEIN [MASS/VOLU ME] IN URINE BY TEST STRIP Negative mg/dL 05/13 Specimen Type: URINE Comment: Microscopic not indicated Ordering Provider: JACK GONZALEZ A Report Released Date/Time: May 13, 2024 03:24 PM Reporting Lab: [address] [address] Performing Lab: [address] [address] [facility] URINALYS IS PH OF URINE BY TEST STRIP 5.5 4.5 - 8.0 05/13 Specimen Type: URINE Comment: Microscopic not indicated Ordering Provider: JACK GONZALEZ A Report Released Date/Time: May 13, 2024 03:24 PM Reporting Lab: [address] [address] Performing Lab: [address] [address] [facility] URINALYS IS NITRITE [PRESENCE] IN URINE BY TEST STRIP Negative 05/13 Specimen Type: URINE Comment: Microscopic not indicated Ordering Provider: JACK GONZALEZ IGE A Report Released Date/Time: May 13, 2024 03:24 PM Reporting Lab: [address] [address] Performing Lab: [address] [address] [facility] URINALYS IS LEUKOCYTE ESTERASE [PRESENCE] IN URINE BY TEST STRIP Negative 05/13 Specimen Type: URINE Comment: Microscopic not indicated Ordering Provider: JACK GONZALEZ A Report Released Date/Time: May 13, 2024 03:24 PM Reporting Lab: [address] [address] Performing Lab: [address] [address] [facility] URINALYS IS SPECIFIC GRAVITY OF URINE 1.014 1.005 - 1.030 05/13 Specimen Type: URINE Comment: Microscopic not indicated Ordering Provider: JACK GONZALEZ Report Released Date/Time: May 13, 2024 03:24 PM Reporting Lab: [place] [phone] Performing Lab: [address] [address] [facility] URINALYS IS GLUCOSE [MASS/VOLU ME] IN URINE BY TEST STRIP Negative mg/dL 05/13 Specimen Type: URINE Comment: Microscopic not indicated Ordering Provider: JACK GONZALEZ Report Released Date/Time: May 13, 2024 03:24 PM Reporting Lab: [address] [address] Performing Lab: [place] [phone] [facility] THYROID PROFILE THYROTROPI N [UNITS/VOL UME] [...] 2024 03:24 PM Reporting Lab: [place] [address] [address] Performing Lab: [address] [address] [facility] THYROID PROFILE FREE T4 0.88 ng/mL [...] 13, 2024 03:24 PM Reporting Lab: OLIVIA [address] [address] Performing Lab: [place] [phone] [facility] 25-OH VITAMIN D 25-HYDROXY VITAMIN D3 [...] 13, 2024 03:24 PM Reporting Lab: OLIV[place] [address] [address] Performing Lab: [place] [address] [place] [address] [facility] PANEL 5 CREATININE [MASS/VOLU ME] IN [...] 2024 03:24 PM Reporting Lab: [place] [facility] [address] [facility] [address] Performing Lab: [place] [facility] [address] [facility] [address] [facility] PANEL 5 UREA NITROGEN [MASS/VOLU ME] [...] 2024 03:24 PM Reporting Lab: [place] MOCK [facility] [address] [facility] [address] Performing Lab: [place] [facility] [address] [facility] [address] [facility] PANEL 5 GLUCOSE [MASS/VOLU ME] IN [...] May 13, 2024 03:24 PM Reporting Lab: [address] [address] Performing Lab: [address] [address] [facility] PANEL 5 SODIUM [MOLES/VOL UME] IN [...] May 13, 2024 03:24 PM Reporting Lab: [address] [address] Performing Lab: [address] [address] [facility] 5 POTASSIUM [MOLES/VOL UME] IN SERUM [...] 2024 03:24 PM Reporting Lab: OL[place]IA MOCK [address] [address] Performing Lab: [place]OCK [address] [address] [facility] PANEL 5 CHLORIDE [MOLES/VOL UME] IN [...] 2024 03:24 PM Reporting Lab: [place] [address] [address] Performing Lab: [place] [address] [address] [facility] PANEL 5 CARBON DIOXIDE, TOTAL [MOLES/VOL [...] 2024 03:24 PM Reporting Lab: [place] MOCK [address] [address] Performing Lab: OLIVIA [address] [address] [facility] PANEL 5 CALCIUM [MASS/VOLU ME] IN [...] 2024 03:24 PM Reporting Lab: [place] [address]OCK [address] [address] Performing Lab: [place] MOCK [address] [address] [facility] PANEL 5 PROTEIN [MASS/VOLU ME] IN [...] 2024 03:24 PM Reporting Lab: [place] M[place] [address] [address] Performing Lab: [place] M[place] [address] [address] [facility] PANEL 5 ALBUMIN [MASS/VOLU ME] IN [...] 2024 03:24 PM Reporting Lab: OL[place]IA MOCK [address] [address] Performing Lab: [place] MOCK [address] [address] [facility] PANEL 5 BILIRUBIN. TOTAL [MASS/VOLU ME] [...] 2024 03:24 PM Reporting Lab: [place] MOCK [address] [address] Performing Lab: [place] MOCK [address] [address] [facility] PANEL 5 ASPARTATE AMINOTRANS FERASE [ENZYMATIC [...] 2024 03:24 PM Reporting Lab: [place] [address] [address] Performing Lab: [place] MOCK [address] [address] [facility] PANEL 5 ALANINE AMINOTRANS [...] 2024 03:24 PM Reporting Lab: [place] [facility] [address] [facility] [address] Performing Lab: [place] MOCK [facility] [address] [facility] [address] [facility] PANEL 5 ANION GAP 3 IN SERUM [...] 2024 03:24 PM Reporting Lab: [place] MOCK [facility] [address] [facility] [address] Performing Lab: [place]IA MOCK [facility] [address] [facility] [address] [facility] PANEL 5 ALKALINE PHOSPHATAS E [ENZYMATIC [...] 2024 03:24 PM Reporting Lab: [place] [facility] [address] [facility] [address] Performing Lab: [place] [address] [address] [facility] PANEL 5 GLOMERULAR FILTRATION RATE/1.73 SQ [...] May 13, 2024 03:24 PM Reporting Lab: [address] [address] Performing Lab: [address] [address] [facility] Vital Signs Combined list of inpatient and outpatient Vital Signs from Department of [facility] and [facility], ranging from 12 months to all on record, depending upon the facility. Vital Sign Value Date Comments Source SYSTOLIC BLOOD PRESSURE 138 05/13/2024 14:37:00 [facility] DIASTOLIC BLOOD PRESSURE 95 05/13/2024 14:37:00 [facility] PULSE OXIMETRY 96 05/13/2024 14:37:00 [facility] WEIGHT 214.0 05/13/2024 14:37:00 [facility] BMI 30 kg/m2 05/13/2024 14:37:00 [facility] PAIN 8 05/13/2024 14:37:00 [facility] TEMPERATURE 98.2 05/13/2024 14:37:00 [facility] PULSE 65 05/13/2024 14:37:00 [facility] Encounters Combined list of: 1) Encounters from Department of Veterans Affairs facilities going backup to the last 18 months, not all [place] inpatient encounters are included; 2) Encounters from the Department of [facility] facilities going backup to 280 months. Location Location Details Encounter Type Encounter Number Reason For Visit Attending Provider ADM Date DC Date Status Disposition Source [facility] Outpatient Encounter [id number] 04/27 [place] [facility]AR[facility] EXAM BOTH EARS [id number] Diagnos is: ICD-10- CM H90.3 Sensori neural hearing loss, vidya RAJESH Smith S 05/13 [place] [facility] Out[facility] Encounter [id number] 05/13 [place] [facility] CASE MANAGEMENT [id number] Diagnos is: ICD-10- CM Z65.9 Problem related to unspeci fied psychos ocial circums MAYRA Snow 05/13 [place] [facility] OFFICE O/P EST MOD 30 MIN [id number] Diagnos is: ICD-10- CM I10 Essenti al (primar y) hyperte nsFelipa Javier 05/13 [place] 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 Social History Type Response Date Comment [facility] e [facility]22 [facility]2020 [facility]2018 [facility] History of tobacco use V9 LIFETIME NON-USER OF TOBACCO 08/20/2017 [facility] History of tobacco use HF V9 CURRENT NON-SMOKER 05/19/2002 [facility] History of tobacco use HF V9 CURRENT NON-SMOKER 01/15/2001 quit 2 yrs ago [facility] History of tobacco use NON-TOBACCO USER 08/28/1998 [facility]
--- OUTSIDE RECORDS SUMMARY | 2025-02-21 14:45 | XMS_ITS | Clinical Summary ---
[facility] Address [address] [place] [address] Care Team Providers Care Java Developer With Security Clearance Name Role Phone Annabel Joy Primary Care Provider [phone] Social History Tobacco Use Types Packs/Day Years Used Date Smoking Tobacco: Never Assessed Abuse Screen Answer Date Recorded Unsafe at Home or Work/School Not on file Feels Threatened by Someone? Not on file 05/2023 Does Anyone Keep You from Co ntacting Others or Doint Things Outside the Home? Not on file 04/29/2023 Physical Sign of Abuse Present Not on file 1 Housing Stability Answer Date Recorded Current Living Arrangements Not on file 04/19 Potentially Unsafe Housing Conditions Not on cris e 04/29/2023 Family and Community Support Answer Almas e Recorded Help with Day-to-Day Activities Not on file 04/29/2023 Lonely or Isolated Not on file 04/29/2023 Employment Answer Date Recorded Do you want help finding or keeping work or a torin b? Not on file 04/29/2023 Disabilities Answer Date Recorded Concentrating, Remembering, or Making Decisions Difficulty Not on file 04/29/2023 Doing Errands Independently Difficulty Not on fi le 04/29/2023 Education Answer Date Recorded Help with school or training? Not on file Preferred Language Not on file 04/29/2023 Sex and Gender Information Value Date Recorded Sex Assigned at Not on file Legal Sex Male 11:54 AM EDT Gender Identity Not on file Sexual Orientation Not on file Last Filed Vital Signs Vital Sign Reading Time Taken Comments Blood Pressure 130/74 09/27/2015 4:53 PM EST Pulse 72 09/27/2015 4:53 PM EST Temperature 36.8 C (98.3 F) 09/27/2015 4:53 PM EST Respiratory Rate 20 09/27/2015 4:53 PM EST Oxygen Saturation 97% 09/27/2015 4:53 PM EST Inhaled Oxygen Concentration - - Weight 104 kg (230 lb 5 oz) 09/27/2015 4:[address] Height 172.7 cm (5' 8 ) 09/27/2015 4:53 PM EST Body Mass Index 35.02 09/27/2015 4:53 PM EST Plan of Treatment Health Maintenance Due Date Last Done Comments ANNUAL PHYSICAL 1960 HEPATITIS C SCREENING 1960 TDAP/TD VACCINES (1 - Tdap) 1979 COLOGUARD 2005 COLON CANCER SCREENING 5 YEAR SIGMOIDOSCOPY 2005 COLONOSCOPY 2005 [address] CANCER SCREENING 2005 CT COLONOGRAPHY 2005 FECAL OCCULT BLOOD TEST 2005 FIT Testing (1 year) 2005 Pneumococcal Vaccine 50+ (1 of 1 - PCV) 2010 ZOSTER VACCINE (1 of 2) 2010 COVID-19 Vaccine (1 - season) 2024 INFLUENZA VACCINE 2025 Care Teams Java Developer With Security Clearance Relationship Specialty Start Date End Date Annabel Joy [place] [address] PCP - General Physician Dimmer Board Operator 11/09/20
--- OUTSIDE RECORDS SUMMARY | 2025-02-21 14:45 | XMS_ITS | Clinical Summary ---
Author Organization [employer] ([place], [place], [place], [place]) Address [address] [place] [address] Care Team Providers Care Barrel Loader Name Role Phone Unavailable Primary Care Provider [...] Date Pavel rded Speak language other than Turkish at home Not on file 11/16/2023 Want [...] Plan of Treatment Not on file Insurance [facility]
--- OUTSIDE RECORDS SUMMARY | 2025-02-21 14:45 | XMS_ITS | Encounter Summary ---
Author Organization [employer] ([place], [place], [place], [place]) Address [address] [place] [address] Care Team Providers Care School Nurse Name Role Phone Unavailable Primary Care Provider Unavailabl e Reason for Referral * Consultation (Routine) - Closed Specialty Diagnoses / Procedures Referred By Contac t Referred To Contact Neurology Diagnoses DDD (degenerative disc disease), lumbar Lumbar radiculopathy Spinal stenosis of lumbar region, unspecified whether neurogenic claudication present Royer Melendez MD [address] [facility] [address] [place] [address] Phone: tel: fax: Irving Koenig MD Phone: tel: fax: Referral ID Status Reason Start Date Expiration Date V isits Requested Visits Authorized [id number] Closed Specialty Services Required 11/16/2023 11/15/2024 1 1 Encounter Details Date Type Department Care Team (Late st Contact Info) Description 11/16/2023 Outside Orders [facility] Neurology - [address] [facility] [address] [place] [address] Irving Koenig MD [address] [place], [place] [id number] DDD (degenerative disc disease), lumbar (Primary Dx); [...] Date Pavel rded Speak language other than Nepalese at home Not on file 11/16/2023 Want [...]
--- OUTSIDE RECORDS SUMMARY | 2025-02-21 14:46 | XMS_ITS | Referral Summary ---
Author Organization [employer] ([place], [place], [place], [place]) Address [address] [place] [address] Care Team Providers Care Iron Installer Name Role Phone Unavailable Primary Care Provider [...] Date Pavel rded Speak language other than Sri Lankan at home Not on file 11/16/2023 Want [...] Not on file Insurance [facility]
[2025-02-21 14:49] VITALS: BP 140/71; PULSE 63; RESP 14; O2SAT 97; BMI 31.1
--- NOTE | 2025-02-21 15:05 | EXP.PAIN.SOA ---
[facility] Disclaimer: The information contained in this section may have been updated after the patient was seen, as this information can be updated by other users. Medical History Hyperlipidemia Angina pectoris Abnormal findings on diagnostic imaging of heart/coronary circulation Family history of coronary artery disease in father Palpitations Fatigue Dizziness HTN (hypertension) Numbness and tingling of both lower extremities Back pain Family History Other No significant family history Social History Smoking Status: Former smoker smoking status stop date: 20 years ago alcohol intake: current substance use type: denies use current occupational status: other Travel in the last 8 weeks?: None household members: spouse housing: house marital status: education level: other service: Yes PM Subjective & Objective Subjective Subjective:: Patient is a pleasant 64-year-old male who presents today for follow-up that he is bilateral piriformis injection on 02/08/2025. Patient does state that he immediately noticed a difference following this procedure. He states that he noticed more improvement on the right but that he was able to stand straight up after having this done and felt like it immediately gave decreased pain. He states that he would rate at least 75% improvement and states it really did last for longer than a week. He states that he would rate more about 40% ongoing. He does feel like overall though that his symptoms are just progressing and that the numbness in his foot is progressively worsening. Patient is currently on blood thinners and cannot stop these in order to do an epidural as of right now. Patient does state that he would like to see about doing some updated imaging to see the progression. At his last visit we had tried methocarbamol as the baclofen had caused increased drowsiness. He states that he ended up going back to the baclofen and that it worked much better and he does not feel like he is having the fatigue like what he was initially. He denies any need for refills currently. His Mark has been reviewed and is appropriate. Review of Systems: General: No recent weight changes, no fever, no sleep disturbances Respiratory: No cough, no shortness of air, no recurring pulmonary infections Cardiovascular/peripheral vascular: No chest pain, no palpitations, no edema, no shortness of breath Gastrointestinal: No new onset incontinence, normal bowel movements reported Genitourinary: No new onset incontinence Musculoskeletal: Low back pain, leg numbness tingling Psychiatric: [Normal mood/affect] Neurological: [Denies weakness in extremities], [denies balance issues] Pain at rest (0-10 scale): 8 Objective Objective:: Physical Exam: General: Alert and oriented x3, no acute distress, pleasant and cooperative Lungs: Respirations even and unlabored, symmetrical chest expansion Eyes: PERRL Musculoskeletal: Flexion and extension of lumbar [spine] somewhat guarded secondary to pain, [antalgic gait noted] Neurological: Speech clear, no gross sensory deficit Has patient had previous pain injection?: Yes Percent improvement in pain since last injection: 75% Conservative treatment options previously tried: Home exercise plan Length of treatment: Longer than 12 weeks Meds Home Medications and Allergies Home Medications ?Medication ?Instructions ?Recorded ?Confirmed ?Type diclofenac sodium 75 mg 75 mg PO BID #180 tabs 08/08/24 02/21/25 Rx tablet,delayed release lisinopril 40 mg tablet 40 mg PO DAILY 90 days #90 tabs 10/25/24 02/21/25 Rx aspirin 81 mg tablet,delayed 81 mg PO DAILY #30 tabs 11/09/24 02/21/25 Rx release (Adult Low Dose Aspirin) atorvastatin 80 mg tablet 80 mg PO DAILY #90 tabs 11/09/24 02/21/25 Rx carvedilol 3.125 mg tablet (Coreg) 3.125 mg PO BID #60 tabs 11/09/24 02/21/25 Rx prasugrel HCl 10 mg tablet 10 mg PO DAILY 90 days #90 tabs 11/23/24 02/21/25 Rx (Effient) prednisone 20 mg tablet 20 mg PO BID #10 tabs 12/19/24 02/21/25 Rx amlodipine 10 mg tablet See Rx Instructions .Route 01/09/25 02/21/25 Rx .COMPLEX #90 tabs baclofen 5 mg tablet 5 mg PO TID #90 tabs 01/09/25 02/21/25 Rx methocarbamol 500 mg tablet 500 mg PO TID #42 tabs 01/17/25 02/21/25 Rx hydrocodone 5 mg-acetaminophen 325 1 tab PO Q6H PRN pain #12 tabs 01/19/25 02/21/25 Rx mg tablet New Prescriptions to Start Prescriptions: Allergies Allergy/AdvReac Type Severity Reaction Status Date / Time No Known Allergies Allergy Verified 01/18/25 15:40 Assessment and Plan *Assessment and plan (1) Bilateral piriformis syndrome: Status: Acute Category: Medical Code(s): G57.03 - Lesion of sciatic nerve, bilateral lower limbs (2) Myofascial pain: Status: Acute Category: Medical Code(s): M79.18 - Myalgia, other site (3) Lumbar radiculopathy: Status: Acute Category: Medical Code(s): M54.16 - Radiculopathy, lumbar region (4) Degenerative disc disease, lumbar: Status: Acute Category: Medical Code(s): M51.369 - Other intervertebral disc degeneration, lumbar region without mention of lumbar back pain or lower extremity pain Plan I did discuss with the patient that I will go ahead and put in an order for x-ray imaging so we can start the plan of care to advance to an MRI in future. Patient will return to clinic in 2 weeks for reevaluation of symptoms and plan of care. Patient has been instructed to contact the clinic with any concerns before the next appointment. Dr. Melendez has reviewed this note and agrees with this plan of care. This note was dictated using voice recognition software and make contain errors or omissions. All injections are used with Lidocaine, Bupivacaine and dexamethasone. Occasionally urine drug screen is needed to verify patient's compliance with our office pain contract. This is ordered based off specific treatments related to chronic pain with the potential to abuse certain medications.
--- NOTE | 2025-02-21 15:06 | XR_ITS ---
FINAL REPORT CLINICAL HISTORY: Low back pain COMPARISON: None FINDINGS: 3 views of the lumbar spine were obtained. There is no evidence of fracture. There is minimal spondylolisthesis of L4 on L5. The vertebrae are normal in height. Moderate disc space narrowing is noted at L1-2, L2-3, and L5-S1. There is moderate facet sclerosis in the lower lumbar spine. No paraspinous soft tissue abnormalities identified. IMPRESSION: No acute bony abnormality. Degenerative changes and minimal spondylolisthesis as above. Reviewed, Interpreted and Dictated by Darrius Byrd MD Transcribed by Juliette Mcdonald Authenticated and [facility]
== END 2025-02-21 23:59 | disposition home or self-care (01) ==
PROVIDERS: PCP Nurse Practitioner Family; Visit Provider Nurse Practitioner Family
DX: G57.03 Lesion of sciatic nerve, bilateral lower limbs (principal); M51.16 Intervertebral disc disorders with radiculopathy, lumbar region; Z79.899 Other long term (current) drug therapy
CPT/HCPCS: 72100; 99212; G0463

== ENCOUNTER 2025-03-08 15:15 | Outpatient (POV) | payer OTHER, SELFPAY ==
--- OUTSIDE RECORDS SUMMARY | 2025-01-09 10:22 | XMS_ITS | Continuity of Care Document ---
Author Name [facility] Organization [facility] Care Team Providers Care Optometrist President/Practice Owner Name Role Phone [facility] Unavailable Unavailable Problems Combined list of problems from [facility] and [facility] facilities. It does not include entries that were removed or entered in error. Problem Status Onset Date Problem Type Date of Resolution Comments Source Complaining of erectile dysfunction Active Condition [facility] Exposure to potentially hazardous substance (SCT [id number]) [facility] History of polyp of colon Active Condition Jun 17, 2022 Entered By: JOVANNY BRAN Comment: Cscope 03/10/2022- WNL repeat in 10y (2031) [facility] Hypertension Active Condition [facility] Personal History of Tobacco Use Active Condition [facility] Plantar Fasciitis Active Condition [facility] Tinnitus Active Condition [facility] Vitamin D deficiency Active Condition [facility] Diagnosis: ICD-10-CM H90.3 Sensorineural hearing loss, bilateral Active Diagnosis [facility] Diagnosis: ICD-10-CM Z71.89 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ed counseling Active Diagnosis [facility] Diagnosis: ICD-10-CM Z65.9 Problem related to unspecified psychosocial circumstances Active Diagnosis [facility] Diagnosis: ICD-10-CM I10 Essential (primary) hypertension Active Diagnosis [facility] Medications Combined list of outpatient medications from [facility] and [facility] facilities.Medications provided include 1) outpatient [...] WHILE ON THIS DRUG ORAL ACTIVE 05/15/2025 [id number] CASEY GONZALEZ 2023 45 [place] [facility] BACLOFEN 10MG TAB TAKE ONE-HALF TABLET BY MOUTH THREE TIMES A DAY FOR MUSCLE SPASMS ORAL ACTIVE 05/14/2025 [id number] CASEY GONZALEZ 2023 135 [place] [facility] DICLOFENAC NA 75MG TAB,EC TAKE ONE TABLET BY MOUTH TWICE A DAY NEEDED FOR PAIN/INF LAMMATIO N ORAL ACTIVE 05/14/2025 [id number] CASEY GONZALEZ 2023 90 [place] [facility] LISINOPRIL 40MG TAB TAKE ONE-HALF TABLET BY MOUTH DAILY FOR HIGH BLOOD PRESSURE ORAL ACTIVE 05/14/2025 [id number] 5 CASEY GONZALEZ 2023 45 [place] [facility] Allergies, Adverse Reactions, Alerts Combined list of allergies from Department of Defense and Veterans Affairs facilities. It does not include entries that were removed or entered in error. Substance Category Reaction Severity Reaction type Status Date Reported Comments Source NUTS Propensity to adverse reactions to substance (finding) Eruption active 8 [facility] Immunizations Combined list of available immunizations from the Department of Defense and Veterans Affairs facilities. Immunization Series Date Given Administered By Site Reaction Lot Number CVX Code Drug Russian Language Professor Status Comments Source INFLUENZA, SPLIT VIRUS, TRIVALENT, PF 2023 HI MEIDNA LEFT DELTO ID [id number] 140 complet ed Completed Series, ADMINISTE RED AT [place], [place] [facility] COVID-19 (PFIZER), MRNA, LNP-S, BIVALENT BOOSTER, PF, 30 MCG/0.3 ML DOSE 1 2021 NONE 300 complet ed PFR; [id number]; 3 [place] [facility] INFLUENZA, INJECTABLE, QUADRIVALENT, PRESERVATIVE FREE 2021 NONE 150 complet ed Booster for Series, [place] [facility] TDAP 2021 115 complet ed [place] [facility] COVID-19 (Aeluros), MRNA, LNP-S, PF, 30 MCG/0.3 ML DOSE 1 2020 208 complet ed HISTORICA L INFORMATI ON - FROM OTHER REGISTRY, [place] [facility] INFLUENZA, INJECTABLE, QUADRIVALENT, PRESERVATIVE FREE 2020 NONE 150 complet ed [place] [facility] PNEUMOCOCCAL POLYSACCHARID E PPV23 2020 NONE 33 complet ed Completed Series, [place] [facility] COVID-19 (PFIZER), MRNA, LNP-S, PF, 30 MCG/0.3 ML DOSE 2 2020 208 complet ed PFR; [id number]; 1 [place] COVID-19 (PFIZER), MRNA, LNP-S, PF, 30 MCG/0.3 ML DOSE 1 2020 208 complet ed PFR; [id number]; 1 [place] INFLUENZA, INJECTABLE, QUADRIVALENT, PRESERVATIVE FREE 2019 150 complet ed [place] [facility] ZOSTER RECOMBINANT 2 2019 187 complet ed [place] [facility] INFLUENZA, INJECTABLE, QUADRIVALENT, PRESERVATIVE FREE 2018 150 complet ed [place] [facility] ZOSTER RECOMBINANT 1 2018 187 complet ed [place] [facility] HEP A, ADULT 2018 52 complet ed [place] [facility] HEP A, ADULT 2018 52 complet ed [place] [facility] INFLUENZA, SEASONAL, INJECTABLE 2018 141 complet ed [place] [facility] INFLUENZA A & B (HISTORICAL) 2017 88 complet ed [place] [facility] TDAP 2017 115 complet ed [place] [facility] TD(ADULT) UNSPECIFIED FORMULATION 1996 139 [facility] ed [facility] [place] [facility] Results Combined list of recent [...] May 13, 2024 03:24 PM Reporting Lab: [address] [address] Performing Lab: [address] [address] [facility] LIPID PROFILE CHOLESTERO L [...] May 13, 2024 03:24 PM Reporting Lab: [address] [address] Performing Lab: [address] [address] [facility] LIPID PROFILE TRIGLYCERI DE [...] 2024 03:24 PM Reporting Lab: OLIVIA MOCK [address] [address] Performing Lab: OLIVIA MOCK [address] [address] [facility] LIPID PROFILE CHOLESTERO L [...] 2024 03:24 PM Reporting Lab: OLIVIA MOCK [address] [address] Performing Lab: OLIVIA MOCK [address] [address] [facility] LIPID PROFILE CHOLESTERO L [...] May 13, 2024 03:24 PM Reporting Lab: [address] [address] Performing Lab: [address] [address] [facility] GLYCOHEM OGLOBIN HEMOGLOBIN A1C/HEMOGL OBIN.TOTAL IN BLOOD BY HPLC 5.2 4.4 - 6.4 05/13 Specimen Type: BLOOD Comment: [facility] guidelines for A1c interpretat ion: Glycemic control targets are based on Shared Decision Making between clinicians and patients. Criteria used to establish an A1c target recommendat ion can be found at https://www .[place].gov/danny lityandpati entsafety/ and include the use of [...] 9.27. Ref: https://ngs p.org/CAPda ta.asp. The in-house [employer] of Skin-BIOCUREX D-100 analyzer has a historical CV <= 2%. Contact the laboratory for further performance characteris tics of this assay. Ordering Provider: JACK GONZALEZ A Report Released Date/Time: May 13, 2024 03:24 PM Reporting Lab: [place] [phone] Performing Lab: [place] [phone] CBC/PLT LEUKOCYTES [#/VOLUME] IN BLOOD BY AUTOMATED COUNT 7.6 10*3/uL 5.0 - 10.0 05/13 Specimen Type: BLOOD No comment entered. Ordering Provider: JACK GONZALEZ A Report Released Date/Time: May 13, 2024 03:24 PM Reporting Lab: [place] [phone] Performing Lab: [address] CBC/PLT ERYTHROCYT ES [#/VOLUME] IN BLOOD BY AUTOMATED COUNT 4.50 10*6/uL 4.6 - 6.2 05/13 L Specimen Type: BLOOD No comment entered. Ordering Provider: JACK GONZALEZ A Report Released Date/Time: May 13, 2024 03:24 PM Reporting Lab: [place] [phone] Performing Lab: [place] [phone] CBC/PLT HEMOGLOBIN [MASS/VOLU ME] IN BLOOD 14.2 g/dL 14.0 - 18.0 05/13 Specimen Type: BLOOD No comment entered. Ordering Provider: JACK GONZALEZ A Report Released Date/Time: May 13, 2024 03:24 PM Reporting Lab: [place] [phone] Performing Lab: [place] [phone] [place] [address] CBC/PLT HEMATOCRIT [VOLUME FRACTION] OF BLOOD BY AUTOMATED COUNT 41.8 42.0 - 52.0 05/13 L Specimen Type: BLOOD No comment entered. Ordering Provider: JACK GONZALEZ A Report Released Date/Time: May 13, 2024 03:24 PM Reporting Lab: [address] [address] Performing Lab: [address] [address] [facility] CBC/PLT MCV [ENTITIC VOLUME] BY AUTOMATED COUNT 92.9 fL 80.0 - 94.0 05/13 Specimen Type: BLOOD No comment entered. Ordering Provider: JACK GONZALEZ A Report Released Date/Time: May 13, 2024 03:24 PM Reporting Lab: [address] [address] Performing Lab: [address] [address] [facility] CBC/PLT MCH [ENTITIC MASS] BY AUTOMATED COUNT 31.6 pg 27.0 - 31.0 05/13 H Specimen Type: BLOOD No comment entered. Ordering Provider: JACK GONZALEZ A Report Released Date/Time: May 13, 2024 03:24 PM Reporting Lab: [address] [address] Performing Lab: [address] [address] [facility] CBC/PLT MCHC [MASS/VOLU ME] BY AUTOMATED COUNT 34.0 g/dL 32.0 - 36.0 05/13 Specimen Type: BLOOD No comment entered. Ordering Provider: JACK GONZALEZ A Report Released Date/Time: May 13, 2024 03:24 PM Reporting Lab: [address] [address] Performing Lab: [address] [address] [facility] CBC/PLT PLATELETS [#/VOLUME] IN BLOOD 188 10*3/uL 150 - 450 05/13 Specimen Type: BLOOD No comment entered. Ordering Provider: JACK GONZALEZ A Report Released Date/Time: May 13, 2024 03:24 PM Reporting Lab: [address] [address] Performing Lab: [address] [address] [facility] CBC/PLT PLATELET MEAN VOLUME [ENTITIC VOLUME] IN BLOOD 9.9 fL 9.0 - 13.1 05/13 Specimen Type: BLOOD No comment entered. Ordering Provider: JACK GONZALEZ A Report Released Date/Time: May 13, 2024 03:24 PM Reporting Lab: [address] [address] Performing Lab: [place] [phone] [place] [address] CBC/PLT ERYTHROCYT E DISTRIBUTI ON WIDTH [ENTITIC VOLUME] BY AUTOMATED COUNT 12.5 11.0 - 16.0 05/13 Specimen Type: BLOOD No comment entered. Ordering Provider: JACK GONZALEZ A Report Released Date/Time: May 13, 2024 03:24 PM Reporting Lab: [place] [phone] Performing Lab: [place] [address] [place] [address] CBC/PLT NUCLEATED ERYTHROCYT ES/100 ERYTHROCYT ES IN BLOOD 0.0 0.0 - 0.0 05/13 Specimen Type: BLOOD No comment entered. Ordering Provider: JACK GONZALEZ A Report Released Date/Time: May 13, 2024 03:24 PM Reporting Lab: [address] [address] Performing Lab: [place] [phone] [place] [address] PSA PROSTATE SPECIFIC AG [MASS/VOLU ME] IN SERUM OR PLASMA 0.304 ng/mL 0 - 3.999 05/13 Specimen Type: SERUM No comment entered. Ordering Provider: JACK GONZALEZ A Report Released Date/Time: May 13, 2024 03:24 PM Reporting Lab: [place] [phone] Performing Lab: [place] [phone] [place] [address] URINALYS IS COLOR OF URINE Colorles s 05/13 Specimen Type: URINE Comment: Microscopic not indicated Ordering Provider: JACK GONZALEZ A Report Released Date/Time: May 13, 2024 03:24 PM Reporting Lab: [address] [address] Performing Lab: [address] [address] [facility] URINALYS IS APPEARANCE OF URINE Clear 05/13 Specimen Type: URINE Comment: Microscopic not indicated Ordering Provider: JACK GONZALEZ A Report Released Date/Time: May 13, 2024 03:24 PM Reporting Lab: [address] [address] Performing Lab: [address] [address] [facility] URINALYS IS UROBILINOG EN [MASS/VOLU ME] IN URINE BY TEST STRIP Normalmg /dL 05/13 Specimen Type: URINE Comment: Microscopic not indicated Ordering Provider: JACK GONZALEZ A Report Released Date/Time: May 13, 2024 03:24 PM Reporting Lab: [address] [address] Performing Lab: [address] [address] [facility] URINALYS IS HEMOGLOBIN [PRESENCE] IN URINE BY TEST STRIP Negative 05/13 Specimen Type: URINE Comment: Microscopic not indicated Ordering Provider: JACK GONZALEZ A Report Released Date/Time: May 13, 2024 03:24 PM Reporting Lab: [address] [address] Performing Lab: [address] [address] [facility] URINALYS IS BILIRUBIN. TOTAL [PRESENCE] IN URINE BY TEST STRIP Negative 05/13 Specimen Type: URINE Comment: Microscopic not indicated Ordering Provider: JACK GONZALEZ A Report Released Date/Time: May 13, 2024 03:24 PM Reporting Lab: [address] [address] Performing Lab: [address] [address] [facility] URINALYS IS KETONES [MASS/VOLU ME] IN URINE BY TEST STRIP Negative mg/dL 05/13 Specimen Type: URINE Comment: Microscopic not indicated Ordering Provider: JACK GONZALEZ A Report Released Date/Time: May 13, 2024 03:24 PM Reporting Lab: [address] [address] Performing Lab: [address] [address] [facility] URINALYS IS PROTEIN [MASS/VOLU ME] IN URINE BY TEST STRIP Negative mg/dL 05/13 Specimen Type: URINE Comment: Microscopic not indicated Ordering Provider: JACK GONZALEZ A Report Released Date/Time: May 13, 2024 03:24 PM Reporting Lab: [address] [address] Performing Lab: [address] [address] [facility] URINALYS IS PH OF URINE BY TEST STRIP 5.5 4.5 - 8.0 05/13 Specimen Type: URINE Comment: Microscopic not indicated Ordering Provider: JACK GONZALEZ A Report Released Date/Time: May 13, 2024 03:24 PM Reporting Lab: [address] [address] Performing Lab: [address] [address] [facility] URINALYS IS NITRITE [PRESENCE] IN URINE BY TEST STRIP Negative 05/13 Specimen Type: URINE Comment: Microscopic not indicated Ordering Provider: JACK GONZALEZ IGE A Report Released Date/Time: May 13, 2024 03:24 PM Reporting Lab: [address] [address] Performing Lab: [address] [address] [facility] URINALYS IS LEUKOCYTE ESTERASE [PRESENCE] IN URINE BY TEST STRIP Negative 05/13 Specimen Type: URINE Comment: Microscopic not indicated Ordering Provider: JACK GONZALEZ A Report Released Date/Time: May 13, 2024 03:24 PM Reporting Lab: [address] [address] Performing Lab: [address] [address] [facility] URINALYS IS SPECIFIC GRAVITY OF URINE 1.014 1.005 - 1.030 05/13 Specimen Type: URINE Comment: Microscopic not indicated Ordering Provider: JACK GONZALEZ Report Released Date/Time: May 13, 2024 03:24 PM Reporting Lab: [place] [phone] Performing Lab: [address] [address] [facility] URINALYS IS GLUCOSE [MASS/VOLU ME] IN URINE BY TEST STRIP Negative mg/dL 05/13 Specimen Type: URINE Comment: Microscopic not indicated Ordering Provider: JACK GONZALEZ Report Released Date/Time: May 13, 2024 03:24 PM Reporting Lab: [address] [address] Performing Lab: [place] [phone] [facility] THYROID PROFILE THYROTROPI N [UNITS/VOL UME] IN [...] 2024 03:24 PM Reporting Lab: OL[facility]IA MOCK [address] [address] Performing Lab: [address] [address] [facility] THYROID PROFILE FREE T4 [...] 13, 2024 03:24 PM Reporting Lab: OLIVIA [address] [address] Performing Lab: [place] [phone] [facility] 25-OH VITAMIN D 25-HYDROXY VITAMIN D3 [...] 13, 2024 03:24 PM Reporting Lab: OLIVIA [address] [address] Performing Lab: [place] [address] [place] [address] [facility] PANEL 5 CREATININE [MASS/VOLU [...] 2024 03:24 PM Reporting Lab: [place] MOCK [facility] [address] [facility] [address] Performing Lab: [place] M[facility] [address] [facility] [address] [facility] PANEL 5 UREA NITROGEN [...] 2024 03:24 PM Reporting Lab: [place] MOCK [facility] [address] [facility] [address] Performing Lab: OL[facility]IA MOCK [facility] [address] [facility] [address] [facility] PANEL 5 GLUCOSE [MASS/VOLU [...] May 13, 2024 03:24 PM Reporting Lab: [address] [address] Performing Lab: [address] [address] [facility] PANEL 5 SODIUM [MOLES/VOL [...] May 13, 2024 03:24 PM Reporting Lab: [address] [address] Performing Lab: [address] [address] [facility] 5 POTASSIUM [MOLES/VOL UME] IN SERUM OR [...] 2024 03:24 PM Reporting Lab: OLIVIA MOCK [address] [address] Performing Lab: OL[place]IA MOCK [address] [address] [facility] PANEL 5 CHLORIDE [MOLES/VOL [...] 2024 03:24 PM Reporting Lab: OL[place]IA MOCK [address] [address] Performing Lab: OL[place]IA MOCK [address] [address] [facility] PANEL 5 CARBON DIOXIDE, [...] 2024 03:24 PM Reporting Lab: OL[place]IA MOCK [address] [address] Performing Lab: OL[place]IA [address] [address] [facility] PANEL 5 CALCIUM [MASS/VOLU [...] 2024 03:24 PM Reporting Lab: [place] [address] [address] [address] Performing Lab: OL[place]IA MOCK [address] [address] [facility] PANEL 5 PROTEIN [MASS/VOLU [...] 2024 03:24 PM Reporting Lab: [place] MOCK [address] [address] Performing Lab: OL[place]IA MOCK [address] [address] [facility] PANEL 5 ALBUMIN [MASS/VOLU [...] 2024 03:24 PM Reporting Lab: OL[place]IA MOCK [address] [address] Performing Lab: OL[place]IA MOCK [address] [address] [facility] PANEL 5 BILIRUBIN. TOTAL [...] 2024 03:24 PM Reporting Lab: [place] [facility] [address] [address] Performing Lab: OL[place]IA MOCK [address] [address] [facility] PANEL 5 ASPARTATE AMINOTRANS [...] 2024 03:24 PM Reporting Lab: OL[place]IA MOCK [address] [address] Performing Lab: OL[place]IA MOCK [address] [address] [facility] PANEL 5 ALANINE AMINOTRANS FERASE [ENZYMATIC ACTIVITY/V [...] 2024 03:24 PM Reporting Lab: OL[facility]IA MOCK [facility] [address] [facility] [address] Performing Lab: [place] MOCK [facility] [address] [facility] [address] [facility] PANEL 5 ANION GAP 3 IN SERUM [...] decrease <15 G5 Kidney failure Ordering Provider: AJCK GONZALEZ Report Released Date/Time: May 13, 2024 03:24 PM Reporting Lab: [place] [facility] [address] [facility] [address] Performing Lab: OL[facility]IA MOCK [facility] [address] [facility] [address] [facility] PANEL 5 ALKALINE PHOSPHATAS [...] 2024 03:24 PM Reporting Lab: [place] M[place] [facility] [address] [facility] [address] Performing Lab: [place]IA MOCK [address] [address] [facility] PANEL 5 GLOMERULAR FILTRATION RATE/1.73 SQ [...] May 13, 2024 03:24 PM Reporting Lab: [address] [address] Performing Lab: [address] [address] [facility] Vital Signs Combined list of inpatient and outpatient Vital Signs from Department of [facility] and [facility], ranging from 12 months to all on record, depending upon the facility. Vital Sign Value Date Comments Source SYSTOLIC BLOOD PRESSURE 138 05/13/2024 14:37:00 [facility] DIASTOLIC BLOOD PRESSURE 95 05/13/2024 14:37:00 [facility] PULSE OXIMETRY 96 05/13/2024 14:37:00 [facility] WEIGHT 214.0 05/13/2024 14:37:00 [facility] BMI 30 kg/m2 05/13/2024 14:37:00 [facility] PAIN 8 05/13/2024 14:37:00 [facility] TEMPERATURE 98.2 05/13/2024 14:37:00 TIN G[facility] PULSE 65 05/13/2024 14:37:00 [facility] Encounters Combined list of: 1) Encounters from Department of Veterans Affairs facilities going backup to the last 18 months, not all [place] inpatient encounters are included; 2) Encounters from the Department of [facility] facilities going backup to 280 months. Location Location Details Encounter Type Encounter Number Reason For Visit Attending Provider ADM Date DC Date Status Disposition Source [facility] Outpatient Encounter [id number] 04/27 [place] [facility] HEARING AID EXAM BOTH EARS [id number] Diagnos is: ICD-10- CM H90.3 Sensori neural hearing loss, vidya RAJESH Smith S 05/13 [place] [facility] Outpatient Encounter [id number] 05/13 [place] [facility] CASE MANAGEMENT [id number] Diagnos is: ICD-10- CM Z65.9 Problem related to unspeci fied psychos ocial circums MAYRA Snow 05/13 [place] [facility] OFFICE O/P EST MOD 30 MIN [id number] Diagnos is: ICD-10- CM I10 Essenti al (primar y) hyperte nsFelipa Javier 05/13 [place] [facility] HC PRO PHONE CALL 5-10 MIN [id number] Diagnos is: ICD-10- CM 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.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 OCTAVIA Nelson VIA Brayan 05/16 [place] [facility] Outpatient Encounter [id number] 05/17 [place] [facility] HC PRO PHONE CALL 5-10 MIN [id number] Diagnos is: ICD-10- CM Z71.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 Social History Type Response Date Comment [facility] e [facility]2024 [facility] of [facility]/07/2020 [facility] of [facility]21/2018 [facility] History of tobacco use V9 LIFETIME NON-USER OF TOBACCO 08/20/2017 [facility] History of tobacco use HF V9 CURRENT NON-SMOKER 05/19/2002 [facility] History of tobacco use HF V9 CURRENT NON-SMOKER 01/15/2001 quit 2 yrs ago [facility] History of tobacco use NON-TOBACCO USER 08/28/1998 [facility]
--- OUTSIDE RECORDS SUMMARY | 2025-03-08 15:22 | XMS_ITS | Clinical Summary ---
[facility] Address [address] [place] [address] Care Team Providers Care Archivist Political History Name Role Phone Annabel Joy Primary Care Provider [phone] Social History Tobacco Use Types Packs/Day Years [...] season) 2024 INFLUENZA VACCINE 2025 Care Teams Archivist Political History Relationship Specialty Start Date End Date Annabel Joy [place] [address] PCP - General Physician General Accounting Clerk 11/09/20
[2025-03-08 15:40] VITALS: BP 140/77; PULSE 73; RESP 16; O2SAT 97; BMI 31.1
--- NOTE | 2025-03-08 15:40 | EXP.PAIN.SOA ---
[facility] Disclaimer: The information contained in this section may have been updated after the patient was seen, as this information can be updated by other users. Medical History Hyperlipidemia Angina pectoris Abnormal findings on diagnostic imaging of heart/coronary circulation Family history of coronary artery disease in father Palpitations Fatigue Dizziness HTN (hypertension) Numbness and tingling of both lower extremities Back pain Family History Other No significant family history Social History Smoking Status: Former smoker smoking status stop date: 20 years ago alcohol intake: current substance use type: denies use current occupational status: other Travel in the last 8 weeks?: None household members: spouse housing: house marital status: education level: other service: Yes Have you lived/traveled outside [place] in past 30 days?: No Contact w/someone who lives/traveled outside [place] past 30 days?: No Exposure to someone with infectious disease in past 14 days?: No Do you have a fever (greater than 100.4 F or 38 C)?: No Have you tested positive for COVID-19?: No Exposed to someone with COVID-19 in past 14 days?: No Do you have a sore throat?: No Do you have a cough?: No Do you have any weakness?: No Do you have any diarrhea?: No Are you experiencing any unusual bleeding?: No Do you have any muscle aches/pain?: No Do you have any abdominal pain?: No Are you experiencing loss of taste or smell?: No PM Subjective & Objective Subjective Subjective:: Patient is a pleasant 64-year-old male who presents today for follow-up of his x-ray imaging of his lumbar spine. Today he rates his pain an 8 out of 10. He denies any new trauma or injury from our last visit. He is still having that same chronic low back pain. Patient does have a going into his extremities however he has recently been put on blood thinners and is unable to stop these for full 6 months. Patient did officially go on to the blood thinners around November of this year. Patient is currently managed with baclofen from our office. He denies any side effects. His Mark has been reviewed and is appropriate. Review of Systems: General: No recent weight changes, no fever, no sleep disturbances Respiratory: No cough, no shortness of air, no recurring pulmonary infections Cardiovascular/peripheral vascular: No chest pain, no palpitations, no edema, no shortness of breath Gastrointestinal: No new onset incontinence, normal bowel movements reported Genitourinary: No new onset incontinence Musculoskeletal: Chronic back and leg pain Psychiatric: [Normal mood/affect] Neurological: [Denies weakness in extremities], [denies balance issues] Pain at rest (0-10 scale): 8 Objective Objective:: Physical Exam: General: Alert and oriented x3, no acute distress, pleasant and cooperative Lungs: Respirations even and unlabored, symmetrical chest expansion Eyes: PERRL Musculoskeletal: Flexion and extension of lumbar [spine] somewhat guarded secondary to pain, [antalgic gait noted] Neurological: Speech clear, no gross sensory deficit Has patient had previous pain injection?: No Conservative treatment options previously tried: Home exercise plan Length of treatment: Longer than 12 weeks Meds Home Medications and Allergies Home Medications ?Medication ?Instructions ?Recorded ?Confirmed ?Type diclofenac sodium 75 mg 75 mg PO BID #180 tabs 08/08/24 02/21/25 Rx tablet,delayed release lisinopril 40 mg tablet 40 mg PO DAILY 90 days #90 tabs 10/25/24 02/21/25 Rx aspirin 81 mg tablet,delayed 81 mg PO DAILY #30 tabs 11/09/24 02/21/25 Rx release (Adult Low Dose Aspirin) atorvastatin 80 mg tablet 80 mg PO DAILY #90 tabs 11/09/24 02/21/25 Rx prasugrel HCl 10 mg tablet 10 mg PO DAILY 90 days #90 tabs 11/23/24 02/21/25 Rx (Effient) prednisone 20 mg tablet 20 mg PO BID #10 tabs 12/19/24 02/21/25 Rx amlodipine 10 mg tablet See Rx Instructions .Route 01/09/25 02/21/25 Rx .COMPLEX #90 tabs baclofen 5 mg tablet 5 mg PO TID #90 tabs 01/09/25 02/21/25 Rx methocarbamol 500 mg tablet 500 mg PO TID #42 tabs 01/17/25 02/21/25 Rx hydrocodone 5 mg-acetaminophen 325 1 tab PO Q6H PRN pain #12 tabs 01/19/25 02/21/25 Rx mg tablet carvedilol 3.125 mg tablet (Coreg) 3.125 mg PO BID #60 tabs 03/08/25 Rx New Prescriptions to Start Prescriptions: Allergies Allergy/AdvReac Type Severity Reaction Status Date / Time No Known Allergies Allergy Verified 01/18/25 15:40 Assessment and Plan *Assessment and plan (1) Lumbar radiculopathy: Status: Acute Category: Medical Code(s): M54.16 - Radiculopathy, lumbar region (2) Degenerative disc disease, lumbar: Status: Acute Category: Medical Code(s): M51.369 - Other intervertebral disc degeneration, lumbar region without mention of lumbar back pain or lower extremity pain Plan We did review over the possibility of ordering advanced imaging coming up. Patient is having insurance changes after 20 March. We will wait and follow-up at his next visit regarding ordering the MRI. Patient will return to clinic in 6 weeks. Patient has been instructed to contact the clinic with any concerns before the next appointment. Dr. Melendez has reviewed this note and agrees with this plan of care. This note was dictated using voice recognition software and make contain errors or omissions. All injections are used with Lidocaine, Bupivacaine and dexamethasone. Occasionally urine drug screen is needed to verify patient's compliance with our office pain contract. This is ordered based off specific treatments related to chronic pain with the potential to abuse certain medications.
== END 2025-03-08 23:59 | disposition home or self-care (01) ==
LOC: SC.PAIN 15:16
PROVIDERS: PCP Nurse Practitioner Family; Visit Provider Nurse Practitioner Family
DX: M51.16 Intervertebral disc disorders with radiculopathy, lumbar region (principal); Z79.01 Long term (current) use of anticoagulants; Z79.899 Other long term (current) drug therapy
CPT/HCPCS: 99212; G0463

== ENCOUNTER 2025-06-13 13:52 | Day surgery (SDC) | payer MEDICARE, SELFPAY ==
[2025-06-13 14:01] VITALS: BP 136/81; PULSE 88; RESP 18; O2SAT 96; BMI 30.9
[2025-06-13 14:04] VITALS: BP 153/78; PULSE 90; RESP 18; O2SAT 96
[2025-06-13] MEDS: DEXAMETHASONE 10MG/ML 1ML VIAL 10 MG (14:10)
[2025-06-13] MEDS: BUPIVACAINE 0.25% 10ML INJ 25 MG IJ (14:10)
[2025-06-13] MEDS: LIDOCAINE 1% 5ML PF VIAL 5 ML (14:10)
[2025-06-13 14:12] VITALS: BP 153/78; PULSE 90; RESP 18; O2SAT 96
--- NOTE | 2025-06-13 14:14 | P.PCN_ITS ---
Procedure Date: 06/13/25 Time: 14:15 Anesthesiologist:: Iraj Coulter CRNA Complications:: None Pre-procedure Diagnosis:: Bilateral sacroiliitis Post-procedure Diagnosis:: Same Indications for Procedure:: Patient is a 65-year-old male who comes our clinic today for bilateral sacroilia c joint injections local anesthetic and cortisone. He describes low lumbar back pain that is constant, dull, aching. He also reports bilateral hip pain. He reports difficulty with ambulation due to the low lumbar back pain. He rates his pain 7/10. Procedure Details:: Procedure: Bilateral sacroiliac joint injections under fluoroscopy Informed consent was obtained and the risks and benefits of the procedure were explained to the patient.~ The patient was taken to the procedure room and noninvasive monitors were placed including a noninvasive blood pressure cuff and pulse oximeter.~ The patient was placed prone on the procedure table. Both hips were cleansed using Betadine as a cleansing solution. C-arm fluoroscopy was used to view the right sacroiliac joint.~ The skin and subcutaneous tissues were anesthetized using lidocaine 1.5% and a 25-gauge needle.~ After this, a 22-gauge spinal needle was inserted under fluoroscopic guidance into the inferior aspect of the right sacroiliac joint.~ Omnipaque dye was injected and good spread was seen throughout the joint.~ After this, approximately 5 mL of bupivacaine, 0.25% and dexamethasone 5 mg was incrementally injected into the right sacroiliac joint. We then moved to the left sacroiliac joint.~ The skin and subcutaneous tissues were anesthetized using lidocaine 1.5% and a 25-gauge needle.~ After this, a 22- gauge spinal needle was inserted under fluoroscopic guidance into the inferior aspect of the left sacroiliac joint.~ Omnipaque dye was injected and good spread was seen throughout the joint. After this, approximately 5 mL of bupivacaine, 0.25% and dexamethasone 5 mg was incrementally injected into the left sacroiliac joint.~ The patient tolerated the procedure well with no complications. The patient was observed in the Pain Clinic and then was discharged home neurologically intact. Plan and Disposition:: Patient was discharged without incident.
== END 2025-06-13 14:18 | disposition home or self-care (01) ==
PROVIDERS: PCP Nurse Practitioner Family; Visit Provider Nurse Anesthetist, Certified Registered
DX: M46.1 Sacroiliitis, not elsewhere classified (principal); I10 Essential (primary) hypertension; E78.5 Hyperlipidemia, unspecified; Z87.891 Personal history of nicotine dependence; Z79.899 Other long term (current) drug therapy
CPT/HCPCS: G0260; J0665; J1100; J2003